=== PATIENT | female | born 1960 | race Caucasian/White ===

== ENCOUNTER 2017-02-23 14:12 | Inpatient (IN) | payer BC ==
[2017-02-23 16:39] VITALS: BMI 23.1
--- NOTE | 2017-02-23 19:33 | HP ---
CIWA Score - CIWA Score Nausea/Vomitin-No Nausea/No Vomiting Muscle Tremors: 4-Moderate,w/Arms Extend Anxiety: 4-Mod. Anxious/Guarded Agitation: 4-Moderately Restless Paroxysmal Sweats: 1-Minimal Palms Moist Orientation: 1-Uncertain about Date Tacttile Disturbances: 0-None Auditory Disturbances: 0-None Visual Disturbances: 0-None Headache: 0-None Present CIWA-Ar Total Score: 14 Admission ROS S - HPI Chief Complaint: withdrawal sx Allergies/Adverse Reactions: Allergies Allergy/AdvReac Type Severity Reaction Status Date / Time Sulfa (Sulfonamide Allergy Verified 02/23/17 19:31 Antibiotics) History of Present Illness: 56 years old female with long history of alcohol cocaine nicotine dependence has hiv seizure right leg chronic pain, and depression is admitted to detox Exam Limitations: No Limitations - Ebola screening Have you traveled outside of the country in the last 21 days: No Have you had contact with anyone from an Ebola affected area: No Have you been sick,other than usual withdrawal symptoms: No Do you have a fever: No - Review of Systems Constitutional: Loss of Appetite, Changes in sleep, Unintentional Wgt. Loss EENT: reports: Blurred Vision (eye glasses), Dental Problems (upper denture broken 10/2016) Respiratory: reports: SOB with Exertion, Productive cough (greenish) Cardiac: reports: No Symptoms Reported GI: reports: Poor Appetite, Poor Fluid Intake, Abdominal cramping : reports: No Symptoms Reported Musculoskeletal: reports: Back Pain, Muscle Pain (right leg pain) Integumentary: reports: No Symptoms Reported Neuro: reports: Seizure (xanax alcohol related seizures x 25 years last episode 2008), Tremors Endocrine: reports: No Symptoms Reported Hematology: reports: No Symptoms Reported Psychiatric: reports: Judgement Intact, Orientated x3, Anxious, Depressed Other Systems: Reviewed and Negative Patient History - Patient Medical History Hx Anemia: No Hx Asthma: No Hx Chronic Obstructive Pulmonary Disease (COPD): Yes Hx Cancer: Yes Hx Cardiac Disorders: No Hx Congestive Heart Failure: No Hx Hypertension: No Hx Hypercholesterolemia: No Hx Pacemaker: No HX Cerebrovascular Accident: No Hx Seizures: Yes Hx Dementia: No Hx Diabetes: No Hx Gastrointestinal Disorders: No Hx Liver Disease: No Hx Genitourinary Disorders: No Hx Sexually Transmitted Disorders: No Hx Renal Disease (ESRD): No Hx Thyroid Disease: No Hx Human Immunodeficiency Virus (HIV): Yes (1988) Hx Hepatitis C: No Hx Depression: Yes Hx Suicide Attempt: No Hx Bipolar Disorder: No Hx Schizophrenia: No - Patient Surgical History Past Surgical History: No - PPD History Previous Implant?: Yes Documented Results: Negative w/proof Implanted On Prior [facility] Admission?: No PPD to be Administered?: Yes - Reproductive History Patient is a Female of Child Bearing Age (11 -55 yrs old): No Last Menstrual Period: 02/23/11 Patient : No - Smoking Cessation Smoking history: Current every day smoker Have you smoked in the past 12 months: Yes Aproximately how many cigarettes per day: 20 Cigars Per Day: 0 Hx Chewing Tobacco Use: No Initiated information on smoking cessation: Yes 'Breaking Loose' booklet given: 02/23/17 - Substance & Tx. History Hx Alcohol Use: Yes Hx Substance Use: Yes Substance Use Type: Alcohol, Cocaine Hx Substance Use Treatment: Yes (05/2016 [facility]) - Substances Abused Alcohol Route: Oral Frequency: Daily Amount used: quart vodka Age of first use: 13 Date of Last Use: 02/23/17 Family Disease History - Family Disease History Family Disease History: Heart Disease: Brother (), Other: Father ( old age), Mother ( liver), Brother Admission Physical Exam S - Vital Signs Vital Signs: Vital Signs - 24 hr 02/23/17 16:36 Temperature 97 F L Pulse Rate 98 H Respiratory 20 Rate Blood Pressure 100/66 - Physical General Appearance: Yes: Appropriately Dressed, Mild Distress, Thin, Tremorous, Irritable, Sweating, Anxious HEENTM: Yes: Hearing grossly Normal, Normal ENT Inspection, Normocephalic, Normal Voice Respiratory: Yes: Chest Non-Tender, Lungs Clear, Normal Breath Sounds, No Respiratory Distress, No Accessory Muscle Use Neck: Yes: Supple, Trachea in good position Breast: Yes: Breasts Symetrical Cardiology: Yes: Regular Rhythm, S1, S2, Tachycardia Abdominal: Yes: Normal Bowel Sounds, Non Tender, Soft Genitourinary: Yes: Within Normal Limits Back: Yes: Normal Inspection Musculoskeletal: Yes: full range of Motion, Gait Steady, Muscle Pain (right leg) Extremities: Yes: Normal Inspection, Non-Tender, Tremors Neurological: Yes: Alert, Normal Response, Depressed Affect Integumentary: Yes: Warm Lymphatic: Yes: Within Normal Limits - Diagnostic (1) Alcohol dependence with uncomplicated withdrawal Current Visit: Yes Status: Acute (2) Depression Current Visit: Yes Status: Suspected Qualifiers: Depression Type: dysthymia Qualified Code(s): F34.1 - Dysthymic disorder; F34.1 - Dysthymic disorder; F34.1 - Dysthymic disorder (3) HIV (human immunodeficiency virus infection) Current Visit: Yes Status: Chronic (4) Seizure Current Visit: Yes Status: Chronic (5) Chronic leg pain Current Visit: Yes Status: Chronic Qualifiers: Laterality: right Qualified Code(s): M79.604 - Pain in right leg; M79.604 - Pain in right leg; G89.29 - Other chronic pain; G89.29 - Other chronic pain (6) Weight loss Current Visit: Yes Status: Acute (7) Asthma Current Visit: Yes Status: Chronic Qualifiers: Asthma severity: mild Asthma persistence: intermittent Asthma complication type: with status asthmaticus Qualified Code(s): J45.22 - Mild intermittent asthma with status asthmaticus; J45.22 - Mild intermittent asthma with status asthmaticus; J45.22 - Mild intermittent asthma with status asthmaticus (8) COPD (chronic obstructive pulmonary disease) Current Visit: Yes Status: Chronic Qualifiers: COPD type: chronic bronchitis (9) Neuropathy Current Visit: Yes Status: Chronic Cleared for Admission [facility] - Detox or Rehab S Level of Care: Medically Managed Detox Regimen/Protocol: Valium [facility] Breath Alcohol Content Breath Alcohol Content: 0.125 Urine Pregancy Test - Result Urine Test Results: Negative- NO Line Present Urine Drug Screen - Results Drug Screen Negative: No Urine Drug Screen Results: HANG-Cocaine, TCA-Tricyclic Antidepress
[2017-02-23] MEDS ORDERED: diphenhydrAMINE HCL 50 MG CAPSULE PO PRN (19:36)
[2017-02-23] MEDS ORDERED: IBUPROFEN 400 MG TABLET (FP) PO PRN (19:36)
[2017-02-23] MEDS ORDERED: MAG HYDROX/AL HYDROX/SIMETH 30 ML UNIT-DOSE CUP PO PRN (19:36)
[2017-02-23] MEDS ORDERED: diazePAM 5 MG TABLET PO ONE (19:36)
[2017-02-23] MEDS ORDERED: ACETAMINOPHEN 325 MG TABLET (FP) PO PRN (19:36)
[2017-02-23] MEDS ORDERED: LOPERAMIDE HCL 2 MG CAPSULE PO PRN (19:36)
[2017-02-23] MEDS ORDERED: NICOTINE POLACRILEX 4 MG GUM BC PRN (19:36)
[2017-02-23] MEDS ORDERED: MAGNESIUM CITRATE 300 ML BOTTLE PO PRN (19:36)
[2017-02-23] MEDS ORDERED: P-EPHED 60MG/TRIPROLIDI 2.5MG TABLET PO PRN (19:36)
[2017-02-23] MEDS ORDERED: MENTHOL/PHENOL 1 EACH UD MM PRN (19:36)
[2017-02-23] MEDS: GABAPENTIN 300 MG CAPSULE (FP) PO SCH (22:10)
[2017-02-23] MEDS: AMOXICILLIN 500 MG CAPSULE (FP) PO SCH (22:11)
[2017-02-23] MEDS: levETIRAcetam 500 MG TABLET (FP) PO SCH (22:11)
[2017-02-23] MEDS: THIAMINE HCL 100 MG TABLET (FP) PO SCH (22:11)
[2017-02-23] MEDS: MINERAL OIL/PETROLAT/WATER TOPICAL CREAM 113 GM JAR TP SCH (23:09)
[2017-02-23] MEDS: diazePAM 5 MG TABLET PO SCH (23:12)
[2017-02-24 01:23] LABS: URINE APPEARANCE SLCLOUDY; URINE BILIRUBIN NEGATIVE (NEGATIVE); URINE BLOOD NEGATIVE (NEGATIVE); URINE COLOR YELLOW; URINE GLUCOSE (UA) NEGATIVE (NEGATIVE); URINE KETONE NEGATIVE (NEGATIVE); URINE NITRITE POSITIVE (NEGATIVE); URINE PROTEIN NEGATIVE (NEGATIVE); URINE UROBILINOGEN NEGATIVE mg/dL (0.2-1.0)
[2017-02-24 01:54] LABS: URINE BACTERIA MANY /hpf (NONE SEEN); URINE MUCUS FEW; URINE WBC 25-30 /hpf (3-5)
[2017-02-24] MEDS: diazePAM 5 MG TABLET PO SCH ×3 (05:34→22:45)
[2017-02-24] MEDS: GABAPENTIN 300 MG CAPSULE (FP) PO SCH ×3 (05:34→22:46)
[2017-02-24] MEDS: AMOXICILLIN 500 MG CAPSULE (FP) PO SCH ×3 (05:34→22:46)
--- NOTE | 2017-02-24 08:25 | CONSULT ---
[facility] Psychiatric Consult - Data Date of interview: 02/24/17 Admission source: [facility] Identifying data: This is 56 years old female with no psychiatric hospitalization history intoxicated wioth: Alcohol, Cocaine and Nicotine Substance Abuse History: Drug Screen Negative: No. Urine Drug Screen Results: HANG-Cocaine, TCA-Tricyclic Antidepress - Smoking Cessation. Smoking history: Current every day smoker. Have you smoked in the past 12 months: Yes. Aproximately how many cigarettes per day: 20. Cigars Per Day: 0. Hx Chewing Tobacco Use: No. Initiated information on smoking cessation: Yes. 'Breaking Loose' booklet given: 02/23/17. - Substance & Tx. History. Hx Alcohol Use: Yes. Hx Substance Use: Yes. Substance Use Type: Alcohol, Cocaine. Hx Substance Use Treatment: Yes (05/2016 [facility]). - Substances Abused. Alcohol. Route: Oral. Frequency: Daily. Amount used: quart vodka. Age of first use: 13. Date of Last Use: 02/23/17 Medical History: Weight loss, Asthma, COPD, HIV+, Seizure history Psychiatric History: Patient reports history of depression, reports taking prior to admission: Seroquel 300mg po qhs. Celexa 40mg poqd. Gabapentin 600mg po tid Physical/Sexual Abuse/Trauma History: Denies Additional Comment: Drug Screen Negative: No. Urine Drug Screen Results: HANG- Cocaine, TCA-Tricyclic Antidepress Seroquel 300mg po qhs. Celexa 40mg poqd. Gabapentin 600mg po tid Mental Status Exam - Mental Status Exam Alert and Oriented to: Person Cognitive Function: Fair Patient Appearance: Well Groomed Mood: Nervous, Anxious Affect: Mood Congruent Patient Behavior: Cooperative Speech Pattern: Appropriate Voice Loudness: Normal Thought Process: Goal Oriented Thought Disorder: Being Controlled Hallucinations: Denies Suicidal Ideation: Denies Homicidal Ideation: Denies Insight/Judgement: Fair Sleep: Difficulty falling asleep Appetite: Weight loss Muscle strength/Tone: Normal Gait/Station: Normal Additional Comments: Seroquel 300mg po qhs. Celexa 40mg poqd. Gabapentin 600mg po tid Psychiatric Findings - Problem List ([place] 1, 2,3) (1) Alcohol dependence with uncomplicated withdrawal Current Visit: Yes Status: Acute (2) Cocaine abuse Current Visit: Yes Status: Acute (3) Nicotine dependence Current Visit: Yes Status: Acute (4) Drug-induced mood disorder Current Visit: Yes Status: Acute - Initial Treatment Plan Initial Treatment Plan: Drug Screen Negative: No. Urine Drug Screen Results: HANG-Cocaine, TCA-Tricyclic Antidepress
[2017-02-24 09:46] LABS: URINE LEUK ESTERASE 3+ (NEGATIVE)
[2017-02-24 10:09] LABS: MCH 34.9 pg (25.7-33.7); MCHC 33.5 g/dl (32.0-36.0); MEAN CELL VOLUME 104.2 fl (80-96); MEAN PLT VOLUME 7.2 fl (7.5-11.1); PLATELET COUNT 434 K/MM3 (134-434); RDW 13.8 % (11.6-15.6); WHITE BLOOD COUNT 9.7 K/mm3 (4.0-10.0)
[2017-02-24] MEDS: diazePAM 5 MG TABLET PO PRN ×2 (10:34→17:35)
[2017-02-24] MEDS: levETIRAcetam 500 MG TABLET (FP) PO SCH ×2 (10:34→22:46)
[2017-02-24] MEDS: CITALOPRAM HYDROBROMIDE 20 MG TABLET (FP) PO SCH (10:34)
[2017-02-24] MEDS: NICOTINE 21 MG/24 HOURS TOPICAL PATCH TD SCH (10:34)
[2017-02-24] MEDS: PRENATAL VITAMINS W/ FOLIC ACID TABLET (FP) PO SCH (10:34)
[2017-02-24] MEDS: EMTRICITAB/RILPIVIRINE/TENOFOV 1 EACH TABLET PO SCH (10:35)
--- NOTE | 2017-02-24 10:45 | EKG ---
Test Reason : Blood Pressure : / mmHG Vent. Rate : 092 BPM Atrial Rate : 092 BPM P-R Int : 148 ms QRS Dur : 074 ms QT Int : 374 ms P-R-T Axes : 044 023 036 degrees QTc Int : 462 ms NORMAL SINUS RHYTHM NORMAL ECG NO PREVIOUS ECGS AVAILABLE Confirmed by ANTHONY COYLE MD ([id number]) on 02/24/2017 10:44:48 AM Referred By: Confirmed By:ANTHONY COYLE MD
--- NOTE | 2017-02-24 11:03 | PN ---
S CIWA - CIWA Score Nausea/Vomitin-No Nausea/No Vomiting Muscle Tremors: 4-Moderate,w/Arms Extend Anxiety: 3 Agitation: 3 Paroxysmal Sweats: 3 Orientation: 0-Oriented Tacttile Disturbances: 0-None Auditory Disturbances: 0-None Visual Disturbances: 0-None Headache: 0-None Present CIWA-Ar Total Score: 13 [facility] Progress Note (SOAP) Subjective: bodyaches sweats shakes interrupted sleep Objective: 02/24/17 11:03 Vital Signs Temperature 96.5 F L 02/24/17 10:11 Pulse Rate 96 H 02/24/17 10:11 Respiratory Rate 18 02/24/17 10:11 Blood Pressure 115/76 02/24/17 10:11 O2 Sat by Pulse Oximetry (%) Laboratory Tests 02/23/17 02/24/17 02/24/17 22:44 07:00 07:00 WBC 9.7 RBC 3.73 Hgb 13.0 Hct 38.9 MCV 104.2 H MCH 34.9 H MCHC 33.5 RDW 13.8 Plt Count 434 MPV 7.2 L Sodium 141 Potassium 4.5 Chloride 107 Urine Color Yellow Urine Appearance Slcloudy Urine pH 6.0 Ur Specific [place] 1.010 Urine Protein Negative Urine Glucose (UA) Negative Urine Ketones Negative Urine Blood Negative Urine Nitrite Positive Urine Bilirubin Negative Urine Urobilinogen Negative Ur Leukocyte Esterase 3+ H Urine RBC 2-4 Urine WBC 25-30 Ur Epithelial Cells Few Urine Bacteria Many Urine Mucus Few labs pending aaox3 no acute distress ambulating repeat u/a Assessment: 02/24/17 11:04 withdrawal sx Plan: continue detox increase fluids labs pending
[2017-02-24 11:07] LABS: ALBUMIN 3.1 g/dl (3.4-5.0); ALK PHOS 78 U/L (45-117); ANION GAP 10 (8-16); BILIRUBIN,TOTAL 0.7 mg/dL (0.2-1.0); CALCIUM 8.8 mg/dL (8.5-10.1); CO2 24 mmol/L (21-32); CREATININE 0.9 mg/dL (0.55-1.02); GLUCOSE,RANDOM 122 mg/dL (74-106); SGOT/AST 24 U/L (15-37); SGPT/ALT 33 U/L (12-78); THYROID STIMULATING HORMONE 1.34 uIU/ml (0.358-3.74); TOT PROT 7.1 g/dl (6.4-8.2)
[2017-02-24] MEDS ORDERED: FLU VACCINE QUAD 60 MCG/0.5 ML (MDV 17-18) IM ONE (12:00)
[2017-02-24] MEDS: MAGNESIUM HYDROX 2400MG/30ML ORAL SUSPENSION 30 ML CUP PO PRN (12:43)
[2017-02-24] MEDS: THIAMINE HCL 100 MG TABLET (FP) PO SCH (22:45)
[2017-02-24] MEDS: QUEtiapine FUMARATE 300 MG TABLET PO SCH (22:46)
[2017-02-24] MEDS: MINERAL OIL/PETROLAT/WATER TOPICAL CREAM 113 GM JAR TP SCH (22:48)
[2017-02-24] MEDS: ALBUTEROL SO4 18 GM HFA INHALER IH PRN (22:52)
[2017-02-25] MEDS: AMOXICILLIN 500 MG CAPSULE (FP) PO SCH ×3 (05:36→22:15)
[2017-02-25] MEDS: GABAPENTIN 300 MG CAPSULE (FP) PO SCH ×3 (05:36→22:17)
[2017-02-25] MEDS: diazePAM 5 MG TABLET PO PRN ×3 (05:38→19:04)
[2017-02-25] MEDS: EMTRICITAB/RILPIVIRINE/TENOFOV 1 EACH TABLET PO SCH (07:18)
[2017-02-25] MEDS: PRENATAL VITAMINS W/ FOLIC ACID TABLET (FP) PO SCH (10:44)
[2017-02-25] MEDS: levETIRAcetam 500 MG TABLET (FP) PO SCH ×2 (10:44→22:16)
[2017-02-25] MEDS: NICOTINE 21 MG/24 HOURS TOPICAL PATCH TD SCH (10:44)
[2017-02-25] MEDS: diazePAM 5 MG TABLET PO SCH ×2 (10:44→22:17)
[2017-02-25] MEDS: CITALOPRAM HYDROBROMIDE 20 MG TABLET (FP) PO SCH (10:44)
--- NOTE | 2017-02-25 11:04 | PN ---
S CIWA - CIWA Score Nausea/Vomitin Muscle Tremors: 2 Anxiety: 2 Agitation: 2 Paroxysmal Sweats: 3 Orientation: 0-Oriented Tacttile Disturbances: 2-Mild Itch/Numbness/Burn Auditory Disturbances: 0-None Visual Disturbances: 0-None Headache: 0-None Present CIWA-Ar Total Score: 14 S Progress Note (SOAP) Subjective: sweats, shakes, nausea,cough Objective: 02/25/17 11:01 Vital Signs Temperature 97.3 F L 02/25/17 06:00 Pulse Rate 81 02/25/17 06:00 Respiratory Rate 18 02/25/17 06:00 Blood Pressure 102/72 02/25/17 06:00 O2 Sat by Pulse Oximetry (%) Laboratory Tests 02/23/17 02/24/17 02/24/17 22:44 07:00 07:00 WBC 9.7 RBC 3.73 Hgb 13.0 Hct 38.9 MCV 104.2 H MCH 34.9 H MCHC 33.5 RDW 13.8 Plt Count 434 MPV 7.2 L Sodium 141 Potassium 4.5 Chloride 107 Carbon Dioxide 24 Anion Gap 10 BUN 16 Creatinine 0.9 Creat Clearance w eGFR > 60 Random Glucose 122 H Calcium 8.8 Total Bilirubin 0.7 AST 24 ALT 33 Alkaline Phosphatase 78 Total Protein 7.1 Albumin 3.1 L TSH 1.34 Urine Color Yellow Urine Appearance Slcloudy Urine pH 6.0 Ur Specific [place] 1.010 Urine Protein Negative Urine Glucose (UA) Negative Urine Ketones Negative Urine Blood Negative Urine Nitrite Positive Urine Bilirubin Negative Urine Urobilinogen Negative Ur Leukocyte Esterase 3+ H Urine RBC 2-4 Urine WBC 25-30 Ur Epithelial Cells Few Urine Bacteria Many Urine Mucus Few RPR Titer 02/24/17 07:00 WBC RBC Hgb Hct MCV MCH MCHC RDW Plt Count MPV Sodium Potassium Chloride Carbon Dioxide Anion Gap BUN Creatinine Creat Clearance w eGFR Random Glucose Calcium Total Bilirubin AST ALT Alkaline Phosphatase Total Protein Albumin TSH Urine Color Urine Appearance Urine pH Ur Specific [place] Urine Protein Urine Glucose (UA) Urine Ketones Urine Blood Urine Nitrite Urine Bilirubin Urine Urobilinogen Ur Leukocyte Esterase Urine RBC Urine WBC Ur Epithelial Cells Urine Bacteria Urine Mucus RPR Titer Nonreactive pt aox3 in nad ambulating occas cough - tx'ed with z-case by pmd no sob lungs clear Assessment: 02/25/17 11:03 withdrawal sx's uri Plan: cont. detox increase fluids robitussin prn
[2017-02-25] MEDS: MAGNESIUM HYDROX 2400MG/30ML ORAL SUSPENSION 30 ML CUP PO PRN (19:06)
[2017-02-25] MEDS: guaiFENesin/D-METHORPHAN HB 10 ML UNIT-DOSE CUPS PO PRN (19:07)
[2017-02-25] MEDS: MINERAL OIL/PETROLAT/WATER TOPICAL CREAM 113 GM JAR TP SCH (22:16)
[2017-02-25] MEDS: THIAMINE HCL 100 MG TABLET (FP) PO SCH (22:17)
[2017-02-25] MEDS: QUEtiapine FUMARATE 300 MG TABLET PO SCH (22:17)
[2017-02-25] MEDS: ALBUTEROL SO4 18 GM HFA INHALER IH PRN (22:20)
[2017-02-26] MEDS: AMOXICILLIN 500 MG CAPSULE (FP) PO SCH ×3 (05:34→22:28)
[2017-02-26] MEDS: GABAPENTIN 300 MG CAPSULE (FP) PO SCH ×3 (05:34→22:28)
[2017-02-26] MEDS: diazePAM 5 MG TABLET PO PRN ×4 (05:35→17:41)
[2017-02-26] MEDS: EMTRICITAB/RILPIVIRINE/TENOFOV 1 EACH TABLET PO SCH (07:52)
[2017-02-26] MEDS: guaiFENesin/D-METHORPHAN HB 10 ML UNIT-DOSE CUPS PO PRN ×2 (07:53→13:37)
[2017-02-26] MEDS ORDERED: hydrOXYzine PAMOATE 25 MG CAPSULE (FP) PO PRN (09:01)
[2017-02-26] MEDS: BACLOFEN 10 MG TABLET (FP) PO PRN ×2 (10:46→22:24)
[2017-02-26] MEDS: NICOTINE 21 MG/24 HOURS TOPICAL PATCH TD SCH (10:47)
[2017-02-26] MEDS: diazePAM 5 MG TABLET PO SCH ×2 (10:47→22:24)
[2017-02-26] MEDS: CITALOPRAM HYDROBROMIDE 20 MG TABLET (FP) PO SCH (10:47)
[2017-02-26] MEDS: PRENATAL VITAMINS W/ FOLIC ACID TABLET (FP) PO SCH (10:47)
[2017-02-26] MEDS: levETIRAcetam 500 MG TABLET (FP) PO SCH ×2 (10:47→22:29)
--- NOTE | 2017-02-26 13:38 | PN ---
S Progress Note (SOAP) Subjective: ALERT,IRRITABLE,ANXIOUS,INTERRUPTED SLEEP Objective: 02/26/17 13:37 Vital Signs Temperature 96.8 F L 02/26/17 10:45 Pulse Rate 93 H 02/26/17 10:45 Respiratory Rate 18 02/26/17 10:45 Blood Pressure 102/62 02/26/17 10:45 O2 Sat by Pulse Oximetry (%) Assessment: 02/26/17 13:37 WITHDRAWAL SYMPTOM Plan: CONTINUE DETOX,DISCHARGE IN AM
[2017-02-26] MEDS: THIAMINE HCL 100 MG TABLET (FP) PO SCH (22:24)
[2017-02-26] MEDS: QUEtiapine FUMARATE 300 MG TABLET PO SCH (22:27)
[2017-02-26] MEDS: MINERAL OIL/PETROLAT/WATER TOPICAL CREAM 113 GM JAR TP SCH (22:28)
[2017-02-27] MEDS: AMOXICILLIN 500 MG CAPSULE (FP) PO SCH (05:50)
[2017-02-27] MEDS: GABAPENTIN 300 MG CAPSULE (FP) PO SCH (05:50)
[2017-02-27 06:59] VITALS: BP 97/72; PULSE 90; TEMP 96.9
[2017-02-27] MEDS: EMTRICITAB/RILPIVIRINE/TENOFOV 1 EACH TABLET PO SCH (07:59)
--- NOTE | 2017-02-27 09:14 | DS ---
[facility] Detox Discharge Summary Admission Date: 02/23/17 Discharge Date: 02/27/17 - History Pertinent Past History: HIV SEIZURE CHRONIC LEG PAIN ASTHMA WEIGHT LOSS DEPRESSION - Physical Exam Results Vital Signs: Vital Signs Temperature 96.9 F L 02/27/17 06:58 Pulse Rate 90 02/27/17 06:58 Respiratory Rate 20 02/27/17 06:58 Blood Pressure 97/72 02/27/17 06:58 O2 Sat by Pulse Oximetry (%) Pertinent Admission Physical Exam Findings: WITHDRAWAL SYMPTOM - Treatment Hospital Course: Detox Protocol Followed, Detoxed Safely, Responded well, Discharged Condition Good Patient has Accepted a Rehab Referral to: DECLINED - Medication Discharge Medications: Ambulatory Orders Citalopram Hydrobromide [Celexa -] 40 mg PO DAILY 02/23/17 Emtricitab/Rilpivirine/Tenofov [Complera Tablet -] 1 tab PO DAILY 02/23/17 Gabapentin [Neurontin -] 600 mg PO Q8H 02/23/17 Levetiracetam [Keppra -] 500 mg PO BID 02/23/17 Citalopram Hydrobromide [Celexa -] 40 mg PO DAILY #30 tablet 02/24/17 Quetiapine Fumarate [Seroquel -] 300 mg PO HS #30 tab 02/24/17 - Diagnosis (1) Weight loss Current Visit: Yes Status: Acute (2) Alcohol dependence with uncomplicated withdrawal Current Visit: Yes Status: Chronic (3) Asthma Current Visit: Yes Status: Chronic Qualifiers: Asthma severity: mild Asthma persistence: intermittent Asthma complication type: with status asthmaticus Qualified Code(s): J45.22 - Mild intermittent asthma with status asthmaticus; J45.22 - Mild intermittent asthma with status asthmaticus; J45.22 - Mild intermittent asthma with status asthmaticus (4) Chronic leg pain Current Visit: Yes Status: Chronic Qualifiers: Laterality: right Qualified Code(s): M79.604 - Pain in right leg; M79.604 - Pain in right leg; G89.29 - Other chronic pain; G89.29 - Other chronic pain (5) HIV (human immunodeficiency virus infection) Current Visit: Yes Status: Chronic (6) Neuropathy Current Visit: Yes Status: Chronic (7) Nicotine dependence Current Visit: Yes Status: Chronic Qualifiers: Nicotine product type: cigarettes Substance use status: uncomplicated Qualified Code(s): F17.210 - Nicotine dependence, cigarettes, uncomplicated; F17.210 - Nicotine dependence, cigarettes, uncomplicated (8) Seizure Current Visit: Yes Status: Chronic (9) Depression Current Visit: Yes Status: Suspected Qualifiers: Depression Type: dysthymia Qualified Code(s): F34.1 - Dysthymic disorder; F34.1 - Dysthymic disorder; F34.1 - Dysthymic disorder (10) Bronchitis Current Visit: Yes Status: Acute (11) Drug-induced mood disorder Current Visit: Yes Status: Acute
[2017-02-27] MEDS: PRENATAL VITAMINS W/ FOLIC ACID TABLET (FP) PO SCH (09:24)
[2017-02-27] MEDS: CITALOPRAM HYDROBROMIDE 20 MG TABLET (FP) PO SCH (09:24)
[2017-02-27] MEDS: NICOTINE 21 MG/24 HOURS TOPICAL PATCH TD SCH (09:24)
[2017-02-27] MEDS: levETIRAcetam 500 MG TABLET (FP) PO SCH (09:25)
[2017-02-27] MEDS ORDERED: diazePAM 5 MG TABLET PO SCH (10:00)
== END 2017-02-27 09:40 | disposition home or self-care (01) | DRG 775 ==
LOC: YASAS 14:12 → Y6N 21:38
PROVIDERS: ADMIT Internal Medicine; ATTEND Internal Medicine
PROC: HZ2ZZZZ Detoxification Services for Substance Abuse Treatment (ICD-10-PCS; principal; 2017-02-23)
DX: F10.230 Alcohol dependence with withdrawal, uncomplicated (principal); F17.210 Nicotine dependence, cigarettes, uncomplicated; F19.24 Other psychoactive substance dependence with psychoactive substance-induced mood disorder; F34.1 Dysthymic disorder; R00.0 Tachycardia, unspecified; J45.22 Mild intermittent asthma with status asthmaticus; J44.9 Chronic obstructive pulmonary disease, unspecified; Z21 Asymptomatic human immunodeficiency virus [HIV] infection status; M79.604 Pain in right leg; G89.29 Other chronic pain; G62.9 Polyneuropathy, unspecified; G40.909 Epilepsy, unspecified, not intractable, without status epilepticus; J06.9 Acute upper respiratory infection, unspecified; Z88.2 Allergy status to sulfonamides; Z87.898 Personal history of other specified conditions
CPT/HCPCS: 36415; 80053; 81003; 81015; 84443; 85027; 86593; 90688; 93005; 93010; G0008; J0475

== ENCOUNTER 2017-08-22 10:56 | Inpatient (IN) | payer BC ==
[2017-08-22 12:02] VITALS: BMI 23.0
--- NOTE | 2017-08-22 14:27 | HP ---
CIWA Score - CIWA Score Nausea/Vomitin Muscle Tremors: 3 Anxiety: 3 Agitation: 3 Paroxysmal Sweats: 2 Orientation: 0-Oriented Tacttile Disturbances: 1-Very Mild Itch/Numbness Auditory Disturbances: 1-Very Mild Visual Disturbances: 0-None Headache: 2-Mild CIWA-Ar Total Score: 18 Admission ROS S - HPI Chief Complaint: i need help to stop drinking alcohol,cocaine,also heroin abused ,seeking detox, withdrawal symptom,last detox [facility] 02/23/17 to02/27/17 seizure last 05/19 syncope alcohol related weight loss hiv since 1988 hepatitis c asthma bipolar disorder longest of sobriety 14 months, Allergies/Adverse Reactions: Allergies Allergy/AdvReac Type Severity Reaction Status Date / Time Sulfa (Sulfonamide Allergy Verified 08/22/17 14:15 Antibiotics) History of Present Illness: this 57 years old female with alcohol and cocaine dependence,seeking detox as mentioned Exam Limitations: No Limitations - Ebola screening Have you traveled outside of the country in the last 21 days: No Have you had contact with anyone from an Ebola affected area: No Have you been sick,other than usual withdrawal symptoms: No Do you have a fever: No - Review of Systems Constitutional: Chills, Loss of Appetite, Malaise, Night Sweats, Changes in sleep, Weakness, Unintentional Wgt. Loss EENT: reports: Nose Congestion Respiratory: reports: Other (asthma) Cardiac: reports: No Symptoms Reported GI: reports: Diarrhea, Nausea, Vomiting, Abdominal cramping : reports: No Symptoms Reported Musculoskeletal: reports: Back Pain, Muscle Pain Integumentary: reports: Dryness Neuro: reports: Headache, Tremors Endocrine: reports: No Symptoms Reported Hematology: reports: No Symptoms Reported Psychiatric: reports: No Sypmtoms Reported, Judgement Intact, Mood/Affect Appropiate, Orientated x3, Anxious, Depressed Patient History - Patient Medical History Hx Anemia: No Hx Asthma: No Hx Chronic Obstructive Pulmonary Disease (COPD): No Hx Cancer: Yes Hx Cardiac Disorders: No Hx Congestive Heart Failure: No Hx Hypertension: No Hx Hypercholesterolemia: No Hx Pacemaker: No HX Cerebrovascular Accident: No Hx Seizures: Yes (last 05/19) Hx Dementia: No Hx Diabetes: No Hx Gastrointestinal Disorders: No Hx Liver Disease: No Hx Genitourinary Disorders: No Hx Sexually Transmitted Disorders: Yes Hx Renal Disease (ESRD): No Hx Thyroid Disease: No Hx Human Immunodeficiency Virus (HIV): Yes (1988) Hx Hepatitis C: No Hx Depression: Yes Hx Suicide Attempt: No Hx Bipolar Disorder: No Hx Schizophrenia: No Other Medical History: bipolar disorder,no suicidal,no homicidal - Patient Surgical History Past Surgical History: No Hx Neurologic Surgery: Yes Hx Cataract Extraction: No Hx Cardiac Surgery: No Hx Lung Surgery: No Hx Breast Surgery: No Hx Breast Biopsy: No Hx Abdominal Surgery: No Hx Appendectomy: No Hx Cholecystectomy: No Hx Genitourinary Surgery: No Hx Section: No Hx Orthopedic Surgery: No - PPD History Documented Results: Negative w/proof Implanted On Prior [facility] Admission?: Yes Date: 02/25/17 Results: 0 mm PPD to be Administered?: Yes - Reproductive History Patient is a Female of Child Bearing Age (11 -55 yrs old): No Last Menstrual Period: 02/23/11 Patient : No - Smoking Cessation Smoking history: Current every day smoker Have you smoked in the past 12 months: Yes Aproximately how many cigarettes per day: 20 Cigars Per Day: 0 Hx Chewing Tobacco Use: No Initiated information on smoking cessation: Yes 'Breaking Loose' booklet given: 08/22/17 - Substance & Tx. History Hx Alcohol Use: Yes Hx Substance Use: Yes Substance Use Type: Alcohol, Cocaine Hx Substance Use Treatment: Yes ([facility] 02/23/17 to 02/27/17) - Substances Abused Alcohol Route: Oral Frequency: Daily Amount used: 3 [place]KA Age of first use: 13 Date of Last Use: 08/21/17 Cocaine Route: Smoking Frequency: Daily Amount used: $50 Age of first use: 56 Date of Last Use: 08/21/17 Heroin Route: Injection Frequency: Daily Amount used: 3 BAGS Age of first use: 20 Date of Last Use: 08/18/17 Family Disease History - Family Disease History Family Disease History: Heart Disease: Brother (), Other: Father ( old age), Mother ( liver), Brother Admission Physical Exam [facility] - Vital Signs Vital Signs: Vital Signs - 24 hr 08/22/17 12:00 Temperature 95.3 F L Pulse Rate 91 H Respiratory 18 Rate Blood Pressure 117/81 - Physical General Appearance: Yes: Moderate Distress, Tremorous, Irritable, Anxious HEENTM: Yes: Normal ENT Inspection, EMILY, Pharynx Normal Respiratory: Yes: Lungs Clear, Normal Breath Sounds, No Respiratory Distress Neck: Yes: Within Normal Limits, Supple, Trachea in good position Breast: Yes: Breast Exam Deferred Cardiology: Yes: Within Normal Limits, Regular Rhythm, Regular Rate, S1, S2 Abdominal: Yes: Within Normal Limits, Normal Bowel Sounds, Non Tender, Flat, Soft Genitourinary: Yes: Within Normal Limits Back: Yes: Muscle Spasm Extremities: Yes: Tremors Neurological: Yes: market risk manager II-XII NML intact, Fully Oriented, Alert, Motor Strength 5/5 Integumentary: Yes: Dry Lymphatic: Yes: Within Normal Limits - Diagnostic (1) Alcohol dependence with uncomplicated withdrawal Current Visit: No Status: Chronic (2) Asthma Current Visit: No Status: Chronic Qualifiers: Asthma severity: mild Asthma persistence: intermittent Asthma complication type: with status asthmaticus Qualified Code(s): J45.22 - Mild intermittent asthma with status asthmaticus (3) HIV (human immunodeficiency virus infection) Current Visit: No Status: Chronic (4) Neuropathy Current Visit: No Status: Chronic (5) Nicotine dependence Current Visit: No Status: Chronic Qualifiers: Nicotine product type: cigarettes Substance use status: uncomplicated Qualified Code(s): F17.210 - Nicotine dependence, cigarettes, uncomplicated (6) Seizure Current Visit: No Status: Chronic (7) Hepatitis C Current Visit: Yes Status: Acute (8) Fibromyalgia Current Visit: Yes Status: Acute Cleared for Admission [facility] - Detox or Rehab [facility] Level of Care: Medically Managed Detox Regimen/Protocol: Librium (urine for drug screem showed positive for cocaine,tca,negarie for opi) [facility] Breath Alcohol Content Breath Alcohol Content: 0 Urine Drug Screen - Results Drug Screen Negative: No Urine Drug Screen Results: HANG-Cocaine, TCA-Tricyclic Antidepress
[2017-08-22] MEDS ORDERED: P-EPHED 60MG/TRIPROLIDI 2.5MG TABLET PO PRN (14:52)
[2017-08-22] MEDS ORDERED: MAG HYDROX/AL HYDROX/SIMETH 30 ML UNIT-DOSE CUP PO PRN (14:52)
[2017-08-22] MEDS ORDERED: ACETAMINOPHEN 325 MG TABLET (FP) PO PRN (14:52)
[2017-08-22] MEDS ORDERED: LOPERAMIDE HCL 2 MG CAPSULE PO PRN (14:52)
[2017-08-22] MEDS ORDERED: IBUPROFEN 400 MG TABLET (FP) PO PRN (14:52)
[2017-08-22] MEDS ORDERED: MAGNESIUM HYDROX 2400MG/30ML ORAL SUSPENSION 30 ML CUP PO PRN (14:52)
[2017-08-22] MEDS ORDERED: MAGNESIUM CITRATE 300 ML BOTTLE PO PRN (14:52)
[2017-08-22] MEDS ORDERED: hydrOXYzine PAMOATE 50 MG CAPSULE (FP) PO PRN (14:52)
[2017-08-22] MEDS ORDERED: MENTHOL/PHENOL 1 EACH UD MM PRN (14:52)
[2017-08-22] MEDS ORDERED: chlordiazePOXIDE HCL 25 MG CAPSULE PO ONE (15:15)
--- NOTE | 2017-08-22 15:20 | CONSULT ---
[facility] Psychiatric Consult - Data Date of interview: 08/22/17 Admission source: [facility] Identifying data: This is 57 years old female with alcohol and cocaine dependence,seeking detox, reports withdrawal symptoms, single, mother of one, living with roommate, on PA, with psychiatric hospitalization history, Substance Abuse History: - Smoking Cessation. Smoking history: Current every day smoker. Have you smoked in the past 12 months: Yes. Aproximately how many cigarettes per day: 20. Cigars Per Day: 0. Hx Chewing Tobacco Use: No. Initiated information on smoking cessation: Yes. 'Breaking Loose' booklet given : 08/22/17. - Substance & Tx. History. Hx Alcohol Use: Yes. Hx Substance Use : Yes. Substance Use Type: Alcohol, Cocaine. Hx Substance Use Treatment: Yes ( [facility] 02/23/17 to 02/27/17) Medical History: Asthma, HTN, Seizure history, HepC+, Fibromyalgia, Psychiatric History: Paytient reports history of Bipolar disorder, reports taking prior to admission: Seroquel 600mg po qhs. Celexa 40mg poqd.Reports moast recent psychiatrric admission at [facility] for safewty. Patient reports taking Suboxone 600mg po qhs during previpus admissions and did not felt sedated, insist on 600mg po qhs Physical/Sexual Abuse/Trauma History: Demies, unclear Additional Comment: Seroquel 600mg po qhs. Celexa 40mg poqd Mental Status Exam - Mental Status Exam Alert and Oriented to: Person Cognitive Function: Fair Patient Appearance: Unkempt Mood: Anxious Affect: Labile Patient Behavior: Impulsive, Talkative Speech Pattern: Excessive Voice Loudness: Mildly Loud Thought Process: Circumstantial Thought Disorder: Being Controlled Hallucinations: Denies Suicidal Ideation: Denies Homicidal Ideation: Denies Insight/Judgement: Fair Sleep: Difficulty falling asleep Appetite: Weight loss Muscle strength/Tone: Mild Hypotonicity Gait/Station: Normal Additional Comments: Seroquel 600mg po qhs. Celexa 40mg poqd Psychiatric Findings - Problem List ([place] 1, 2,3) (1) Cocaine-induced sleep disorder, insomnia type, with onset during discontinuation/withdrawal Current Visit: Yes Status: Acute (2) Drug-induced mood disorder Current Visit: No Status: Acute (3) Alcohol dependence with uncomplicated withdrawal Current Visit: No Status: Chronic (4) COPD (chronic obstructive pulmonary disease) Current Visit: No Status: Chronic Qualifiers: COPD type: chronic bronchitis (5) Nicotine dependence Current Visit: No Status: Chronic Qualifiers: Nicotine product type: cigarettes Substance use status: uncomplicated Qualified Code(s): F17.210 - Nicotine dependence, cigarettes, uncomplicated - Initial Treatment Plan Initial Treatment Plan: Seroquel 600mg po qhs. Celexa 40mg poqd
[2017-08-22] MEDS: GABAPENTIN 300 MG CAPSULE (FP) PO SCH ×2 (15:45→22:06)
[2017-08-22] MEDS: NICOTINE 21 MG/24 HOURS TOPICAL PATCH TD SCH (15:47)
[2017-08-22] MEDS ORDERED: AZITHROMYCIN 250 MG TABLET PO ONE (16:30)
[2017-08-22] MEDS: chlordiazePOXIDE HCL 25 MG CAPSULE PO SCH ×2 (17:32→22:06)
[2017-08-22 17:56] LABS: URINE APPEARANCE CLOUDY; URINE BILIRUBIN NEGATIVE (<2.0 mg/dL); URINE BLOOD 1+ (NEGATIVE); URINE COLOR DKYELLOW; URINE GLUCOSE (UA) NEGATIVE (NEGATIVE); URINE KETONE NEGATIVE (NEGATIVE); URINE NITRITE POSITIVE (NEGATIVE); URINE UROBILINOGEN NEGATIVE mg/dL (0.2-1.0)
[2017-08-22 18:23] LABS: URINE LEUK ESTERASE 3+ (NEGATIVE); URINE PROTEIN 1+ (NEGATIVE)
[2017-08-22 21:32] LABS: EPI CELLS MODERATE /HPF (FEW); URINE BACTERIA FEW /hpf (NONE SEEN); URINE MUCUS RARE
[2017-08-22] MEDS ORDERED: MELATONIN 5 MG TABLETS PO PRN (22:00)
[2017-08-22] MEDS: levETIRAcetam 500 MG TABLET (FP) PO SCH (22:06)
[2017-08-22] MEDS: QUEtiapine FUMARATE 300 MG TABLET PO SCH (22:07)
[2017-08-22] MEDS: THIAMINE HCL 100 MG TABLET (FP) PO SCH (22:07)
[2017-08-23] MEDS: chlordiazePOXIDE HCL 25 MG CAPSULE PO PRN (00:58)
[2017-08-23] MEDS: GABAPENTIN 300 MG CAPSULE (FP) PO SCH ×3 (07:00→22:10)
[2017-08-23] MEDS: chlordiazePOXIDE HCL 25 MG CAPSULE PO SCH ×4 (07:18→22:10)
[2017-08-23] MEDS: EMTRICITAB/RILPIVIRINE/TENOFOV 1 EACH TABLET PO SCH (07:21)
[2017-08-23] MEDS: guaiFENesin/D-METHORPHAN HB 10 ML UNIT-DOSE CUPS PO PRN ×2 (07:24→22:15)
[2017-08-23] MEDS: ALBUTEROL SO4 0.083% IH SOL 2.5 MG/3 ML VIAL.NEB. NEB PRN (09:36)
[2017-08-23 10:10] LABS: HEMATOCRIT 41.4 % (32.4-45.2); HEMOGLOBIN 14.1 GM/dL (10.7-15.3); MCH 35.4 pg (25.7-33.7); PLATELET COUNT 307 K/MM3 (134-434); RBC 3.98 M/mm3 (3.60-5.2); RDW 13.1 % (11.6-15.6); WHITE BLOOD COUNT 7.8 K/mm3 (4.0-10.0)
[2017-08-23] MEDS: PRENATAL VITAMINS W/ FOLIC ACID TABLET (FP) PO SCH (10:31)
[2017-08-23] MEDS: AZITHROMYCIN 250 MG TABLET PO SCH (10:32)
[2017-08-23] MEDS: levETIRAcetam 500 MG TABLET (FP) PO SCH ×2 (10:32→22:10)
[2017-08-23] MEDS: NICOTINE 21 MG/24 HOURS TOPICAL PATCH TD SCH (10:32)
[2017-08-23] MEDS: CITALOPRAM HYDROBROMIDE 20 MG TABLET (FP) PO SCH (10:32)
[2017-08-23] MEDS: ALBUTEROL SO4 18 GM HFA INHALER IH PRN ×2 (10:39→22:15)
[2017-08-23 11:13] LABS: CHLORIDE 109 mmol/L (98-107); POTASSIUM 4.3 mmol/L (3.5-5.1); SODIUM 146 mmol/L (136-145)
[2017-08-23 11:24] LABS: ALBUMIN 3.9 g/dl (3.4-5.0); ALK PHOS 93 U/L (45-117); ANION GAP 10 (8-16); BILIRUBIN,TOTAL 0.4 mg/dL (0.2-1.0); BLOOD UREA NITROGEN 13 mg/dL (7-18); CALCIUM 9.2 mg/dL (8.5-10.1); CO2 27 mmol/L (21-32); GLUCOSE,RANDOM 71 mg/dL (74-106); SGOT/AST 31 U/L (15-37); SGPT/ALT 39 U/L (12-78); TOT PROT 7.8 g/dl (6.4-8.2)
--- NOTE | 2017-08-23 11:27 | PN ---
S CIWA - CIWA Score Nausea/Vomitin-Mild Nausea/No Vomiting Muscle Tremors: 4-Moderate,w/Arms Extend Anxiety: 3 Agitation: 4-Moderately Restless Paroxysmal Sweats: 1-Minimal Palms Moist Orientation: 0-Oriented Tacttile Disturbances: 1-Very Mild Itch/Numbness Auditory Disturbances: 0-None Visual Disturbances: 0-None Headache: 1-Very Mild CIWA-Ar Total Score: 15 BHS Progress Note (SOAP) Subjective: sweat tremor gi distress anxiety restlessness trouble sleep at night Objective: 08/23/17 11:35 Vital Signs Temperature 97.2 F L 08/23/17 10:00 Pulse Rate 105 H 08/23/17 10:00 Respiratory Rate 18 08/23/17 10:00 Blood Pressure 101/64 08/23/17 10:00 O2 Sat by Pulse Oximetry (%) Laboratory Last Values WBC 7.8 K/mm3 (4.0-10.0) 08/23/17 06:00 RBC 3.98 M/mm3 (3.60-5.2) 08/23/17 06:00 Hgb 14.1 GM/dL (10.7-15.3) 08/23/17 06:00 Hct 41.4 % (32.4-45.2) 08/23/17 06:00 MCV 104.0 fl (80-96) H 08/23/17 06:00 MCH 35.4 pg (25.7-33.7) H 08/23/17 06:00 MCHC 34.0 g/dl (32.0-36.0) 08/23/17 06:00 RDW 13.1 % (11.6-15.6) 08/23/17 06:00 Plt Count 307 K/MM3 (134-434) D 08/23/17 06:00 MPV 8.0 fl (7.5-11.1) D 08/23/17 06:00 Urine Color Dkyellow 08/22/17 17:44 Urine Appearance Cloudy 08/22/17 17:44 Urine pH 6.0 (5.0-8.0) 08/22/17 17:44 Ur Specific [place] 1.012 (1.001-1.035) 08/22/17 17:44 Urine Protein 1+ (NEGATIVE) H 08/22/17 17:44 Urine Glucose (UA) Negative (NEGATIVE) 08/22/17 17:44 Urine Ketones Negative (NEGATIVE) 08/22/17 17:44 Urine Blood 1+ (NEGATIVE) H 08/22/17 17:44 Urine Nitrite Positive (NEGATIVE) 08/22/17 17:44 Urine Bilirubin Negative (<2.0 mg/dL) 08/22/17 17:44 Urine Urobilinogen Negative mg/dL (0.2-1.0) 08/22/17 17:44 Ur Leukocyte Esterase 3+ (NEGATIVE) H 08/22/17 17:44 Urine WBC (Auto) 46 /hpf (3-5) 08/22/17 17:44 Urine RBC (Auto) 3 /hpf (0-3) 08/22/17 17:44 Ur Epithelial Cells Moderate /HPF (FEW) 08/22/17 17:44 Urine Bacteria Few /hpf (NONE SEEN) 08/22/17 17:44 Urine Mucus Rare 08/22/17 17:44 lab noted Assessment: 08/23/17 11:36 withdrawal sx Plan: continue detox
--- NOTE | 2017-08-23 13:35 | EKG ---
Test Reason : Blood Pressure : / mmHG Vent. Rate : 082 BPM Atrial Rate : 082 BPM P-R Int : 146 ms QRS Dur : 070 ms QT Int : 390 ms P-R-T Axes : 052 041 032 degrees QTc Int : 455 ms NORMAL SINUS RHYTHM NORMAL ECG WHEN COMPARED WITH ECG OF 23-FEB-2017 21:18, NONSPECIFIC T WAVE ABNORMALITY NOW EVIDENT IN LATERAL LEADS Confirmed by MD JACK, DEVANTE ([id number]) on 08/23/2017 1:35:16 PM Referred By: Confirmed By:DEVANTE SANTIAGO MD
--- NOTE | 2017-08-23 15:29 | PN ---
Psychiatric Progress Note Vital Signs: Vital Signs Period Temp Pulse Resp BP Sys/Kern Pulse Ox Last 24 Hr 97.2 F-99.5 F 84-108 17-20 92-134/62-93 Date of Session: 08/23/17 Chief Complaint:: BHS HPI: Pt. admitted to for alcohol and cocaine dependence. ROS: Cancer, seizures (recent epsiode of 05/19) and HIV Current Medications: Active Medications Generic Name Dose Route Start Last Admin Trade Name Freq PRN Reason Stop Dose Admin Acetaminophen 650 mg 08/22/17 14:52 Tylenol - PO Q4H PRN FEVER Al Hydroxide/Mg Hydroxide 30 ml 08/22/17 14:52 Mylanta Oral Suspension - PO Q6H PRN DYSPEPSIA Albuterol Sulfate 2 puff 08/23/17 08:59 08/23/17 10:39 Ventolin Hfa Inhaler - IH 2 puff Q4H PRN Administration ASTHMA Albuterol Sulfate 1 amp 08/23/17 09:01 08/23/17 09:36 Ventolin 0.083% Nebulizer Soln - NEB 1 amp Q6H PRN Administration SHORT OF BREATH/WHEEZING Azithromycin 250 mg 08/23/17 10:00 08/23/17 10:32 Zithromax - PO 08/26/17 10:01 250 mg DAILY DAVID Administration Chlordiazepoxide HCl 25 mg 08/23/17 17:00 Librium - PO 08/24/17 11:01 [id number] DAVID Chlordiazepoxide HCl 15 mg 08/24/17 17:00 Librium - PO 08/25/17 11:01 [id number] DAVID Chlordiazepoxide HCl 25 mg 08/22/17 14:52 08/23/17 00:58 Librium - PO 08/25/17 14:51 25 mg Q4H PRN Administration WITHDRAWAL(CONT SUBST) Chlordiazepoxide HCl 10 mg 08/25/17 17:00 Librium - PO 08/26/17 11:01 [id number] DAVID Citalopram Hydrobromide 40 mg 08/23/17 10:00 08/23/17 10:32 Celexa - PO 40 mg DAILY DAVID Administration Emtricitabine/Rilpivirine/Tenofovir 1 each 08/23/17 08:00 08/23/17 07:21 Complera - PO 1 each DAILY@0800 DAVID Administration Eucalyptus/Menthol/Phenol/Sorbitol 1 each 08/22/17 14:52 Cepastat Lozenge - MM Q4H PRN SORE THROAT Gabapentin 600 mg 08/22/17 15:15 08/23/17 15:08 Neurontin - PO 600 mg TID DAVID Administration Guaifenesin 10 ml 08/22/17 14:52 08/23/17 07:24 Robitussin Dm - PO 10 ml Q6H PRN Administration COUGH Ibuprofen 400 mg 08/22/17 14:52 Motrin - PO Q6H PRN PAIN LEVEL 4-6 Levetiracetam 500 mg 08/22/17 22:00 08/23/17 10:32 Keppra - PO 500 mg BID DAVID Administration Loperamide HCl 4 mg 08/22/17 14:52 Imodium - PO Q6H PRN DIARRHEA Magnesium Citrate 300 ml 08/22/17 14:52 Citroma - PO Q48H PRN CONSTIPATION Magnesium Hydroxide 30 ml 08/22/17 14:52 Milk Of Magnesia - PO DAILY PRN CONSTIPATION Melatonin 5 mg 08/22/17 22:00 Melatonin PO HS PRN INSOMNIA Nicotine 21 mg 08/22/17 15:15 08/23/17 10:32 Nicoderm Patch - TD 21 mg DAILY DAVID Administration Multivit/Folic Acid/Iron 1 tab 08/23/17 10:00 08/23/17 10:31 Vitamins (Sjr) - PO 1 tab DAILY DAVID Administration Pseudoephedrine/Triprolidine 1 combo 08/22/17 14:52 Actifed - PO TID PRN NASAL CONGESTION Quetiapine Fumarate 600 mg 08/22/17 22:00 08/22/17 22:07 Seroquel - PO 600 mg HS DAVID Administration Thiamine HCl 100 mg 08/22/17 22:00 08/22/17 22:07 Vitamin B1 - PO 100 mg HS DAVID Administration Medication(s) Change(s): Will add ambien 5mg qhs prn Current Side Effect: No Lab tests ordered: No Lab tests reviewed: Yes Provider note:: [employer] approached patient concerning psychiatric reconsultation. Dr. Gooden's note read and appreciated. Patient's current psychotrophic medications are seroquel 600mg qhs + Celexa 20mg PO daily. Pt. is currently reporting difficulty sleeping. Pharmacy claims reviewed and noted that patient has been prescribed doxepine 10mg qhs in the past. Pt. made aware but is unwilling to accept doxepine at this time. As per patient, "doxepin does not help me sleep." Pt requesting ambien. Pt. reports favorable effect from accepting ambien in the past. Ambien 5mg ordered. Benefits and side effects discussed. Sleep hygiene discussed. Pt. made aware of the risk of parasomnia. Will continue to monitor. Total face to face time:: 25 Mental Status Exam - Mental Status Exam Alert and Oriented to: Time, Place, Person Cognitive Function: Good Patient Appearance: Unkempt Mood: Euthymic Affect: Mood Congruent Patient Behavior: Appropriate Speech Pattern: Appropriate Voice Loudness: Normal Thought Process: Goal Oriented Thought Disorder: Not Present Hallucinations: Denies Suicidal Ideation: Denies Homicidal Ideation: Denies Insight/Judgement: Poor Sleep: Poorly Appetite: Fair Muscle strength/Tone: Normal Gait/Station: Normal Psychiatric Treatment Plan - Problem List (1) Insomnia Current Visit: Yes (2) Cocaine-induced sleep disorder, insomnia type, with onset during discontinuation/withdrawal Current Visit: Yes (3) Drug-induced mood disorder Current Visit: No (4) Alcohol dependence with uncomplicated withdrawal Current Visit: No (5) COPD (chronic obstructive pulmonary disease) Current Visit: No Qualifiers: COPD type: chronic bronchitis (6) Nicotine dependence Current Visit: No Qualifiers: Nicotine product type: cigarettes Substance use status: uncomplicated Qualified Code(s): F17.210 - Nicotine dependence, cigarettes, uncomplicated
[2017-08-23] MEDS ORDERED: ZOLPIDEM TARTRATE 5 MG TABLET PO PRN (22:00)
[2017-08-23] MEDS: THIAMINE HCL 100 MG TABLET (FP) PO SCH (22:10)
[2017-08-23] MEDS: QUEtiapine FUMARATE 300 MG TABLET PO SCH (22:10)
[2017-08-24] MEDS: chlordiazePOXIDE HCL 25 MG CAPSULE PO SCH ×2 (06:33→11:20)
[2017-08-24] MEDS: GABAPENTIN 300 MG CAPSULE (FP) PO SCH ×3 (06:33→22:11)
[2017-08-24] MEDS: EMTRICITAB/RILPIVIRINE/TENOFOV 1 EACH TABLET PO SCH (08:00)
[2017-08-24] MEDS ORDERED: ZOLPIDEM TARTRATE 10 MG TABLET (PARK CARE ONLY) PO PRN ×2 (10:18→22:00)
--- NOTE | 2017-08-24 10:22 | PN ---
Psychiatric Progress Note Vital Signs: Vital Signs Period Temp Pulse Resp BP Sys/Kern Pulse Ox Last 24 Hr 97.3 F-98.1 F 78-108 16-18 100-121/60-82 Date of Session: 08/24/17 Chief Complaint:: Insomnia HPI: Blayne continues to have insomnia Current Medications: Active Medications Generic Name Dose Route Start Last Admin Trade Name Freq PRN Reason Stop Dose Admin Acetaminophen 650 mg 08/22/17 14:52 Tylenol - PO Q4H PRN FEVER Al Hydroxide/Mg Hydroxide 30 ml 08/22/17 14:52 Mylanta Oral Suspension - PO Q6H PRN DYSPEPSIA Albuterol Sulfate 2 puff 08/23/17 08:59 08/23/17 22:15 Ventolin Hfa Inhaler - IH 2 puff Q4H PRN Administration ASTHMA Albuterol Sulfate 1 amp 08/23/17 09:01 08/23/17 09:36 Ventolin 0.083% Nebulizer Soln - NEB 1 amp Q6H PRN Administration SHORT OF BREATH/WHEEZING Azithromycin 250 mg 08/23/17 10:00 08/23/17 10:32 Zithromax - PO 08/26/17 10:01 250 mg DAILY DAVID Administration Chlordiazepoxide HCl 25 mg 08/23/17 17:00 08/24/17 06:33 Librium - PO 08/24/17 11:01 25 mg Q1V-HAW DAVID Administration Chlordiazepoxide HCl 15 mg 08/24/17 17:00 Librium - PO 08/25/17 11:01 [id number] DAVID Chlordiazepoxide HCl 25 mg 08/22/17 14:52 08/23/17 00:58 Librium - PO 08/25/17 14:51 25 mg Q4H PRN Administration WITHDRAWAL(CONT SUBST) Chlordiazepoxide HCl 10 mg 08/25/17 17:00 Librium - PO 08/26/17 11:01 T2M-RAP DAVID Citalopram Hydrobromide 40 mg 08/23/17 10:00 08/23/17 10:32 Celexa - PO 40 mg DAILY DAVID Administration Emtricitabine/Rilpivirine/Tenofovir 1 each 08/23/17 08:00 08/24/17 08:00 Complera - PO 1 each DAILY@0800 DAVID Administration Eucalyptus/Menthol/Phenol/Sorbitol 1 each 08/22/17 14:52 Cepastat Lozenge - MM Q4H PRN SORE THROAT Gabapentin 600 mg 08/22/17 15:15 08/24/17 06:33 Neurontin - PO 600 mg TID DAVID Administration Guaifenesin 10 ml 08/22/17 14:52 08/23/17 22:15 Robitussin Dm - PO 10 ml Q6H PRN Administration COUGH Ibuprofen 400 mg 08/22/17 14:52 Motrin - PO Q6H PRN PAIN LEVEL 4-6 Levetiracetam 500 mg 08/22/17 22:00 08/23/17 22:10 Keppra - PO 500 mg BID DAVID Administration Loperamide HCl 4 mg 08/22/17 14:52 Imodium - PO Q6H PRN DIARRHEA Magnesium Citrate 300 ml 08/22/17 14:52 Citroma - PO Q48H PRN CONSTIPATION Magnesium Hydroxide 30 ml 08/22/17 14:52 Milk Of Magnesia - PO DAILY PRN CONSTIPATION Nicotine 21 mg 08/22/17 15:15 08/23/17 10:32 Nicoderm Patch - TD 21 mg DAILY DAVID Administration Multivit/Folic Acid/Iron 1 tab 08/23/17 10:00 08/23/17 10:31 Vitamins (Sjr) - PO 1 tab DAILY DAVID Administration Pseudoephedrine/Triprolidine 1 combo 08/22/17 14:52 Actifed - PO TID PRN NASAL CONGESTION Quetiapine Fumarate 600 mg 08/22/17 22:00 08/23/17 22:10 Seroquel - PO 600 mg HS DAVID Administration Thiamine HCl 100 mg 08/22/17 22:00 08/23/17 22:10 Vitamin B1 - PO 100 mg HS DAVID Administration Zolpidem Tartrate 10 mg 08/24/17 10:18 Ambien - PO 08/26/17 21:59 HS PRN INSOMNIA Provider note:: Ambien 10 mg po qhs ordered Mental Status Exam - Mental Status Exam Alert and Oriented to: Person Cognitive Function: Fair Patient Appearance: Well Groomed Mood: Anxious Affect: Mood Congruent Patient Behavior: Cooperative Speech Pattern: Appropriate Voice Loudness: Normal Thought Process: Goal Oriented Thought Disorder: Being Controlled Hallucinations: Denies Suicidal Ideation: Denies Homicidal Ideation: Denies Insight/Judgement: Fair Sleep: Difficulty falling asleep Appetite: Weight loss Muscle strength/Tone: Normal Gait/Station: Normal Additional Comments: Observation. Detox Unit Care Protocol Psychiatric Treatment Plan - Problem List (1) Cocaine-induced sleep disorder, insomnia type, with onset during discontinuation/withdrawal Current Visit: Yes (2) Drug-induced mood disorder Current Visit: No (3) Alcohol dependence with uncomplicated withdrawal Current Visit: No (4) COPD (chronic obstructive pulmonary disease) Current Visit: No Qualifiers: COPD type: chronic bronchitis (5) Nicotine dependence Current Visit: No Qualifiers: Nicotine product type: cigarettes Substance use status: uncomplicated Qualified Code(s): F17.210 - Nicotine dependence, cigarettes, uncomplicated Initial treatment plan: Observation. Detox Unit Care Protocol. Ambien 10mg po qhs
[2017-08-24] MEDS: AZITHROMYCIN 250 MG TABLET PO SCH (10:26)
[2017-08-24] MEDS: CITALOPRAM HYDROBROMIDE 20 MG TABLET (FP) PO SCH (10:26)
[2017-08-24] MEDS: PRENATAL VITAMINS W/ FOLIC ACID TABLET (FP) PO SCH (10:26)
[2017-08-24] MEDS: levETIRAcetam 500 MG TABLET (FP) PO SCH ×2 (10:26→22:10)
[2017-08-24] MEDS: NICOTINE 21 MG/24 HOURS TOPICAL PATCH TD SCH (10:27)
--- NOTE | 2017-08-24 12:52 | PN ---
S CIWA - CIWA Score Nausea/Vomitin-Mild Nausea/No Vomiting Muscle Tremors: 4-Moderate,w/Arms Extend Anxiety: 3 Agitation: 3 Paroxysmal Sweats: 1-Minimal Palms Moist Orientation: 0-Oriented Tacttile Disturbances: 0-None Auditory Disturbances: 0-None Visual Disturbances: 0-None Headache: 0-None Present CIWA-Ar Total Score: 12 BHS Progress Note (SOAP) Subjective: sweat tremor anxiety trouble sleeping restlessness Objective: 08/24/17 12:52 Vital Signs Temperature 97.7 F 08/24/17 10:27 Pulse Rate 92 H 08/24/17 10:27 Respiratory Rate 20 08/24/17 10:27 Blood Pressure 103/68 08/24/17 10:27 O2 Sat by Pulse Oximetry (%) Laboratory Last Values WBC 7.8 K/mm3 (4.0-10.0) 08/23/17 06:00 RBC 3.98 M/mm3 (3.60-5.2) 08/23/17 06:00 Hgb 14.1 GM/dL (10.7-15.3) 08/23/17 06:00 Hct 41.4 % (32.4-45.2) 08/23/17 06:00 MCV 104.0 fl (80-96) H 08/23/17 06:00 MCH 35.4 pg (25.7-33.7) H 08/23/17 06:00 MCHC 34.0 g/dl (32.0-36.0) 08/23/17 06:00 RDW 13.1 % (11.6-15.6) 08/23/17 06:00 Plt Count 307 K/MM3 (134-434) D 08/23/17 06:00 MPV 8.0 fl (7.5-11.1) D 08/23/17 06:00 Sodium 146 mmol/L (136-145) H 08/23/17 06:00 Potassium 4.3 mmol/L (3.5-5.1) 08/23/17 06:00 Chloride 109 mmol/L (98-107) H 08/23/17 06:00 Carbon Dioxide 27 mmol/L (21-32) 08/23/17 06:00 Anion Gap 10 (8-16) 08/23/17 06:00 BUN 13 mg/dL (7-18) 08/23/17 06:00 Creatinine 1.0 mg/dL (0.55-1.02) 08/23/17 06:00 Creat Clearance w eGFR 56.95 (>60) 08/23/17 06:00 Random Glucose 71 mg/dL (74-106) L 08/23/17 06:00 Calcium 9.2 mg/dL (8.5-10.1) 08/23/17 06:00 Total Bilirubin 0.4 mg/dL (0.2-1.0) D 08/23/17 06:00 AST 31 U/L (15-37) 08/23/17 06:00 ALT 39 U/L (12-78) 08/23/17 06:00 Alkaline Phosphatase 93 U/L (45-117) 08/23/17 06:00 Total Protein 7.8 g/dl (6.4-8.2) 08/23/17 06:00 Albumin 3.9 g/dl (3.4-5.0) 08/23/17 06:00 Urine Color Dkyellow 08/22/17 17:44 Urine Appearance Cloudy 08/22/17 17:44 Urine pH 6.0 (5.0-8.0) 08/22/17 17:44 Ur Specific [place] 1.012 (1.001-1.035) 08/22/17 17:44 Urine Protein 1+ (NEGATIVE) H 08/22/17 17:44 Urine Glucose (UA) Negative (NEGATIVE) 08/22/17 17:44 Urine Ketones Negative (NEGATIVE) 08/22/17 17:44 Urine Blood 1+ (NEGATIVE) H 08/22/17 17:44 Urine Nitrite Positive (NEGATIVE) 08/22/17 17:44 Urine Bilirubin Negative (<2.0 mg/dL) 08/22/17 17:44 Urine Urobilinogen Negative mg/dL (0.2-1.0) 08/22/17 17:44 Ur Leukocyte Esterase 3+ (NEGATIVE) H 08/22/17 17:44 Urine WBC (Auto) 46 /hpf (3-5) 08/22/17 17:44 Urine RBC (Auto) 3 /hpf (0-3) 08/22/17 17:44 Ur Epithelial Cells Moderate /HPF (FEW) 08/22/17 17:44 Urine Bacteria Few /hpf (NONE SEEN) 08/22/17 17:44 Urine Mucus Rare 08/22/17 17:44 RPR Titer Nonreactive (NONREACTIVE) 08/23/17 06:00 lab noted 08/24/17 13:49 repeat ua Assessment: 08/24/17 13:49 withdrawal sx Plan: continue detox
[2017-08-24] MEDS: guaiFENesin/D-METHORPHAN HB 10 ML UNIT-DOSE CUPS PO PRN (14:56)
[2017-08-24] MEDS: chlordiazePOXIDE HCL 25 MG CAPSULE PO PRN (14:56)
[2017-08-24] MEDS: ALBUTEROL SO4 0.083% IH SOL 2.5 MG/3 ML VIAL.NEB. NEB PRN (14:58)
[2017-08-24] MEDS: chlordiazePOXIDE 5 MG CAPSULE PO SCH ×2 (17:59→22:11)
--- NOTE | 2017-08-24 17:59 | PN ---
[facility] Progress Note Note: Psychiatric nurse practitioner note: Spoke to RN Rosalinda Florez who stated patient did not receive ambien 5mg last night due to oversedation. RN reported patient was unable to keep her eyes open and was slurring her words. Dr. Gooden's note read and appreciated. Patient's ambien medication was raised to 10mg after patient complained of poor sleep. RN informed that medication will be lowered to 5mg and to hold if patient appears lethargic or sedated.
[2017-08-24] MEDS: THIAMINE HCL 100 MG TABLET (FP) PO SCH (22:10)
[2017-08-24] MEDS: ZOLPIDEM TARTRATE 5 MG TABLET PO PRN (22:10)
[2017-08-24] MEDS: QUEtiapine FUMARATE 300 MG TABLET PO SCH (22:11)
[2017-08-25] MEDS: chlordiazePOXIDE 5 MG CAPSULE PO SCH ×2 (05:58→10:30)
[2017-08-25] MEDS: GABAPENTIN 300 MG CAPSULE (FP) PO SCH ×3 (05:58→22:10)
[2017-08-25] MEDS: EMTRICITAB/RILPIVIRINE/TENOFOV 1 EACH TABLET PO SCH (08:00)
[2017-08-25] MEDS: PRENATAL VITAMINS W/ FOLIC ACID TABLET (FP) PO SCH (10:29)
[2017-08-25] MEDS: levETIRAcetam 500 MG TABLET (FP) PO SCH ×2 (10:29→22:10)
[2017-08-25] MEDS: CITALOPRAM HYDROBROMIDE 20 MG TABLET (FP) PO SCH (10:29)
[2017-08-25] MEDS: NICOTINE 21 MG/24 HOURS TOPICAL PATCH TD SCH (10:30)
--- NOTE | 2017-08-25 10:32 | PN ---
BHS Progress Note (SOAP) Subjective: feeling better no tremor less sweat sleeping at night Objective: 08/25/17 10:32 Vital Signs Temperature 97.0 F L 08/25/17 10:11 Pulse Rate 83 08/25/17 10:11 Respiratory Rate 16 08/25/17 10:11 Blood Pressure 103/74 08/25/17 10:11 O2 Sat by Pulse Oximetry (%) Laboratory Last Values WBC 7.8 K/mm3 (4.0-10.0) 08/23/17 06:00 RBC 3.98 M/mm3 (3.60-5.2) 08/23/17 06:00 Hgb 14.1 GM/dL (10.7-15.3) 08/23/17 06:00 Hct 41.4 % (32.4-45.2) 08/23/17 06:00 MCV 104.0 fl (80-96) H 08/23/17 06:00 MCH 35.4 pg (25.7-33.7) H 08/23/17 06:00 MCHC 34.0 g/dl (32.0-36.0) 08/23/17 06:00 RDW 13.1 % (11.6-15.6) 08/23/17 06:00 Plt Count 307 K/MM3 (134-434) D 08/23/17 06:00 MPV 8.0 fl (7.5-11.1) D 08/23/17 06:00 Sodium 146 mmol/L (136-145) H 08/23/17 06:00 Potassium 4.3 mmol/L (3.5-5.1) 08/23/17 06:00 Chloride 109 mmol/L (98-107) H 08/23/17 06:00 Carbon Dioxide 27 mmol/L (21-32) 08/23/17 06:00 Anion Gap 10 (8-16) 08/23/17 06:00 BUN 13 mg/dL (7-18) 08/23/17 06:00 Creatinine 1.0 mg/dL (0.55-1.02) 08/23/17 06:00 Creat Clearance w eGFR 56.95 (>60) 08/23/17 06:00 Random Glucose 71 mg/dL (74-106) L 08/23/17 06:00 Calcium 9.2 mg/dL (8.5-10.1) 08/23/17 06:00 Total Bilirubin 0.4 mg/dL (0.2-1.0) D 08/23/17 06:00 AST 31 U/L (15-37) 08/23/17 06:00 ALT 39 U/L (12-78) 08/23/17 06:00 Alkaline Phosphatase 93 U/L (45-117) 08/23/17 06:00 Total Protein 7.8 g/dl (6.4-8.2) 08/23/17 06:00 Albumin 3.9 g/dl (3.4-5.0) 08/23/17 06:00 Urine Color Dkyellow 08/22/17 17:44 Urine Appearance Cloudy 08/22/17 17:44 Urine pH 6.0 (5.0-8.0) 08/22/17 17:44 Ur Specific [place] 1.012 (1.001-1.035) 08/22/17 17:44 Urine Protein 1+ (NEGATIVE) H 08/22/17 17:44 Urine Glucose (UA) Negative (NEGATIVE) 08/22/17 17:44 Urine Ketones Negative (NEGATIVE) 08/22/17 17:44 Urine Blood 1+ (NEGATIVE) H 08/22/17 17:44 Urine Nitrite Positive (NEGATIVE) 08/22/17 17:44 Urine Bilirubin Negative (<2.0 mg/dL) 08/22/17 17:44 Urine Urobilinogen Negative mg/dL (0.2-1.0) 08/22/17 17:44 Ur Leukocyte Esterase 3+ (NEGATIVE) H 08/22/17 17:44 Urine WBC (Auto) 46 /hpf (3-5) 08/22/17 17:44 Urine RBC (Auto) 3 /hpf (0-3) 08/22/17 17:44 Ur Epithelial Cells Moderate /HPF (FEW) 08/22/17 17:44 Urine Bacteria Few /hpf (NONE SEEN) 08/22/17 17:44 Urine Mucus Rare 08/22/17 17:44 RPR Titer Nonreactive (NONREACTIVE) 08/23/17 06:00 lab noted 08/25/17 10:35 repeat ua result pending uti Assessment: 08/25/17 10:35 mild withdrawal sx uti Plan: medically supervised detox nitrofuratoin 100 mg qid x 3 days
[2017-08-25] MEDS ORDERED: NITROFURANTOIN MACROCRYSTAL 50 MG CAPSULE (FP) PO SCH (10:45)
[2017-08-25] MEDS: NITROFURANTOIN MACROCRYSTAL 50 MG CAPSULE (FP) PO SCH ×2 (12:28→17:40)
[2017-08-25] MEDS: chlordiazePOXIDE HCL 10 MG CAPSULE PO SCH ×2 (16:49→22:10)
[2017-08-25] MEDS: QUEtiapine FUMARATE 300 MG TABLET PO SCH (22:11)
[2017-08-25] MEDS: THIAMINE HCL 100 MG TABLET (FP) PO SCH (22:13)
[2017-08-25] MEDS: ZOLPIDEM TARTRATE 5 MG TABLET PO PRN (22:13)
[2017-08-25] MEDS: guaiFENesin/D-METHORPHAN HB 10 ML UNIT-DOSE CUPS PO PRN (22:13)
[2017-08-26] MEDS: NITROFURANTOIN MACROCRYSTAL 50 MG CAPSULE (FP) PO SCH (05:50)
[2017-08-26] MEDS: chlordiazePOXIDE HCL 10 MG CAPSULE PO SCH (05:50)
[2017-08-26] MEDS: GABAPENTIN 300 MG CAPSULE (FP) PO SCH (05:50)
[2017-08-26] MEDS: EMTRICITAB/RILPIVIRINE/TENOFOV 1 EACH TABLET PO SCH (07:10)
--- NOTE | 2017-08-26 08:53 | DS ---
[facility] Detox Discharge Summary Admission Date: 08/22/17 Discharge Date: 08/26/17 - History Present History: Alcohol Dependence, Cocaine Dependence Pertinent Past History: anxiety, depression and insopmnia, HIV+, fibromylagia, hpe +, nicotien depdnence , wt loss - Physical Exam Results Vital Signs: Vital Signs Temperature 96.8 F L 08/26/17 06:00 Pulse Rate 77 08/26/17 06:00 Respiratory Rate 16 08/26/17 06:00 Blood Pressure 92/58 08/26/17 06:00 O2 Sat by Pulse Oximetry (%) Laboratory Tests 08/22/17 08/23/17 08/23/17 17:44 06:00 06:00 WBC 7.8 RBC 3.98 Hgb 14.1 Hct 41.4 MCV 104.0 H MCH 35.4 H MCHC 34.0 RDW 13.1 Plt Count 307 D MPV 8.0 D Sodium 146 H Potassium 4.3 Chloride 109 H Carbon Dioxide 27 Anion Gap 10 BUN 13 Creatinine 1.0 Creat Clearance w eGFR 56.95 Random Glucose 71 L Calcium 9.2 Total Bilirubin 0.4 D AST 31 ALT 39 Alkaline Phosphatase 93 Total Protein 7.8 Albumin 3.9 Urine Color Dkyellow Urine Appearance Cloudy Urine pH 6.0 Ur Specific [place] 1.012 Urine Protein 1+ H Urine Glucose (UA) Negative Urine Ketones Negative Urine Blood 1+ H Urine Nitrite Positive Urine Bilirubin Negative Urine Urobilinogen Negative Ur Leukocyte Esterase 3+ H Urine WBC (Auto) 46 Urine RBC (Auto) 3 Ur Epithelial Cells Moderate Urine Bacteria Few Urine Mucus Rare RPR Titer 08/23/17 06:00 WBC RBC Hgb Hct MCV MCH MCHC RDW Plt Count MPV Sodium Potassium Chloride Carbon Dioxide Anion Gap BUN Creatinine Creat Clearance w eGFR Random Glucose Calcium Total Bilirubin AST ALT Alkaline Phosphatase Total Protein Albumin Urine Color Urine Appearance Urine pH Ur Specific [place] Urine Protein Urine Glucose (UA) Urine Ketones Urine Blood Urine Nitrite Urine Bilirubin Urine Urobilinogen Ur Leukocyte Esterase Urine WBC (Auto) Urine RBC (Auto) Ur Epithelial Cells Urine Bacteria Urine Mucus RPR Titer Nonreactive Pertinent Admission Physical Exam Findings: withdrawal sx, dehydration - Treatment Hospital Course: Detox Protocol Followed, Detoxed Safely, Responded well, Discharged Condition Good, Rehab Referral Accepted Patient has Accepted a Rehab Referral to: Yes - Medication Discharge Medications: Ambulatory Orders Emtricitab/Rilpivirine/Tenofov [Complera Tablet -] 1 tab PO DAILY 02/23/17 Citalopram Hydrobromide [Celexa -] 40 mg PO DAILY #20 tablet 08/22/17 Quetiapine Fumarate [Seroquel -] 600 mg PO HS #30 tablet 08/22/17 Albuterol Sulfate Inhaler - [Ventolin HFA Inhaler -] 2 inh PO Q4H #1 inhaler Gabapentin [Neurontin -] 600 mg PO Q8H #120 capsule 08/25/17 levETIRAcetam [Keppra -] 500 mg PO BID #60 tablet 08/25/17 - Diagnosis (1) Alcohol dependence with uncomplicated withdrawal Current Visit: No Status: Chronic (2) Bronchitis Current Visit: No Status: Acute (3) Cocaine abuse Current Visit: No Status: Chronic (4) Cocaine-induced sleep disorder, insomnia type, with onset during discontinuation/withdrawal Current Visit: Yes Status: Acute (5) Depression Current Visit: No Status: Suspected Qualifiers: Depression Type: dysthymia Qualified Code(s): F34.1 - Dysthymic disorder (6) Drug-induced mood disorder Current Visit: No Status: Acute (7) Fibromyalgia Current Visit: Yes Status: Acute (8) Hepatitis C Current Visit: Yes Status: Acute (9) HIV (human immunodeficiency virus infection) Current Visit: No Status: Chronic (10) Insomnia Current Visit: Yes Status: Acute (11) Neuropathy Current Visit: No Status: Chronic (12) Nicotine dependence Current Visit: No Status: Chronic Qualifiers: Nicotine product type: cigarettes Substance use status: uncomplicated Qualified Code(s): F17.210 - Nicotine dependence, cigarettes, uncomplicated (13) Seizure Current Visit: No Status: Chronic (14) Weight loss Current Visit: No Status: Acute - AMA Did Patient Leave Against Medical Advice: No
[2017-08-26] MEDS: CITALOPRAM HYDROBROMIDE 20 MG TABLET (FP) PO SCH (09:20)
[2017-08-26] MEDS: levETIRAcetam 500 MG TABLET (FP) PO SCH (09:20)
[2017-08-26] MEDS: PRENATAL VITAMINS W/ FOLIC ACID TABLET (FP) PO SCH (09:21)
[2017-08-26 10:20] LABS: URINE APPEARANCE CLOUDY; URINE BILIRUBIN NEGATIVE (<2.0 mg/dL); URINE BLOOD NEGATIVE (NEGATIVE); URINE COLOR YELLOW; URINE GLUCOSE (UA) NEGATIVE (NEGATIVE); URINE KETONE NEGATIVE (NEGATIVE); URINE NITRITE NEGATIVE (NEGATIVE); URINE PROTEIN NEGATIVE (NEGATIVE); URINE UROBILINOGEN NEGATIVE mg/dL (0.2-1.0)
[2017-08-26 10:28] LABS: URINE LEUK ESTERASE 3+ (NEGATIVE)
[2017-08-26 10:36] VITALS: BP 91/61; PULSE 92; TEMP 97.3
[2017-08-26 11:23] LABS: EPI CELLS MODERATE /HPF (FEW); URINE BACTERIA FEW /hpf (NONE SEEN)
== END 2017-08-26 10:05 | disposition home or self-care (01) | DRG 774 ==
LOC: YASAS 10:56 → Y6N 14:47
PROVIDERS: ADMIT Internal Medicine; ATTEND Internal Medicine
PROC: HZ2ZZZZ Detoxification Services for Substance Abuse Treatment (ICD-10-PCS; principal; 2017-08-22)
DX: F10.20 Alcohol dependence, uncomplicated (principal); F14.20 Cocaine dependence, uncomplicated; F17.210 Nicotine dependence, cigarettes, uncomplicated; F41.9 Anxiety disorder, unspecified; F34.1 Dysthymic disorder; G47.00 Insomnia, unspecified; F19.282 Other psychoactive substance dependence with psychoactive substance-induced sleep disorder; M79.7 Fibromyalgia; Z21 Asymptomatic human immunodeficiency virus [HIV] infection status; B18.2 Chronic viral hepatitis C; J44.9 Chronic obstructive pulmonary disease, unspecified; J40 Bronchitis, not specified as acute or chronic; R63.4 Abnormal weight loss; Z68.23 Body mass index [BMI] 23.0-23.9, adult
CPT/HCPCS: 36415; 80053; 81003; 81015; 85027; 86593; 93005; 93010; 94640

== ENCOUNTER 2017-11-01 13:29 | Inpatient (IN) | payer BC ==
[2017-11-01 14:29] VITALS: BMI 23.0
--- NOTE | 2017-11-01 18:05 | HP ---
CIWA Score - CIWA Score Nausea/Vomitin-No Nausea/No Vomiting Muscle Tremors: 2 Anxiety: 3 Agitation: 3 Paroxysmal Sweats: 3 Orientation: 0-Oriented Tacttile Disturbances: 2-Mild Itch/Numbness/Burn (weaver feet) Auditory Disturbances: 0-None Visual Disturbances: 0-None Headache: 2-Mild CIWA-Ar Total Score: 15 Admission ROS S - [facility] Chief Complaint: alcohol withdrawal symptoms Allergies/Adverse Reactions: Allergies Allergy/AdvReac Type Severity Reaction Status Date / Time Sulfa (Sulfonamide Allergy Verified 11/01/17 17:13 Antibiotics) History of Present Illness: 57 yo female with hx of heroin, alcohol, cocaine and nicotine dependence is here seeking detox. PMHX: seizures, COPD, HIV, depression, anxiety, bipolar, schizo. Denies suicidal / homicidal ideation, denies hx of suicide attempt, Longest period of time 2 years [id number]. #: [id number] Others' Prescriptions Patient Name: Flor Moreno Date: 1960 Address: [address] [place] [id number] Sex: Female Rx Written Rx Dispensed Drug Quantity Days Supply Prescriber Name 09/19/2017 09/21/2017 clonazepam 2 mg tablet 30 30 Ynes, J Luis Cao DO 09/05/2017 09/05/2017 clonazepam 2 mg tablet 30 15 Ynes, J Luis Cao DO 08/05/2017 08/07/2017 clonazepam 2 mg tablet 60 30 Ynes, J Luis Cao DO 06/27/2017 06/27/2017 clonazepam 2 mg tablet 60 30 Ynes, J Luis Cao DO 06/01/2017 06/01/2017 clonazepam 2 mg tablet 60 30 Ynes, J Luis Cao DO 03/15/2017 03/15/2017 clonazepam 2 mg tablet 20 10 Ynes, J Luis Cao DO 01/14/2017 01/16/2017 clonazepam 2 mg tablet 60 30 Ynes, J Luis Cao DO Patient Name: Flor Moreno Date: 1960 Address: [address], [place] [address] Sex: Female Rx Written Rx Dispensed Drug Quantity Days Supply Prescriber Name 05/30/2017 05/30/2017 clonazepam 0.5 mg tablet 6 2 Christina Vaz) Patient Name: Flor Moreno Date: 1960 Address: [address] [place] [address] [place] [address] Sex: Female Rx Written Rx Dispensed Drug Quantity Days Supply Prescriber Name 05/04/2017 05/04/2017 clonazepam 2 mg tablet 60 30 Ynes, J Luis J DO 03/28/2017 03/28/2017 clonazepam 2 mg tablet 60 30 Ynes, J Luis J DO 02/11/2017 02/11/2017 clonazepam 2 mg tablet 60 30 Ynes, J Luis J DO Patient Name: Flor Moreno Date: 1960 Address: [address] [place] [address] [address] [place] [address] Sex: Female Rx Written Rx Dispensed Drug Quantity Days Supply Prescriber Name 05/08/2016 01/30/2017 zolpidem tartrate 10 mg tablet 30 30 Ynes, J Luis J DO 11/12/2016 11/12/2016 clonazepam 2 mg tablet 60 30 Ynes, J Luis J DO Exam Limitations: No Limitations - Ebola screening Have you traveled outside of the country in the last 21 days: No (N) Have you had contact with anyone from an Ebola affected area: No Have you been sick,other than usual withdrawal symptoms: No Do you have a fever: No - Review of Systems Constitutional: Diaphoresis, Changes in sleep EENT: reports: Blurred Vision (needs glassses), Nose Congestion, Other (missing teeth, horseness) Respiratory: reports: Cough (x 8 days), SOB with Exertion Cardiac: reports: No Symptoms Reported GI: reports: Diarrhea, Poor Fluid Intake, Abdominal cramping : reports: No Symptoms Reported Musculoskeletal: reports: Back Pain (low back) Neuro: reports: Numbness (both feet, hx of neuropathy) Endocrine: reports: Excessive Sweating, Increased Thirst Hematology: reports: No Symptoms Reported Psychiatric: reports: Orientated x3, Anxious Other Systems: Reviewed and Negative Patient History - Patient Medical History Hx Anemia: No Hx Asthma: Yes (Pt is on MDI) Hx Chronic Obstructive Pulmonary Disease (COPD): No Hx Cancer: Yes Hx Cardiac Disorders: No Hx Congestive Heart Failure: No Hx Hypertension: No Hx Hypercholesterolemia: No Hx Pacemaker: No HX Cerebrovascular Accident: No Hx Seizures: Yes (seizure disorder last was 3 months ago.) Hx Dementia: No Hx Diabetes: No Hx Gastrointestinal Disorders: No Hx Liver Disease: No Hx Genitourinary Disorders: No Hx Sexually Transmitted Disorders: No Hx Renal Disease (ESRD): No Hx Thyroid Disease: No Hx Human Immunodeficiency Virus (HIV): Yes (1988, on complera reports meds adherence ) Hx Hepatitis C: No Hx Depression: Yes Hx Suicide Attempt: No Hx Bipolar Disorder: Yes Hx Schizophrenia: No Other Medical History: neuropathy on gabapentin - Patient Surgical History Past Surgical History: No Hx Neurologic Surgery: No Hx Cataract Extraction: No Hx Cardiac Surgery: No Hx Lung Surgery: No Hx Breast Surgery: No Hx Breast Biopsy: No Hx Abdominal Surgery: No Hx Appendectomy: No Hx Cholecystectomy: No Hx Genitourinary Surgery: No Hx Section: No Hx Orthopedic Surgery: No - PPD History Previous Implant?: Yes Documented Results: Negative w/proof Implanted On Prior [facility] Admission?: Yes Date: 02/25/17 Results: 0 mm PPD to be Administered?: No - Reproductive History Patient is a Female of Child Bearing Age (11 -55 yrs old): No Last Menstrual Period: 02/23/11 Patient : No - Smoking Cessation Smoking history: Current every day smoker Have you smoked in the past 12 months: Yes Aproximately how many cigarettes per day: 8 Cigars Per Day: 0 Hx Chewing Tobacco Use: No Initiated information on smoking cessation: Yes 'Breaking Loose' booklet given: 11/01/17 - Substance & Tx. History Hx Alcohol Use: Yes Hx Substance Use Treatment: Yes ([facility] 08/22/17 -08/26/17) - Substances Abused Alcohol Route: Oral Frequency: Daily Amount used: 2 pints vodka Age of first use: 12 Date of Last Use: 11/01/17 Cocaine Route: Smoking Frequency: Daily Amount used: $10-60 Age of first use: 12 Date of Last Use: 11/01/17 Heroin Route: Injection Frequency: 1-2 times per week Amount used: 2 bags Age of first use: 19 Date of Last Use: 10/29/17 Family Disease History - Family Disease History Family Disease History: Heart Disease: Brother (), Other: Father ( old age), Mother ( liver), Brother Admission Physical Exam BHS - Vital Signs Vital Signs: Vital Signs - 24 hr 11/01/17 14:24 Temperature 99.2 F Pulse Rate 98 H Respiratory 16 Rate Blood Pressure 111/74 - Physical General Appearance: Yes: Disheveled, Mild Distress, Thin, Sweating, Anxious HEENTM: Yes: EOMI, Hearing grossly Normal, Pharynx Normal, Scleral Ictenus R, Nasal Congestion, Pharyngeal Erythemia Respiratory: Yes: Chest Non-Tender, No Respiratory Distress, No Accessory Muscle Use, Wheezing Neck: Yes: Within Normal Limits Breast: Yes: Breast Exam Deferred Cardiology: Yes: Regular Rhythm, Regular Rate Abdominal: Yes: Normal Bowel Sounds, Non Tender, Flat, Soft Genitourinary: Yes: Within Normal Limits Back: Yes: Normal Inspection Musculoskeletal: Yes: full range of Motion, Gait Steady, Pelvis Stable, Back pain Extremities: Yes: Normal Capillary Refill, Normal Inspection, Normal Range of Motion, Non-Tender Neurological: Yes: switchboard operator assistant II-XII NML intact, Fully Oriented, Alert, Motor Strength 5/5, Depressed Affect Integumentary: Yes: Normal Color, Warm, Diaphoresis Lymphatic: Yes: Within Normal Limits - Diagnostic (1) Cocaine dependence Current Visit: Yes Status: Acute Qualifiers: Substance use status: uncomplicated Qualified Code(s): F14.20 - Cocaine dependence, uncomplicated (2) Cough Current Visit: Yes Status: Acute (3) Wheezing Current Visit: Yes Status: Acute (4) Hepatitis C Current Visit: Yes Status: Chronic Qualifiers: Viral hepatitis chronicity: chronic (5) Alcohol dependence with uncomplicated withdrawal Current Visit: Yes Status: Acute (6) COPD (chronic obstructive pulmonary disease) Current Visit: Yes Status: Chronic Qualifiers: COPD type: chronic bronchitis (7) HIV (human immunodeficiency virus infection) Current Visit: No Status: Chronic (8) Neuropathy Current Visit: Yes Status: Chronic (9) Nicotine dependence Current Visit: Yes Status: Chronic Qualifiers: Nicotine product type: cigarettes Substance use status: uncomplicated Qualified Code(s): F17.210 - Nicotine dependence, cigarettes, uncomplicated Cleared for Admission S - Detox or Rehab [facility] Level of Care: Medically Managed Detox Regimen/Protocol: Librium [facility] Breath Alcohol Content Breath Alcohol Content: 0.008 Urine Pregancy Test - Result Urine Test Results: Negative- NO Line Present Urine Drug Screen - Results Drug Screen Negative: No Urine Drug Screen Results: HANG-Cocaine, TCA-Tricyclic Antidepress
[2017-11-01] MEDS ORDERED: NICOTINE POLACRILEX 2 MG GUM BC PRN (18:08)
[2017-11-01] MEDS ORDERED: MAG HYDROX/AL HYDROX/SIMETH 30 ML UNIT-DOSE CUP PO PRN (18:08)
[2017-11-01] MEDS ORDERED: IBUPROFEN 400 MG TABLET (FP) PO PRN (18:08)
[2017-11-01] MEDS ORDERED: MAGNESIUM HYDROX 2400MG/30ML ORAL SUSPENSION 30 ML CUP PO PRN (18:08)
[2017-11-01] MEDS ORDERED: LOPERAMIDE HCL 2 MG CAPSULE PO PRN (18:08)
[2017-11-01] MEDS ORDERED: ACETAMINOPHEN 325 MG TABLET (FP) PO PRN (18:08)
[2017-11-01] MEDS ORDERED: hydrOXYzine PAMOATE 50 MG CAPSULE (FP) PO PRN (18:08)
[2017-11-01] MEDS ORDERED: P-EPHED 60MG/TRIPROLIDI 2.5MG TABLET PO PRN (18:08)
[2017-11-01] MEDS ORDERED: MAGNESIUM CITRATE 300 ML BOTTLE PO PRN (18:08)
[2017-11-01] MEDS ORDERED: ALBUTEROL SO4 2.5/IPRATROPIUM 0.5 INH SOL 3 ML VIAL.NEB. NEB PRN (18:10)
[2017-11-01] MEDS ORDERED: chlordiazePOXIDE HCL 25 MG CAPSULE PO ONE (18:45)
[2017-11-01] MEDS ORDERED: MELATONIN 5 MG TABLETS PO PRN (22:00)
[2017-11-01] MEDS: chlordiazePOXIDE HCL 25 MG CAPSULE PO SCH (22:13)
[2017-11-01] MEDS: THIAMINE HCL 100 MG TABLET (FP) PO SCH (22:13)
[2017-11-01] MEDS: GABAPENTIN 300 MG CAPSULE (FP) PO SCH (22:13)
[2017-11-01] MEDS: levETIRAcetam 500 MG TABLET (FP) PO SCH (22:13)
[2017-11-01] MEDS: ALBUTEROL SO4 8 GM HFA INHALER IH SCH ×2 (22:16)
[2017-11-02] MEDS: chlordiazePOXIDE HCL 25 MG CAPSULE PO PRN ×4 (00:41→19:21)
[2017-11-02] MEDS: ALBUTEROL SO4 8 GM HFA INHALER IH SCH ×6 (05:20→22:12)
[2017-11-02] MEDS: chlordiazePOXIDE HCL 25 MG CAPSULE PO SCH ×4 (05:20→22:10)
[2017-11-02] MEDS: GABAPENTIN 300 MG CAPSULE (FP) PO SCH ×3 (05:21→22:10)
[2017-11-02] MEDS: guaiFENesin/D-METHORPHAN HB 10 ML UNIT-DOSE CUPS PO PRN ×2 (07:08→17:33)
[2017-11-02] MEDS: EMTRICITAB/RILPIVIRINE/TENOFOV 1 EACH TABLET PO SCH (07:29)
[2017-11-02 09:30] LABS: HEMOGLOBIN 12.8 GM/dL (10.7-15.3); MCH 34.7 pg (25.7-33.7); MCHC 33.6 g/dl (32.0-36.0); MEAN CELL VOLUME 103.2 fl (80-96); PLATELET COUNT 296 K/MM3 (134-434); RBC 3.68 M/mm3 (3.60-5.2); RDW 13.5 % (11.6-15.6); WHITE BLOOD COUNT 13.7 K/mm3 (4.0-10.0)
[2017-11-02 09:52] LABS: CHLORIDE 106 mmol/L (98-107); POTASSIUM 3.5 mmol/L (3.5-5.1); SODIUM 140 mmol/L (136-145)
[2017-11-02 10:19] LABS: ALBUMIN 3.7 g/dl (3.4-5.0); ALK PHOS 91 U/L (45-117); ANION GAP 12 (8-16); BILIRUBIN,TOTAL 0.8 mg/dL (0.2-1.0); BLOOD UREA NITROGEN 20 mg/dL (7-18); CALCIUM 8.4 mg/dL (8.5-10.1); CO2 22 mmol/L (21-32); CREATININE 0.9 mg/dL (0.55-1.02); GLUCOSE,RANDOM 122 mg/dL (74-106); SGOT/AST 20 U/L (15-37); SGPT/ALT 30 U/L (12-78); TOT PROT 7.7 g/dl (6.4-8.2)
[2017-11-02] MEDS: levETIRAcetam 500 MG TABLET (FP) PO SCH ×2 (10:21→22:10)
[2017-11-02] MEDS: PRENATAL VITAMINS W/ FOLIC ACID TABLET (FP) PO SCH (10:21)
[2017-11-02] MEDS: NICOTINE 14 MG/24 HOURS TOPICAL PATCH TD SCH (10:21)
--- NOTE | 2017-11-02 10:39 | PN ---
[facility] CIWA - CIWA Score Nausea/Vomitin-Mild Nausea/No Vomiting Muscle Tremors: 4-Moderate,w/Arms Extend Anxiety: 4-Mod. Anxious/Guarded Agitation: 4-Moderately Restless Paroxysmal Sweats: 1-Minimal Palms Moist Orientation: 0-Oriented Tacttile Disturbances: 0-None Auditory Disturbances: 0-None Visual Disturbances: 0-None Headache: 0-None Present CIWA-Ar Total Score: 14 BHS Progress Note (SOAP) Subjective: sweat tremor irritable trouble sleep at night Objective: 11/02/17 10:42 Vital Signs Temperature 98.5 F 11/02/17 09:45 Pulse Rate 86 11/02/17 09:45 Respiratory Rate 18 11/02/17 09:45 Blood Pressure 110/71 11/02/17 09:45 O2 Sat by Pulse Oximetry (%) Laboratory Last Values WBC 13.7 K/mm3 (4.0-10.0) H 11/02/17 08:00 RBC 3.68 M/mm3 (3.60-5.2) 11/02/17 08:00 Hgb 12.8 GM/dL (10.7-15.3) 11/02/17 08:00 Hct 38.0 % (32.4-45.2) 11/02/17 08:00 MCV 103.2 fl (80-96) H 11/02/17 08:00 MCH 34.7 pg (25.7-33.7) H 11/02/17 08:00 MCHC 33.6 g/dl (32.0-36.0) 11/02/17 08:00 RDW 13.5 % (11.6-15.6) 11/02/17 08:00 Plt Count 296 K/MM3 (134-434) 11/02/17 08:00 MPV 8.0 fl (7.5-11.1) 11/02/17 08:00 Sodium 140 mmol/L (136-145) 11/02/17 08:00 Potassium 3.5 mmol/L (3.5-5.1) 11/02/17 08:00 Chloride 106 mmol/L (98-107) 11/02/17 08:00 Carbon Dioxide 22 mmol/L (21-32) 11/02/17 08:00 Anion Gap 12 (8-16) 11/02/17 08:00 BUN 20 mg/dL (7-18) H 11/02/17 08:00 Creatinine 0.9 mg/dL (0.55-1.02) 11/02/17 08:00 Creat Clearance w eGFR > 60 (>60) 11/02/17 08:00 Random Glucose 122 mg/dL (74-106) H 11/02/17 08:00 Calcium 8.4 mg/dL (8.5-10.1) L 11/02/17 08:00 Total Bilirubin 0.8 mg/dL (0.2-1.0) 11/02/17 08:00 AST 20 U/L (15-37) 11/02/17 08:00 ALT 30 U/L (12-78) 11/02/17 08:00 Alkaline Phosphatase 91 U/L (45-117) 11/02/17 08:00 Total Protein 7.7 g/dl (6.4-8.2) 11/02/17 08:00 Albumin 3.7 g/dl (3.4-5.0) 11/02/17 08:00 RPR Titer Nonreactive (NONREACTIVE) 11/02/17 08:00 lab noted Assessment: 11/02/17 10:43 withdrawal sx Plan: continue detox
[2017-11-02 10:59] LABS: URINE APPEARANCE CLEAR; URINE BILIRUBIN NEGATIVE (<2.0 mg/dL); URINE COLOR YELLOW; URINE GLUCOSE (UA) NEGATIVE (NEGATIVE); URINE KETONE NEGATIVE (NEGATIVE); URINE LEUK ESTERASE NEGATIVE (NEGATIVE); URINE NITRITE NEGATIVE (NEGATIVE); URINE PROTEIN NEGATIVE (NEGATIVE)
--- NOTE | 2017-11-02 15:03 | CONSULT ---
[facility] Psychiatric Consult - Data Date of interview: 11/02/17 Admission source: [facility] Identifying data: Patient is a 57 year old single female, without kids, unemployed, and supported through [employer]. This is one of multiple admissions for patient. Pt. admitted for alcohol and cocaine dependence. Substance Abuse History: Smoking Cessation. Smoking history: Current every day smoker. Have you smoked in the past 12 months: Yes. Aproximately how many cigarettes per day: 8. Cigars Per Day: 0. Hx Chewing Tobacco Use: No. Initiated information on smoking cessation: Yes. 'Breaking Loose' booklet given : 11/01/17. - Substance & Tx. History. Hx Alcohol Use: Yes. Hx Substance Use Treatment: Yes ([facility] 08/22/17 -08/26/17). - Substances Abused. Alcohol. Route: Oral. Frequency: Daily. Amount used: 2 pints vodka. Age of first use: 12. Date of Last Use: 11/01/17. Cocaine. Route: Smoking. Frequency: Daily. Amount used: $10-60. Age of first use: 12. Date of Last Use: . Heroin. Route: Injection. Frequency: 1-2 times per week. Amount used : 2 bags. Age of first use: 19. Date of Last Use: 10/29/17 Medical History: Asthma, Seizures (last seizure was three months ago), HIV Psychiatric History: Patient denies h/o psychiatric hospitalization. Patient's first psychiatric contact was approximately 20 years ago after experiencing mood disturbances and anxiety. OPD is provided by Dr. Nova in [place], [place]. Diagnosis of Bipolar disorder. Pt. reports being prescribed Seroquel 300mg BID ( although takes 600mg qhs)+ Celexa 40mg qhs + Buspar 10 TIDmg. Patient reports adherence to medications. Pt. denies h/o suicide attempt. Physical/Sexual Abuse/Trauma History: Denies. Mental Status Exam - Mental Status Exam Alert and Oriented to: Time, Place, Person Cognitive Function: Good Patient Appearance: Well Groomed Mood: Hopeful, Euthymic Affect: Mood Congruent Patient Behavior: Appropriate, Cooperative Speech Pattern: Appropriate Voice Loudness: Normal Thought Process: Intact, Goal Oriented Thought Disorder: Not Present Hallucinations: Denies Suicidal Ideation: Denies Homicidal Ideation: Denies Insight/Judgement: Poor Sleep: Poorly Appetite: Fair Muscle strength/Tone: Normal Gait/Station: Normal Psychiatric Findings - Problem List ([place] 1, 2,3) (1) Alcohol dependence with uncomplicated withdrawal Current Visit: Yes Status: Acute (2) Cocaine dependence Current Visit: Yes Status: Acute Qualifiers: Substance use status: uncomplicated Qualified Code(s): F14.20 - Cocaine dependence, uncomplicated (3) Nicotine dependence Current Visit: Yes Status: Chronic Qualifiers: Nicotine product type: cigarettes Substance use status: uncomplicated Qualified Code(s): F17.210 - Nicotine dependence, cigarettes, uncomplicated (4) Insomnia Current Visit: No Status: Acute (5) HIV (human immunodeficiency virus infection) Current Visit: Yes Status: Chronic (6) Seizure Current Visit: Yes Status: Chronic (7) Bipolar disorder Current Visit: Yes Status: Chronic (8) Drug-induced mood disorder Current Visit: Yes Status: Acute - Initial Treatment Plan Initial Treatment Plan: Psychoeducation provided. Detoxification in progress. Seroquel 300mg qhs (reduced dose due to risk of oversedation) + Celexa 40mg qhs + Buspar 10mg BID. Benefits and side effects discussed. Verbal consent given.
--- NOTE | 2017-11-02 15:46 | EKG ---
Test Reason : Blood Pressure : / mmHG Vent. Rate : 089 BPM Atrial Rate : 089 BPM P-R Int : 140 ms QRS Dur : 074 ms QT Int : 312 ms P-R-T Axes : 055 057 -04 degrees QTc Int : 379 ms POOR DATA QUALITY, INTERPRETATION MAY BE ADVERSELY AFFECTED NORMAL SINUS RHYTHM POSSIBLE LEFT ATRIAL ENLARGEMENT NONSPECIFIC T WAVE ABNORMALITY ABNORMAL ECG WHEN COMPARED WITH ECG OF 22-AUG-2017 15:52, QT HAS SHORTENED Confirmed by AKIL DICKEY, SPARKLE ([id number]) on 11/02/2017 3:46:32 PM Referred By: Confirmed By:SPARKLE BARNARD MD
[2017-11-02] MEDS: MENTHOL/PHENOL 1 EACH UD MM PRN (17:34)
--- NOTE | 2017-11-02 21:15 | PN ---
[facility] Progress Note Note: psychiatric reevaluation for medication seroquel
[2017-11-02] MEDS ORDERED: busPIRone HCL 10 MG TABLET (FP) PO SCH (22:00)
[2017-11-02] MEDS ORDERED: QUEtiapine FUMARATE 300 MG TABLET PO SCH (22:00)
[2017-11-02] MEDS: THIAMINE HCL 100 MG TABLET (FP) PO SCH (22:09)
[2017-11-02] MEDS: CITALOPRAM HYDROBROMIDE 20 MG TABLET (FP) PO SCH (22:10)
[2017-11-03] MEDS: guaiFENesin/D-METHORPHAN HB 10 ML UNIT-DOSE CUPS PO PRN ×3 (03:07→22:12)
[2017-11-03] MEDS: chlordiazePOXIDE HCL 25 MG CAPSULE PO PRN ×2 (03:07→15:05)
[2017-11-03] MEDS: MENTHOL/PHENOL 1 EACH UD MM PRN ×2 (03:09→22:14)
[2017-11-03] MEDS: ALBUTEROL SO4 8 GM HFA INHALER IH SCH ×6 (03:28→22:13)
[2017-11-03] MEDS: GABAPENTIN 300 MG CAPSULE (FP) PO SCH ×3 (05:22→22:10)
[2017-11-03] MEDS: chlordiazePOXIDE HCL 25 MG CAPSULE PO SCH ×3 (05:23→17:44)
[2017-11-03] MEDS: EMTRICITAB/RILPIVIRINE/TENOFOV 1 EACH TABLET PO SCH (07:01)
--- NOTE | 2017-11-03 09:39 | PN ---
Psychiatric Progress Note Vital Signs: Vital Signs Period Temp Pulse Resp BP Sys/Kern Pulse Ox Last 24 Hr 97.9 F-98.5 F 86-100 18-20 94-127/46-95 Date of Session: 11/03/17 Chief Complaint:: My medications HPI: Patient reports taking prior to admission: Seroquel 600mg po qhs. Celexa 40mg poqd. Buspar 15mg p[o bid Current Medications: Active Medications Generic Name Dose Route Start Last Admin Trade Name Freq PRN Reason Stop Dose Admin Acetaminophen 650 mg 11/01/17 18:08 Tylenol - PO Q4H PRN FEVER Al Hydroxide/Mg Hydroxide 30 ml 11/01/17 18:08 Mylanta Oral Suspension - PO Q6H PRN DYSPEPSIA Albuterol Sulfate 2 puff 11/01/17 18:15 11/03/17 06:07 Ventolin Hfa Inhaler - IH 2 inh Q4H DAVID Administration Albuterol/Ipratropium 1 amp 11/01/17 18:10 Duoneb - NEB Q4H PRN SHORTNESS OF BREATH Buspirone HCl 15 mg 11/03/17 10:00 Buspar - PO BID DAVID Chlordiazepoxide HCl 25 mg 11/02/17 23:00 11/03/17 05:23 Librium - PO 11/03/17 17:01 25 mg [id number] DAVID Administration Chlordiazepoxide HCl 15 mg 11/03/17 23:00 Librium - PO 11/04/17 17:01 [id number] DAVID Chlordiazepoxide HCl 25 mg 11/01/17 18:08 11/03/17 03:07 Librium - PO 11/04/17 18:07 25 mg Q4H PRN Administration WITHDRAWAL(CONT SUBST) Chlordiazepoxide HCl 10 mg 11/04/17 23:00 Librium - PO 11/05/17 17:01 [id number] DAVID Citalopram Hydrobromide 40 mg 11/02/17 22:00 11/02/17 22:10 Celexa - PO 40 mg HS DAVID Administration Emtricitabine/Rilpivirine/Tenofovir 1 each 11/02/17 08:00 11/03/17 07:01 Complera - PO 1 each DAILY@0800 DAVID Administration Eucalyptus/Menthol/Phenol/Sorbitol 1 each 11/01/17 18:08 11/03/17 03:09 Cepastat Lozenge - MM 1 each Q4H PRN Administration SORE THROAT Gabapentin 600 mg 11/01/17 22:00 11/03/17 05:22 Neurontin - PO 600 mg TID DAVID Administration Guaifenesin 10 ml 11/01/17 18:08 11/03/17 03:07 Robitussin Dm - PO 10 ml Q6H PRN Administration COUGH Hydroxyzine Pamoate 50 mg 11/01/17 18:08 11/02/17 15:35 Vistaril - PO 50 mg Q4H PRN Administration AGITATION Ibuprofen 400 mg 11/01/17 18:08 Motrin - PO Q6H PRN PAIN LEVEL 4-6 Levetiracetam 500 mg 11/01/17 22:00 11/02/17 22:10 Keppra - PO 500 mg BID DAVID Administration Loperamide HCl 4 mg 11/01/17 18:08 Imodium - PO Q6H PRN DIARRHEA Magnesium Citrate 300 ml 11/01/17 18:08 Citroma - PO Q48H PRN CONSTIPATION Magnesium Hydroxide 30 ml 11/01/17 18:08 Milk Of Magnesia - PO DAILY PRN CONSTIPATION Melatonin 5 mg 11/01/17 22:00 11/02/17 00:44 Melatonin PO 5 mg HS PRN Administration INSOMNIA Nicotine 14 mg 11/02/17 10:00 11/02/17 10:21 Nicoderm Patch - TD 14 mg DAILY DAVID Administration Nicotine Polacrilex 2 mg 11/01/17 18:08 Nicorette Gum - BC Q2H PRN NICOTINE REPLACEMENT RX Multivit/Folic Acid/Iron 1 tab 11/02/17 10:00 11/02/17 10:21 Vitamins (Sjr) - PO 1 tab DAILY DAVID Administration Pseudoephedrine/Triprolidine 1 combo 11/01/17 18:08 Actifed - PO TID PRN NASAL CONGESTION Quetiapine Fumarate 600 mg 11/03/17 22:00 Seroquel - PO HS DAVID Thiamine HCl 100 mg 11/01/17 22:00 11/02/17 22:09 Vitamin B1 - PO 100 mg HS DAVID Administration Medication(s) Change(s): Seroquel 600mg po qhs. Celexa 40mg poqd. Buspar 15mg p[o bid Provider note:: As per patioent rerquest medications adjusted to preradmission level. Mental Status Exam - Mental Status Exam Alert and Oriented to: Place, Person Cognitive Function: Fair Patient Appearance: Well Groomed Mood: Anxious Affect: Appropriate Patient Behavior: Talkative Speech Pattern: Appropriate Voice Loudness: Normal Thought Process: Goal Oriented Thought Disorder: Being Controlled Hallucinations: Denies Suicidal Ideation: Denies Homicidal Ideation: Denies Insight/Judgement: Fair Sleep: Difficulty falling asleep Appetite: Weight loss Muscle strength/Tone: Mild Hypotonicity Gait/Station: Shuffling Additional Comments: Seroquel 600mg po qhs. Celexa 40mg poqd. Buspar 15mg p[o bid Psychiatric Treatment Plan - Problem List (1) Alcohol dependence with uncomplicated withdrawal Current Visit: Yes (2) Cocaine dependence Current Visit: Yes Qualifiers: Substance use status: uncomplicated Qualified Code(s): F14.20 - Cocaine dependence, uncomplicated (3) Drug-induced mood disorder Current Visit: Yes (4) Bipolar disorder Current Visit: Yes (5) COPD (chronic obstructive pulmonary disease) Current Visit: Yes Qualifiers: COPD type: chronic bronchitis (6) HIV (human immunodeficiency virus infection) Current Visit: Yes (7) Hepatitis C Current Visit: Yes Qualifiers: Viral hepatitis chronicity: chronic (8) Nicotine dependence Current Visit: Yes Qualifiers: Nicotine product type: cigarettes Substance use status: uncomplicated Qualified Code(s): F17.210 - Nicotine dependence, cigarettes, uncomplicated (9) Cocaine-induced sleep disorder, insomnia type, with onset during discontinuation/withdrawal Current Visit: No (10) Fibromyalgia Current Visit: No (11) Weight loss Current Visit: No (12) Cocaine abuse Current Visit: No Initial treatment plan: Seroquel 600mg po qhs. Celexa 40mg poqd. Buspar 15mg p [o bid
--- NOTE | 2017-11-03 10:01 | PN ---
S CIWA - CIWA Score Nausea/Vomitin-Mild Nausea/No Vomiting Muscle Tremors: 4-Moderate,w/Arms Extend Anxiety: 4-Mod. Anxious/Guarded Agitation: 3 Paroxysmal Sweats: 1-Minimal Palms Moist Orientation: 0-Oriented Tacttile Disturbances: 0-None Auditory Disturbances: 0-None Visual Disturbances: 0-None Headache: 0-None Present CIWA-Ar Total Score: 13 [facility] Progress Note (SOAP) Subjective: tremor sweat anxiety restlessness trouble sleep at night Objective: 11/03/17 10:09 Vital Signs Temperature 97.9 F 11/03/17 09:17 Pulse Rate 94 H 11/03/17 09:17 Respiratory Rate 20 11/03/17 09:17 Blood Pressure 99/65 11/03/17 09:17 O2 Sat by Pulse Oximetry (%) Laboratory Last Values WBC 13.7 K/mm3 (4.0-10.0) H 11/02/17 08:00 RBC 3.68 M/mm3 (3.60-5.2) 11/02/17 08:00 Hgb 12.8 GM/dL (10.7-15.3) 11/02/17 08:00 Hct 38.0 % (32.4-45.2) 11/02/17 08:00 MCV 103.2 fl (80-96) H 11/02/17 08:00 MCH 34.7 pg (25.7-33.7) H 11/02/17 08:00 MCHC 33.6 g/dl (32.0-36.0) 11/02/17 08:00 RDW 13.5 % (11.6-15.6) 11/02/17 08:00 Plt Count 296 K/MM3 (134-434) 11/02/17 08:00 MPV 8.0 fl (7.5-11.1) 11/02/17 08:00 Sodium 140 mmol/L (136-145) 11/02/17 08:00 Potassium 3.5 mmol/L (3.5-5.1) 11/02/17 08:00 Chloride 106 mmol/L (98-107) 11/02/17 08:00 Carbon Dioxide 22 mmol/L (21-32) 11/02/17 08:00 Anion Gap 12 (8-16) 11/02/17 08:00 BUN 20 mg/dL (7-18) H 11/02/17 08:00 Creatinine 0.9 mg/dL (0.55-1.02) 11/02/17 08:00 Creat Clearance w eGFR > 60 (>60) 11/02/17 08:00 Random Glucose 122 mg/dL (74-106) H 11/02/17 08:00 Calcium 8.4 mg/dL (8.5-10.1) L 11/02/17 08:00 Total Bilirubin 0.8 mg/dL (0.2-1.0) 11/02/17 08:00 AST 20 U/L (15-37) 11/02/17 08:00 ALT 30 U/L (12-78) 11/02/17 08:00 Alkaline Phosphatase 91 U/L (45-117) 11/02/17 08:00 Total Protein 7.7 g/dl (6.4-8.2) 11/02/17 08:00 Albumin 3.7 g/dl (3.4-5.0) 11/02/17 08:00 Urine Color Yellow 11/02/17 09:50 Urine Appearance Clear 11/02/17 09:50 Urine pH 6.0 (5.0-8.0) 11/02/17 09:50 Ur Specific [place] 1.011 (1.001-1.035) 11/02/17 09:50 Urine Protein Negative (NEGATIVE) 11/02/17 09:50 Urine Glucose (UA) Negative (NEGATIVE) 11/02/17 09:50 Urine Ketones Negative (NEGATIVE) 11/02/17 09:50 Urine Blood Negative (NEGATIVE) 11/02/17 09:50 Urine Nitrite Negative (NEGATIVE) 11/02/17 09:50 Urine Bilirubin Negative (<2.0 mg/dL) 11/02/17 09:50 Urine Urobilinogen 2.0 mg/dL (0.2-1.0) H 11/02/17 09:50 Ur Leukocyte Esterase Negative (NEGATIVE) 11/02/17 09:50 RPR Titer Nonreactive (NONREACTIVE) 11/02/17 08:00 lab noted Assessment: 11/03/17 10:10 withdrawal sx Plan: continue detox
[2017-11-03] MEDS ORDERED: BACLOFEN 10 MG TABLET (FP) PO ONE (10:17)
[2017-11-03] MEDS: PRENATAL VITAMINS W/ FOLIC ACID TABLET (FP) PO SCH (10:45)
[2017-11-03] MEDS: levETIRAcetam 500 MG TABLET (FP) PO SCH ×2 (10:45→22:10)
[2017-11-03] MEDS: NICOTINE 14 MG/24 HOURS TOPICAL PATCH TD SCH (10:46)
[2017-11-03] MEDS ORDERED: guaiFENesin 600 MG TABLET.ER (FP) PO PRN (13:43)
[2017-11-03] MEDS ORDERED: QUEtiapine FUMARATE 300 MG TABLET PO SCH (22:00)
[2017-11-03] MEDS: CITALOPRAM HYDROBROMIDE 20 MG TABLET (FP) PO SCH (22:10)
[2017-11-03] MEDS: THIAMINE HCL 100 MG TABLET (FP) PO SCH (22:10)
[2017-11-03] MEDS: chlordiazePOXIDE 5 MG CAPSULE PO SCH (22:13)
[2017-11-04] MEDS: chlordiazePOXIDE HCL 25 MG CAPSULE PO PRN (01:30)
[2017-11-04] MEDS: ALBUTEROL SO4 8 GM HFA INHALER IH SCH ×3 (03:00→09:32)
[2017-11-04] MEDS: guaiFENesin/D-METHORPHAN HB 10 ML UNIT-DOSE CUPS PO PRN (03:59)
[2017-11-04] MEDS: MENTHOL/PHENOL 1 EACH UD MM PRN (04:03)
[2017-11-04] MEDS: chlordiazePOXIDE 5 MG CAPSULE PO SCH ×2 (04:04→11:29)
[2017-11-04] MEDS: GABAPENTIN 300 MG CAPSULE (FP) PO SCH (06:11)
[2017-11-04] MEDS: EMTRICITAB/RILPIVIRINE/TENOFOV 1 EACH TABLET PO SCH (07:30)
--- NOTE | 2017-11-04 08:34 | PN ---
S Progress Note (SOAP) Subjective: alert,coughing with yellowish mucous Objective: 11/04/17 08:34 Vital Signs Temperature 97.0 F L 11/04/17 06:08 Pulse Rate 73 11/04/17 06:08 Respiratory Rate 16 11/04/17 06:08 Blood Pressure 89/64 11/04/17 06:08 O2 Sat by Pulse Oximetry (%) Assessment: 11/04/17 08:34patient is stable for discharge 11/04/17 08:35 chest x ray note,no pneumonia Plan: discharge today,follow up with penelope
--- NOTE | 2017-11-04 08:43 | DS ---
[facility] Detox Discharge Summary Admission Date: 11/01/17 Discharge Date: 11/11/17 - History Present History: Alcohol Dependence, Cocaine Dependence Additional Comments: patient is stable to be discharge to [facility] and [facility],on amoxicillin 500 mgs po tid for 7 days Pertinent Past History: hiv hepatitis c neuropathy biploar disorder copd asthma - Physical Exam Results Vital Signs: Vital Signs Temperature 97.0 F L 11/04/17 06:08 Pulse Rate 73 11/04/17 06:08 Respiratory Rate 16 11/04/17 06:08 Blood Pressure 89/64 11/04/17 06:08 O2 Sat by Pulse Oximetry (%) Pertinent Admission Physical Exam Findings: withdrawal signs and symptom Laboratory Last Values WBC 13.7 K/mm3 (4.0-10.0) H 11/02/17 08:00 RBC 3.68 M/mm3 (3.60-5.2) 11/02/17 08:00 Hgb 12.8 GM/dL (10.7-15.3) 11/02/17 08:00 Hct 38.0 % (32.4-45.2) 11/02/17 08:00 MCV 103.2 fl (80-96) H 11/02/17 08:00 MCH 34.7 pg (25.7-33.7) H 11/02/17 08:00 MCHC 33.6 g/dl (32.0-36.0) 11/02/17 08:00 RDW 13.5 % (11.6-15.6) 11/02/17 08:00 Plt Count 296 K/MM3 (134-434) 11/02/17 08:00 MPV 8.0 fl (7.5-11.1) 11/02/17 08:00 Sodium 140 mmol/L (136-145) 11/02/17 08:00 Potassium 3.5 mmol/L (3.5-5.1) 11/02/17 08:00 Chloride 106 mmol/L (98-107) 11/02/17 08:00 Carbon Dioxide 22 mmol/L (21-32) 11/02/17 08:00 Anion Gap 12 (8-16) 11/02/17 08:00 BUN 20 mg/dL (7-18) H 11/02/17 08:00 Creatinine 0.9 mg/dL (0.55-1.02) 11/02/17 08:00 Creat Clearance w eGFR > 60 (>60) 11/02/17 08:00 Random Glucose 122 mg/dL (74-106) H 11/02/17 08:00 Calcium 8.4 mg/dL (8.5-10.1) L 11/02/17 08:00 Total Bilirubin 0.8 mg/dL (0.2-1.0) 11/02/17 08:00 AST 20 U/L (15-37) 11/02/17 08:00 ALT 30 U/L (12-78) 11/02/17 08:00 Alkaline Phosphatase 91 U/L (45-117) 11/02/17 08:00 Total Protein 7.7 g/dl (6.4-8.2) 11/02/17 08:00 Albumin 3.7 g/dl (3.4-5.0) 11/02/17 08:00 Urine Color Yellow 11/02/17 09:50 Urine Appearance Clear 11/02/17 09:50 Urine pH 6.0 (5.0-8.0) 11/02/17 09:50 Ur Specific [place] 1.011 (1.001-1.035) 11/02/17 09:50 Urine Protein Negative (NEGATIVE) 11/02/17 09:50 Urine Glucose (UA) Negative (NEGATIVE) 11/02/17 09:50 Urine Ketones Negative (NEGATIVE) 11/02/17 09:50 Urine Blood Negative (NEGATIVE) 11/02/17 09:50 Urine Nitrite Negative (NEGATIVE) 11/02/17 09:50 Urine Bilirubin Negative (<2.0 mg/dL) 11/02/17 09:50 Urine Urobilinogen 2.0 mg/dL (0.2-1.0) H 11/02/17 09:50 Ur Leukocyte Esterase Negative (NEGATIVE) 11/02/17 09:50 RPR Titer Nonreactive (NONREACTIVE) 11/02/17 08:00 Vital Signs Period Temp Pulse Resp BP Sys/Kern Pulse Ox Last 24 Hr 96.4 F-97.9 F 73-99 16-20 89-104/63-73 - Treatment Hospital Course: Detox Protocol Followed, Detoxed Safely, Responded well, Discharged Condition Good, Rehab Referral Accepted Patient has Accepted a Rehab Referral to: [facility] - Medication Discharge Medications: Ambulatory Orders Citalopram Hydrobromide [Celexa -] 40 mg PO DAILY #20 tablet 08/22/17 Doxepin HCl [Sinequan -] 25 mg PO TID 11/01/17 Quetiapine Fumarate [Seroquel -] 900 mg PO HS 11/01/17 Albuterol Sulfate Inhaler - [Ventolin HFA Inhaler -] 2 inh PO Q4H #1 inhaler 09/16 Buspirone HCl [Buspar -] 10 mg PO TID #60 tablet 11/03/17 Buspirone HCl [Buspar -] 15 mg PO BID #60 tablet 11/03/17 Citalopram Hydrobromide [Celexa -] 40 mg PO HS #30 tablet 11/03/17 Emtricitab/Rilpivirine/Tenofov [Complera Tablet -] 1 tab PO DAILY #30 tablet 09/16 Gabapentin [Neurontin -] 600 mg PO Q8H #120 capsule 11/03/17 Quetiapine Fumarate [Seroquel -] 600 mg PO HS #30 tablet 11/03/17 levETIRAcetam [Keppra -] 500 mg PO BID #60 tablet 11/03/17 - Diagnosis (1) Alcohol dependence with uncomplicated withdrawal Current Visit: Yes Status: Acute (2) Cocaine dependence Current Visit: Yes Status: Acute Qualifiers: Substance use status: uncomplicated Qualified Code(s): F14.20 - Cocaine dependence, uncomplicated (3) COPD (chronic obstructive pulmonary disease) Current Visit: Yes Status: Chronic Qualifiers: COPD type: chronic bronchitis (4) HIV (human immunodeficiency virus infection) Current Visit: Yes Status: Chronic (5) Hepatitis C Current Visit: Yes Status: Chronic Qualifiers: Viral hepatitis chronicity: chronic (6) Nicotine dependence Current Visit: Yes Status: Chronic Qualifiers: Nicotine product type: cigarettes Substance use status: uncomplicated Qualified Code(s): F17.210 - Nicotine dependence, cigarettes, uncomplicated (7) Seizure Current Visit: Yes Status: Chronic (8) Bronchitis Current Visit: No Status: Acute (9) Weight loss Current Visit: No Status: Acute (10) Asthma Current Visit: No Status: Chronic Qualifiers: Asthma severity: mild Asthma persistence: intermittent Asthma complication type: with status asthmaticus Qualified Code(s): J45.22 - Mild intermittent asthma with status asthmaticus - AMA Did Patient Leave Against Medical Advice: No
[2017-11-04] MEDS: PRENATAL VITAMINS W/ FOLIC ACID TABLET (FP) PO SCH (09:31)
[2017-11-04] MEDS: levETIRAcetam 500 MG TABLET (FP) PO SCH (09:32)
[2017-11-04] MEDS ORDERED: AMOXICILLIN 500 MG CAPSULE (FP) PO ONE (09:44)
[2017-11-04 11:14] VITALS: BP 93/61; PULSE 94; TEMP 98.6
[2017-11-04] MEDS: NICOTINE 14 MG/24 HOURS TOPICAL PATCH TD SCH (11:20)
[2017-11-04] MEDS ORDERED: AMOXICILLIN 500 MG CAPSULE (FP) PO SCH (14:00)
[2017-11-04] MEDS ORDERED: chlordiazePOXIDE HCL 10 MG CAPSULE PO SCH (23:00)
== END 2017-11-04 12:28 | disposition other institution (70) | DRG 774 ==
LOC: YASAS 13:29 → Y6N 17:43
PROVIDERS: ADMIT Surgery; ATTEND Surgery
PROC: HZ2ZZZZ Detoxification Services for Substance Abuse Treatment (ICD-10-PCS; principal; 2017-11-01)
DX: F10.230 Alcohol dependence with withdrawal, uncomplicated (principal); F14.20 Cocaine dependence, uncomplicated; F17.210 Nicotine dependence, cigarettes, uncomplicated; Z21 Asymptomatic human immunodeficiency virus [HIV] infection status; F19.24 Other psychoactive substance dependence with psychoactive substance-induced mood disorder; F19.282 Other psychoactive substance dependence with psychoactive substance-induced sleep disorder; F31.9 Bipolar disorder, unspecified; G40.909 Epilepsy, unspecified, not intractable, without status epilepticus; B18.2 Chronic viral hepatitis C; G62.9 Polyneuropathy, unspecified; J42 Unspecified chronic bronchitis; J45.22 Mild intermittent asthma with status asthmaticus
CPT/HCPCS: 36415; 71046-TC-FY; 80053; 81003; 85027; 86593; 93005; 93010; J0475

== ENCOUNTER 2018-07-27 14:11 | Inpatient (IN) | payer OTHER ==
[2018-07-27 15:59] VITALS: BMI 24.9
--- NOTE | 2018-07-27 17:46 | HP ---
CIWA Score Nausea/Vomitin-Mild Nausea/No Vomiting Muscle Tremors: 4-Moderate,w/Arms Extend Anxiety: 2 Agitation: 2 Paroxysmal Sweats: 2 Orientation: 0-Oriented Tacttile Disturbances: 0-None Auditory Disturbances: 0-None Visual Disturbances: 0-None Headache: 1-Very Mild CIWA-Ar Total Score: 12 - Admission Criteria OASAS Guidelines: Admission for Medically Managed Detox: Requires at least one of the followin. CIWA greater than 12 2. Seizures within the past 24 hours 3. Delirium tremens within the past 24 hours 4. Hallucinations within the past 24 hours 5. Acute intervention needed for co occurring medical disorder 6. Acute intervention needed for co occurring psychiatric disorder 7. Severe withdrawal that cannot be handled at a lower level of care (continued vomiting, continued diarrhea, abnormal vital signs) requiring intravenous medication and/or fluids 8. Patient presents the following: Seizures, delirium tremens or hallucinations in the past 12 hours Admission Criteria Met: Admission criteria met Admission ROS BHS - HPI Chief Complaint: here for alcohol and cocaine detox 58 yo with h/o benzo and alcohol withdrawal seizures, h/o HIV on Complera, last alcohol detox 2017 says last alcohol use 4 AM: uses 1 pint of vodka alcohol/day, no DT's heroin 3 bags , 4 X week IH cocaine- smokes about 5 bags/day PCPRenee Manley ? [facility] [place]: seroquel 300 mg BID gabapentin 800mg BID prn complera 1 tab qd citalopram 40mg oxcapbazepine 600mh DUR: klonopin 0.5 mg BID last picked up 06/29/18 Utox: harvey, opi Allergies/Adverse Reactions: Allergies Allergy/AdvReac Type Severity Reaction Status Date / Time Sulfa (Sulfonamide Allergy Verified 07/27/18 19:25 Antibiotics) Exam Limitations: No Limitations - Ebola screening Have you traveled outside of the country in the last 21 days: No Have you had contact with anyone from an Ebola affected area: No Have you been sick,other than usual withdrawal symptoms: No Do you have a fever: No Patient History - Patient Medical History Hx Anemia: No Hx Asthma: Yes (Pt is on MDI) Hx Chronic Obstructive Pulmonary Disease (COPD): No Hx Cancer: Yes Hx Cardiac Disorders: No Hx Congestive Heart Failure: No Hx Hypertension: No Hx Hypercholesterolemia: No Hx Pacemaker: No HX Cerebrovascular Accident: No Hx Seizures: Yes (seizure disorder last was 3 months ago.) Hx Dementia: No Hx Diabetes: No Hx Gastrointestinal Disorders: No Hx Liver Disease: No Hx Genitourinary Disorders: No Hx Sexually Transmitted Disorders: No Hx Renal Disease (ESRD): No Hx Thyroid Disease: No Hx Human Immunodeficiency Virus (HIV): Yes (1988, on complera reports meds adherence ) Hx Hepatitis C: No Hx Depression: Yes Hx Suicide Attempt: No Hx Bipolar Disorder: Yes Hx Schizophrenia: No - Patient Surgical History Past Surgical History: No Hx Neurologic Surgery: No Hx Cataract Extraction: No Hx Cardiac Surgery: No Hx Lung Surgery: No Hx Breast Surgery: No Hx Breast Biopsy: No Hx Abdominal Surgery: No Hx Appendectomy: No Hx Cholecystectomy: No Hx Genitourinary Surgery: No Hx Section: No Hx Orthopedic Surgery: No - PPD History Date: 02/25/17 Results: 0 mm PPD to be Administered?: Yes - Reproductive History Last Menstrual Period: 02/23/11 - Smoking Cessation Smoking history: Current every day smoker Have you smoked in the past 12 months: Yes Aproximately how many cigarettes per day: 8 Cigars Per Day: 0 Hx Chewing Tobacco Use: No Initiated information on smoking cessation: Yes 'Breaking Loose' booklet given: 07/27/18 - Substance & Tx. History Substance Use Type: Alcohol, Cocaine, Heroin - Substances Abused Alcohol Route: Oral Frequency: Daily Amount used: 1 PINT VODKA Age of first use: 54 Date of Last Use: 07/26/18 Heroin Route: SNIFF Frequency: 3-6 times per week Amount used: 3 BAGS Age of first use: 19 Date of Last Use: 07/27/18 Cocaine Route: Smoking Frequency: Daily Amount used: 2 BAGS Age of first use: 48 Date of Last Use: 07/26/18 Family Disease History - Family Disease History Family Disease History: Heart Disease: Brother (), Other: Father ( old age), Mother ( liver), Brother Admission Physical Exam S - Vital Signs Vital Signs: Vital Signs - 24 hr 07/27/18 15:56 Temperature 97.5 F L Pulse Rate 90 Respiratory 18 Rate Blood Pressure 107/76 - Physical General Appearance: Yes: Within Normal Limits HEENTM: Yes: Within Normal Limits Respiratory: Yes: Within Normal Limits, Lungs Clear Neck: Yes: Within Normal Limits Cardiology: Yes: Within Normal Limits Abdominal: Yes: Within Normal Limits Back: Yes: Within Normal Limits Musculoskeletal: Yes: Within Normal Limits, Other (pt has a wide stance when walking) Extremities: Yes: Within Normal Limits Integumentary: Yes: Within Normal Limits Lymphatic: Yes: Within Normal Limits - Diagnostic (1) Alcohol dependence with uncomplicated withdrawal Current Visit: No Status: Acute (2) Cocaine dependence Current Visit: No Status: Acute Qualifiers: Substance use status: uncomplicated Qualified Code(s): F14.20 - Cocaine dependence, uncomplicated (3) Asthma Current Visit: No Status: Chronic Qualifiers: Asthma severity: mild Asthma persistence: intermittent Asthma complication type: with status asthmaticus Qualified Code(s): J45.22 - Mild intermittent asthma with status asthmaticus (4) COPD (chronic obstructive pulmonary disease) Current Visit: No Status: Chronic Qualifiers: COPD type: chronic bronchitis (5) HIV (human immunodeficiency virus infection) Current Visit: No Status: Chronic BHS Breath Alcohol Content Breath Alcohol Content: 0 Urine Pregancy Test - Result Urine Test Results: Negative - NO line present Urine Drug Screen - Results Drug Screen Negative: No Urine Drug Screen Results: HARVEY-Cocaine, OPI-Opiates Inpatient Rehab Admission - Rehab Decision to Admit Inpatient rehab admission?: No
[2018-07-27] MEDS ORDERED: MENTHOL/PHENOL 1 EACH UD MM PRN (17:55)
[2018-07-27] MEDS ORDERED: BISMUTH SUBSALICYLATE 524 MG/30 ML UD PO PRN (17:55)
[2018-07-27] MEDS ORDERED: IBUPROFEN 400 MG TABLET (FP) PO PRN (17:55)
[2018-07-27] MEDS ORDERED: DICYCLOMINE HCL 10 MG CAPSULE PO PRN (17:55)
[2018-07-27] MEDS ORDERED: ACETAMINOPHEN 325 MG TABLET (FP) PO PRN ×2 (17:55)
[2018-07-27] MEDS ORDERED: MAGNESIUM HYDROX 2400MG/30ML ORAL SUSPENSION 30 ML CUP PO PRN (17:55)
[2018-07-27] MEDS ORDERED: MAGNESIUM CITRATE 300 ML BOTTLE PO PRN (17:55)
[2018-07-27] MEDS ORDERED: MAG HYDROX/AL HYDROX/SIMETH 30 ML UNIT-DOSE CUP PO PRN (17:55)
[2018-07-27] MEDS ORDERED: ALBUTEROL SO4 8 GM HFA INHALER IH PRN (17:57)
[2018-07-27] MEDS ORDERED: chlordiazePOXIDE HCL 10 MG CAPSULE PO PRN (17:57)
[2018-07-27] MEDS ORDERED: chlordiazePOXIDE HCL 25 MG CAPSULE PO ONE (18:15)
[2018-07-27] MEDS: CITALOPRAM HYDROBROMIDE 20 MG TABLET (FP) PO SCH (20:34)
[2018-07-27] MEDS ORDERED: QUEtiapine FUMARATE 100 MG TABLET (FP) ONE (22:01)
[2018-07-27] MEDS: QUEtiapine FUMARATE 300 MG TABLET PO SCH (22:20)
[2018-07-27] MEDS: chlordiazePOXIDE HCL 25 MG CAPSULE PO SCH (22:20)
[2018-07-27] MEDS: GABAPENTIN 400 MG CAPSULE (FP) PO SCH (22:20)
[2018-07-27] MEDS: THIAMINE HCL 100 MG TABLET (FP) PO SCH (22:20)
[2018-07-27] MEDS: MELATONIN 5 MG TABLETS PO PRN (22:24)
[2018-07-28] MEDS: hydrOXYzine PAMOATE 25 MG CAPSULE (FP) PO PRN ×2 (03:15→18:20)
[2018-07-28] MEDS: GABAPENTIN 400 MG CAPSULE (FP) PO SCH ×3 (05:43→22:24)
[2018-07-28] MEDS: chlordiazePOXIDE HCL 25 MG CAPSULE PO SCH ×2 (05:43→12:51)
[2018-07-28] MEDS ORDERED: EMTRICITAB/RILPIVIRINE/TENOFOV 1 EACH TABLET PO SCH (08:00)
[2018-07-28] MEDS ORDERED: QUEtiapine FUMARATE 100 MG TABLET (FP) ONE ×2 (09:12→21:37)
[2018-07-28] MEDS: NICOTINE 21 MG/24 HOURS TOPICAL PATCH TD SCH (09:21)
[2018-07-28] MEDS: chlordiazePOXIDE HCL 25 MG CAPSULE PO PRN ×2 (09:21→18:55)
[2018-07-28] MEDS: QUEtiapine FUMARATE 300 MG TABLET PO SCH ×2 (09:21→22:24)
[2018-07-28] MEDS: CITALOPRAM HYDROBROMIDE 20 MG TABLET (FP) PO SCH (09:21)
[2018-07-28] MEDS: PRENATAL VITAMINS W/ FOLIC ACID TABLET (FP) PO SCH (09:21)
[2018-07-28 10:28] LABS: ALBUMIN 3.1 g/dl (3.4-5.0); ALK PHOS 86 U/L (45-117); ANION GAP 6 MMOL/L (8-16); BILIRUBIN,TOTAL 0.2 mg/dL (0.2-1); BLOOD UREA NITROGEN 12 mg/dL (7-18); CALCIUM 8.6 mg/dL (8.5-10.1); CHLORIDE 105 mmol/L (98-107); CO2 26 mmol/L (21-32); CREATININE 0.6 mg/dL (0.55-1.3); GLUCOSE,RANDOM 103 mg/dL (74-106); POTASSIUM 4.2 mmol/L (3.5-5.1); SGOT/AST 18 U/L (15-37); SGPT/ALT 22 U/L (13-61); SODIUM 136 mmol/L (136-145); TOT PROT 6.8 g/dl (6.4-8.2)
[2018-07-28 10:41] LABS: HEMATOCRIT 38.2 % (32.4-45.2); HEMOGLOBIN 12.6 GM/dL (10.7-15.3); MCH 32.3 pg (25.7-33.7); MCHC 32.9 g/dl (32.0-36.0); MEAN CELL VOLUME 98.1 fl (80-96); MEAN PLT VOLUME 7.4 fl (7.5-11.1); PLATELET COUNT 273 K/MM3 (134-434); RDW 13.6 % (11.6-15.6); WHITE BLOOD COUNT 6.7 K/mm3 (4.0-10.0)
[2018-07-28] MEDS: OXcarbazepine 300 MG TABLET (UD) PO SCH (12:08)
--- NOTE | 2018-07-28 15:20 | CONSULT ---
[facility] Psychiatric Consult - Data Date of interview: 07/28/18 Admission source: [facility] Identifying data: This is one of multiple admissions to [facility] for this 58 y/ o female self-referred for detoxification (heroin, cocaine, alcohol). Examined at [address] [place] [address]. Patient is single, no children, domiciled, unemployed and supported on [employer] funds. Substance Abuse History: Confirmed by the patient in this interview. Details in current [facility] report as follows : Smoking history: Current every day smoker. Have you smoked in the past 12 months: Yes. Aproximately how many cigarettes per day: 8. Cigars Per Day: 0. Hx Chewing Tobacco Use: No. Initiated information on smoking cessation: Yes. 'Breaking Loose' booklet given: . - Substance & Tx. History. Substance Use Type: Alcohol, Cocaine, Heroin. - Substances Abused. Alcohol. Route: Oral. Frequency: Daily. Amount used : 1 PINT VODKA. Age of first use: 54. Date of Last Use: 07/26/18. Heroin. Route: SNIFF. Frequency: 3-6 times per week. Amount used: 3 BAGS. Age of first use: 19. Date of Last Use: 07/27/18. Cocaine. Route: Smoking. Frequency: Daily. Amount used: 2 BAGS. Age of first use: 48. Date of Last Use : 07/26/18 Medical History: Remarkable for HIV infection since 1988 (on antiretroviral medications), fibromyalgia, hepatitis C, hypertension and withdrawal-related seizures. Psychiatric History: Onset of psychiatric disturbances : 20 years ago. Patient denies history of psychiatric hospitalizations. She is reportedly diagnosed with Bipolar Disorder and maintained on a regimen of seroquel 300 mg/bid + citalopram 40 mg/daily. Ms Moreno is followed by a private psychiatrist, Dr Nova, in [facility]. Patient denies history of suicide attempts. Physical/Sexual Abuse/Trauma History: Not discussed. Additional Comment: Urine Drug Screen Results: HANG-Cocaine, OPI-Opiates. Noted. Mental Status Exam - Mental Status Exam Alert and Oriented to: Time, Place, Person Cognitive Function: Good Patient Appearance: Well Groomed Mood: Withdrawn, Apprehensive, Hopeful Affect: Appropriate, Normal Range Patient Behavior: Fatigued, Appropriate, Cooperative Speech Pattern: Clear, Appropriate Voice Loudness: Normal Thought Process: Goal Oriented Thought Disorder: Not Present Hallucinations: Denies Suicidal Ideation: Denies Homicidal Ideation: Denies Insight/Judgement: Poor Sleep: Well (patient attributes improved sleep architecture to seroquel taken at bedtime), Difficulty falling asleep Appetite: Good Muscle strength/Tone: Normal Gait/Station: Normal Psychiatric Findings - Problem List (Dow 1, 2,3) (1) Alcohol dependence with uncomplicated withdrawal Status: Acute (2) Opioid dependence Status: Chronic Qualifiers: Substance use status: uncomplicated Qualified Code(s): F11.20 - Opioid dependence, uncomplicated (3) Cocaine dependence Status: Chronic Qualifiers: Substance use status: uncomplicated Qualified Code(s): F14.20 - Cocaine dependence, uncomplicated (4) Nicotine dependence Status: Chronic Qualifiers: Nicotine product type: cigarettes Substance use status: uncomplicated Qualified Code(s): F17.210 - Nicotine dependence, cigarettes, uncomplicated (5) Bipolar disorder Status: Chronic Qualifiers: Active/Remission status: remission status unspecified Qualified Code(s): F31.9 - Bipolar disorder, unspecified Comment: As per history and existing records. (6) Insomnia Status: Chronic Qualifiers: Insomnia type: unspecified Qualified Code(s): G47.00 - Insomnia, unspecified - Initial Treatment Plan Initial Treatment Plan: Records, from [facility], are revisited. Psychoeducation. Sleep hygiene. Detoxification. AA/NA meetings. Support. Strategies for relapse prevention are discussed with the patient. Medications resumed : seroquel 300 mg po bid + celexa 40 mg po daily. Side effects/benefits of both drugs are discussed with the patient. Ms Moreno is agreeable with this plan of care. Consent (verbal) granted to MD. Rowan.
--- NOTE | 2018-07-28 16:26 | PN ---
S CIWA - CIWA Score Nausea/Vomitin Muscle Tremors: None Anxiety: 4-Mod. Anxious/Guarded Agitation: 2 Paroxysmal Sweats: 2 Orientation: 0-Oriented Tacttile Disturbances: 2-Mild Itch/Numbness/Burn Auditory Disturbances: 0-None Visual Disturbances: 2-Mild Sensitivity Headache: 0-None Present CIWA-Ar Total Score: 15 S Progress Note (SOAP) Subjective: Anxious, Fatigue, Nausea, Hot / Cold Sensations. Objective: PATIENT A & O X 3, OBSERVED AMBULATING ON UNIT. IN NO ACUTE DISTRESS. 07/28/18 16:23 Vital Signs Temperature 98.9 F 07/28/18 13:00 Pulse Rate 86 07/28/18 13:00 Respiratory Rate 18 07/28/18 13:00 Blood Pressure 111/74 07/28/18 13:00 O2 Sat by Pulse Oximetry (%) Laboratory Tests 07/28/18 07/28/18 07/28/18 07:00 07:00 07:00 WBC 6.7 RBC 3.90 Hgb 12.6 Hct 38.2 MCV 98.1 H MCH 32.3 MCHC 32.9 RDW 13.6 Plt Count 273 MPV 7.4 L Sodium 136 Potassium 4.2 Chloride 105 Carbon Dioxide 26 Anion Gap 6 L BUN 12 Creatinine 0.6 Creat Clearance w eGFR 102.32 Random Glucose 103 Calcium 8.6 Total Bilirubin 0.2 AST 18 ALT 22 Alkaline Phosphatase 86 Total Protein 6.8 Albumin 3.1 L RPR Titer Nonreactive LABS NOTED. Assessment: 07/28/18 16:24 WITHDRAWAL SYMPTOMS. Plan: CONTINUE DETOX. PATIENT REQUESTS LIBRIUM, 25 MG PO FOR PRN DOSE.
[2018-07-28] MEDS: METHOCARBAMOL 500 MG TABLET PO PRN (18:21)
[2018-07-28] MEDS: chlordiazePOXIDE 5 MG CAPSULE PO SCH (22:00)
[2018-07-28] MEDS: THIAMINE HCL 100 MG TABLET (FP) PO SCH (22:23)
[2018-07-28] MEDS: MELATONIN 5 MG TABLETS PO PRN (22:26)
[2018-07-29] MEDS: chlordiazePOXIDE HCL 25 MG CAPSULE PO PRN ×2 (03:04→10:10)
[2018-07-29] MEDS: GABAPENTIN 400 MG CAPSULE (FP) PO SCH ×3 (05:21→22:16)
[2018-07-29] MEDS: chlordiazePOXIDE 5 MG CAPSULE PO SCH ×2 (05:21→14:34)
[2018-07-29] MEDS ORDERED: QUEtiapine FUMARATE 100 MG TABLET (FP) ONE ×2 (09:17→21:23)
--- NOTE | 2018-07-29 09:27 | PN ---
[facility] CIWA - CIWA Score Nausea/Vomitin Muscle Tremors: 3 Anxiety: 3 Agitation: 3 Paroxysmal Sweats: 3 Orientation: 0-Oriented Tacttile Disturbances: 0-None Auditory Disturbances: 0-None Visual Disturbances: 0-None Headache: 0-None Present CIWA-Ar Total Score: 15 S Progress Note (SOAP) Subjective: Sweats NAusea Objective: 07/29/18 09:25 A & O x 3 ambulating steadily anxious, no acute distress Vital Signs Temperature 97.2 F L 07/29/18 06:02 Pulse Rate 75 07/29/18 06:02 Respiratory Rate 18 07/29/18 06:02 Blood Pressure 107/70 07/29/18 06:02 O2 Sat by Pulse Oximetry (%) Laboratory Last Values WBC 6.7 K/mm3 (4.0-10.0) 07/28/18 07:00 RBC 3.90 M/mm3 (3.60-5.2) 07/28/18 07:00 Hgb 12.6 GM/dL (10.7-15.3) 07/28/18 07:00 Hct 38.2 % (32.4-45.2) 07/28/18 07:00 MCV 98.1 fl (80-96) H 07/28/18 07:00 MCH 32.3 pg (25.7-33.7) 07/28/18 07:00 MCHC 32.9 g/dl (32.0-36.0) 07/28/18 07:00 RDW 13.6 % (11.6-15.6) 07/28/18 07:00 Plt Count 273 K/MM3 (134-434) 07/28/18 07:00 MPV 7.4 fl (7.5-11.1) L 07/28/18 07:00 Sodium 136 mmol/L (136-145) 07/28/18 07:00 Potassium 4.2 mmol/L (3.5-5.1) 07/28/18 07:00 Chloride 105 mmol/L (98-107) 07/28/18 07:00 Carbon Dioxide 26 mmol/L (21-32) 07/28/18 07:00 Anion Gap 6 MMOL/L (8-16) L 07/28/18 07:00 BUN 12 mg/dL (7-18) 07/28/18 07:00 Creatinine 0.6 mg/dL (0.55-1.3) 07/28/18 07:00 Creat Clearance w eGFR 102.32 (>60) 07/28/18 07:00 Random Glucose 103 mg/dL (74-106) 07/28/18 07:00 Calcium 8.6 mg/dL (8.5-10.1) 07/28/18 07:00 Total Bilirubin 0.2 mg/dL (0.2-1) 07/28/18 07:00 AST 18 U/L (15-37) 07/28/18 07:00 ALT 22 U/L (13-61) 07/28/18 07:00 Alkaline Phosphatase 86 U/L (45-117) 07/28/18 07:00 Total Protein 6.8 g/dl (6.4-8.2) 07/28/18 07:00 Albumin 3.1 g/dl (3.4-5.0) L 07/28/18 07:00 RPR Titer Nonreactive (NONREACTIVE) 07/28/18 07:00 07/29/18 09:32 Assessment: 07/29/18 09:27 withdrawal sx Plan: continue detox Increase water hydration Requesting to leave on tuesday.
[2018-07-29] MEDS: CITALOPRAM HYDROBROMIDE 20 MG TABLET (FP) PO SCH (10:10)
[2018-07-29] MEDS: PRENATAL VITAMINS W/ FOLIC ACID TABLET (FP) PO SCH (10:10)
[2018-07-29] MEDS: QUEtiapine FUMARATE 300 MG TABLET PO SCH ×2 (10:11→22:16)
[2018-07-29] MEDS: EMTRICITAB PO SCH (10:11)
[2018-07-29] MEDS: TENOFOV PO SCH (10:11)
[2018-07-29] MEDS: RILPIVIRINE PO SCH (10:11)
[2018-07-29] MEDS: NICOTINE 21 MG/24 HOURS TOPICAL PATCH TD SCH (10:12)
[2018-07-29] MEDS: OXcarbazepine 300 MG TABLET (UD) PO SCH (10:44)
[2018-07-29] MEDS ORDERED: chlordiazePOXIDE HCL 10 MG CAPSULE PO PRN (21:00)
[2018-07-29] MEDS: chlordiazePOXIDE HCL 10 MG CAPSULE PO SCH (22:00)
[2018-07-29] MEDS: THIAMINE HCL 100 MG TABLET (FP) PO SCH (22:16)
[2018-07-29] MEDS: MELATONIN 5 MG TABLETS PO PRN (22:18)
[2018-07-29] MEDS: hydrOXYzine PAMOATE 25 MG CAPSULE (FP) PO PRN (22:20)
[2018-07-29] MEDS: METHOCARBAMOL 500 MG TABLET PO PRN (22:20)
[2018-07-30] MEDS: GABAPENTIN 400 MG CAPSULE (FP) PO SCH ×3 (05:31→22:05)
[2018-07-30] MEDS: chlordiazePOXIDE HCL 10 MG CAPSULE PO SCH ×3 (05:31→22:00)
[2018-07-30] MEDS: RILPIVIRINE PO SCH (07:21)
[2018-07-30] MEDS: TENOFOV PO SCH (07:21)
[2018-07-30] MEDS: EMTRICITAB PO SCH (07:21)
[2018-07-30] MEDS: OXcarbazepine 300 MG TABLET (UD) PO SCH (10:17)
[2018-07-30] MEDS: PRENATAL VITAMINS W/ FOLIC ACID TABLET (FP) PO SCH (10:17)
[2018-07-30] MEDS: CITALOPRAM HYDROBROMIDE 20 MG TABLET (FP) PO SCH (10:17)
[2018-07-30] MEDS: QUEtiapine FUMARATE 300 MG TABLET PO SCH ×2 (10:18→22:05)
[2018-07-30] MEDS: METHOCARBAMOL 500 MG TABLET PO PRN ×2 (10:20→22:07)
--- NOTE | 2018-07-30 11:12 | PN ---
S CIWA - CIWA Score Nausea/Vomitin-Mild Nausea/No Vomiting Muscle Tremors: 3 Anxiety: 2 Agitation: 1-Slight > Activity Paroxysmal Sweats: No Perspiration Orientation: 0-Oriented Tacttile Disturbances: 0-None Auditory Disturbances: 0-None Visual Disturbances: 0-None Headache: 2-Mild CIWA-Ar Total Score: 9 BHS Progress Note (SOAP) Subjective: 58 years old female admitted on 07/27/18 for alcohol withdrawal stabilization report dose not feeling well refusing to go to the ER "I want to stay here" patient reporting that she call her insurance and granted 14 days in respect and sensitive to patient's need encourage the patient return to HIV provider for medical and mental issues Objective: 07/30/18 11:11 Vital Signs Temperature 97.4 F L 07/30/18 09:51 Pulse Rate 89 07/30/18 09:51 Respiratory Rate 18 07/30/18 09:51 Blood Pressure 95/89 07/30/18 09:51 O2 Sat by Pulse Oximetry (%) Laboratory Last Values WBC 6.7 K/mm3 (4.0-10.0) 07/28/18 07:00 RBC 3.90 M/mm3 (3.60-5.2) 07/28/18 07:00 Hgb 12.6 GM/dL (10.7-15.3) 07/28/18 07:00 Hct 38.2 % (32.4-45.2) 07/28/18 07:00 MCV 98.1 fl (80-96) H 07/28/18 07:00 MCH 32.3 pg (25.7-33.7) 07/28/18 07:00 MCHC 32.9 g/dl (32.0-36.0) 07/28/18 07:00 RDW 13.6 % (11.6-15.6) 07/28/18 07:00 Plt Count 273 K/MM3 (134-434) 07/28/18 07:00 MPV 7.4 fl (7.5-11.1) L 07/28/18 07:00 Sodium 136 mmol/L (136-145) 07/28/18 07:00 Potassium 4.2 mmol/L (3.5-5.1) 07/28/18 07:00 Chloride 105 mmol/L (98-107) 07/28/18 07:00 Carbon Dioxide 26 mmol/L (21-32) 07/28/18 07:00 Anion Gap 6 MMOL/L (8-16) L 07/28/18 07:00 BUN 12 mg/dL (7-18) 07/28/18 07:00 Creatinine 0.6 mg/dL (0.55-1.3) 07/28/18 07:00 Creat Clearance w eGFR 102.32 (>60) 07/28/18 07:00 Random Glucose 103 mg/dL (74-106) 07/28/18 07:00 Calcium 8.6 mg/dL (8.5-10.1) 07/28/18 07:00 Total Bilirubin 0.2 mg/dL (0.2-1) 07/28/18 07:00 AST 18 U/L (15-37) 07/28/18 07:00 ALT 22 U/L (13-61) 07/28/18 07:00 Alkaline Phosphatase 86 U/L (45-117) 07/28/18 07:00 Total Protein 6.8 g/dl (6.4-8.2) 07/28/18 07:00 Albumin 3.1 g/dl (3.4-5.0) L 07/28/18 07:00 RPR Titer Nonreactive (NONREACTIVE) 07/28/18 07:00 lab noted Assessment: 07/30/18 11:14 withdrawal sx Plan: continue detox
[2018-07-30] MEDS: NICOTINE 21 MG/24 HOURS TOPICAL PATCH TD SCH (12:14)
[2018-07-30] MEDS ORDERED: QUEtiapine FUMARATE 100 MG TABLET (FP) ONE (19:56)
[2018-07-30] MEDS: THIAMINE HCL 100 MG TABLET (FP) PO SCH (22:05)
[2018-07-30] MEDS: MELATONIN 5 MG TABLETS PO PRN (22:06)
[2018-07-30] MEDS: hydrOXYzine PAMOATE 25 MG CAPSULE (FP) PO PRN (22:07)
[2018-07-31] MEDS: GABAPENTIN 400 MG CAPSULE (FP) PO SCH (06:18)
[2018-07-31] MEDS: RILPIVIRINE PO SCH (07:49)
[2018-07-31] MEDS: TENOFOV PO SCH (07:49)
[2018-07-31] MEDS: EMTRICITAB PO SCH (07:49)
[2018-07-31] MEDS: QUEtiapine FUMARATE 300 MG TABLET PO SCH (09:03)
[2018-07-31] MEDS: OXcarbazepine 300 MG TABLET (UD) PO SCH (09:03)
[2018-07-31] MEDS: NICOTINE 21 MG/24 HOURS TOPICAL PATCH TD SCH (09:05)
[2018-07-31] MEDS: CITALOPRAM HYDROBROMIDE 20 MG TABLET (FP) PO SCH (09:05)
[2018-07-31] MEDS: PRENATAL VITAMINS W/ FOLIC ACID TABLET (FP) PO SCH (09:05)
[2018-07-31 09:14] VITALS: BP 100/67; PULSE 85; TEMP 99.3
--- NOTE | 2018-07-31 17:01 | DS ---
[facility] Detox Discharge Summary Admission Date: 07/27/18 Discharge Date: 07/31/18 - History Present History: Alcohol Dependence, Cocaine Dependence, Opioid Dependence Additional Comments: PATIENT GOING TO '[facility] ([place], [place]) FOR AFTERCARE. PER PHARMACIST ANASTASIYA AT PATIENT'S PHARMACY ([place], [place]), PATIENT HAS PRESCRIPTION FOR OXCARBEZAPINE (PATIENT REPORTS THAT SHE TAKES THIS MEDICATION FOR SEIZURE PREVENTION) WAITING TO BE PICKED UP CURRENTLY AT THAT PHARMACY. AT TIME OF DISCHARGE, PATIENT REPORTS HISTORY OF PRESCRIBED KLONOPIN PRIOR TO ADMISSION TO DETOX. (NOTE: ADMISSION UDS NEGATIVE FOR BENZODIAZEPINES). PATIENT ADVISED TO FOLLOW-UP WITH MEDICAL PROVIDER DR. CAMERON SOON POSSIBLE AFTER DISCHARGE FROM DETOX UNIT FOR FURTHER MEDICAL EVALUATION FOR HISTORY OF PRESCRIBED KLONOPIN. PATIENT ADVISED TO GO IMMEDIATELY TO NEAREST ER SHOULD ANY INTOLERABLE WITHDRAWAL / DETOX SYMPTOMS DEVELOP AT ANY TIME AFTER DISCHARGE FROM DETOX UNIT. PATIENT VERBALIZED UNDERSTANDING OF ALL INFORMATION / RECOMMENDATIONS PRESENTED TO HER. PATIENT WAS DISCHARGED FROM DETOX UNIT IN STABLE MEDICAL CONDITION. Pertinent Past History: Asthma, Ca, Seizure Disorder, H.I.V., Depression, Bipolar Disorder, C.O.P.D. ( Chronic Bronchitis), Nicotine Dependence, Insomnia. - Physical Exam Results Vital Signs: Vital Signs Temperature 99.3 F 07/31/18 09:13 Pulse Rate 85 07/31/18 09:13 Respiratory Rate 18 07/31/18 09:13 Blood Pressure 100/67 07/31/18 09:13 O2 Sat by Pulse Oximetry (%) Pertinent Admission Physical Exam Findings: WITHDRAWAL SYMPTOMS. Laboratory Tests 07/28/18 07/28/18 07/28/18 07:00 07:00 07:00 WBC 6.7 RBC 3.90 Hgb 12.6 Hct 38.2 MCV 98.1 H MCH 32.3 MCHC 32.9 RDW 13.6 Plt Count 273 MPV 7.4 L Sodium 136 Potassium 4.2 Chloride 105 Carbon Dioxide 26 Anion Gap 6 L BUN 12 Creatinine 0.6 Creat Clearance w eGFR 102.32 Random Glucose 103 Calcium 8.6 Total Bilirubin 0.2 AST 18 ALT 22 Alkaline Phosphatase 86 Total Protein 6.8 Albumin 3.1 L RPR Titer Nonreactive LABS NOTED. - Treatment Hospital Course: Detox Protocol Followed, Detoxed Safely, Responded well, Discharged Condition Good Patient has Accepted a Rehab Referral to: PT. GOING TO '[facility] ([place], [place]). - Medication Discharge Medications: Ambulatory Orders Citalopram Hydrobromide [Celexa -] 40 mg PO DAILY #20 tablet 08/22/17 Doxepin HCl [Sinequan -] 25 mg PO TID 11/01/17 Quetiapine Fumarate [Seroquel -] 900 mg PO HS 11/01/17 Albuterol Sulfate Inhaler - [Ventolin HFA Inhaler -] 2 inh PO Q4H #1 inhaler 09/16 Buspirone HCl [Buspar -] 10 mg PO TID #60 tablet 11/03/17 Buspirone HCl [Buspar -] 15 mg PO BID #60 tablet 11/03/17 Citalopram Hydrobromide [Celexa -] 40 mg PO HS #30 tablet 11/03/17 Emtricitab/Rilpivirine/Tenofov [Complera Tablet -] 1 tab PO DAILY #30 tablet 09/16 Gabapentin [Neurontin -] 600 mg PO Q8H #120 capsule 11/03/17 Quetiapine Fumarate [Seroquel -] 600 mg PO HS #30 tablet 11/03/17 levETIRAcetam [Keppra -] 500 mg PO BID #60 tablet 11/03/17 Amoxicillin - [Amoxicillin 500mg Capsule -] 500 mg PO TID #21 capsule 11/04/17 Albuterol Sulfate Inhaler - [Ventolin Hfa Inhaler -] 1 - 2 inh PO Q4H PRN #1 inhaler 07/31/18 - Diagnosis (1) Alcohol dependence with uncomplicated withdrawal Status: Acute (2) Asthma Status: Chronic Qualifiers: Asthma severity: mild Asthma persistence: intermittent Asthma complication type: with status asthmaticus Qualified Code(s): J45.22 - Mild intermittent asthma with status asthmaticus (3) COPD (chronic obstructive pulmonary disease) Status: Chronic Qualifiers: COPD type: chronic bronchitis Chronic bronchitis type: unspecified Qualified Code(s): J42 - Unspecified chronic bronchitis (4) Cocaine dependence Status: Chronic Qualifiers: Substance use status: uncomplicated Qualified Code(s): F14.20 - Cocaine dependence, uncomplicated (5) HIV (human immunodeficiency virus infection) Status: Chronic Qualifiers: HIV symptom status: unspecified Qualified Code(s): B20 - Human immunodeficiency virus [HIV] disease (6) Bipolar disorder Status: Chronic Qualifiers: Active/Remission status: remission status unspecified Qualified Code(s): F31.9 - Bipolar disorder, unspecified (7) Insomnia Status: Chronic Qualifiers: Insomnia type: unspecified Qualified Code(s): G47.00 - Insomnia, unspecified (8) Nicotine dependence Status: Chronic Qualifiers: Nicotine product type: cigarettes Substance use status: uncomplicated Qualified Code(s): F17.210 - Nicotine dependence, cigarettes, uncomplicated (9) Opioid dependence Status: Chronic Qualifiers: Substance use status: uncomplicated Qualified Code(s): F11.20 - Opioid dependence, uncomplicated - AMA Did Patient Leave Against Medical Advice: No
== END 2018-07-31 09:53 | disposition home or self-care (01) | DRG 773 ==
LOC: YASAS 14:11 → Y3E 18:06 → Y3N 19:55
PROVIDERS: ADMIT Neuromusculoskeletal Medicine & OMM; ATTEND Surgery
PROC: HZ2ZZZZ Detoxification Services for Substance Abuse Treatment (ICD-10-PCS; principal; 2018-07-27)
DX: F10.230 Alcohol dependence with withdrawal, uncomplicated (principal); F11.20 Opioid dependence, uncomplicated; F14.20 Cocaine dependence, uncomplicated; F17.210 Nicotine dependence, cigarettes, uncomplicated; F31.9 Bipolar disorder, unspecified; I10 Essential (primary) hypertension; J45.22 Mild intermittent asthma with status asthmaticus; J42 Unspecified chronic bronchitis; Z21 Asymptomatic human immunodeficiency virus [HIV] infection status; G47.00 Insomnia, unspecified; B18.2 Chronic viral hepatitis C; M79.7 Fibromyalgia; G40.909 Epilepsy, unspecified, not intractable, without status epilepticus; Z86.69 Personal history of other diseases of the nervous system and sense organs; Z88.2 Allergy status to sulfonamides
CPT/HCPCS: 36415; 80053; 85027; 86593

== ENCOUNTER 2018-09-13 14:11 | Inpatient (IN) | payer OTHER ==
[2018-09-13 20:05] VITALS: BMI 26.6
--- NOTE | 2018-09-13 20:39 | HP ---
CIWA Score Nausea/Vomitin-Mild Nausea/No Vomiting Muscle Tremors: 2 Anxiety: 2 Agitation: 2 Paroxysmal Sweats: 2 Orientation: 0-Oriented Tacttile Disturbances: 1-Very Mild Itch/Numbness Auditory Disturbances: 0-None Visual Disturbances: 0-None Headache: 3-Moderate CIWA-Ar Total Score: 13 - Admission Criteria OASAS Guidelines: Admission for Medically Managed Detox: Requires at least one of the followin. CIWA greater than 12 2. Seizures within the past 24 hours 3. Delirium tremens within the past 24 hours 4. Hallucinations within the past 24 hours 5. Acute intervention needed for co occurring medical disorder 6. Acute intervention needed for co occurring psychiatric disorder 7. Severe withdrawal that cannot be handled at a lower level of care (continued vomiting, continued diarrhea, abnormal vital signs) requiring intravenous medication and/or fluids 8. Admission ROS [facility] Chief Complaint: Alcohol withdrawal symptoms Allergies/Adverse Reactions: Allergies Allergy/AdvReac Type Severity Reaction Status Date / Time Sulfa (Sulfonamide Allergy Verified 09/13/18 19:47 Antibiotics) History of Present Illness: 58 years old female with a long history of alcohol dependence is seeking admission to detox. Patient was in detox from 07/27/2018 - 07/31/2018 at [facility] and reports 2 years of sobriety. She has medical history of HIV +, Anxiety, COPD , Hep C (treatd), depression, asthma and seizures. She denies suicidal ideation at this time.Patient is on Oxcarbazepine, an anticonvulsant but is not sure of the dosage because it is a new prescription. Nurse is to confirm dosage with the pharmacy in the morning. Attempt to contact pharmacy is unsuccessful as they have closed. Exam Limitations: No Limitations - Ebola screening Have you traveled outside of the country in the last 21 days: No Have you had contact with anyone from an Ebola affected area: No Do you have a fever: No - Review of Systems Constitutional: Chills, Malaise, Changes in sleep EENT: reports: Sinus Pressure Respiratory: reports: No Symptoms reported Cardiac: reports: No Symptoms Reported GI: reports: Diarrhea (x 3), Nausea, Poor Appetite, Poor Fluid Intake, Abdominal cramping Musculoskeletal: reports: No Symptoms Reported Integumentary: reports: Dryness, Flushing Neuro: reports: Headache, Tremors Endocrine: reports: No Symptoms Reported Hematology: reports: No Symptoms Reported Psychiatric: reports: Orientated x3, Agitated, Anxious Other Systems: Reviewed and Negative Patient History - Patient Medical History Hx Anemia: No Hx Asthma: Yes (Pt is on MDI) Hx Chronic Obstructive Pulmonary Disease (COPD): No Hx Cancer: No Hx Cardiac Disorders: No Hx Congestive Heart Failure: No Hx Hypertension: No Hx Hypercholesterolemia: No Hx Pacemaker: No HX Cerebrovascular Accident: No Hx Seizures: Yes (Oxycarbanzepine) Hx Dementia: No Hx Diabetes: No Hx Gastrointestinal Disorders: No Hx Liver Disease: No Hx Genitourinary Disorders: No Hx Sexually Transmitted Disorders: No Hx Renal Disease (ESRD): No Hx Thyroid Disease: No Hx Human Immunodeficiency Virus (HIV): Yes (1988, on complera reports meds adherence ) Hx Hepatitis C: No Hx Depression: Yes (Celexa) Hx Suicide Attempt: No Hx Bipolar Disorder: Yes (Nort on medication) Hx Schizophrenia: No Other Medical History: Anxiety - Hydrozine - Patient Surgical History Past Surgical History: No Hx Neurologic Surgery: No Hx Cataract Extraction: No Hx Cardiac Surgery: No Hx Lung Surgery: No Hx Breast Surgery: No Hx Breast Biopsy: No Hx Abdominal Surgery: No Hx Appendectomy: No Hx Cholecystectomy: No Hx Genitourinary Surgery: No Hx Section: No Hx Orthopedic Surgery: No - PPD History Previous Implant?: Yes Documented Results: Negative w/proof Implanted On Prior [facility] Admission?: Yes Date: 07/29/18 Results: 0 mm PPD to be Administered?: No - Reproductive History Patient is a Female of Child Bearing Age (11 -55 yrs old): No Last Menstrual Period: 02/23/11 LMP comment: Menopausal - Smoking Cessation Smoking history: Current every day smoker Have you smoked in the past 12 months: Yes Aproximately how many cigarettes per day: 8 Cigars Per Day: 0 Hx Chewing Tobacco Use: No Initiated information on smoking cessation: Yes 'Breaking Loose' booklet given: 09/13/18 - Substance & Tx. History Hx Alcohol Use: Yes Hx Substance Use: Yes Substance Use Type: Alcohol, Cocaine Hx Substance Use Treatment: Yes ([facility]) - Substances abused Alcohol Substance route: Oral Frequency: Daily Amount used: 1 PINT OF VODKA Age of first use: 19 Date of last use: 09/13/18 Cocaine Substance route: Inhalation Frequency: Daily Amount used: 5 DIMES Age of first use: 15 Date of last use: 09/12/18 Family Disease History - Family Disease History Family Disease History: Heart Disease: Brother (), Other: Father ( old age), Mother ( liver), Brother Admission Physical Exam S - Vital Signs Vital Signs: Vital Signs - 24 hr 09/13/18 19:44 Temperature 98.5 F Pulse Rate 91 H Respiratory 18 Rate Blood Pressure 113/78 - Physical General Appearance: Yes: Moderate Distress, Tremorous, Anxious HEENTM: Yes: Within Normal Limits, Normal ENT Inspection, Normal Voice, EMILY Respiratory: Yes: Normal Breath Sounds, No Respiratory Distress Breast: Yes: Breast Exam Deferred Cardiology: Yes: Regular Rhythm, Regular Rate Abdominal: Yes: Normal Bowel Sounds Genitourinary: Yes: Within Normal Limits Back: Yes: Normal Inspection Musculoskeletal: Yes: Within Normal Limits Extremities: Yes: Tremors Neurological: Yes: lithographic platemaker II-XII NML intact, Alert, Normal Mood/Affect Integumentary: Yes: Dry Lymphatic: Yes: Within Normal Limits - Diagnostic (1) Alcohol dependence with uncomplicated withdrawal Current Visit: Yes Status: Chronic (2) Asthma Current Visit: Yes Status: Chronic Qualifiers: Asthma severity: mild Asthma persistence: intermittent Asthma complication type: with status asthmaticus Qualified Code(s): J45.22 - Mild intermittent asthma with status asthmaticus (3) COPD (chronic obstructive pulmonary disease) Current Visit: Yes Status: Chronic Qualifiers: COPD type: chronic bronchitis Chronic bronchitis type: unspecified Qualified Code(s): J42 - Unspecified chronic bronchitis (4) Cocaine dependence Current Visit: Yes Status: Chronic Qualifiers: Substance use status: uncomplicated Qualified Code(s): F14.20 - Cocaine dependence, uncomplicated (5) HIV (human immunodeficiency virus infection) Current Visit: Yes Status: Chronic Qualifiers: HIV symptom status: unspecified Qualified Code(s): B20 - Human immunodeficiency virus [HIV] disease (6) Hepatitis C Current Visit: Yes Status: Chronic Qualifiers: Viral hepatitis chronicity: chronic (7) Nicotine dependence Current Visit: Yes Status: Chronic Qualifiers: Nicotine product type: cigarettes Substance use status: uncomplicated Qualified Code(s): F17.210 - Nicotine dependence, cigarettes, uncomplicated (8) Seizure Current Visit: No Status: Chronic (9) Depression Current Visit: Yes Status: Suspected Qualifiers: Depression Type: dysthymia Qualified Code(s): F34.1 - Dysthymic disorder Cleared for Admission [facility] - Detox or Rehab [facility] Level of Care: Medically Managed Detox Regimen/Protocol: Librium Claeared for Rehab Admission: No Breathalyzer - Breathalyzer Breathalyzer: 0 Urine Drug Screen - Test Device Lot number: [id number] Expiration date: 07/30/19 - Control Is test valid?: Yes - Results Drug screen NEGATIVE: No Urine drug screen results: [facility]-Cocaine Inpatient Rehab Admission - Rehab Decision to Admit Inpatient rehab admission?: No
[2018-09-13] MEDS ORDERED: MELATONIN 5 MG TABLETS PO PRN (21:04)
[2018-09-13] MEDS ORDERED: MAGNESIUM HYDROX 2400MG/30ML ORAL SUSPENSION 30 ML CUP PO PRN (21:04)
[2018-09-13] MEDS ORDERED: ACETAMINOPHEN 325 MG TABLET (FP) PO PRN ×2 (21:04)
[2018-09-13] MEDS ORDERED: METHOCARBAMOL 500 MG TABLET PO PRN (21:04)
[2018-09-13] MEDS ORDERED: IBUPROFEN 400 MG TABLET (FP) PO PRN (21:04)
[2018-09-13] MEDS ORDERED: NICOTINE POLACRILEX 2 MG GUM BUC PRN (21:04)
[2018-09-13] MEDS ORDERED: MAG HYDROX/AL HYDROX/SIMETH 30 ML UNIT-DOSE CUP PO PRN (21:04)
[2018-09-13] MEDS ORDERED: MENTHOL/PHENOL 1 EACH UD MM PRN (21:04)
[2018-09-13] MEDS ORDERED: BISMUTH SUBSALICYLATE 524 MG/30 ML UD PO PRN (21:04)
[2018-09-13] MEDS ORDERED: MAGNESIUM CITRATE 300 ML BOTTLE PO PRN (21:04)
[2018-09-13] MEDS ORDERED: ALBUTEROL SO4 8 GM HFA INHALER IH PRN (21:06)
[2018-09-13] MEDS: THIAMINE HCL 100 MG TABLET (FP) PO SCH (22:41)
[2018-09-13] MEDS: chlordiazePOXIDE HCL 25 MG CAPSULE PO SCH (22:42)
[2018-09-14] MEDS: chlordiazePOXIDE HCL 25 MG CAPSULE PO PRN ×2 (03:29→15:16)
[2018-09-14] MEDS: chlordiazePOXIDE HCL 25 MG CAPSULE PO SCH ×4 (05:34→21:59)
--- NOTE | 2018-09-14 09:03 | PN ---
S Progress Note Note: pt states she takes oxcarbazepine 600mg bid; [facility] spoke with [facility]ist and it was confirmed that pt is taking oxcarbazepine 600mg as prescribed by her MD to prevent seizures. order has been placed.
[2018-09-14 10:06] LABS: HEMATOCRIT 40.5 % (32.4-45.2); HEMOGLOBIN 13.6 GM/dL (10.7-15.3); MCH 33.1 pg (25.7-33.7); MCHC 33.7 g/dl (32.0-36.0); MEAN CELL VOLUME 98.4 fl (80-96); MEAN PLT VOLUME 7.2 fl (7.5-11.1); PLATELET COUNT 301 K/MM3 (134-434); RBC 4.12 M/mm3 (3.60-5.2); RDW 12.8 % (11.6-15.6); WHITE BLOOD COUNT 7.5 K/mm3 (4.0-10.0)
[2018-09-14] MEDS: PRENATAL VITAMINS W/ FOLIC ACID TABLET (FP) PO SCH (10:21)
[2018-09-14 10:23] LABS: ALBUMIN 3.6 g/dl (3.4-5.0); BILIRUBIN,TOTAL 0.4 mg/dL (0.2-1); CALCIUM 8.8 mg/dL (8.5-10.1); CREATININE 0.8 mg/dL (0.55-1.3); POTASSIUM 4.2 mmol/L (3.5-5.1); TOT PROT 7.2 g/dl (6.4-8.2)
[2018-09-14] MEDS: NICOTINE 14 MG/24 HOURS TOPICAL PATCH TD SCH (10:24)
--- NOTE | 2018-09-14 10:31 | CONSULT ---
[facility] Psychiatric Consult - Data Date of interview: 09/14/18 Admission source: Self-refered Identifying data: Ms Moreno is a 58 years old single female, unemployed receving HASA, domiciled living a one bedroom apt in [place] [facility] seeking detox treatment for alcohol and cocaine Substance Abuse History: Reports history of alcohol and cocaine use. Refer to addiction counselor's summary for further information Medical History: Significant for HIV infection since 1988 (on antiretroviral medications), neuropathy, hypertension, history alcohol withdrawal-related seizures and treatment for hepatitis C. Smokes 8 cigarettes daily Psychiatric History: Reports that her first psychiatric contact in [address] Fuentes, a private psychiatrist in [facility]. She reports that she was diagnosed with Bipolar Disorder and prescribed Xanax, Ambien and Gabapentin. Reports that she continued to see Dr Fuentes till 3 months ago because the doctor is retiring his practice. For the past 3 months, she has been seeing Dr Nova, another psychiatrist in private practice in [place], [place]. She is currently prescribed Klonopin 0.5 mg po QID, Seroquel 400 mg po HS, Buspar 15 mg po BID prn, Vistaril 25 mg HS and Remeron 45 mg po HS. Her most recent visit with Dr Simons was a week ago. Denies previous psychiatric hospitalization or suicidal attempt. At present, denies experiencing psychotic, manic or depressive symptoms, S/H ideations. However, reports feeling anxious and sleeping poorly. Physical/Sexual Abuse/Trauma History: Denies history of emotional, physical or sexual abuse as well as DV relationship. No service Additional Comment: Reports history of 2 previous misdemeanor arrests on charges of shoplifting and drinking in public. No current probation or open case Mental Status Exam - Mental Status Exam Alert and Oriented to: Time, Place, Person Cognitive Function: Fair Patient Appearance: Well Groomed Mood: Anxious Affect: Appropriate Patient Behavior: Cooperative Speech Pattern: Clear Voice Loudness: Normal, Limited Variation Thought Process: Goal Oriented Thought Disorder: Not Present Hallucinations: Denies Suicidal Ideation: Denies Homicidal Ideation: Denies Insight/Judgement: Poor Sleep: Poorly Appetite: Good Muscle strength/Tone: Normal Gait/Station: Normal Psychiatric Findings - Problem List ([place] 1, 2,3) (1) Bipolar disorder Current Visit: Yes Status: Chronic (2) Substance-induced anxiety disorder Current Visit: Yes Status: Acute (3) Substance-induced sleep disorder Current Visit: Yes Status: Acute (4) Alcohol dependence with uncomplicated withdrawal Current Visit: Yes Status: Acute (5) Cocaine dependence Current Visit: Yes Status: Acute Qualifiers: Substance use status: uncomplicated Qualified Code(s): F14.20 - Cocaine dependence, uncomplicated (6) Nicotine dependence Current Visit: Yes Status: Chronic Qualifiers: Nicotine product type: cigarettes Substance use status: uncomplicated Qualified Code(s): F17.210 - Nicotine dependence, cigarettes, uncomplicated (7) Asthma Current Visit: Yes Status: Chronic Qualifiers: Asthma severity: mild Asthma persistence: intermittent Asthma complication type: with status asthmaticus Qualified Code(s): J45.22 - Mild intermittent asthma with status asthmaticus (8) COPD (chronic obstructive pulmonary disease) Current Visit: Yes Status: Chronic Qualifiers: COPD type: chronic bronchitis Chronic bronchitis type: unspecified Qualified Code(s): J42 - Unspecified chronic bronchitis (9) HIV (human immunodeficiency virus infection) Current Visit: Yes Status: Chronic Qualifiers: HIV symptom status: unspecified Qualified Code(s): B20 - Human immunodeficiency virus [HIV] disease (10) Hepatitis C Current Visit: Yes Status: Resolved Qualifiers: Viral hepatitis chronicity: chronic (11) Seizure disorder Current Visit: Yes Status: Chronic - Initial Treatment Plan Initial Treatment Plan: 1) Continue Seroquel 400 mg po HS, Buspar 15 mg po BID. 2) Start Vistaril 25 mg Q 6hrs prn for anxiety. 3) Continue inpatient detoxification
[2018-09-14] MEDS: OXcarbazepine 300 MG TABLET (UD) PO SCH ×2 (10:59→22:00)
[2018-09-14] MEDS: hydrOXYzine PAMOATE 25 MG CAPSULE (FP) PO PRN ×2 (11:18→18:02)
--- NOTE | 2018-09-14 12:43 | PN ---
S CIWA - CIWA Score Nausea/Vomitin-No Nausea/No Vomiting Muscle Tremors: 3 Anxiety: 3 Agitation: 3 Paroxysmal Sweats: 3 Orientation: 0-Oriented Tacttile Disturbances: 0-None Auditory Disturbances: 0-None Visual Disturbances: 0-None Headache: 0-None Present CIWA-Ar Total Score: 12 [facility] Progress Note (SOAP) Subjective: sweats shakes interrupted sleep body aches i need my psych medication Objective: 09/14/18 12:42 Vital Signs Temperature 98.6 F 09/14/18 10:44 Pulse Rate 83 09/14/18 10:44 Respiratory Rate 09/14/18 10:44 Blood Pressure 109/76 09/14/18 10:44 O2 Sat by Pulse Oximetry (%) Laboratory Tests 09/13/18 09/14/18 09/14/18 20:11 07:00 07:00 WBC 7.5 RBC 4.12 Hgb 13.6 Hct 40.5 MCV 98.4 H MCH 33.1 MCHC 33.7 RDW 12.8 Plt Count 301 MPV 7.2 L Sodium 133 L Potassium 4.2 Chloride 99 Carbon Dioxide 27 Anion Gap 7 L BUN 14 Creatinine 0.8 Est GFR (CKD-EPI)AfAm 93.53 Est GFR (CKD-EPI)NonAf 80.70 Random Glucose 100 Calcium 8.8 Total Bilirubin 0.4 AST 24 ALT 27 Alkaline Phosphatase 107 Total Protein 7.2 Albumin 3.6 POC Urine HCG, Qual Negative RPR Titer 09/14/18 07:00 WBC RBC Hgb Hct MCV MCH MCHC RDW Plt Count MPV Sodium Potassium Chloride Carbon Dioxide Anion Gap BUN Creatinine Est GFR (CKD-EPI)AfAm Est GFR (CKD-EPI)NonAf Random Glucose Calcium Total Bilirubin AST ALT Alkaline Phosphatase Total Protein Albumin POC Urine HCG, Qual RPR Titer Nonreactive aaox3 ambulating no acute distress Assessment: 09/14/18 12:42 withdrawal sx Plan: continue detox increase fluids psych ordered
[2018-09-14] MEDS: GABAPENTIN 400 MG CAPSULE (FP) PO SCH ×2 (13:07→22:00)
[2018-09-14] MEDS: CITALOPRAM HYDROBROMIDE 20 MG TABLET (FP) PO SCH (13:08)
[2018-09-14] MEDS: EMTRICITAB/RILPIVIRINE/TENOFOV 1 EACH TABLET PO SCH (15:44)
[2018-09-14] MEDS: THIAMINE HCL 100 MG TABLET (FP) PO SCH (21:59)
[2018-09-14] MEDS: QUEtiapine FUMARATE 400 MG TABLET PO SCH (22:00)
[2018-09-15] MEDS: chlordiazePOXIDE HCL 25 MG CAPSULE PO PRN (01:20)
[2018-09-15] MEDS: hydrOXYzine PAMOATE 25 MG CAPSULE (FP) PO PRN ×2 (01:20→19:48)
[2018-09-15] MEDS: GABAPENTIN 400 MG CAPSULE (FP) PO SCH ×3 (06:10→21:50)
[2018-09-15] MEDS: chlordiazePOXIDE HCL 25 MG CAPSULE PO SCH ×3 (06:10→16:53)
[2018-09-15] MEDS: EMTRICITAB/RILPIVIRINE/TENOFOV 1 EACH TABLET PO SCH (07:08)
[2018-09-15] MEDS: CITALOPRAM HYDROBROMIDE 20 MG TABLET (FP) PO SCH (10:08)
[2018-09-15] MEDS: OXcarbazepine 300 MG TABLET (UD) PO SCH ×2 (10:08→21:50)
[2018-09-15] MEDS: PRENATAL VITAMINS W/ FOLIC ACID TABLET (FP) PO SCH (10:09)
[2018-09-15] MEDS: NICOTINE 14 MG/24 HOURS TOPICAL PATCH TD SCH (10:09)
--- NOTE | 2018-09-15 10:49 | PN ---
S Progress Note Note: Patient complains of sleeping poorly last night despite takinng Seroquel 400 mg/ hs. Requests to resume Remeron 45 mg/hs that she was taking prior to current admission and to which she responded well
--- NOTE | 2018-09-15 12:48 | PN ---
S CIWA - CIWA Score Nausea/Vomitin-No Nausea/No Vomiting Muscle Tremors: 2 Anxiety: 3 Agitation: 3 Paroxysmal Sweats: 2 Orientation: 0-Oriented Tacttile Disturbances: 0-None Auditory Disturbances: 0-None Visual Disturbances: 0-None Headache: 0-None Present CIWA-Ar Total Score: 10 [facility] Progress Note (SOAP) Subjective: sweats shakes anxiety restless Objective: 09/15/18 12:43 Vital Signs Temperature 97.2 F L 09/15/18 09:22 Pulse Rate 77 09/15/18 09:22 Respiratory Rate 18 09/15/18 09:22 Blood Pressure 122/80 09/15/18 09:22 O2 Sat by Pulse Oximetry (%) Laboratory Tests 09/13/18 09/14/18 09/14/18 20:11 07:00 07:00 WBC 7.5 RBC 4.12 Hgb 13.6 Hct 40.5 MCV 98.4 H MCH 33.1 MCHC 33.7 RDW 12.8 Plt Count 301 MPV 7.2 L Sodium 133 L Potassium 4.2 Chloride 99 Carbon Dioxide 27 Anion Gap 7 L BUN 14 Creatinine 0.8 Est GFR (CKD-EPI)AfAm 93.53 Est GFR (CKD-EPI)NonAf 80.70 Random Glucose 100 Calcium 8.8 Total Bilirubin 0.4 AST 24 ALT 27 Alkaline Phosphatase 107 Total Protein 7.2 Albumin 3.6 POC Urine HCG, Qual Negative RPR Titer 09/14/18 07:00 WBC RBC Hgb Hct MCV MCH MCHC RDW Plt Count MPV Sodium Potassium Chloride Carbon Dioxide Anion Gap BUN Creatinine Est GFR (CKD-EPI)AfAm Est GFR (CKD-EPI)NonAf Random Glucose Calcium Total Bilirubin AST ALT Alkaline Phosphatase Total Protein Albumin POC Urine HCG, Qual RPR Titer Nonreactive aaox3 ambulating no acute distress Assessment: 09/15/18 12:44 withdrawal sx Plan: continue detox increase fluids
[2018-09-15] MEDS: QUEtiapine FUMARATE 400 MG TABLET PO SCH (21:50)
[2018-09-15] MEDS: THIAMINE HCL 100 MG TABLET (FP) PO SCH (21:50)
[2018-09-15] MEDS: MIRTAZAPINE 15 MG TABLET (FP) PO SCH (21:52)
[2018-09-15] MEDS: chlordiazePOXIDE HCL 10 MG CAPSULE PO SCH (22:06)
[2018-09-15] MEDS ORDERED: chlordiazePOXIDE HCL 10 MG CAPSULE PO PRN (23:00)
[2018-09-16] MEDS: GABAPENTIN 400 MG CAPSULE (FP) PO SCH ×3 (05:43→22:06)
[2018-09-16] MEDS: chlordiazePOXIDE HCL 10 MG CAPSULE PO SCH ×4 (05:43→22:07)
[2018-09-16] MEDS: EMTRICITAB/RILPIVIRINE/TENOFOV 1 EACH TABLET PO SCH (07:00)
[2018-09-16] MEDS: OXcarbazepine 300 MG TABLET (UD) PO SCH ×2 (10:16→22:07)
[2018-09-16] MEDS: PRENATAL VITAMINS W/ FOLIC ACID TABLET (FP) PO SCH (10:16)
[2018-09-16] MEDS: NICOTINE 14 MG/24 HOURS TOPICAL PATCH TD SCH (10:16)
[2018-09-16] MEDS: CITALOPRAM HYDROBROMIDE 20 MG TABLET (FP) PO SCH (10:16)
[2018-09-16] MEDS: hydrOXYzine PAMOATE 25 MG CAPSULE (FP) PO PRN ×2 (10:17→17:38)
--- NOTE | 2018-09-16 11:51 | PN ---
[facility] CIWA - CIWA Score Nausea/Vomitin-No Nausea/No Vomiting Muscle Tremors: 2 Anxiety: 1-Mildly Anxious Agitation: 2 Paroxysmal Sweats: 2 Orientation: 0-Oriented Tacttile Disturbances: 0-None Auditory Disturbances: 0-None Visual Disturbances: 0-None Headache: 0-None Present CIWA-Ar Total Score: 7 S Progress Note (SOAP) Subjective: c/o sweats, interrupted sleep, mild shakes, and anxiety Objective: 09/16/18 11:49 Vital Signs 09/16/18 09/16/18 06:00 09:41 Temperature 97.7 F 97.3 F L Pulse Rate 72 79 Respiratory 16 18 Rate Blood Pressure 95/65 116/81 Lab Results WBC 7.5 K/mm3 (4.0-10.0) 09/14/18 07:00 RBC 4.12 M/mm3 (3.60-5.2) 09/14/18 07:00 Hgb 13.6 GM/dL (10.7-15.3) 09/14/18 07:00 Hct 40.5 % (32.4-45.2) 09/14/18 07:00 MCV 98.4 fl (80-96) H 09/14/18 07:00 MCHC 33.7 g/dl (32.0-36.0) 09/14/18 07:00 RDW 12.8 % (11.6-15.6) 09/14/18 07:00 Plt Count 301 K/MM3 (134-434) 09/14/18 07:00 Sodium 133 mmol/L (136-145) L 09/14/18 07:00 Potassium 4.2 mmol/L (3.5-5.1) 09/14/18 07:00 Chloride 99 mmol/L (98-107) 09/14/18 07:00 Carbon Dioxide 27 mmol/L (21-32) 09/14/18 07:00 Anion Gap 7 MMOL/L (8-16) L 09/14/18 07:00 BUN 14 mg/dL (7-18) 09/14/18 07:00 Creatinine 0.8 mg/dL (0.55-1.3) 09/14/18 07:00 Random Glucose 100 mg/dL (74-106) 09/14/18 07:00 Calcium 8.8 mg/dL (8.5-10.1) 09/14/18 07:00 Labs noted. Assessment: 09/16/18 11:49 AOX3, in no acute distress full rom, ambulating in the unit. withdrawal symptoms Plan: continue detox.
[2018-09-16] MEDS: MIRTAZAPINE 15 MG TABLET (FP) PO SCH (22:06)
[2018-09-16] MEDS: QUEtiapine FUMARATE 400 MG TABLET PO SCH (22:07)
[2018-09-16] MEDS: THIAMINE HCL 100 MG TABLET (FP) PO SCH (22:07)
[2018-09-17] MEDS: GABAPENTIN 400 MG CAPSULE (FP) PO SCH ×3 (05:39→22:10)
[2018-09-17] MEDS: hydrOXYzine PAMOATE 25 MG CAPSULE (FP) PO PRN ×2 (05:40→22:10)
[2018-09-17] MEDS: EMTRICITAB/RILPIVIRINE/TENOFOV 1 EACH TABLET PO SCH (07:48)
[2018-09-17] MEDS: PRENATAL VITAMINS W/ FOLIC ACID TABLET (FP) PO SCH (10:10)
[2018-09-17] MEDS: CITALOPRAM HYDROBROMIDE 20 MG TABLET (FP) PO SCH (10:10)
[2018-09-17] MEDS: chlordiazePOXIDE HCL 10 MG CAPSULE PO SCH ×2 (10:10→22:07)
[2018-09-17] MEDS: NICOTINE 14 MG/24 HOURS TOPICAL PATCH TD SCH (10:10)
[2018-09-17] MEDS: OXcarbazepine 300 MG TABLET (UD) PO SCH ×2 (10:10→22:07)
--- NOTE | 2018-09-17 11:52 | PN ---
S Progress Note Note: Patient requested that her Mirtazapine be scheduled as follows: 15 mg po q am and 30 mg po q hs Discontnue Remeron 45 mg po q hs
--- NOTE | 2018-09-17 18:11 | PN ---
S CIWA - CIWA Score Nausea/Vomitin-No Nausea/No Vomiting Muscle Tremors: None Anxiety: 3 Agitation: 1-Slight > Activity Paroxysmal Sweats: No Perspiration Orientation: 0-Oriented Tacttile Disturbances: 0-None Auditory Disturbances: 0-None Visual Disturbances: 0-None Headache: 0-None Present CIWA-Ar Total Score: 4 [facility] Progress Note (SOAP) Subjective: Anxious Objective: 09/17/18 18:09 Last Vital Signs Temp Pulse Resp BP Pulse Ox 98.0 F 81 18 117/79 09/17/18 14:29 09/17/18 14:29 09/17/18 14:29 09/17/18 14:29 Laboratory Tests 09/13/18 09/14/18 09/14/18 20:11 07:00 07:00 WBC 7.5 RBC 4.12 Hgb 13.6 Hct 40.5 MCV 98.4 H MCH 33.1 MCHC 33.7 RDW 12.8 Plt Count 301 MPV 7.2 L Sodium 133 L Potassium 4.2 Chloride 99 Carbon Dioxide 27 Anion Gap 7 L BUN 14 Creatinine 0.8 Est GFR (CKD-EPI)AfAm 93.53 Est GFR (CKD-EPI)NonAf 80.70 Random Glucose 100 Calcium 8.8 Total Bilirubin 0.4 AST 24 ALT 27 Alkaline Phosphatase 107 Total Protein 7.2 Albumin 3.6 POC Urine HCG, Qual Negative RPR Titer 09/14/18 07:00 WBC RBC Hgb Hct MCV MCH MCHC RDW Plt Count MPV Sodium Potassium Chloride Carbon Dioxide Anion Gap BUN Creatinine Est GFR (CKD-EPI)AfAm Est GFR (CKD-EPI)NonAf Random Glucose Calcium Total Bilirubin AST ALT Alkaline Phosphatase Total Protein Albumin POC Urine HCG, Qual RPR Titer Nonreactive Labs reviewed: Na 133 Assessment: 09/17/18 18:10 Withdrawal symptoms Mild hyponatremia noted Plan: Continue detox Encouraged PO water hydration Mild hyponatremia: avoid over hydration, follow up with PCP for monitoring
[2018-09-17] MEDS ORDERED: MIRTAZAPINE 15 MG TABLET (FP) PO SCH (22:00)
[2018-09-17] MEDS ORDERED: MIRTAZAPINE 30 MG TABLET (FP) PO SCH (22:00)
[2018-09-17] MEDS: THIAMINE HCL 100 MG TABLET (FP) PO SCH (22:07)
[2018-09-17] MEDS: QUEtiapine FUMARATE 400 MG TABLET PO SCH (22:07)
[2018-09-18] MEDS: GABAPENTIN 400 MG CAPSULE (FP) PO SCH (06:22)
--- NOTE | 2018-09-18 09:31 | DS ---
[facility] Detox Discharge Summary Admission Date: 09/13/18 Discharge Date: 09/18/18 - History Present History: Alcohol Dependence, Cocaine Dependence - Physical Exam Results Vital Signs: Vital Signs Temperature 96.8 F L 09/18/18 07:59 Pulse Rate 72 09/18/18 07:59 Respiratory Rate 18 09/18/18 07:59 Blood Pressure 118/79 09/18/18 07:59 O2 Sat by Pulse Oximetry (%) - Treatment Hospital Course: Detox Protocol Followed, Detoxed Safely, Responded well, Discharged Condition Good, Rehab Referral Accepted - Medication Discharge Medications: Ambulatory Orders Doxepin HCl [Sinequan -] 25 mg PO TID 11/01/17 Emtricitab/Rilpivirine/Tenofov [Complera Tablet -] 1 tab PO DAILY #30 tablet 09/16 Albuterol Sulfate Inhaler - [Ventolin Hfa Inhaler -] 1 - 2 inh PO Q4H PRN #1 inhaler 07/31/18 Buspirone HCl [Buspar -] 15 mg PO TID 09/13/18 Citalopram Hydrobromide [Celexa -] 80 mg PO HS 09/13/18 Gabapentin [Neurontin -] 800 mg PO QID 09/13/18 Hydroxyzine HCl 15 mg PO HS 09/13/18 Mirtazapine [Remeron -] 45 mg PO DAILY 09/13/18 Quetiapine Fumarate [Seroquel -] 400 mg PO HS 09/13/18 - Diagnosis (1) Alcohol dependence with uncomplicated withdrawal Current Visit: Yes Status: Chronic (2) Cocaine dependence Current Visit: Yes Status: Chronic Qualifiers: Substance use status: uncomplicated Qualified Code(s): F14.20 - Cocaine dependence, uncomplicated (3) Substance-induced anxiety disorder Current Visit: Yes Status: Acute (4) Substance-induced sleep disorder Current Visit: Yes Status: Acute (5) Asthma Current Visit: Yes Status: Chronic Qualifiers: Asthma severity: mild Asthma persistence: intermittent Asthma complication type: with status asthmaticus Qualified Code(s): J45.22 - Mild intermittent asthma with status asthmaticus (6) Bipolar disorder Current Visit: Yes Status: Chronic (7) COPD (chronic obstructive pulmonary disease) Current Visit: Yes Status: Chronic Qualifiers: COPD type: chronic bronchitis Chronic bronchitis type: unspecified Qualified Code(s): J42 - Unspecified chronic bronchitis (8) HIV (human immunodeficiency virus infection) Current Visit: Yes Status: Chronic Qualifiers: HIV symptom status: unspecified Qualified Code(s): B20 - Human immunodeficiency virus [HIV] disease (9) Nicotine dependence Current Visit: Yes Status: Chronic Qualifiers: Nicotine product type: cigarettes Substance use status: uncomplicated Qualified Code(s): F17.210 - Nicotine dependence, cigarettes, uncomplicated (10) Seizure disorder Current Visit: Yes Status: Chronic (11) Depression Current Visit: Yes Status: Suspected Qualifiers: Depression Type: dysthymia Qualified Code(s): F34.1 - Dysthymic disorder (12) Hepatitis C Current Visit: Yes Status: Resolved Qualifiers: Viral hepatitis chronicity: chronic (13) Cocaine-induced sleep disorder, insomnia type, with onset during discontinuation/withdrawal Current Visit: No Status: Acute (14) Drug-induced mood disorder Current Visit: No Status: Acute (15) Fibromyalgia Current Visit: No Status: Acute (16) Bipolar disorder Current Visit: No Status: Chronic Qualifiers: Active/Remission status: remission status unspecified Qualified Code(s): F31.9 - Bipolar disorder, unspecified (17) Insomnia Current Visit: No Status: Chronic Qualifiers: Insomnia type: unspecified Qualified Code(s): G47.00 - Insomnia, unspecified (18) Neuropathy Current Visit: No Status: Chronic (19) Opioid dependence Current Visit: No Status: Chronic Qualifiers: Substance use status: uncomplicated Qualified Code(s): F11.20 - Opioid dependence, uncomplicated (20) Seizure Current Visit: No Status: Chronic - AMA Did Patient Leave Against Medical Advice: No (pt declined [facility]; other rehab pending)
[2018-09-18 09:41] VITALS: BP 114/79; PULSE 77; TEMP 98.2
[2018-09-18] MEDS: NICOTINE 14 MG/24 HOURS TOPICAL PATCH TD SCH (10:30)
[2018-09-18] MEDS: CITALOPRAM HYDROBROMIDE 20 MG TABLET (FP) PO SCH (10:30)
[2018-09-18] MEDS: PRENATAL VITAMINS W/ FOLIC ACID TABLET (FP) PO SCH (10:30)
[2018-09-18] MEDS: OXcarbazepine 300 MG TABLET (UD) PO SCH (10:31)
== END 2018-09-18 12:20 | disposition home or self-care (01) | DRG 773 ==
LOC: YASAS 14:11 → Y6N 20:44
PROVIDERS: ADMIT Surgery; ATTEND Surgery
PROC: HZ2ZZZZ Detoxification Services for Substance Abuse Treatment (ICD-10-PCS; principal; 2018-09-13)
DX: F10.230 Alcohol dependence with withdrawal, uncomplicated (principal); F11.23 Opioid dependence with withdrawal; F14.20 Cocaine dependence, uncomplicated; F17.213 Nicotine dependence, cigarettes, with withdrawal; F19.280 Other psychoactive substance dependence with psychoactive substance-induced anxiety disorder; F19.24 Other psychoactive substance dependence with psychoactive substance-induced mood disorder; F19.282 Other psychoactive substance dependence with psychoactive substance-induced sleep disorder; F34.1 Dysthymic disorder; F31.9 Bipolar disorder, unspecified; Z21 Asymptomatic human immunodeficiency virus [HIV] infection status; G62.9 Polyneuropathy, unspecified; J42 Unspecified chronic bronchitis; J45.22 Mild intermittent asthma with status asthmaticus; G40.909 Epilepsy, unspecified, not intractable, without status epilepticus; M79.7 Fibromyalgia; E87.1 Hypo-osmolality and hyponatremia
CPT/HCPCS: 36415; 80053; 81025; 85027; 86593

== ENCOUNTER 2019-01-04 13:10 | Inpatient (IN) | payer OTHER ==
[2019-01-04 17:28] VITALS: BMI 26.4
--- NOTE | 2019-01-04 18:16 | HP ---
CIWA Score Nausea/Vomitin-No Nausea/No Vomiting Muscle Tremors: 2 Anxiety: 3 Agitation: 2 Paroxysmal Sweats: No Perspiration Orientation: 0-Oriented Tacttile Disturbances: 0-None Auditory Disturbances: 0-None Visual Disturbances: 0-None Headache: 0-None Present CIWA-Ar Total Score: 7 - Admission Criteria OASAS Guidelines: Admission for Medically Managed Detox: Requires at least one of the followin. CIWA greater than 12 2. Seizures within the past 24 hours 3. Delirium tremens within the past 24 hours 4. Hallucinations within the past 24 hours 5. Acute intervention needed for co occurring medical disorder 6. Acute intervention needed for co occurring psychiatric disorder 7. Severe withdrawal that cannot be handled at a lower level of care (continued vomiting, continued diarrhea, abnormal vital signs) requiring intravenous medication and/or fluids 8. Admission ROS [facility] Chief Complaint: alcohol/cocaine detox Allergies/Adverse Reactions: Allergies Allergy/AdvReac Type Severity Reaction Status Date / Time Sulfa (Sulfonamide Allergy Verified 01/04/19 17:17 Antibiotics) History of Present Illness: Patient is a 58 yo F with a PMHx of HIV (undetectable viral load in Sep per Pt, on Complera), Hep C (currently being treated for it on Mavyret), depression, anxiety, presenting here alcohol/cocaine detox. She drinks a pint of vodka every 3 days. But says she drinks beer every day. Has been drinking heavy for the past 2.5 years. Last drink was yesterday morning , 1 pint. Last detox in August. Hx of seizures, last seizure 3 months ago. Multiple blackouts, doesn't remember the last one. Also smokes cocaine every day. 30-50 dollars a day. Started smoking cocaine 3 years ago. Last cocaine use was yesterday and says she was doing it all day. Unemployed. 10 cigs a day. Lives alone in an apartment. Because of cormorbidities and hx of seizures, will admit for detox. - Ebola screening Have you traveled outside of the country in the last 21 days: No (N) Have you had contact with anyone from an Ebola affected area: No Do you have a fever: No - Review of Systems Constitutional: No Symptoms Reported Respiratory: reports: Cough. denies: Shortness of Breath Cardiac: denies: Chest Pain, Edema GI: reports: Diarrhea Neuro: denies: Headache Patient History - Patient Medical History Hx Anemia: No Hx Asthma: Yes (Pt is on MDI) Hx Chronic Obstructive Pulmonary Disease (COPD): No Hx Cancer: No Hx Cardiac Disorders: No Hx Congestive Heart Failure: No Hx Hypertension: No Hx Hypercholesterolemia: No Hx Pacemaker: No HX Cerebrovascular Accident: No Hx Seizures: Yes (Oxycarbanzepine) Hx Dementia: No Hx Diabetes: No Hx Gastrointestinal Disorders: No Hx Liver Disease: No Hx Genitourinary Disorders: No Hx Sexually Transmitted Disorders: No Hx Renal Disease (ESRD): No Hx Thyroid Disease: No Hx Human Immunodeficiency Virus (HIV): Yes (1988, on complera reports meds adherence ) Hx Hepatitis C: No Hx Depression: Yes (Celexa) Hx Suicide Attempt: No Hx Bipolar Disorder: Yes (Nort on medication) Hx Schizophrenia: No - Patient Surgical History Past Surgical History: No Hx Neurologic Surgery: No Hx Cataract Extraction: No Hx Cardiac Surgery: No Hx Lung Surgery: No Hx Breast Surgery: No Hx Breast Biopsy: No Hx Abdominal Surgery: No Hx Appendectomy: No Hx Cholecystectomy: No Hx Genitourinary Surgery: No Hx Section: No Hx Orthopedic Surgery: No - PPD History Date: 07/29/18 Results: 0 mm - Reproductive History Last Menstrual Period: 02/23/11 - Smoking Cessation Smoking history: Current every day smoker Have you smoked in the past 12 months: Yes Aproximately how many cigarettes per day: 8 Cigars Per Day: 0 Hx Chewing Tobacco Use: No Initiated information on smoking cessation: Yes 'Breaking Loose' booklet given: 01/04/19 - Substances abused Alcohol Substance route: Oral Frequency: Daily Amount used: 1 PINT OF VODKA Age of first use: 19 Date of last use: 01/03/19 Cocaine Substance route: Smoking Frequency: Daily Amount used: 30 dollars Age of first use: 15 Date of last use: 01/03/19 Family Disease History - Family Disease History Family Disease History: Heart Disease: Brother (), Other: Father ( old age), Mother ( liver), Brother Admission Physical Exam BHS - Vital Signs Vital Signs: Vital Signs - 24 hr 01/04/19 17:15 Temperature 97.1 F L Pulse Rate 76 Respiratory 16 Rate Blood Pressure 126/88 - Physical General Appearance: Yes: Anxious Respiratory: Yes: No Respiratory Distress, No Accessory Muscle Use Cardiology: Yes: Regular Rhythm, Regular Rate Abdominal: Yes: Non Tender, Soft Extremities: Yes: Tremors - Diagnostic (1) Alcohol dependence with uncomplicated withdrawal Current Visit: No Status: Chronic (2) Asthma Current Visit: No Status: Chronic Qualifiers: Asthma severity: mild Asthma persistence: intermittent Asthma complication type: with status asthmaticus Qualified Code(s): J45.22 - Mild intermittent asthma with status asthmaticus (3) Bipolar disorder Current Visit: No Status: Chronic Qualifiers: Active/Remission status: remission status unspecified Qualified Code(s): F31.9 - Bipolar disorder, unspecified Comment: As per history and existing records. (4) COPD (chronic obstructive pulmonary disease) Current Visit: No Status: Chronic Qualifiers: COPD type: chronic bronchitis Chronic bronchitis type: unspecified Qualified Code(s): J42 - Unspecified chronic bronchitis (5) Cocaine dependence Current Visit: No Status: Chronic Qualifiers: Substance use status: uncomplicated Qualified Code(s): F14.20 - Cocaine dependence, uncomplicated (6) HIV (human immunodeficiency virus infection) Current Visit: No Status: Chronic Qualifiers: HIV symptom status: unspecified Qualified Code(s): B20 - Human immunodeficiency virus [HIV] disease (7) Nicotine dependence Current Visit: No Status: Chronic Qualifiers: Nicotine product type: cigarettes Substance use status: uncomplicated Qualified Code(s): F17.210 - Nicotine dependence, cigarettes, uncomplicated (8) Seizure Current Visit: No Status: Chronic (9) Depression Current Visit: No Status: Suspected Qualifiers: Depression Type: dysthymia Qualified Code(s): F34.1 - Dysthymic disorder (10) Hepatitis C Current Visit: No Status: Resolved Qualifiers: Viral hepatitis chronicity: chronic Breathalyzer - Breathalyzer Breathalyzer: 0 Urine Drug Screen - Test Device Lot number: [id number] Expiration date: 09/29/20 - Control Is test valid?: Yes - Results Drug screen NEGATIVE: No Urine drug screen results: HANG-Cocaine, BUP-Suboxone Inpatient Rehab Admission - Rehab Decision to Admit Inpatient rehab admission?: No
--- NOTE | 2019-01-04 18:38 | PN ---
"Teaching Attending Note Name of Resident: Laina Hopkins ATTENDING PHYSICIAN STATEMENT I saw and evaluated the patient. I reviewed the resident's note and discussed the case with the resident. I agree with the resident's findings and plan as documented. SUBJECTIVE: 58 y.o. w/ etoh use , reports drinking beer daily and liquor every 3 days , reports w/d seizure in the past. cocaine : daily via inhalation , 30-50 $ bup- denies tobacco : 1 ppd PMHX HIV (undetectable viral load in Sep per pt , on Complera latest taken today ID clinic [facility] [phone] ), Hep C on Mavyret ( dx 1989 RF= IVDU ) , depression, anxiety, OBJECTIVE: This report was requested by: Ivana Ramos | Reference #: [id number] Others' Prescriptions Patient Name: Flor Moreno Date: 1960 Address: [address] [place] [address] Sex: Female Rx Written Rx Dispensed Drug Quantity Days Supply Prescriber Name 10/08/2018 10/09/2018 clonazepam 0.5 mg tablet 60 30 Kamila Nova MD 09/05/2018 09/05/2018 clonazepam 0.5 mg tablet 90 30 Kamila Nova MD 06/28/2018 06/29/2018 clonazepam 0.5 mg tablet 60 30 Kamila Nova MD 05/24/2018 05/24/2018 clonazepam 0.5 mg tablet 90 30 Kamila Nova MD Patient Name: Flor Moreno Date: 1960 Address: [address] [place] [address] Sex: Female Rx Written Rx Dispensed Drug Quantity Days Supply Prescriber Name 08/05/2018 08/05/2018 clonazepam 0.5 mg tablet 90 30 Kamila Nova MD ASSESSMENT AND PLAN: ETOH dependence - detox protocol. Problem List - Problems (1) Alcohol dependence with uncomplicated withdrawal Code(s): F10.230 - ALCOHOL DEPENDENCE WITH WITHDRAWAL, UNCOMPLICATED (2) Cocaine dependence Code(s): F14.20 - COCAINE DEPENDENCE, UNCOMPLICATED Qualifiers: Substance use status: uncomplicated Qualified Code(s): F14.20 - Cocaine dependence, uncomplicated (3) Nicotine dependence Code(s): F17.200 - NICOTINE DEPENDENCE, UNSPECIFIED, UNCOMPLICATED Qualifiers: Nicotine product type: cigarettes Substance use status: uncomplicated Qualified Code(s): F17.210 - Nicotine dependence, cigarettes, uncomplicated"
[2019-01-04] MEDS ORDERED: chlordiazePOXIDE HCL 25 MG CAPSULE PO PRN (19:15)
[2019-01-04] MEDS ORDERED: IBUPROFEN 400 MG TABLET (FP) PO PRN (19:15)
[2019-01-04] MEDS ORDERED: BISMUTH SUBSALICYLATE 524 MG/30 ML UD PO PRN (19:15)
[2019-01-04] MEDS ORDERED: MAGNESIUM CITRATE 300 ML BOTTLE PO PRN (19:15)
[2019-01-04] MEDS ORDERED: MENTHOL/PHENOL 1 EACH UD MM PRN (19:15)
[2019-01-04] MEDS ORDERED: ACETAMINOPHEN 325 MG TABLET (FP) PO PRN ×2 (19:15)
[2019-01-04] MEDS ORDERED: MAGNESIUM HYDROX 2400MG/30ML ORAL SUSPENSION 30 ML CUP PO PRN (19:15)
[2019-01-04] MEDS ORDERED: MAG HYDROX/AL HYDROX/SIMETH 30 ML UNIT-DOSE CUP PO PRN (19:15)
[2019-01-04] MEDS: levETIRAcetam 500 MG TABLET (FP) PO SCH (21:43)
[2019-01-04] MEDS: MELATONIN 5 MG TABLETS PO PRN (21:44)
[2019-01-04] MEDS: THIAMINE HCL 100 MG TABLET (FP) PO SCH (21:44)
[2019-01-04] MEDS: NICOTINE 14 MG/24 HOURS TOPICAL PATCH TD SCH (21:47)
[2019-01-04] MEDS: METHOCARBAMOL 500 MG TABLET PO PRN (21:52)
[2019-01-04] MEDS: chlordiazePOXIDE HCL 25 MG CAPSULE PO SCH (22:00)
[2019-01-04] MEDS: hydrOXYzine PAMOATE 25 MG CAPSULE (FP) PO PRN (23:05)
[2019-01-05] MEDS: chlordiazePOXIDE HCL 25 MG CAPSULE PO SCH ×4 (05:46→22:26)
[2019-01-05] MEDS: METHOCARBAMOL 500 MG TABLET PO PRN ×3 (05:50→19:33)
--- NOTE | 2019-01-05 09:24 | CONSULT ---
[facility] Psychiatric Consult - Data Date of interview: 01/05/19 Admission source: Self-referred Identifying data: Ms Moreno is a 58 years old single female, unemployed receving HASA, domiciled living a one bedroom apt in [facility] seeking detox treatment for alcohol and cocaine Substance Abuse History: Reports history of alcohol and cocaine use. Refer to addiction counselor's summary for further information Medical History: Significant for HIV infection since 1988 (on antiretroviral medications), neuropathy, fibromyalgia, history alcohol withdrawal-related seizures and treatment for hepatitis C. Smokes 8-10 cigarettes daily Psychiatric History: Reports that her first psychiatric contact in [address] Fuentes, a private psychiatrist in [facility]. She reports that she was diagnosed with Bipolar Disorder and prescribed Xanax, Ambien and Gabapentin. Reports that after the detention off Dr Fuentesin June 2018, she has been seeing Kamila Nova MD, another psychiatrist in private practice in [place], [place]. She is currently prescribed Seroquel 200 mg/hs, Gabapentin 800 mg/ qid Remeron 15 mg/hs. Her most recent visit with Dr Nova was on 12/19/18. This is confirmed by external medication history from [facility] at [address] [place] [address] where 30 days suply of these medications were filled on . Denies previous psychiatric hospitalization or suicidal attempt. At present, denies experiencing psychotic, manic or depressive symptoms, S/H ideations. However, reports feeling anxious and sleeping poorly. Physical/Sexual Abuse/Trauma History: Denies history of emotional, physical or sexual abuse as well as DV relationship. No service Additional Comment: Reports history of 2 previous misdemeanor arrests on charges of shoplifting and drinking in public. No current probation or open case Mental Status Exam - Mental Status Exam Alert and Oriented to: Time, Place, Person Cognitive Function: Fair Patient Appearance: Well Groomed Mood: Anxious Affect: Appropriate Patient Behavior: Cooperative Speech Pattern: Clear Voice Loudness: Normal Thought Process: Intact, Goal Oriented Thought Disorder: Not Present Hallucinations: Denies Suicidal Ideation: Denies Homicidal Ideation: Denies Insight/Judgement: Poor Sleep: Poorly Appetite: Good Muscle strength/Tone: Normal Gait/Station: Normal Psychiatric Findings - Problem List (Valentine 1, 2,3) (1) Bipolar disorder Current Visit: No Status: Chronic Qualifiers: Active/Remission status: remission status unspecified Qualified Code(s): F31.9 - Bipolar disorder, unspecified Comment: As per history and existing records. (2) Substance-induced anxiety disorder Current Visit: No Status: Acute (3) Substance-induced sleep disorder Current Visit: No Status: Acute (4) Alcohol dependence with uncomplicated withdrawal Current Visit: No Status: Chronic (5) Cocaine dependence Current Visit: No Status: Chronic Qualifiers: Substance use status: uncomplicated Qualified Code(s): F14.20 - Cocaine dependence, uncomplicated (6) Nicotine dependence Current Visit: No Status: Chronic Qualifiers: Nicotine product type: cigarettes Substance use status: uncomplicated Qualified Code(s): F17.210 - Nicotine dependence, cigarettes, uncomplicated (7) Fibromyalgia Current Visit: No Status: Acute (8) Asthma Current Visit: No Status: Chronic Qualifiers: Asthma severity: mild Asthma persistence: intermittent Asthma complication type: with status asthmaticus Qualified Code(s): J45.22 - Mild intermittent asthma with status asthmaticus (9) COPD (chronic obstructive pulmonary disease) Current Visit: No Status: Chronic Qualifiers: COPD type: chronic bronchitis Chronic bronchitis type: unspecified Qualified Code(s): J42 - Unspecified chronic bronchitis (10) HIV (human immunodeficiency virus infection) Current Visit: No Status: Chronic Qualifiers: HIV symptom status: unspecified Qualified Code(s): B20 - Human immunodeficiency virus [HIV] disease (11) Neuropathy Current Visit: No Status: Chronic (12) Seizure disorder Current Visit: No Status: Chronic - Initial Treatment Plan Initial Treatment Plan: 1) Continue Gabapentin 800 mg po QID, Remeron 15 mg po HS. 2) Start Celexa 40 mg po daily. 3) Continue inpatient detoxifiction
[2019-01-05] MEDS: levETIRAcetam 500 MG TABLET (FP) PO SCH ×2 (10:36→22:25)
[2019-01-05] MEDS: NICOTINE 14 MG/24 HOURS TOPICAL PATCH TD SCH (10:36)
[2019-01-05] MEDS: GABAPENTIN 400 MG CAPSULE (FP) PO SCH ×4 (10:37→22:26)
[2019-01-05] MEDS: CITALOPRAM HYDROBROMIDE 20 MG TABLET (FP) PO SCH (10:39)
[2019-01-05] MEDS: PRENATAL VITAMINS W/ FOLIC ACID TABLET (FP) PO SCH (10:39)
[2019-01-05] MEDS: MAVYRET PO SCH (10:58)
[2019-01-05 12:07] LABS: ALBUMIN 3.6 g/dl (3.4-5.0); BILIRUBIN,TOTAL 0.3 mg/dL (0.2-1); BLOOD UREA NITROGEN 16.9 mg/dL (7-18); CALCIUM 8.9 mg/dL (8.5-10.1); CREATININE 0.8 mg/dL (0.55-1.3); HEMATOCRIT 36.4 % (32.4-45.2); HEMOGLOBIN 12.6 GM/dL (10.7-15.3); MCH 34.3 pg (25.7-33.7); MCHC 34.5 g/dl (32.0-36.0); MEAN CELL VOLUME 99.4 fl (80-96); MEAN PLT VOLUME 7.2 fl (7.5-11.1); PLATELET COUNT 298 K/MM3 (134-434); POTASSIUM 4.4 mmol/L (3.5-5.1); RBC 3.66 M/mm3 (3.60-5.2); RDW 13.9 % (11.6-15.6); WHITE BLOOD COUNT 7.1 K/mm3 (4.0-10.0)
[2019-01-05] MEDS: hydrOXYzine PAMOATE 25 MG CAPSULE (FP) PO PRN ×2 (13:23→19:33)
[2019-01-05] MEDS ORDERED: AMMONIUM LACTATE 12% LOTION 225 GM BOTTLE TP PRN (13:59)
--- NOTE | 2019-01-05 14:11 | PN ---
S CIWA - CIWA Score Nausea/Vomitin-No Nausea/No Vomiting Muscle Tremors: 3 Anxiety: 2 Agitation: 2 Paroxysmal Sweats: 2 Orientation: 0-Oriented Tacttile Disturbances: 0-None Auditory Disturbances: 0-None Visual Disturbances: 0-None Headache: 0-None Present CIWA-Ar Total Score: 9 BHS Progress Note (SOAP) Subjective: sweats mild shakes interrupted sleep body aches dry skin i want a 21mcq not 14mcq nicotine patch Objective: 01/05/19 14:10 Vital Signs Temperature 97.5 F L 01/05/19 09:40 Pulse Rate 64 01/05/19 09:40 Respiratory Rate 18 01/05/19 09:40 Blood Pressure 96/67 01/05/19 09:40 O2 Sat by Pulse Oximetry (%) Laboratory Tests 01/05/19 01/05/19 01/05/19 08:30 08:30 08:30 WBC 7.1 RBC 3.66 Hgb 12.6 Hct 36.4 MCV 99.4 H MCH 34.3 H MCHC 34.5 RDW 13.9 Plt Count 298 MPV 7.2 L Sodium 133 L Potassium 4.4 Chloride 99 Carbon Dioxide 29 Anion Gap 5 L BUN 16.9 Creatinine 0.8 Est GFR (CKD-EPI)AfAm 93.53 Est GFR (CKD-EPI)NonAf 80.70 Random Glucose 88 Calcium 8.9 Total Bilirubin 0.3 AST 16 ALT 19 Alkaline Phosphatase 120 H Total Protein 7.0 Albumin 3.6 RPR Titer Nonreactive labs noted aaox3 ambulating no acute distress Assessment: 01/05/19 14:10 withdrawal sx Plan: continue detox increase fluids lac-hydrin lotion prn nicotine 21mcq as per pt request
[2019-01-05] MEDS: THIAMINE HCL 100 MG TABLET (FP) PO SCH (22:25)
[2019-01-05] MEDS: MIRTAZAPINE 15 MG TABLET (FP) PO SCH (22:25)
[2019-01-05] MEDS: QUEtiapine FUMARATE 200 MG TABLET PO SCH (22:26)
[2019-01-06] MEDS: chlordiazePOXIDE HCL 25 MG CAPSULE PO SCH ×4 (05:54→22:28)
[2019-01-06] MEDS: levETIRAcetam 500 MG TABLET (FP) PO SCH ×2 (10:20→22:28)
[2019-01-06] MEDS: GABAPENTIN 400 MG CAPSULE (FP) PO SCH ×4 (10:20→22:29)
[2019-01-06] MEDS: PRENATAL VITAMINS W/ FOLIC ACID TABLET (FP) PO SCH (10:20)
[2019-01-06] MEDS: CITALOPRAM HYDROBROMIDE 20 MG TABLET (FP) PO SCH (10:20)
[2019-01-06] MEDS: MAVYRET PO SCH (10:21)
[2019-01-06] MEDS: NICOTINE 21 MG/24 HOURS TOPICAL PATCH TD SCH (10:21)
--- NOTE | 2019-01-06 12:40 | PN ---
S CIWA - CIWA Score Nausea/Vomitin-No Nausea/No Vomiting Muscle Tremors: 2 Anxiety: 2 Agitation: 0-Normal Activity Paroxysmal Sweats: 3 Orientation: 0-Oriented Tacttile Disturbances: 0-None Auditory Disturbances: 0-None Visual Disturbances: 0-None Headache: 2-Mild CIWA-Ar Total Score: 9 S Progress Note (SOAP) Subjective: c/o mild shakes, anxiety, sweats, and headache. Objective: 01/06/19 12:39 Vital Signs 01/06/19 01/06/19 06:00 09:20 Temperature 97.7 F 97.2 F L Pulse Rate 80 70 Respiratory 18 18 Rate Blood Pressure 90/65 101/67 Lab Results WBC 7.1 K/mm3 (4.0-10.0) 01/05/19 08:30 RBC 3.66 M/mm3 (3.60-5.2) 01/05/19 08:30 Hgb 12.6 GM/dL (10.7-15.3) 01/05/19 08:30 Hct 36.4 % (32.4-45.2) 01/05/19 08:30 MCV 99.4 fl (80-96) H 01/05/19 08:30 MCHC 34.5 g/dl (32.0-36.0) 01/05/19 08:30 RDW 13.9 % (11.6-15.6) 01/05/19 08:30 Plt Count 298 K/MM3 (134-434) 01/05/19 08:30 Sodium 133 mmol/L (136-145) L 01/05/19 08:30 Potassium 4.4 mmol/L (3.5-5.1) 01/05/19 08:30 Chloride 99 mmol/L (98-107) 01/05/19 08:30 Carbon Dioxide 29 mmol/L (21-32) 01/05/19 08:30 Anion Gap 5 MMOL/L (8-16) L 01/05/19 08:30 BUN 16.9 mg/dL (7-18) 01/05/19 08:30 Creatinine 0.8 mg/dL (0.55-1.3) 01/05/19 08:30 Random Glucose 88 mg/dL (74-106) 01/05/19 08:30 Calcium 8.9 mg/dL (8.5-10.1) 01/05/19 08:30 Labs noted. Assessment: 01/06/19 12:39 AOX3, in no acute respiratory distress. Full ROM, ambulating in the unit. Withdrawal symptoms. Plan: continue detox.
[2019-01-06] MEDS: MIRTAZAPINE 15 MG TABLET (FP) PO SCH (22:28)
[2019-01-06] MEDS: QUEtiapine FUMARATE 200 MG TABLET PO SCH (22:29)
[2019-01-06] MEDS: THIAMINE HCL 100 MG TABLET (FP) PO SCH (22:29)
[2019-01-06] MEDS: hydrOXYzine PAMOATE 25 MG CAPSULE (FP) PO PRN (23:44)
[2019-01-06] MEDS: MELATONIN 5 MG TABLETS PO PRN (23:44)
[2019-01-07] MEDS ORDERED: chlordiazePOXIDE HCL 10 MG CAPSULE PO PRN
[2019-01-07] MEDS: chlordiazePOXIDE HCL 10 MG CAPSULE PO SCH ×4 (05:39→22:42)
[2019-01-07] MEDS: levETIRAcetam 500 MG TABLET (FP) PO SCH ×2 (10:17→22:42)
[2019-01-07] MEDS: NICOTINE 21 MG/24 HOURS TOPICAL PATCH TD SCH (10:18)
[2019-01-07] MEDS: PRENATAL VITAMINS W/ FOLIC ACID TABLET (FP) PO SCH (10:18)
[2019-01-07] MEDS: MAVYRET PO SCH (10:19)
[2019-01-07] MEDS: CITALOPRAM HYDROBROMIDE 20 MG TABLET (FP) PO SCH (10:19)
[2019-01-07] MEDS: GABAPENTIN 400 MG CAPSULE (FP) PO SCH ×4 (10:19→22:42)
--- NOTE | 2019-01-07 13:38 | PN ---
S Progress Note Note: Patient reports sleeping poorly despite taking Seroquel 200 mg/hs and Melatonin. Hypnotic properties of Belsomra discussed with patient and she agreed to try it
--- NOTE | 2019-01-07 17:37 | PN ---
S CIWA - CIWA Score Nausea/Vomitin-No Nausea/No Vomiting Muscle Tremors: None Anxiety: 3 Agitation: 3 Paroxysmal Sweats: 2 Orientation: 0-Oriented Tacttile Disturbances: 0-None Auditory Disturbances: 0-None Visual Disturbances: 0-None Headache: 0-None Present CIWA-Ar Total Score: 8 BHS Progress Note (SOAP) Subjective: Interrupted sleep Objective: 01/07/19 17:34 Last Vital Signs Temp Pulse Resp BP Pulse Ox 97.7 F 92 H 18 115/51 L 01/07/19 17:02 01/07/19 17:02 01/07/19 17:02 01/07/19 17:02 Laboratory Tests 01/05/19 01/05/19 01/05/19 08:30 08:30 08:30 WBC 7.1 RBC 3.66 Hgb 12.6 Hct 36.4 MCV 99.4 H MCH 34.3 H MCHC 34.5 RDW 13.9 Plt Count 298 MPV 7.2 L Sodium 133 L Potassium 4.4 Chloride 99 Carbon Dioxide 29 Anion Gap 5 L BUN 16.9 Creatinine 0.8 Est GFR (CKD-EPI)AfAm 93.53 Est GFR (CKD-EPI)NonAf 80.70 Random Glucose 88 Calcium 8.9 Total Bilirubin 0.3 AST 16 ALT 19 Alkaline Phosphatase 120 H Total Protein 7.0 Albumin 3.6 RPR Titer Nonreactive Labs reviewed: Na 133, alk phos 120 (mildly elevated) Assessment: 01/07/19 17:35 Withdrawal sxs Noted with hyponatremia Plan: Continue detox Hyponatremia: asymptomatic, avoid excess water intake, repeat serum sodium
[2019-01-07] MEDS: METHOCARBAMOL 500 MG TABLET PO PRN (18:10)
[2019-01-07] MEDS: QUEtiapine FUMARATE 200 MG TABLET PO SCH (22:42)
[2019-01-07] MEDS: MIRTAZAPINE 15 MG TABLET (FP) PO SCH (22:42)
[2019-01-07] MEDS: THIAMINE HCL 100 MG TABLET (FP) PO SCH (22:42)
[2019-01-07] MEDS: SUVOREXANT 10 MG TABLET PO PRN (22:46)
[2019-01-08] MEDS: chlordiazePOXIDE HCL 10 MG CAPSULE PO SCH ×2 (06:27→17:13)
[2019-01-08] MEDS: levETIRAcetam 500 MG TABLET (FP) PO SCH ×2 (10:20→22:23)
[2019-01-08] MEDS: GABAPENTIN 400 MG CAPSULE (FP) PO SCH ×4 (10:20→22:23)
[2019-01-08] MEDS: CITALOPRAM HYDROBROMIDE 20 MG TABLET (FP) PO SCH (10:20)
[2019-01-08] MEDS: PRENATAL VITAMINS W/ FOLIC ACID TABLET (FP) PO SCH (10:20)
[2019-01-08] MEDS: MAVYRET PO SCH (10:21)
[2019-01-08] MEDS: NICOTINE 21 MG/24 HOURS TOPICAL PATCH TD SCH (10:22)
[2019-01-08] MEDS: METHOCARBAMOL 500 MG TABLET PO PRN ×3 (10:25→23:23)
[2019-01-08] MEDS: hydrOXYzine PAMOATE 25 MG CAPSULE (FP) PO PRN ×2 (10:26→23:22)
--- NOTE | 2019-01-08 13:00 | PN ---
S CIWA - CIWA Score Nausea/Vomitin-No Nausea/No Vomiting Muscle Tremors: 2 Anxiety: 1-Mildly Anxious Agitation: 1-Slight > Activity Paroxysmal Sweats: 1-Minimal Palms Moist Orientation: 0-Oriented Tacttile Disturbances: 0-None Auditory Disturbances: 0-None Visual Disturbances: 0-None Headache: 0-None Present CIWA-Ar Total Score: 5 BHS Progress Note (SOAP) Subjective: anxiety sweats Objective: 01/08/19 12:59 Vital Signs Temperature 97.5 F L 01/08/19 09:47 Pulse Rate 93 H 01/08/19 09:47 Respiratory Rate 18 01/08/19 09:47 Blood Pressure 100/63 01/08/19 09:47 O2 Sat by Pulse Oximetry (%) aaox3 ambulating no acute distress Assessment: 01/08/19 12:59 mild withdrawals Plan: continue detox d/c in am
--- NOTE | 2019-01-08 14:09 | PN ---
S Progress Note Note: pt requesting for her complera medication; however pt is on celexa and there is a drug interaction indicating prolong QT wave. pt made aware and she can resume all her after detox is complete.
[2019-01-08] MEDS: SUVOREXANT 10 MG TABLET PO PRN (22:23)
[2019-01-08] MEDS: QUEtiapine FUMARATE 200 MG TABLET PO SCH (22:23)
[2019-01-08] MEDS: THIAMINE HCL 100 MG TABLET (FP) PO SCH (22:23)
[2019-01-08] MEDS: MIRTAZAPINE 15 MG TABLET (FP) PO SCH (22:23)
[2019-01-09] MEDS ORDERED: chlordiazePOXIDE HCL 10 MG CAPSULE PO ONE (05:00)
[2019-01-09 07:07] VITALS: TEMP 98.2
[2019-01-09] MEDS ORDERED: EMTRICITAB/RILPIVIRINE/TENOFOV 1 EACH TABLET PO ONE (08:45)
--- NOTE | 2019-01-09 09:36 | DS ---
[facility] Detox Discharge Summary Admission Date: 01/04/19 Discharge Date: 01/09/19 - History Present History: Alcohol Dependence, Cannabis Dependence, Opioid Dependence - Physical Exam Results Vital Signs: Vital Signs Temperature 98.2 F 01/09/19 07:07 Pulse Rate 82 01/09/19 07:07 Respiratory Rate 18 01/09/19 07:07 Blood Pressure 98/63 01/09/19 07:07 O2 Sat by Pulse Oximetry (%) Pertinent Admission Physical Exam Findings: pt arrived in withdrawals Laboratory Tests 01/05/19 01/05/19 01/05/19 08:30 08:30 08:30 WBC 7.1 RBC 3.66 Hgb 12.6 Hct 36.4 MCV 99.4 H MCH 34.3 H MCHC 34.5 RDW 13.9 Plt Count 298 MPV 7.2 L Sodium 133 L Potassium 4.4 Chloride 99 Carbon Dioxide 29 Anion Gap 5 L BUN 16.9 Creatinine 0.8 Est GFR (CKD-EPI)AfAm 93.53 Est GFR (CKD-EPI)NonAf 80.70 Random Glucose 88 Calcium 8.9 Total Bilirubin 0.3 AST 16 ALT 19 Alkaline Phosphatase 120 H Total Protein 7.0 Albumin 3.6 RPR Titer Nonreactive 01/08/19 08:15 WBC RBC Hgb Hct MCV MCH MCHC RDW Plt Count MPV Sodium 140 Potassium Chloride Carbon Dioxide Anion Gap BUN Creatinine Est GFR (CKD-EPI)AfAm Est GFR (CKD-EPI)NonAf Random Glucose Calcium Total Bilirubin AST ALT Alkaline Phosphatase Total Protein Albumin RPR Titer today pt is aaox3 ambulating no acute distress no s/s of withdrawals - Treatment Hospital Course: Detox Protocol Followed, Detoxed Safely, Responded well, Discharged Condition Good, Rehab Referral Accepted Patient has Accepted a Rehab Referral to: pt referred to [facility] inpatient rehab - Medication Discharge Medications: Ambulatory Orders Emtricitab/Rilpivirine/Tenofov [Complera Tablet -] 1 tab PO DAILY #30 tablet 09/16 Albuterol Sulfate Inhaler - [Ventolin Hfa Inhaler -] 1 - 2 inh PO Q4H PRN #1 inhaler 07/31/18 Buspirone HCl [Buspar -] 15 mg PO TID 09/13/18 Citalopram Hydrobromide [Celexa -] 80 mg PO DAILY 09/13/18 Gabapentin [Neurontin -] 800 mg PO QID 09/13/18 Mirtazapine [Remeron -] 15 mg PO DAILY 09/13/18 Quetiapine Fumarate [Seroquel -] 400 mg PO HS 09/13/18 Mavyret 100-40 mg Tablet 3 tablet PO DAILY 01/04/19 levETIRAcetam [Keppra -] 500 mg PO BID 01/04/19 - Diagnosis (1) Cocaine-induced sleep disorder, insomnia type, with onset during discontinuation/withdrawal Current Visit: Yes Status: Acute (2) Drug-induced mood disorder Current Visit: No Status: Acute (3) Fibromyalgia Current Visit: Yes Status: Chronic (4) Substance-induced anxiety disorder Current Visit: No Status: Acute (5) Substance-induced sleep disorder Current Visit: No Status: Acute (6) Alcohol dependence with uncomplicated withdrawal Current Visit: Yes Status: Chronic (7) Asthma Current Visit: Yes Status: Chronic Qualifiers: Asthma severity: mild Asthma persistence: intermittent Asthma complication type: with status asthmaticus Qualified Code(s): J45.22 - Mild intermittent asthma with status asthmaticus (8) Bipolar disorder Current Visit: No Status: Chronic Qualifiers: Active/Remission status: remission status unspecified Qualified Code(s): F31.9 - Bipolar disorder, unspecified (9) COPD (chronic obstructive pulmonary disease) Current Visit: Yes Status: Chronic Qualifiers: COPD type: chronic bronchitis Chronic bronchitis type: unspecified Qualified Code(s): J42 - Unspecified chronic bronchitis (10) HIV (human immunodeficiency virus infection) Current Visit: Yes Status: Chronic Qualifiers: HIV symptom status: unspecified Qualified Code(s): B20 - Human immunodeficiency virus [HIV] disease (11) Insomnia Current Visit: Yes Status: Chronic Qualifiers: Insomnia type: unspecified Qualified Code(s): G47.00 - Insomnia, unspecified (12) Neuropathy Current Visit: No Status: Chronic (13) Nicotine dependence Current Visit: Yes Status: Chronic Qualifiers: Nicotine product type: cigarettes Substance use status: uncomplicated Qualified Code(s): F17.210 - Nicotine dependence, cigarettes, uncomplicated (14) Depression Current Visit: No Status: Suspected Qualifiers: Depression Type: dysthymia Qualified Code(s): F34.1 - Dysthymic disorder (15) Hepatitis C Current Visit: Yes Status: Chronic Qualifiers: Viral hepatitis chronicity: chronic Hepatic coma status: without hepatic coma Qualified Code(s): B18.2 - Chronic viral hepatitis C - AMA Did Patient Leave Against Medical Advice: No
[2019-01-09 09:55] VITALS: BP 100/72; PULSE 113
[2019-01-09] MEDS: GABAPENTIN 400 MG CAPSULE (FP) PO SCH (10:03)
[2019-01-09] MEDS: levETIRAcetam 500 MG TABLET (FP) PO SCH (10:03)
[2019-01-09] MEDS: CITALOPRAM HYDROBROMIDE 20 MG TABLET (FP) PO SCH (10:03)
[2019-01-09] MEDS: NICOTINE 21 MG/24 HOURS TOPICAL PATCH TD SCH (10:03)
[2019-01-09] MEDS: MAVYRET PO SCH (10:03)
[2019-01-09] MEDS: PRENATAL VITAMINS W/ FOLIC ACID TABLET (FP) PO SCH (10:04)
[2019-01-09] MEDS: hydrOXYzine PAMOATE 25 MG CAPSULE (FP) PO PRN (10:04)
[2019-01-09] MEDS: METHOCARBAMOL 500 MG TABLET PO PRN (10:04)
== END 2019-01-09 11:40 | disposition home or self-care (01) | DRG 773 ==
LOC: YASAS 13:10 → Y6N 20:11
PROVIDERS: ADMIT Surgery; ATTEND Surgery
PROC: HZ2ZZZZ Detoxification Services for Substance Abuse Treatment (ICD-10-PCS; principal; 2019-01-04)
DX: F10.230 Alcohol dependence with withdrawal, uncomplicated (principal); F11.23 Opioid dependence with withdrawal; F14.282 Cocaine dependence with cocaine-induced sleep disorder; F12.20 Cannabis dependence, uncomplicated; F17.210 Nicotine dependence, cigarettes, uncomplicated; F19.280 Other psychoactive substance dependence with psychoactive substance-induced anxiety disorder; F19.24 Other psychoactive substance dependence with psychoactive substance-induced mood disorder; F19.282 Other psychoactive substance dependence with psychoactive substance-induced sleep disorder; F34.1 Dysthymic disorder; F31.9 Bipolar disorder, unspecified; Z21 Asymptomatic human immunodeficiency virus [HIV] infection status; J45.22 Mild intermittent asthma with status asthmaticus; J44.9 Chronic obstructive pulmonary disease, unspecified; G40.909 Epilepsy, unspecified, not intractable, without status epilepticus; G47.00 Insomnia, unspecified; E87.1 Hypo-osmolality and hyponatremia; M79.7 Fibromyalgia
CPT/HCPCS: 36415; 80053; 84295; 85027; 86593

== ENCOUNTER 2019-07-04 15:48 | Inpatient (IN) | payer OTHER ==
--- NOTE | 2019-07-04 19:57 | BHS.RME ---
Substance Use & Tx History - Last Treatment Date of last treatment: 12/2018 Treatment type: Substance Use Disorder (SAI) Where was last treatment: Detox Physical/Psych/Mental Status - Behavior Eye Contact: Normal - Cooperativeness Cooperativeness: Cooperative - Thinking Thought Processes: Logical - Physical Health Problems Is patient presently having any pain?: No Does patient presently have any injuries (include location): No Does patient currently have a fever: No CIWA Nausea/Vomitin-No Nausea/No Vomiting Muscle Tremors: None Anxiety: 2 Agitation: 2 Paroxysmal Sweats: 3 Orientation: 2-Disoriented Date<2 days Tacttile Disturbances: 1-Very Mild Itch/Numbness Auditory Disturbances: 0-None Visual Disturbances: 0-None Headache: 0-None Present CIWA-Ar Total Score: 10
--- NOTE | 2019-07-04 20:03 | HP ---
CIWA Score Nausea/Vomitin-No Nausea/No Vomiting Muscle Tremors: None Anxiety: 2 Agitation: 2 Paroxysmal Sweats: 3 Orientation: 2-Disoriented Date<2 days Tacttile Disturbances: 1-Very Mild Itch/Numbness Auditory Disturbances: 0-None Visual Disturbances: 0-None Headache: 0-None Present CIWA-Ar Total Score: 10 - Admission Criteria OASAS Guidelines: Admission for Medically Managed Detox: Requires at least one of the followin. CIWA greater than 12 2. Seizures within the past 24 hours 3. Delirium tremens within the past 24 hours 4. Hallucinations within the past 24 hours 5. Acute intervention needed for co occurring medical disorder 6. Acute intervention needed for co occurring psychiatric disorder 7. Severe withdrawal that cannot be handled at a lower level of care (continued vomiting, continued diarrhea, abnormal vital signs) requiring intravenous medication and/or fluids 8. Admitting History and Physical - Past Medical History ...LMP: 02/23/11 - Smoking History Smoking history: Current every day smoker Have you smoked in the past 12 months: Yes Aproximately how many cigarettes per day: 8 - Alcohol/Substance Use Hx Alcohol Use: Yes Admission [facility] Allergies/Adverse Reactions: Allergies Allergy/AdvReac Type Severity Reaction Status Date / Time Sulfa (Sulfonamide Allergy Verified 01/04/19 17:17 Antibiotics) History of Present Illness: 59 y.o. female pt pt here reports relapse since April 2019 , current daily use 1 pint/day , latest use this morning , current symptoms as above , reports blackouts when drinking alcohol cocaine : daily via inhalation , 40 $ tobacco : 1 ppd PMHX HIV (undetectable viral load in Sep per pt , on Complera latest taken yesterday ID clinic [facility] [phone] ), Hep C completed Mavyret ( dx 1988 RF= IVDU ) , depression, anxiety, Exam Limitations: Clinical Condition - Review of Systems Constitutional: Loss of Appetite EENT: reports: Other (decreased vision , upper and lower dentures) Respiratory: reports: No Symptoms reported Cardiac: reports: No Symptoms Reported GI: reports: Diarrhea, Poor Appetite : reports: No Symptoms Reported Musculoskeletal: reports: No Symptoms Reported Integumentary: reports: No Symptoms Reported Neuro: reports: No Symptoms reported Endocrine: reports: No Symptoms Reported Hematology: reports: No Symptoms Reported Psychiatric: reports: Anxious, Disorientated Patient History - Patient Medical History Hx Anemia: No Hx Asthma: Yes (Pt is on MDI) Hx Chronic Obstructive Pulmonary Disease (COPD): No Hx Cancer: No Hx Cardiac Disorders: No Hx Congestive Heart Failure: No Hx Hypertension: No Hx Hypercholesterolemia: No Hx Pacemaker: No HX Cerebrovascular Accident: No Hx Seizures: Yes (Oxycarbanzepine) Hx Dementia: No Hx Diabetes: No Hx Gastrointestinal Disorders: No Hx Liver Disease: No Hx Genitourinary Disorders: No Hx Sexually Transmitted Disorders: No Hx Renal Disease (ESRD): No Hx Thyroid Disease: No Hx Human Immunodeficiency Virus (HIV): Yes (1988, on complera reports meds adherence ) Hx Hepatitis C: No Hx Depression: Yes (Celexa) Hx Suicide Attempt: No Hx Bipolar Disorder: Yes (Nort on medication) Hx Schizophrenia: No - Patient Surgical History Past Surgical History: No Hx Neurologic Surgery: No Hx Cataract Extraction: No Hx Cardiac Surgery: No Hx Lung Surgery: No Hx Breast Surgery: No Hx Breast Biopsy: No Hx Abdominal Surgery: No Hx Appendectomy: No Hx Cholecystectomy: No Hx Genitourinary Surgery: No Hx Section: No Hx Orthopedic Surgery: No - PPD History Date: 07/29/18 Results: 0 mm - Reproductive History Last Menstrual Period: 02/23/11 - Smoking Cessation Smoking history: Current every day smoker Have you smoked in the past 12 months: Yes Aproximately how many cigarettes per day: 8 Cigars Per Day: 0 Hx Chewing Tobacco Use: No Initiated information on smoking cessation: Yes 'Breaking Loose' booklet given: 07/04/19 Admission Physical Exam [facility] - Physical General Appearance: Yes: Mild Distress, Anxious HEENTM: Yes: EOMI, Hearing grossly Normal, Normocephalic, Normal Voice, Other ( dentures upper and lower) Respiratory: Yes: Chest Non-Tender, Lungs Clear, Normal Breath Sounds, No Respiratory Distress, No Accessory Muscle Use Neck: Yes: No masses,lesions,Nodules, Trachea in good position Cardiology: Yes: Regular Rhythm, Regular Rate, S1, S2, Tachycardia Abdominal: Yes: Normal Bowel Sounds, Non Tender, Soft Musculoskeletal: Yes: Gait Steady Extremities: Yes: Normal Range of Motion, Non-Tender Neurological: Yes: Alert, Motor Strength 5/5, Disoriented, Depressed Affect, Other (limp right LE states has had same symptoms x 3 years , was seen @ [facility] , told no CVA , agreeable to f/up w/ neurology after d/c from this facility . NO falls / gait issues . Strength 5/5 , no foot drop .) Integumentary: Yes: Warm - Diagnostic (1) Cocaine dependence Current Visit: Yes Status: Chronic Qualifiers: Substance use status: uncomplicated Qualified Code(s): F14.20 - Cocaine dependence, uncomplicated (2) Alcohol dependence with uncomplicated withdrawal Current Visit: Yes Status: Chronic (3) Nicotine dependence Current Visit: Yes Status: Chronic Qualifiers: Nicotine product type: cigarettes Substance use status: uncomplicated Qualified Code(s): F17.210 - Nicotine dependence, cigarettes, uncomplicated Breathalyzer - Breathalyzer Breathalyzer: 0 Urine Drug Screen - Test Device Lot number: [id number] Expiration date: 09/29/20 - Control Is test valid?: Yes - Results Drug screen NEGATIVE: No Urine drug screen results: HANG-Cocaine, BUP-Suboxone Inpatient Rehab Admission - Rehab Decision to Admit Inpatient rehab admission?: No
[2019-07-04] MEDS ORDERED: ALBUTEROL SO4 0.083% IH SOL 2.5 MG/3 ML VIAL.NEB. NEB PRN (20:41)
[2019-07-04] MEDS ORDERED: MAG HYDROX/AL HYDROX/SIMETH 30 ML UNIT-DOSE CUP PO PRN (20:42)
[2019-07-04] MEDS ORDERED: MAGNESIUM HYDROX 2400MG/30ML ORAL SUSPENSION 30 ML CUP PO PRN (20:42)
[2019-07-04] MEDS ORDERED: ONDANSETRON *ODT* 4 MG TABLET SL ONE (20:42)
[2019-07-04] MEDS ORDERED: MENTHOL/PHENOL 1 EACH UD MM PRN (20:42)
[2019-07-04] MEDS ORDERED: BISMUTH SUBSALICYLATE 524 MG/30 ML UD PO PRN (20:42)
[2019-07-04] MEDS ORDERED: IBUPROFEN 400 MG TABLET (FP) PO PRN (20:42)
[2019-07-04] MEDS ORDERED: MAGNESIUM CITRATE 300 ML BOTTLE PO PRN (20:42)
[2019-07-04] MEDS ORDERED: ACETAMINOPHEN 325 MG TABLET (FP) PO PRN ×2 (20:42)
[2019-07-04] MEDS ORDERED: chlordiazePOXIDE HCL 10 MG CAPSULE PO PRN (20:47)
[2019-07-04 21:18] VITALS: BMI 27.4
[2019-07-04] MEDS: chlordiazePOXIDE HCL 25 MG CAPSULE PO SCH (22:31)
[2019-07-04] MEDS: THIAMINE HCL 100 MG TABLET (FP) PO SCH (22:31)
[2019-07-04] MEDS: MELATONIN 5 MG TABLETS PO SCH (22:31)
[2019-07-04] MEDS: hydrOXYzine PAMOATE 25 MG CAPSULE (FP) PO SCH (22:33)
[2019-07-05] MEDS: chlordiazePOXIDE HCL 25 MG CAPSULE PO SCH ×3 (07:52→21:05)
[2019-07-05] MEDS: hydrOXYzine PAMOATE 25 MG CAPSULE (FP) PO SCH ×2 (07:52→11:56)
[2019-07-05] MEDS ORDERED: EMTRICITAB/RILPIVIRINE/TENOFOV 1 EACH TABLET PO SCH (10:00)
--- NOTE | 2019-07-05 10:21 | PN ---
S CIWA - CIWA Score Nausea/Vomitin-No Nausea/No Vomiting Muscle Tremors: 2 Anxiety: 2 Agitation: 2 Paroxysmal Sweats: 2 Orientation: 0-Oriented Tacttile Disturbances: 0-None Auditory Disturbances: 0-None Visual Disturbances: 0-None Headache: 0-None Present CIWA-Ar Total Score: 8 BHS Progress Note (SOAP) Subjective: sweats anxiety interrupted sleep Objective: 07/05/19 10:24 Vital Signs Temperature 98.2 F 07/05/19 05:10 Pulse Rate 85 07/05/19 05:10 Respiratory Rate 18 07/05/19 05:10 Blood Pressure 126/88 07/05/19 05:10 O2 Sat by Pulse Oximetry (%) labs pending aaox3 ambulating no acute distress Assessment: 07/05/19 10:24 withdrawals Plan: continue detox pending labs
[2019-07-05] MEDS: NICOTINE 7 MG/24 HOURS TOPICAL PATCH TD SCH (10:30)
[2019-07-05] MEDS: PRENATAL VITAMINS W/ FOLIC ACID TABLET (FP) PO SCH (10:30)
[2019-07-05] MEDS: hydrOXYzine PAMOATE 25 MG CAPSULE (FP) PO PRN ×2 (10:30→22:17)
[2019-07-05 13:08] LABS: HEMATOCRIT 38.9 % (32.4-45.2); HEMOGLOBIN 13.3 GM/dL (10.7-15.3); MCHC 34.2 g/dl (32.0-36.0); MEAN CELL VOLUME 96.5 fl (80-96); MEAN PLT VOLUME 8.5 fl (7.5-11.1); PLATELET COUNT 271 K/MM3 (134-434); RBC 4.03 M/mm3 (3.60-5.2); RDW 12.8 % (11.6-15.6); WHITE BLOOD COUNT 7.4 K/mm3 (4.0-10.0)
[2019-07-05 13:22] LABS: CREATININE 0.8 mg/dL (0.55-1.3)
[2019-07-05 13:23] LABS: ALBUMIN 3.4 g/dl (3.4-5.0); BILIRUBIN,TOTAL 0.4 mg/dL (0.2-1); CALCIUM 8.7 mg/dL (8.5-10.1); TOT PROT 7.3 g/dl (6.4-8.2)
--- NOTE | 2019-07-05 14:36 | CONSULT ---
[facility] Psychiatric Consult - Data Date of interview: 07/05/19 Admission source: [facility] Identifying data: Patient is a 59 year old single female, without children, unemployed, domiciled, and is supported by [employer]. This is one of multiple admissions for patient. Patient admitted to for alcohol and cocaine dependence. Substance Abuse History: History of alcohol and cocaine use disorder Medical History: Significant for HIV infection since 1988 (on antiretroviral medications), neuropathy, fibromyalgia, history alcohol withdrawal-related seizures and treatment for hepatitis C. Psychiatric History: Ms. Moreno denies history of psychiatric hospitalization. States that she first saw a psychatrist approximately 20 years ago due to her mood instability and was diagnosed with Bipolar disorder. After three years she discontinued treatment and did not see a psychiatrist again until five years ago when she begun to see Dr. Nova (private psychiatrist) in [place], [place]. Ms. Moreno claims to be prescribed Celexa 80mg daily + Seroquel 400mg HS + Remeron 15mg HS. Patient reports medication compliance. No history of reported suicide attempt. At present patient reports difficulty sleeping. Physical/Sexual Abuse/Trauma History: denies. Mental Status Exam - Mental Status Exam Alert and Oriented to: Time, Place, Person Cognitive Function: Good Patient Appearance: Well Groomed Mood: Euthymic Affect: Appropriate Patient Behavior: Appropriate, Cooperative Speech Pattern: Appropriate Voice Loudness: Normal Thought Process: Intact, Goal Oriented Thought Disorder: Not Present Hallucinations: Denies Suicidal Ideation: Denies Homicidal Ideation: Denies Insight/Judgement: Poor Sleep: Poorly Appetite: Fair Muscle strength/Tone: Normal Gait/Station: Normal Psychiatric Findings - Problem List ([place] 1, 2,3) (1) Alcohol dependence with uncomplicated withdrawal Current Visit: Yes Status: Acute (2) Cocaine dependence Current Visit: Yes Status: Chronic Qualifiers: Substance use status: uncomplicated Qualified Code(s): F14.20 - Cocaine dependence, uncomplicated (3) Nicotine dependence Current Visit: Yes Status: Chronic Qualifiers: Nicotine product type: cigarettes Substance use status: uncomplicated Qualified Code(s): F17.210 - Nicotine dependence, cigarettes, uncomplicated (4) Substance-induced sleep disorder Current Visit: Yes Status: Acute - Initial Treatment Plan Initial Treatment Plan: Psychoeducation provided. Detoxification in progress. [facility] pharmacy contacted at [phone] and able to speak to pharmacy staff. As per pharmacy staff patient picked up the following prescriptions on 07/01/19: Celexa 80mg daily + Mirtazapine 15mg HS + Seroquel 400mg HS. Will order Celexa 20mg ( As per the medication package after speaking to Jud the pharmacist at [facility], patient age 60 or greater should not be prescribed greater then 20mg of celexa)), Seroquel 300mg (reduced dose due to risk of oversedation) + Mirtazapine 15mg HS. Benefits and side effects discusssed. Verbal consent given.
[2019-07-05] MEDS ORDERED: EMTRICITAB/RILPIVIRINE/TENOFOV 1 EACH TABLET PO ONE (18:00)
[2019-07-05] MEDS: THIAMINE HCL 100 MG TABLET (FP) PO SCH (22:14)
[2019-07-05] MEDS: MIRTAZAPINE 15 MG TABLET (FP) PO SCH (22:15)
[2019-07-05] MEDS: QUEtiapine FUMARATE 300 MG TABLET PO SCH (22:15)
[2019-07-05] MEDS: MELATONIN 5 MG TABLETS PO SCH (22:17)
[2019-07-06] MEDS: chlordiazePOXIDE 5 MG CAPSULE PO SCH ×3 (05:46→21:33)
--- NOTE | 2019-07-06 09:10 | PN ---
S Progress Note Note: [facility] pharmacy phoned at 9am; conversation with pharmacist held and she indicated that pt is not current with complera and has not had any active nor updated/recent prescription. Pt does have active/current/recent Rx with oxcarbazeipine 600mg BID, gabapentin 800mg (one tab in am and 1-2 tab at night). pt was made aware to recent Rx and medication discontinued while under our care. Pt in agreement.
[2019-07-06] MEDS ORDERED: carBAMazepine 200 MG TABLET PO SCH (10:00)
[2019-07-06] MEDS ORDERED: CITALOPRAM HYDROBROMIDE 20 MG TABLET PO SCH (10:00)
[2019-07-06] MEDS: CITALOPRAM HYDROBROMIDE 20 MG TABLET PO SCH (10:41)
[2019-07-06] MEDS: PRENATAL VITAMINS W/ FOLIC ACID TABLET (FP) PO SCH (10:42)
[2019-07-06] MEDS: GABAPENTIN 400 MG CAPSULE PO SCH ×2 (10:42→21:35)
[2019-07-06] MEDS: NICOTINE 7 MG/24 HOURS TOPICAL PATCH TD SCH (10:42)
[2019-07-06] MEDS: OXcarbazepine 300 MG TABLET (UD) PO SCH ×2 (10:43→21:34)
--- NOTE | 2019-07-06 12:16 | PN ---
S CIWA - CIWA Score Nausea/Vomitin-No Nausea/No Vomiting Muscle Tremors: 2 Anxiety: 1-Mildly Anxious Agitation: 2 Paroxysmal Sweats: 2 Orientation: 0-Oriented Tacttile Disturbances: 0-None Auditory Disturbances: 0-None Visual Disturbances: 0-None Headache: 0-None Present CIWA-Ar Total Score: 7 S Progress Note (SOAP) Subjective: hot/cold sweats chills interrupted sleep shakes Objective: 07/06/19 12:15 Vital Signs Temperature 98.2 F 07/06/19 09:55 Pulse Rate 100 H 07/06/19 09:55 Respiratory Rate 16 07/06/19 09:55 Blood Pressure 112/78 07/06/19 09:55 O2 Sat by Pulse Oximetry (%) Laboratory Tests 07/05/19 07/05/19 07/05/19 09:00 09:00 09:00 WBC 7.4 RBC 4.03 Hgb 13.3 Hct 38.9 MCV 96.5 H MCH 33.0 MCHC 34.2 RDW 12.8 Plt Count 271 MPV 8.5 D Sodium 136 Potassium 4.0 Chloride 105 Carbon Dioxide 23 Anion Gap 8 BUN 12.0 Creatinine 0.8 Est GFR (CKD-EPI)AfAm 92.87 Est GFR (CKD-EPI)NonAf 80.13 Random Glucose 160 H Calcium 8.7 Total Bilirubin 0.4 AST 11 L ALT 13 Alkaline Phosphatase 94 Total Protein 7.3 Albumin 3.4 RPR Titer Nonreactive aaox3 ambulating no acute distress Assessment: 07/06/19 12:16 withdrawals Plan: continue detox increase fluids
[2019-07-06] MEDS: hydrOXYzine PAMOATE 25 MG CAPSULE (FP) PO PRN ×2 (14:13→17:51)
[2019-07-06] MEDS ORDERED: ALBUTEROL SO4 HFA INHALER IH PRN (18:58)
[2019-07-06] MEDS: THIAMINE HCL 100 MG TABLET (FP) PO SCH (21:34)
[2019-07-06] MEDS: MIRTAZAPINE 15 MG TABLET (FP) PO SCH (21:34)
[2019-07-06] MEDS: QUEtiapine FUMARATE 300 MG TABLET PO SCH (21:35)
[2019-07-06] MEDS: MELATONIN 5 MG TABLETS PO SCH (22:37)
[2019-07-07] MEDS ORDERED: chlordiazePOXIDE HCL 10 MG CAPSULE PO PRN
[2019-07-07] MEDS: chlordiazePOXIDE HCL 10 MG CAPSULE PO SCH ×3 (05:26→22:12)
[2019-07-07] MEDS: PRENATAL VITAMINS W/ FOLIC ACID TABLET (FP) PO SCH (10:11)
[2019-07-07] MEDS: OXcarbazepine 300 MG TABLET (UD) PO SCH ×2 (10:11→22:11)
[2019-07-07] MEDS: CITALOPRAM HYDROBROMIDE 20 MG TABLET PO SCH (10:11)
[2019-07-07] MEDS: GABAPENTIN 400 MG CAPSULE PO SCH ×2 (10:11→22:13)
[2019-07-07] MEDS: NICOTINE 7 MG/24 HOURS TOPICAL PATCH TD SCH (10:11)
--- NOTE | 2019-07-07 13:29 | PN ---
[facility] CIWA - CIWA Score Nausea/Vomitin-Mild Nausea/No Vomiting Muscle Tremors: 1-None Visible, but [place] Anxiety: 2 Agitation: 2 Paroxysmal Sweats: No Perspiration Orientation: 0-Oriented Tacttile Disturbances: 0-None Auditory Disturbances: 0-None Visual Disturbances: 0-None Headache: 1-Very Mild CIWA-Ar Total Score: 7 S Progress Note (SOAP) Subjective: alert,irritable,anxious,interrupted sleep,pain in the body Objective: 07/07/19 13:29 Vital Signs Temperature 97.4 F L 07/07/19 08:50 Pulse Rate 85 07/07/19 08:50 Respiratory Rate 19 07/07/19 08:50 Blood Pressure 102/74 07/07/19 08:50 O2 Sat by Pulse Oximetry (%) Assessment: 07/07/19 13:35 withdrawal symptom Plan: continue detox librium regimen,fasting glucose in am initial glucose is 160,discharge in am
[2019-07-07] MEDS: hydrOXYzine PAMOATE 25 MG CAPSULE (FP) PO PRN (19:08)
[2019-07-07] MEDS: QUEtiapine FUMARATE 300 MG TABLET PO SCH (22:12)
[2019-07-07] MEDS: MIRTAZAPINE 15 MG TABLET (FP) PO SCH (22:12)
[2019-07-07] MEDS: THIAMINE HCL 100 MG TABLET (FP) PO SCH (22:13)
[2019-07-07] MEDS: MELATONIN 5 MG TABLETS PO SCH (22:16)
[2019-07-08] MEDS ORDERED: chlordiazePOXIDE HCL 10 MG CAPSULE PO ONE (05:00)
--- NOTE | 2019-07-08 09:15 | DS ---
[facility] Detox Discharge Summary Admission Date: 07/04/19 Discharge Date: 07/08/19 - History Present History: Alcohol Dependence, Cocaine Dependence - Physical Exam Results Vital Signs: Vital Signs Temperature 97.6 F 07/08/19 05:26 Pulse Rate 83 07/08/19 05:26 Respiratory Rate 20 07/08/19 05:26 Blood Pressure 97/64 07/08/19 05:26 O2 Sat by Pulse Oximetry (%) - Treatment Hospital Course: Detox Protocol Followed, Detoxed Safely, Responded well, Discharged Condition Good, Rehab Referral Accepted - Medication Discharge Medications: Ambulatory Orders Emtricitab/Rilpivirine/Tenofov [Complera Tablet -] 1 tab PO DAILY #30 tablet 11/03/17 Albuterol Sulfate Inhaler - [Ventolin Hfa Inhaler -] 1 - 2 inh PO Q4H PRN #1 inhaler 07/31/18 Buspirone HCl [Buspar -] 15 mg PO TID 09/13/18 Citalopram Hydrobromide [Celexa -] 80 mg PO DAILY 09/13/18 Gabapentin [Neurontin -] 800 mg PO QID 09/13/18 Mirtazapine [Remeron -] 15 mg PO HS 09/13/18 Quetiapine Fumarate [Seroquel -] 400 mg PO HS 09/13/18 Carbamazepine [Tegretol -] 200 mg PO BID 07/04/19 - Diagnosis (1) Alcohol dependence with uncomplicated withdrawal Current Visit: Yes Status: Chronic (2) Substance-induced sleep disorder Current Visit: Yes Status: Acute (3) Cocaine dependence Current Visit: Yes Status: Chronic Qualifiers: Substance use status: uncomplicated Qualified Code(s): F14.20 - Cocaine dependence, uncomplicated (4) Nicotine dependence Current Visit: Yes Status: Chronic Qualifiers: Nicotine product type: cigarettes Substance use status: uncomplicated Qualified Code(s): F17.210 - Nicotine dependence, cigarettes, uncomplicated (5) Cocaine-induced sleep disorder, insomnia type, with onset during discontinuation/withdrawal Current Visit: No Status: Acute (6) Drug-induced mood disorder Current Visit: No Status: Acute (7) Substance-induced anxiety disorder Current Visit: No Status: Acute (8) Asthma Current Visit: No Status: Chronic Qualifiers: Asthma severity: mild Asthma persistence: intermittent Asthma complication type: with status asthmaticus Qualified Code(s): J45.22 - Mild intermittent asthma with status asthmaticus (9) Bipolar disorder Current Visit: No Status: Chronic Qualifiers: Active/Remission status: remission status unspecified Qualified Code(s): F31.9 - Bipolar disorder, unspecified (10) COPD (chronic obstructive pulmonary disease) Current Visit: No Status: Chronic Qualifiers: COPD type: chronic bronchitis Chronic bronchitis type: unspecified Qualified Code(s): J42 - Unspecified chronic bronchitis (11) Fibromyalgia Current Visit: No Status: Chronic (12) HIV (human immunodeficiency virus infection) Current Visit: No Status: Chronic Qualifiers: HIV symptom status: unspecified Qualified Code(s): B20 - Human immunodeficiency virus [HIV] disease (13) Hepatitis C Current Visit: No Status: Chronic Qualifiers: Viral hepatitis chronicity: chronic Hepatic coma status: without hepatic coma Qualified Code(s): B18.2 - Chronic viral hepatitis C (14) Insomnia Current Visit: No Status: Chronic Qualifiers: Insomnia type: unspecified Qualified Code(s): G47.00 - Insomnia, unspecified (15) Neuropathy Current Visit: No Status: Chronic (16) Depression Current Visit: No Status: Suspected Qualifiers: Depression Type: dysthymia Qualified Code(s): F34.1 - Dysthymic disorder - AMA Did Patient Leave Against Medical Advice: No
[2019-07-08] MEDS: OXcarbazepine 300 MG TABLET (UD) PO SCH (10:29)
[2019-07-08] MEDS: NICOTINE 7 MG/24 HOURS TOPICAL PATCH TD SCH (10:29)
[2019-07-08] MEDS: CITALOPRAM HYDROBROMIDE 20 MG TABLET PO SCH (10:29)
[2019-07-08] MEDS: PRENATAL VITAMINS W/ FOLIC ACID TABLET (FP) PO SCH (10:29)
[2019-07-08] MEDS: GABAPENTIN 400 MG CAPSULE PO SCH (10:29)
[2019-07-08 11:38] VITALS: BP 136/90; PULSE 89; TEMP 97.4
== END 2019-07-08 11:58 | disposition other institution (70) | DRG 774 ==
LOC: YASAS 15:48 → Y6N 20:42
PROVIDERS: ADMIT Allergy & Immunology; ATTEND Allergy & Immunology
PROC: HZ2ZZZZ Detoxification Services for Substance Abuse Treatment (ICD-10-PCS; principal; 2019-07-04)
DX: F10.230 Alcohol dependence with withdrawal, uncomplicated (principal); F14.20 Cocaine dependence, uncomplicated; F17.210 Nicotine dependence, cigarettes, uncomplicated; F19.282 Other psychoactive substance dependence with psychoactive substance-induced sleep disorder; F19.280 Other psychoactive substance dependence with psychoactive substance-induced anxiety disorder; F19.24 Other psychoactive substance dependence with psychoactive substance-induced mood disorder; F34.1 Dysthymic disorder; F31.9 Bipolar disorder, unspecified; Z21 Asymptomatic human immunodeficiency virus [HIV] infection status; J42 Unspecified chronic bronchitis; J45.22 Mild intermittent asthma with status asthmaticus; G62.9 Polyneuropathy, unspecified; M79.7 Fibromyalgia; G40.909 Epilepsy, unspecified, not intractable, without status epilepticus; G47.00 Insomnia, unspecified; B18.2 Chronic viral hepatitis C; Z88.2 Allergy status to sulfonamides
CPT/HCPCS: 36415; 80053; 82947; 85027; 86593

== ENCOUNTER 2019-07-08 11:53 | Inpatient (IN) | payer OTHER ==
[2019-07-08] MEDS ORDERED: ACETAMINOPHEN 325 MG TABLET (FP) PO PRN (12:00)
[2019-07-08] MEDS ORDERED: MAG HYDROX/AL HYDROX/SIMETH 30 ML UNIT-DOSE CUP PO PRN (12:00)
[2019-07-08] MEDS ORDERED: NICOTINE POLACRILEX 2 MG GUM BUC PRN (12:00)
[2019-07-08] MEDS ORDERED: hydrOXYzine PAMOATE 25 MG CAPSULE (FP) PO PRN (12:00)
[2019-07-08] MEDS ORDERED: P-EPHED 60MG/TRIPROLIDI 2.5MG TABLET PO PRN (12:00)
[2019-07-08] MEDS ORDERED: MAGNESIUM HYDROX 2400MG/30ML ORAL SUSPENSION 30 ML CUP PO PRN (12:00)
[2019-07-08] MEDS ORDERED: LOPERAMIDE HCL 2 MG CAPSULE PO PRN (12:00)
[2019-07-08] MEDS ORDERED: guaiFENesin 200 MG/10 ML 10 ML UNIT-DOSE CUPS PO PRN (12:00)
[2019-07-08] MEDS ORDERED: IBUPROFEN 400 MG TABLET (FP) PO PRN (12:00)
[2019-07-08] MEDS ORDERED: MAGNESIUM CITRATE 300 ML BOTTLE PO PRN (12:00)
[2019-07-08] MEDS ORDERED: MENTHOL/PHENOL 1 EACH UD MM PRN (12:00)
--- NOTE | 2019-07-08 12:00 | HP ---
[facility] Rehab Assess/Revision - Admission History Ad[facility] - Findings Detox History & Physical reviewed: Yes Concur with findings: Yes Inpatient Rehab Admission - Rehab Decision to Admit Inpatient rehab admission?: Yes - Initial Determination Are CD services needed?: Yes Free of communicable disease: Yes Not in need of hospitalization: Yes - Rehab Admission Criteria Previous failed treatment: Yes Poor recovery environment: Yes Comorbidities: Yes Lacks judgement: Yes Patient is meeting Inpatient Rehab admission criteria:: Yes
[2019-07-08] MEDS ORDERED: ALBUTEROL SO4 8 GM HFA INHALER IH PRN (12:02)
[2019-07-08] MEDS ORDERED: GABAPENTIN 300 MG CAPSULE PO SCH (14:00)
[2019-07-08] MEDS ORDERED: PT OWN MED DRAWER 7, Y5N ONE (21:19)
[2019-07-08] MEDS: GABAPENTIN 400 MG CAPSULE PO SCH (21:20)
[2019-07-08] MEDS: THIAMINE HCL 100 MG TABLET (FP) PO SCH (21:20)
[2019-07-08] MEDS: MELATONIN 5 MG TABLETS PO SCH (21:21)
[2019-07-08] MEDS: MIRTAZAPINE 30 MG TABLET (FP) PO SCH (21:21)
[2019-07-08] MEDS ORDERED: QUEtiapine FUMARATE 300 MG TABLET PO SCH (22:00)
[2019-07-08] MEDS ORDERED: OXcarbazepine 300 MG/5 ML UNIT DOSE CUPS PO SCH (22:00)
[2019-07-08] MEDS: OXcarbazepine 300 MG TABLET (UD) PO SCH (23:19)
[2019-07-09] MEDS ORDERED: PT OWN MED DRAWER 7, Y5N ONE ×2 (09:31→16:19)
[2019-07-09] MEDS ORDERED: GABAPENTIN 300 MG CAPSULE PO SCH (10:00)
[2019-07-09] MEDS: NICOTINE 7 MG/24 HOURS TOPICAL PATCH TD SCH (10:42)
[2019-07-09] MEDS: PRENATAL VITAMINS W/ FOLIC ACID TABLET (FP) PO SCH (10:42)
[2019-07-09] MEDS: OXcarbazepine 300 MG TABLET (UD) PO SCH (10:42)
[2019-07-09] MEDS: GABAPENTIN 400 MG CAPSULE PO SCH ×2 (11:00→21:24)
--- NOTE | 2019-07-09 11:57 | PN ---
[facility] Progress Note Note: Pt is a 59 y/o female with a hx of KERRY admitted to rehab from [address] [place] [address] on 07/08/19. Pt c/o burning regurgitating sensation and requests medication for relief. PMHx:Asthma,Seizure disorder(on oxycarbanzepine),HIV+(Complera),Hep C(Treated with Mavyret), Chronic Right Hip Pain(on Neurontin). Psych Hx: Depression/Anxiety. Pt reports she has primary care/I.D clinic with Dr. Silverio at [facility]. Vital Signs - 24 hr 07/09/19 07/09/19 07/09/19 00:31 03:19 06:10 Temperature 97.4 F L Pulse Rate 75 Respiratory 18 18 16 Rate Blood Pressure 104/72 alert o x 3 nad oob ambulating with steady gait with slight limp. extremities/skin:no edema;skin intact. A/P [facility]hab pt Maintain safety seizure precautions Pepcid 20 mg po BID as directed. follow up with psych consult today.
--- NOTE | 2019-07-09 12:32 | CONSULT ---
[facility] Psychiatric Consult - Data Date of interview: 07/09/19 Admission source: Transfer from [address] [place] [address]. Identifying data: Admission to [address] for this 59 y/o female after completion of detoxification treatment at [address] [place] [address]. Rehabilitation treatment is initiated. Addressing SAI issues (cocaine, alcohol, nicotine) co- morbid with bipolar disorder + chronic insomnia. Patient is single, no children, domiciled, unemployed and supported on [employer] funds. Substance Abuse History: Discussed with the patient. SAI profile as follows : patient started suing alcohol at age 54 (consumes one pint of vodka daily) + onset of cocaine use via inhalation (spends 40-50 dollars/day) since age 48. Smokes a pack of cigarettes daily. Medical History: Medical profile is remarkable for HIV infection since 1988 (on antiretroviral medications), fibromyalgia, hepatitis C, hypertension and withdrawal-related seizures. Psychiatric History: Long-standing history of psychiatric illness. Onset of emotional disturbances : around age 39. Patient denies history of psychiatric hospitalizations. She is reportedly diagnosed with Bipolar Disorder and maintained on a regimen of seroquel 400 mg/hs + citalopram 80 mg/daily + remeron 15 mg/hs. Ms Moreno is followed by a private psychiatrist, Dr Nova, in [facility]. Patient denies history of suicide attempts. Physical/Sexual Abuse/Trauma History: Patient denies history of abuse. Additional Comment: Urine drug screen results: HANG-Cocaine, BUP-Suboxone. Noted. Mental Status Exam - Mental Status Exam Alert and Oriented to: Time, Place, Person Cognitive Function: Good Patient Appearance: Well Groomed Mood: Hopeful, Euthymic Affect: Appropriate, Normal Range Patient Behavior: Appropriate, Cooperative Speech Pattern: Clear, Appropriate Voice Loudness: Normal Thought Process: Intact, Goal Oriented Thought Disorder: Not Present Hallucinations: Denies Suicidal Ideation: Denies Homicidal Ideation: Denies Insight/Judgement: Fair Sleep: Poorly, Difficulty falling asleep Appetite: Good Gait/Station: Normal Psychiatric Findings - Problem List ([place] 1, 2,3) (1) Alcohol use disorder Current Visit: Yes Status: Chronic (2) Cocaine dependence Current Visit: Yes Status: Chronic Qualifiers: Substance use status: uncomplicated Qualified Code(s): F14.20 - Cocaine dependence, uncomplicated (3) Nicotine dependence Current Visit: Yes Status: Chronic (4) Bipolar disorder Current Visit: Yes Status: Chronic Qualifiers: Active/Remission status: remission status unspecified Qualified Code(s): F31.9 - Bipolar disorder, unspecified Comment: As per history and existing records. (5) Insomnia Current Visit: Yes Status: Chronic Qualifiers: Insomnia type: unspecified Qualified Code(s): G47.00 - Insomnia, unspecified - Initial Treatment Plan Initial Treatment Plan: Patient is interviewed with a environmental scientist, female nursing home administrator Ms Herring, in attendance (with patient's verbal permission). Psychoeducation. Motivational counseling. Sleep hygiene. Psychotherapy : group, supportive, recreational and cognitive. AA meetings. MAT services explained to patient. Seroquel is raised to 400 mg po hs (patient's specific request). Side effects/benefits discussed in this session. Ms Moreno gave informed consent (verbal) to MD. Rowan.
[2019-07-09] MEDS: FAMOTIDINE 20 MG TABLET PO SCH ×2 (12:49→21:26)
[2019-07-09] MEDS: METHOCARBAMOL 500 MG TABLET PO PRN ×2 (12:51→21:27)
[2019-07-09] MEDS: MELATONIN 5 MG TABLETS PO SCH (21:24)
[2019-07-09] MEDS: MIRTAZAPINE 30 MG TABLET (FP) PO SCH (21:25)
[2019-07-09] MEDS: THIAMINE HCL 100 MG TABLET (FP) PO SCH (21:25)
[2019-07-09] MEDS ORDERED: QUEtiapine FUMARATE 400 MG TABLET PO SCH (22:00)
[2019-07-10] MEDS ORDERED: PT OWN MED DRAWER 7, Y5N ONE (00:32)
[2019-07-10] MEDS: OXcarbazepine 300 MG TABLET (UD) PO SCH ×2 (00:36→09:04)
[2019-07-10 07:29] VITALS: BP 119/80; PULSE 76; TEMP 97.1
--- NOTE | 2019-07-10 08:46 | DS ---
[facility] Rehab Discharge Summary - [facility] Rehab Discharge Summary Admission Date: 07/08/19 Discharge Date: 07/10/19 - History Present History: Alcohol dependence, Cocaine dependence Additional Comments: Pt is a 59 y/o female admitted to rehab after detox treatment and requesting early discharge to leave today to follow up with her MRI appointment on 07/11/19. Pt reports she has primary care with Dr. Silverio at [place], [place]. Pt met with counselor to arrange for aftercare referral. Pertinent Past History: Asthma COPD HIV+ Neuropathy Fibromyalgia Hep C Bipolar Disorder - Discharge Physical Exam Vital Signs: Vital Signs Temperature 97.1 F L 07/10/19 06:40 Pulse Rate 76 07/10/19 06:40 Respiratory Rate 18 07/10/19 06:40 Blood Pressure 119/80 07/10/19 06:40 O2 Sat by Pulse Oximetry (%) Alert o x 3,denies s/h/i nad oob ambulating with steady gait cardiac:s1 s2,rrr lungs:cta,darryl. abdomen:+bs,soft,nt,nd extremities/skin:no edema;skin intact. Pertinent Admission Physical Exam Findings: Laboratory Tests 07/10/19 06:46 POC Glucometer 90 - Treatment Discharge Condition: Discharge condition good Hospital Course: Safety maintained while in rehab - Medication Discharge Medications: Ambulatory Orders Emtricitab/Rilpivirine/Tenofov [Complera Tablet -] 1 tab PO DAILY #30 tablet 11/03/17 Albuterol Sulfate Inhaler - [Ventolin Hfa Inhaler -] 1 - 2 inh PO Q4H PRN #1 inhaler 07/31/18 Citalopram Hydrobromide [Celexa -] 20 mg PO DAILY 09/13/18 Gabapentin [Neurontin -] 800 mg PO BID 09/13/18 Mirtazapine [Remeron -] 15 mg PO HS 09/13/18 Quetiapine Fumarate [Seroquel -] 300 mg PO HS 09/13/18 Oxcarbazepine [Trileptal] 600 mg PO BID 07/08/19 - Medication-Assisted Treatment (MAT) Medication-Assisted Treatment (MAT): No - Discharge Instructions Diet, activity, other medical instructions: Diet:Regular Activity: oob ad casa Other medical instructions:follow up with [facility] aftercare as recommended follow up with your PCP within 1 week after discharge. - Diagnosis (1) Alcohol use disorder Status: Chronic (2) Asthma Status: Chronic Qualifiers: Asthma severity: mild Asthma persistence: intermittent Asthma complication type: with status asthmaticus Qualified Code(s): J45.22 - Mild intermittent asthma with status asthmaticus (3) COPD (chronic obstructive pulmonary disease) Status: Chronic Qualifiers: COPD type: chronic bronchitis Chronic bronchitis type: unspecified Qualified Code(s): J42 - Unspecified chronic bronchitis (4) Cocaine dependence Status: Chronic Qualifiers: Substance use status: uncomplicated Qualified Code(s): F14.20 - Cocaine dependence, uncomplicated (5) Fibromyalgia Status: Chronic (6) HIV (human immunodeficiency virus infection) Status: Chronic Qualifiers: HIV symptom status: unspecified Qualified Code(s): B20 - Human immunodeficiency virus [HIV] disease (7) Hepatitis C Status: Chronic Qualifiers: Viral hepatitis chronicity: chronic Hepatic coma status: without hepatic coma Qualified Code(s): B18.2 - Chronic viral hepatitis C (8) Neuropathy Status: Chronic (9) Nicotine dependence Status: Chronic Qualifiers: Nicotine product type: cigarettes Substance use status: uncomplicated Qualified Code(s): F17.210 - Nicotine dependence, cigarettes, uncomplicated - Follow-up Referral Minutes to complete discharge: 20 - AMA Did Patient Leave Against Medical Advice: No Additional Comments: Pt states she has her meds at home.
[2019-07-10] MEDS: GABAPENTIN 400 MG CAPSULE PO SCH (09:03)
[2019-07-10] MEDS: NICOTINE 7 MG/24 HOURS TOPICAL PATCH TD SCH (09:03)
[2019-07-10] MEDS: FAMOTIDINE 20 MG TABLET PO SCH (09:04)
[2019-07-10] MEDS: PRENATAL VITAMINS W/ FOLIC ACID TABLET (FP) PO SCH (09:04)
[2019-07-10] MEDS: METHOCARBAMOL 500 MG TABLET PO PRN (09:06)
[2019-07-10] MEDS ORDERED: GABAPENTIN 400 MG CAPSULE PO SCH (10:00)
== END 2019-07-10 09:30 | disposition home or self-care (01) | DRG 772 ==
LOC: YASAS 11:53 → Y3E 11:54
PROVIDERS: ADMIT Allergy & Immunology; ATTEND Allergy & Immunology
PROC: HZ42ZZZ Group Counseling for Substance Abuse Treatment, Cognitive-Behavioral (ICD-10-PCS; principal; 2019-07-08)
DX: F10.20 Alcohol dependence, uncomplicated (principal); F14.20 Cocaine dependence, uncomplicated; F17.210 Nicotine dependence, cigarettes, uncomplicated; F32.9 Major depressive disorder, single episode, unspecified; Z21 Asymptomatic human immunodeficiency virus [HIV] infection status; I10 Essential (primary) hypertension; J44.9 Chronic obstructive pulmonary disease, unspecified; G47.00 Insomnia, unspecified; M79.7 Fibromyalgia; R73.9 Hyperglycemia, unspecified; Z86.69 Personal history of other diseases of the nervous system and sense organs
CPT/HCPCS: 82962

== ENCOUNTER 2020-09-04 11:10 | Inpatient (IN) | payer OTHER ==
[2020-09-04 13:54] VITALS: BMI 27.1
[2020-09-04] MEDS ORDERED: MAGNESIUM CITRATE 300 ML BOTTLE PO PRN (16:21)
[2020-09-04] MEDS ORDERED: METHOCARBAMOL 500 MG TABLET PO PRN (16:21)
[2020-09-04] MEDS ORDERED: BISMUTH SUBSALICYLATE 524 MG/30 ML UD PO PRN (16:21)
[2020-09-04] MEDS ORDERED: cloNIDine HCL 0.1 MG TABLET PO PRN (16:21)
[2020-09-04] MEDS ORDERED: MENTHOL/PHENOL 1 EACH UD MM PRN (16:21)
[2020-09-04] MEDS ORDERED: METHADONE HCL 10 MG TABLET (FOR DETOX USE ONLY) PO ONE (16:21)
[2020-09-04] MEDS ORDERED: IBUPROFEN 400 MG TABLET (FP) PO PRN (16:21)
[2020-09-04] MEDS ORDERED: MAGNESIUM HYDROX 2400MG/30ML ORAL SUSPENSION 30 ML CUP PO PRN (16:21)
[2020-09-04] MEDS ORDERED: ONDANSETRON *ODT* 4 MG TABLET SL PRN (16:21)
[2020-09-04] MEDS ORDERED: ACETAMINOPHEN 325 MG TABLET (FP) PO PRN ×2 (16:21)
[2020-09-04] MEDS ORDERED: MAG HYDROX/AL HYDROX/SIMETH 30 ML UNIT-DOSE CUP PO PRN (16:21)
[2020-09-04] MEDS ORDERED: NICOTINE POLACRILEX 2 MG GUM BUC PRN (16:21)
[2020-09-04] MEDS: hydrOXYzine PAMOATE 25 MG CAPSULE (FP) PO SCH ×2 (18:05→22:33)
[2020-09-04] MEDS: PRENATAL VITAMINS W/ FOLIC ACID TABLET (FP) PO SCH (18:41)
[2020-09-04] MEDS: MELATONIN 5 MG TABLETS PO SCH (22:33)
[2020-09-04] MEDS: THIAMINE HCL 100 MG TABLET (FP) PO SCH (22:33)
[2020-09-05] MEDS: hydrOXYzine PAMOATE 25 MG CAPSULE (FP) PO SCH ×5 (05:58→22:29)
[2020-09-05] MEDS ORDERED: METHADONE (DETOX) 20 MG, METHADONE (DETOX) 5 MG PO ONE (10:00)
[2020-09-05] MEDS ORDERED: METHADONE HCL 5 MG TABLET (FOR DETOX USE ONLY) ONE (10:12)
[2020-09-05] MEDS ORDERED: METHADONE HCL 10 MG TABLET (FOR DETOX USE ONLY) ONE (10:12)
[2020-09-05 10:25] LABS: HEMATOCRIT 38.2 % (32.4-45.2); HEMOGLOBIN 13.5 GM/dL (10.7-15.3); MCH 34.3 pg (25.7-33.7); MCHC 35.4 g/dl (32.0-36.0); MEAN CELL VOLUME 96.9 fl (80-96); MEAN PLT VOLUME 8.1 fl (7.5-11.1); PLATELET COUNT 309 K/MM3 (134-434); RBC 3.94 M/mm3 (3.60-5.2); RDW 13.1 % (11.6-15.6); WHITE BLOOD COUNT 6.6 K/mm3 (4.0-10.0)
[2020-09-05 10:34] LABS: ALBUMIN 3.6 g/dl (3.4-5.0); BILIRUBIN,TOTAL 0.3 mg/dL (0.2-1); BLOOD UREA NITROGEN 12.2 mg/dL (7-18)
[2020-09-05 10:35] LABS: TOT PROT 8.1 g/dl (6.4-8.2)
[2020-09-05 10:36] LABS: CALCIUM 8.7 mg/dL (8.5-10.1); CREATININE 0.8 mg/dL (0.55-1.3)
[2020-09-05] MEDS: PRENATAL VITAMINS W/ FOLIC ACID TABLET (FP) PO SCH (10:49)
[2020-09-05] MEDS ORDERED: AMMONIUM LACTATE 12% LOTION 225 GM BOTTLE TP PRN (11:46)
[2020-09-05] MEDS: LIDOCAINE 5% TOPICAL PATCH TP SCH (15:50)
[2020-09-05] MEDS ORDERED: GABAPENTIN 400 MG CAPSULE PO SCH (22:00)
[2020-09-05] MEDS: THIAMINE HCL 100 MG TABLET (FP) PO SCH (22:28)
[2020-09-05] MEDS: MIRTAZAPINE 15 MG TABLET (FP) PO SCH (22:28)
[2020-09-05] MEDS: QUEtiapine FUMARATE 200 MG TABLET PO SCH (22:28)
[2020-09-05] MEDS: MELATONIN 5 MG TABLETS PO SCH (22:28)
[2020-09-05] MEDS: LIDOCAINE PATCH REMOVAL MC SCH (22:30)
[2020-09-06] MEDS: hydrOXYzine PAMOATE 25 MG CAPSULE (FP) PO SCH ×5 (06:02→22:03)
[2020-09-06] MEDS ORDERED: METHADONE HCL 10 MG TABLET (FOR DETOX USE ONLY) PO ONE (10:00)
[2020-09-06] MEDS: LIDOCAINE 5% TOPICAL PATCH TP SCH (10:30)
[2020-09-06] MEDS: PRENATAL VITAMINS W/ FOLIC ACID TABLET (FP) PO SCH (10:31)
[2020-09-06] MEDS: MELATONIN 5 MG TABLETS PO SCH (22:03)
[2020-09-06] MEDS: QUEtiapine FUMARATE 200 MG TABLET PO SCH (22:03)
[2020-09-06] MEDS: MIRTAZAPINE 15 MG TABLET (FP) PO SCH (22:03)
[2020-09-06] MEDS: THIAMINE HCL 100 MG TABLET (FP) PO SCH (22:03)
[2020-09-06] MEDS: LIDOCAINE PATCH REMOVAL MC SCH (22:05)
[2020-09-07] MEDS: hydrOXYzine PAMOATE 25 MG CAPSULE (FP) PO SCH ×5 (06:04→22:01)
[2020-09-07] MEDS ORDERED: METHADONE HCL 10 MG TABLET (FOR DETOX USE ONLY) ONE (09:24)
[2020-09-07] MEDS ORDERED: METHADONE HCL 5 MG TABLET (FOR DETOX USE ONLY) ONE (09:24)
[2020-09-07] MEDS ORDERED: METHADONE (DETOX) 10 MG, METHADONE (DETOX) 5 MG PO ONE (10:00)
[2020-09-07] MEDS: LIDOCAINE 5% TOPICAL PATCH TP SCH (10:19)
[2020-09-07] MEDS: PRENATAL VITAMINS W/ FOLIC ACID TABLET (FP) PO SCH (10:19)
[2020-09-07] MEDS: THIAMINE HCL 100 MG TABLET (FP) PO SCH (22:02)
[2020-09-07] MEDS: MELATONIN 5 MG TABLETS PO SCH (22:02)
[2020-09-07] MEDS: QUEtiapine FUMARATE 100 MG TABLET (FP) PO SCH (22:02)
[2020-09-07] MEDS: MIRTAZAPINE 15 MG TABLET (FP) PO SCH (22:02)
[2020-09-07] MEDS: LIDOCAINE PATCH REMOVAL MC SCH (22:03)
[2020-09-08] MEDS: hydrOXYzine PAMOATE 25 MG CAPSULE (FP) PO SCH ×5 (06:05→21:58)
[2020-09-08] MEDS ORDERED: METHADONE HCL 10 MG TABLET (FOR DETOX USE ONLY) PO ONE (10:00)
[2020-09-08] MEDS: OXcarbazepine 300 MG TABLET (UD) PO SCH ×2 (10:28→21:56)
[2020-09-08] MEDS: LIDOCAINE 5% TOPICAL PATCH TP SCH (10:29)
[2020-09-08] MEDS: PRENATAL VITAMINS W/ FOLIC ACID TABLET (FP) PO SCH (10:29)
[2020-09-08] MEDS: GABAPENTIN 400 MG CAPSULE PO SCH ×2 (11:50→21:55)
[2020-09-08] MEDS: FAMOTIDINE 20 MG TABLET PO SCH ×2 (15:36→21:56)
[2020-09-08] MEDS: THIAMINE HCL 100 MG TABLET (FP) PO SCH (21:55)
[2020-09-08] MEDS: QUEtiapine FUMARATE 100 MG TABLET (FP) PO SCH (21:55)
[2020-09-08] MEDS: MIRTAZAPINE 15 MG TABLET (FP) PO SCH (21:56)
[2020-09-08] MEDS: MELATONIN 5 MG TABLETS PO SCH (22:49)
[2020-09-08] MEDS: LIDOCAINE PATCH REMOVAL MC SCH (22:49)
[2020-09-09] MEDS: hydrOXYzine PAMOATE 25 MG CAPSULE (FP) PO SCH ×2 (05:55→09:22)
[2020-09-09] MEDS ORDERED: METHADONE HCL 5 MG TABLET (FOR DETOX USE ONLY) PO ONE (06:00)
[2020-09-09 09:17] VITALS: BP 109/77; PULSE 87; TEMP 97.7
[2020-09-09] MEDS: GABAPENTIN 400 MG CAPSULE PO SCH (09:22)
[2020-09-09] MEDS: FAMOTIDINE 20 MG TABLET PO SCH (09:23)
[2020-09-09] MEDS: OXcarbazepine 300 MG TABLET (UD) PO SCH (09:23)
[2020-09-09] MEDS: PRENATAL VITAMINS W/ FOLIC ACID TABLET (FP) PO SCH (09:23)
[2020-09-09] MEDS: LIDOCAINE 5% TOPICAL PATCH TP SCH (09:23)
== END 2020-09-09 12:44 | disposition home or self-care (01) | DRG 773 ==
LOC: YASAS 11:10 → Y3N 17:05 → Y6N 17:29
PROVIDERS: ADMIT Allergy & Immunology; ATTEND Allergy & Immunology
PROC: HZ2ZZZZ Detoxification Services for Substance Abuse Treatment (ICD-10-PCS; principal; 2020-09-04)
DX: F11.23 Opioid dependence with withdrawal (principal); F10.230 Alcohol dependence with withdrawal, uncomplicated; F14.20 Cocaine dependence, uncomplicated; F19.282 Other psychoactive substance dependence with psychoactive substance-induced sleep disorder; F19.280 Other psychoactive substance dependence with psychoactive substance-induced anxiety disorder; F17.210 Nicotine dependence, cigarettes, uncomplicated; F34.1 Dysthymic disorder; F31.9 Bipolar disorder, unspecified; Z21 Asymptomatic human immunodeficiency virus [HIV] infection status; G40.909 Epilepsy, unspecified, not intractable, without status epilepticus; G62.9 Polyneuropathy, unspecified; J42 Unspecified chronic bronchitis; J45.20 Mild intermittent asthma, uncomplicated; M79.7 Fibromyalgia; L85.3 Xerosis cutis; Z88.2 Allergy status to sulfonamides
CPT/HCPCS: 36415; 80053; 85027; 86780; C9803; J0735; U0003; U0005

== ENCOUNTER 2020-10-25 10:27 | Inpatient (IN) | payer OTHER ==
[2020-10-25 10:56] VITALS: BMI 25.7
[2020-10-25] MEDS ORDERED: MAGNESIUM CITRATE 300 ML BOTTLE PO PRN (11:30)
[2020-10-25] MEDS ORDERED: MAG HYDROX/AL HYDROX/SIMETH 30 ML UNIT-DOSE CUP PO PRN (11:30)
[2020-10-25] MEDS ORDERED: ONDANSETRON *ODT* 4 MG TABLET SL PRN (11:30)
[2020-10-25] MEDS ORDERED: MENTHOL/PHENOL 1 EACH UD MM PRN (11:30)
[2020-10-25] MEDS ORDERED: ACETAMINOPHEN 325 MG TABLET (FP) PO PRN ×2 (11:30)
[2020-10-25] MEDS ORDERED: IBUPROFEN 400 MG TABLET (FP) PO PRN (11:30)
[2020-10-25] MEDS ORDERED: MAGNESIUM HYDROX 2400MG/30ML ORAL SUSPENSION 30 ML CUP PO PRN (11:30)
[2020-10-25] MEDS ORDERED: NICOTINE POLACRILEX 2 MG GUM BUC PRN (11:30)
[2020-10-25] MEDS ORDERED: BISMUTH SUBSALICYLATE 524 MG/30 ML PO PRN (11:30)
[2020-10-25] MEDS ORDERED: ALBUTEROL SO4 HFA INHALER IH PRN (11:34)
[2020-10-25] MEDS: diazePAM 5 MG TABLET PO PRN ×3 (13:54→23:53)
[2020-10-25] MEDS: hydrOXYzine PAMOATE 25 MG CAPSULE (FP) PO SCH ×3 (13:58→22:08)
[2020-10-25] MEDS: diazePAM 5 MG TABLET PO SCH ×2 (16:43→22:09)
[2020-10-25] MEDS ORDERED: MIRTAZAPINE 15 MG TABLET (FP) ONE (21:05)
[2020-10-25] MEDS ORDERED: MIRTAZAPINE 30 MG TABLET PO SCH (22:00)
[2020-10-25] MEDS: MELATONIN 5 MG TABLETS PO SCH (22:07)
[2020-10-25] MEDS: THIAMINE HCL 100 MG TABLET (FP) PO SCH (22:07)
[2020-10-25] MEDS: OXcarbazepine 300 MG TABLET (UD) PO SCH ×2 (22:30→23:34)
[2020-10-26] MEDS: hydrOXYzine PAMOATE 25 MG CAPSULE (FP) PO SCH ×5 (05:45→22:15)
[2020-10-26] MEDS: diazePAM 5 MG TABLET PO SCH ×4 (05:45→22:17)
[2020-10-26 09:31] LABS: HEMATOCRIT 37.4 % (32.4-45.2); HEMOGLOBIN 12.8 GM/dL (10.7-15.3); MCH 32.5 pg (25.7-33.7); MCHC 34.2 g/dl (32.0-36.0); MEAN CELL VOLUME 95.1 fl (80-96); MEAN PLT VOLUME 6.7 fl (7.5-11.1); PLATELET COUNT 354 10^3/uL (134-434); RBC 3.94 M/mm3 (3.60-5.2); WHITE BLOOD COUNT 6.6 K/mm3 (4.0-10.0)
[2020-10-26] MEDS ORDERED: GABAPENTIN 300 MG CAPSULE PO SCH (10:00)
[2020-10-26 10:08] LABS: CALCIUM 8.4 mg/dL (8.5-10.1)
[2020-10-26 10:09] LABS: ALBUMIN 3.4 g/dl (3.4-5.0); BLOOD UREA NITROGEN 16.6 mg/dL (7-18)
[2020-10-26 10:12] LABS: CREATININE 0.7 mg/dL (0.55-1.3)
[2020-10-26 10:13] LABS: BILIRUBIN,TOTAL 0.3 mg/dL (0.2-1)
[2020-10-26 10:14] LABS: TOT PROT 7.2 g/dl (6.4-8.2)
[2020-10-26] MEDS: PRENATAL VITAMINS W/ FOLIC ACID TABLET (FP) PO SCH (10:14)
[2020-10-26] MEDS: NICOTINE 14 MG/24 HOURS TOPICAL PATCH TD SCH (10:15)
[2020-10-26] MEDS: OXcarbazepine 300 MG TABLET (UD) PO SCH ×2 (10:15→22:16)
[2020-10-26] MEDS: GABAPENTIN 400 MG CAPSULE PO SCH ×2 (13:43→22:16)
[2020-10-26] MEDS: diazePAM 5 MG TABLET PO PRN ×2 (13:43→19:53)
[2020-10-26] MEDS: MELATONIN 5 MG TABLETS PO SCH (22:15)
[2020-10-26] MEDS: QUEtiapine FUMARATE 200 MG TABLET PO SCH (22:15)
[2020-10-26] MEDS: MIRTAZAPINE 15 MG TABLET (FP) PO SCH (22:15)
[2020-10-26] MEDS: THIAMINE HCL 100 MG TABLET (FP) PO SCH (22:18)
[2020-10-27] MEDS: diazePAM 5 MG TABLET PO SCH ×3 (05:42→22:15)
[2020-10-27] MEDS: hydrOXYzine PAMOATE 25 MG CAPSULE (FP) PO SCH ×5 (05:42→22:14)
[2020-10-27] MEDS: GABAPENTIN 400 MG CAPSULE PO SCH ×3 (05:42→22:15)
[2020-10-27] MEDS: PRENATAL VITAMINS W/ FOLIC ACID TABLET (FP) PO SCH (10:23)
[2020-10-27] MEDS: OXcarbazepine 300 MG TABLET (UD) PO SCH ×2 (10:24→22:14)
[2020-10-27] MEDS: NICOTINE 14 MG/24 HOURS TOPICAL PATCH TD SCH (10:24)
[2020-10-27] MEDS: diazePAM 5 MG TABLET PO PRN ×2 (10:26→17:20)
[2020-10-27] MEDS: METHOCARBAMOL 500 MG TABLET PO PRN (14:20)
[2020-10-27 21:06] LABS: EPI CELLS >36 /uL (0-25.1); HYALINE CASTS 1 /uL (0-3.1); PH,URINE 8.5 (5.0-8.0); URINE APPEARANCE CLEAR; URINE BACTERIA 1536 /uL (0-1359); URINE BILIRUBIN NEGATIVE (NEGATIVE); URINE COLOR YELLOW; URINE GLUCOSE (UA) NEGATIVE (NEGATIVE); URINE KETONE NEGATIVE (NEGATIVE); URINE LEUK ESTERASE 2+ (NEGATIVE); URINE NITRITE NEGATIVE (NEGATIVE); URINE PROTEIN NEGATIVE (NEGATIVE); URINE RBC 17 /uL (0-23.9); URINE UROBILINOGEN 0.2 mg/dL (0.2-1.0); URINE WBC 43 /uL (0-25.8)
[2020-10-27] MEDS: MIRTAZAPINE 15 MG TABLET (FP) PO SCH (22:14)
[2020-10-27] MEDS: THIAMINE HCL 100 MG TABLET (FP) PO SCH (22:14)
[2020-10-27] MEDS: QUEtiapine FUMARATE 200 MG TABLET PO SCH (22:15)
[2020-10-27] MEDS: MELATONIN 5 MG TABLETS PO SCH (22:16)
[2020-10-28] MEDS: hydrOXYzine PAMOATE 25 MG CAPSULE (FP) PO SCH ×5 (05:59→22:03)
[2020-10-28] MEDS: diazePAM 5 MG TABLET PO SCH ×2 (05:59→17:47)
[2020-10-28] MEDS: GABAPENTIN 400 MG CAPSULE PO SCH ×3 (05:59→22:02)
[2020-10-28] MEDS: OXcarbazepine 300 MG TABLET (UD) PO SCH ×2 (09:23→22:03)
[2020-10-28] MEDS: diazePAM 5 MG TABLET PO PRN (09:24)
[2020-10-28] MEDS: PRENATAL VITAMINS W/ FOLIC ACID TABLET (FP) PO SCH (09:24)
[2020-10-28] MEDS: NICOTINE 14 MG/24 HOURS TOPICAL PATCH TD SCH (09:26)
[2020-10-28] MEDS: METHOCARBAMOL 500 MG TABLET PO PRN (13:51)
[2020-10-28] MEDS: MIRTAZAPINE 15 MG TABLET (FP) PO SCH (22:03)
[2020-10-28] MEDS: MELATONIN 5 MG TABLETS PO SCH (22:03)
[2020-10-28] MEDS: THIAMINE HCL 100 MG TABLET (FP) PO SCH (22:03)
[2020-10-28] MEDS: QUEtiapine FUMARATE 200 MG TABLET PO SCH (22:03)
[2020-10-28 23:08] LABS: EPI CELLS 28 /uL (0-25.1); HYALINE CASTS 0 /uL (0-3.1); URINE APPEARANCE CLEAR; URINE BACTERIA 867 /uL (0-1359); URINE BILIRUBIN NEGATIVE (NEGATIVE); URINE COLOR YELLOW; URINE GLUCOSE (UA) NEGATIVE (NEGATIVE); URINE KETONE NEGATIVE (NEGATIVE); URINE LEUK ESTERASE 2+ (NEGATIVE); URINE NITRITE NEGATIVE (NEGATIVE); URINE PROTEIN NEGATIVE (NEGATIVE); URINE RBC 10 /uL (0-23.9); URINE UROBILINOGEN 0.2 mg/dL (0.2-1.0); URINE WBC 15 /uL (0-25.8)
[2020-10-29 01:42] VITALS: BP 83/60; PULSE 112
[2020-10-29 01:55] VITALS: TEMP 97.3
[2020-10-29] MEDS ORDERED: diazePAM 5 MG TABLET PO ONE (06:00)
[2020-10-29] MEDS: GABAPENTIN 400 MG CAPSULE PO SCH ×2 (07:20→13:00)
[2020-10-29] MEDS: hydrOXYzine PAMOATE 25 MG CAPSULE (FP) PO SCH ×3 (07:20→13:00)
[2020-10-29 08:10] LABS: SARS-CoV-2 NAA Not Detected (Not Detected)
[2020-10-29] MEDS: OXcarbazepine 300 MG TABLET (UD) PO SCH (09:31)
[2020-10-29] MEDS: NICOTINE 14 MG/24 HOURS TOPICAL PATCH TD SCH (09:31)
[2020-10-29] MEDS: PRENATAL VITAMINS W/ FOLIC ACID TABLET (FP) PO SCH (09:31)
== END 2020-10-29 15:45 | disposition short-term general hospital (02) | DRG 774 ==
LOC: YASAS 10:27 → Y3N 12:50
PROVIDERS: ADMIT Allergy & Immunology; ATTEND Allergy & Immunology
PROC: HZ2ZZZZ Detoxification Services for Substance Abuse Treatment (ICD-10-PCS; principal; 2020-10-25)
DX: F10.230 Alcohol dependence with withdrawal, uncomplicated (principal); F14.20 Cocaine dependence, uncomplicated; F17.213 Nicotine dependence, cigarettes, with withdrawal; F31.9 Bipolar disorder, unspecified; F19.282 Other psychoactive substance dependence with psychoactive substance-induced sleep disorder; B18.2 Chronic viral hepatitis C; Z21 Asymptomatic human immunodeficiency virus [HIV] infection status; S09.90XA Unspecified injury of head, initial encounter; E87.1 Hypo-osmolality and hyponatremia; D72.829 Elevated white blood cell count, unspecified; J45.20 Mild intermittent asthma, uncomplicated; J42 Unspecified chronic bronchitis; G62.9 Polyneuropathy, unspecified; C40 Malignant neoplasm of bone and articular cartilage of limbs; Z88.2 Allergy status to sulfonamides; W18.30XA Fall on same level, unspecified, initial encounter; Y93.89 Activity, other specified; Y92.231 Patient bathroom in hospital as the place of occurrence of the external cause
CPT/HCPCS: 36415; 80053; 81003; 85027; 86780; C9803; U0003; U0005

== ENCOUNTER 2020-10-29 03:30 | Observation (INO) | payer OTHER ==
[2020-10-29 03:51] VITALS: BMI 25.7
[2020-10-29 04:57] LABS: BASO % 0.2 % (0-2.0); EOS % 0.1 % (0-4.5); HEMATOCRIT 39.1 % (32.4-45.2); HEMOGLOBIN 13.6 GM/dL (10.7-15.3); LYMPH % 10.8 % (8-40); MCH 32.2 pg (25.7-33.7); MCHC 34.8 g/dl (32.0-36.0); MEAN CELL VOLUME 92.6 fl (80-96); MEAN PLT VOLUME 6.4 fl (7.5-11.1); MONO % 3.9 % (3.8-10.2); PLATELET COUNT 334 10^3/uL (134-434); RBC 4.22 M/mm3 (3.60-5.2); WHITE BLOOD COUNT 19.5 K/mm3 (4.0-10.0)
[2020-10-29 05:19] LABS: CHLORIDE 88 mmol/L (98-107); SODIUM 121 mmol/L (136-145)
[2020-10-29 05:21] LABS: CALCIUM 8.7 mg/dL (8.5-10.1)
[2020-10-29 05:22] LABS: ALBUMIN 3.9 g/dl (3.4-5.0); ANION GAP 11 MMOL/L (8-16); CO2 22 mmol/L (21-32); GLUCOSE,RANDOM 103 mg/dL (74-106)
[2020-10-29 05:24] LABS: SGOT/AST 17 U/L (15-37); SGPT/ALT 20 U/L (13-61)
[2020-10-29 05:25] LABS: CREATININE 0.7 mg/dL (0.55-1.3)
[2020-10-29 05:26] LABS: BILIRUBIN,TOTAL 0.4 mg/dL (0.2-1); TOT PROT 8.2 g/dl (6.4-8.2)
[2020-10-29 05:27] LABS: ALK PHOS 90 U/L (45-117)
[2020-10-29] MEDS ORDERED: SODIUM CHLORIDE 1,000 ML IV SCH (06:00)
[2020-10-29 07:04] LABS: ANISOCYTOSIS 1+; MACROCYTOSIS 0; OVALOCYTE 1+; PLATELET ESTIMATE NORMAL; TEAR DROP CELLS 0
[2020-10-29 10:41] LABS: EPI CELLS 31 /uL (0-25.1); HYALINE CASTS 1 /uL (0-3.1); URINE APPEARANCE CLEAR; URINE BACTERIA 640 /uL (0-1359); URINE BILIRUBIN NEGATIVE (NEGATIVE); URINE COLOR YELLOW; URINE GLUCOSE (UA) NEGATIVE (NEGATIVE); URINE KETONE NEGATIVE (NEGATIVE); URINE LEUK ESTERASE 2+ (NEGATIVE); URINE NITRITE NEGATIVE (NEGATIVE); URINE PROTEIN NEGATIVE (NEGATIVE); URINE RBC 45 /uL (0-23.9); URINE UROBILINOGEN 0.2 mg/dL (0.2-1.0); URINE WBC 20 /uL (0-25.8)
[2020-10-29] MEDS ORDERED: diazePAM 5 MG TABLET PO ONE (11:00)
[2020-10-29] MEDS ORDERED: ENOXAPARIN NA (PORCINE) 40 MG/0.4 ML DISP.SYRIN SQ ONE (11:34)
[2020-10-29] MEDS ORDERED: diazePAM 5 MG TABLET ONE (11:34)
[2020-10-29 11:38] LABS: CHOLESTEROL 207 mg/dL (50-200)
[2020-10-29 11:39] LABS: TRIGLYCERIDES 126 mg/dL (0-150)
[2020-10-29 11:40] LABS: LDL CHOLESTEROL (ONLY SJRH) 118 mg/dL (5-100)
[2020-10-29] MEDS: levETIRAcetam 500 MG TABLET (FP) PO SCH ×2 (11:40→23:40)
[2020-10-29 11:41] LABS: HDL CHOLESTEROL 64 mg/dL (40-60)
[2020-10-29 11:59] LABS: OSMOLALITY,SERUM 255 mosm/kg (278-305)
[2020-10-29 13:31] LABS: ANION GAP 13 MMOL/L (8-16); BLOOD UREA NITROGEN 11.5 mg/dL (7-18); CHLORIDE 88 mmol/L (98-107); CO2 18 mmol/L (21-32); CREATININE 0.8 mg/dL (0.55-1.3); GLUCOSE,RANDOM 102 mg/dL (74-106); SODIUM 120 mmol/L (136-145)
[2020-10-29] MEDS ORDERED: THIAMINE HCL 100 MG TABLET (FP) ONE (13:48)
[2020-10-29] MEDS ORDERED: MULTIVITAMINS (DAILY MVI) TABLET (FP) ONE (13:48)
[2020-10-29] MEDS ORDERED: LORazepam 2 MG/ML SDV VIAL ONE ×2 (13:49→18:41)
[2020-10-29] MEDS ORDERED: FOLIC ACID 1 MG TABLET (FP) ONE (13:49)
[2020-10-29] MEDS ORDERED: CEFTRIAXONE 1 GM/50 ML BAG ONE (13:49)
[2020-10-29] MEDS: LORazepam 2 MG/ML SDV VIAL IVPUSH PRN ×2 (14:00→23:09)
[2020-10-29] MEDS: THIAMINE HCL 100 MG TABLET (FP) PO SCH (14:05)
[2020-10-29] MEDS: CEFTRIAXONE 1 GM in DEXTROSE 5%-WATER - 50 ML IVPB SCH (14:05)
[2020-10-29] MEDS: MULTIVITAMINS (DAILY MVI) TABLET (FP) PO SCH (14:05)
[2020-10-29] MEDS: FOLIC ACID 1 MG TABLET (FP) PO SCH (14:05)
[2020-10-29] MEDS ORDERED: SODIUM ZIRCONIUM CYCLOSILICATE (LOKELMA) 5 GM PACKET PO ONE (14:52)
[2020-10-29] MEDS ORDERED: SODIUM ZIRCONIUM CYCLOSILICATE (LOKELMA) 5 GM PACKET ONE (15:07)
[2020-10-29] MEDS ORDERED: PT OWN MED DRAWER 7, Y5N ONE (15:07)
[2020-10-29] MEDS: NICOTINE 14 MG/24 HOURS TOPICAL PATCH TD SCH (15:14)
[2020-10-29] MEDS: EMTRICITAB/RILPIVIRINE/TENOFOV 1 EACH TABLET PO SCH (16:30)
[2020-10-29] MEDS: SODIUM CHLORIDE 1,000 ML IV SCH (16:45)
[2020-10-29] MEDS ORDERED: ZOLPIDEM TARTRATE 5 MG TABLET ONE ×2 (19:52→19:53)
[2020-10-29] MEDS ORDERED: ZOLPIDEM TARTRATE 5 MG TABLET PO ONE ×2 (20:00→23:56)
[2020-10-29] MEDS ORDERED: MELATONIN 5 MG TABLETS PO SCH (22:00)
[2020-10-29] MEDS ORDERED: ATORVASTATIN CA 40 MG TABLET (FP) PO SCH (22:00)
[2020-10-29] MEDS ORDERED: QUEtiapine FUMARATE 100 MG TABLET (FP) PO ONE (23:21)
[2020-10-29] MEDS: GABAPENTIN 400 MG CAPSULE PO SCH (23:40)
[2020-10-30 07:02] LABS: BASO % 0.4 % (0-2.0); EOS % 0.3 % (0-4.5); HEMATOCRIT 36.8 % (32.4-45.2); HEMOGLOBIN 12.5 GM/dL (10.7-15.3); LYMPH % 28.7 % (8-40); MCH 32.4 pg (25.7-33.7); MCHC 34.1 g/dl (32.0-36.0); MEAN CELL VOLUME 95.1 fl (80-96); MEAN PLT VOLUME 6.9 fl (7.5-11.1); MONO % 6.7 % (3.8-10.2); NEUT % 63.9 % (42.8-82.8); PLATELET COUNT 310 10^3/uL (134-434); RBC 3.87 M/mm3 (3.60-5.2); WHITE BLOOD COUNT 9.9 K/mm3 (4.0-10.0)
[2020-10-30 07:19] LABS: ALBUMIN 3.2 g/dl (3.4-5.0); BLOOD UREA NITROGEN 14.3 mg/dL (7-18); CALCIUM 8.1 mg/dL (8.5-10.1); MAGNESIUM 2.3 mg/dL (1.8-2.4)
[2020-10-30 07:22] LABS: CREATININE 0.6 mg/dL (0.55-1.3); PHOSPHOROUS 3.7 mg/dL (2.5-4.9)
[2020-10-30 07:24] LABS: BILIRUBIN,TOTAL 0.7 mg/dL (0.2-1); TOT PROT 7.1 g/dl (6.4-8.2)
[2020-10-30] MEDS ORDERED: PT OWN MED DRAWER 7, Y5N ONE (07:54)
[2020-10-30] MEDS: SODIUM CHLORIDE 1,000 ML IV SCH (07:58)
[2020-10-30] MEDS: LORazepam 2 MG/ML SDV VIAL IVPUSH PRN ×2 (08:02→18:25)
[2020-10-30] MEDS ORDERED: DEXTROSE 5%-WATER - 1,000 ML IV SCH ×2 (08:45→14:36)
[2020-10-30] MEDS ORDERED: cefTRIAXone SODIUM 1 GM VIAL ONE (09:13)
[2020-10-30] MEDS ORDERED: DEXTROSE 5%-WATER - 50 ML IVPB ONE (09:13)
[2020-10-30] MEDS: EMTRICITAB/RILPIVIRINE/TENOFOV 1 EACH TABLET PO SCH (09:19)
[2020-10-30] MEDS: levETIRAcetam 500 MG TABLET (FP) PO SCH ×2 (09:20→21:11)
[2020-10-30] MEDS: MULTIVITAMINS (DAILY MVI) TABLET (FP) PO SCH (09:21)
[2020-10-30] MEDS: FOLIC ACID 1 MG TABLET (FP) PO SCH (09:21)
[2020-10-30] MEDS: NICOTINE 14 MG/24 HOURS TOPICAL PATCH TD SCH (09:21)
[2020-10-30] MEDS: GABAPENTIN 400 MG CAPSULE PO SCH (09:21)
[2020-10-30] MEDS: THIAMINE HCL 100 MG TABLET (FP) PO SCH (09:21)
[2020-10-30] MEDS: CEFTRIAXONE 1 GM in DEXTROSE 5%-WATER - 50 ML IVPB SCH (09:23)
[2020-10-30] MEDS ORDERED: ENOXAPARIN NA (PORCINE) 40 MG/0.4 ML DISP.SYRIN SQ SCH (10:00)
[2020-10-30] MEDS ORDERED: ASPIRIN COATED 81 MG TABLET.EC PO SCH (10:00)
[2020-10-30 17:03] LABS: BLOOD UREA NITROGEN 13.6 mg/dL (7-18); CALCIUM 8.5 mg/dL (8.5-10.1); CREATININE 0.7 mg/dL (0.55-1.3)
[2020-10-30] MEDS ORDERED: MELATONIN 5 MG TABLETS PO SCH (22:00)
[2020-10-30] MEDS ORDERED: QUEtiapine FUMARATE 200 MG TABLET PO ONE (22:00)
[2020-10-30] MEDS ORDERED: MIRTAZAPINE 15 MG TABLET (FP) PO ONE (22:00)
[2020-10-30] MEDS ORDERED: PROMETHAZINE HCL 25 MG TABLET PO ONE (22:00)
[2020-10-30] MEDS ORDERED: OXcarbazepine 300 MG TABLET (UD) PO ONE (22:00)
[2020-10-30] MEDS ORDERED: GABAPENTIN 400 MG CAPSULE PO SCH (22:00)
[2020-10-30] MEDS ORDERED: ATORVASTATIN CA 40 MG TABLET (FP) PO SCH (22:00)
[2020-10-31] MEDS: LORazepam 2 MG/ML SDV VIAL IVPUSH PRN (04:47)
[2020-10-31 07:13] LABS: BASO % 1.1 % (0-2.0); EOS % 1.3 % (0-4.5); HEMATOCRIT 38.2 % (32.4-45.2); HEMOGLOBIN 13.5 GM/dL (10.7-15.3); LYMPH % 40.8 % (8-40); MCH 33.2 pg (25.7-33.7); MCHC 35.4 g/dl (32.0-36.0); MONO % 8.5 % (3.8-10.2); NEUT % 48.3 % (42.8-82.8); PLATELET COUNT 342 10^3/uL (134-434); RBC 4.07 M/mm3 (3.60-5.2); WHITE BLOOD COUNT 6.8 K/mm3 (4.0-10.0)
[2020-10-31 07:30] LABS: CALCIUM 8.7 mg/dL (8.5-10.1)
[2020-10-31 07:31] LABS: ALBUMIN 3.6 g/dl (3.4-5.0); BLOOD UREA NITROGEN 13.9 mg/dL (7-18); MAGNESIUM 2.3 mg/dL (1.8-2.4)
[2020-10-31 07:34] LABS: CREATININE 0.6 mg/dL (0.55-1.3); PHOSPHOROUS 4.2 mg/dL (2.5-4.9)
[2020-10-31 07:35] LABS: BILIRUBIN,TOTAL 0.5 mg/dL (0.2-1)
[2020-10-31 07:36] LABS: TOT PROT 7.8 g/dl (6.4-8.2)
[2020-10-31] MEDS ORDERED: EMTRICITAB/RILPIVIRINE/TENOFOV 1 EACH TABLET PO SCH (08:00)
[2020-10-31] MEDS ORDERED: PT OWN MED DRAWER 7, Y5N ONE (08:54)
[2020-10-31] MEDS: levETIRAcetam 500 MG TABLET (FP) PO SCH (09:59)
[2020-10-31] MEDS ORDERED: MULTIVITAMINS (DAILY MVI) TABLET (FP) PO SCH (10:00)
[2020-10-31] MEDS ORDERED: ENOXAPARIN NA (PORCINE) 40 MG/0.4 ML DISP.SYRIN SQ SCH (10:00)
[2020-10-31] MEDS ORDERED: NICOTINE 14 MG/24 HOURS TOPICAL PATCH TD SCH (10:00)
[2020-10-31] MEDS ORDERED: THIAMINE HCL 100 MG TABLET (FP) PO SCH (10:00)
[2020-10-31] MEDS ORDERED: FOLIC ACID 1 MG TABLET (FP) PO SCH (10:00)
[2020-10-31] MEDS ORDERED: ASPIRIN COATED 81 MG TABLET.EC PO SCH (10:00)
[2020-10-31] MEDS ORDERED: CELECOXIB 200 MG CAPSULE PO ONE (10:41)
[2020-10-31 12:18] VITALS: BP 121/65; PULSE 90; TEMP 97.9
== END 2020-10-31 13:27 | disposition home or self-care (01) ==
LOC: JER 03:30 → UNDOADMOB 06:02 → JERBED 06:02 → INTOOBSV 06:02 → J4S 21:51 → JERBED 21:51 → J4S 10-30 13:55 → J7W 10-30 13:55 → JERBED 10-30 14:27 → J7W 10-30 14:27 → J4S 10-30 14:27
PROVIDERS: ATTEND Internal Medicine
PROC: 3E03329 Introduction of Other Anti-infective into Peripheral Vein, Percutaneous Approach (ICD-10-PCS; principal; 2020-10-30)
PROC: 3E033GC Introduction of Other Therapeutic Substance into Peripheral Vein, Percutaneous Approach (ICD-10-PCS; 2020-10-30)
PROC: 3E033NZ Introduction of Analgesics, Hypnotics, Sedatives into Peripheral Vein, Percutaneous Approach (ICD-10-PCS; 2020-10-30)
PROC: 3E0337Z Introduction of Electrolytic and Water Balance Substance into Peripheral Vein, Percutaneous Approach (ICD-10-PCS; 2020-10-30)
DX: F19.10 Other psychoactive substance abuse, uncomplicated (principal); W18.39XA Other fall on same level, initial encounter; Y93.89 Activity, other specified; Y92.231 Patient bathroom in hospital as the place of occurrence of the external cause; E87.1 Hypo-osmolality and hyponatremia; E87.5 Hyperkalemia; E78.5 Hyperlipidemia, unspecified; B20 Human immunodeficiency virus [HIV] disease; G40.909 Epilepsy, unspecified, not intractable, without status epilepticus; N39.0 Urinary tract infection, site not specified; F39 Unspecified mood [affective] disorder; Z86.73 Personal history of transient ischemic attack (TIA), and cerebral infarction without residual deficits; F10.10 Alcohol abuse, uncomplicated; D72.829 Elevated white blood cell count, unspecified; Z29.9 Encounter for prophylactic measures, unspecified; Z88.2 Allergy status to sulfonamides
CPT/HCPCS: 36415; 70450-TC; 71045-TC-FY; 72125-TC; 72192-TC; 73502-TC-RT-FY; 80048; 80053; 80061; 80307; 81003; 82533; 82550; 82570; 83036; 83721; 83735; 83930; 83935; 84100; 84146; 84300; 84443; 84484; 84540; 85025; 86359; 86360; 87040; 87086; 87536; 87899; 93005; 93010; 93306-TC; 93880-TC; 96365; 96375; 97116-GP; 97161-GP; 99284-25; G0378

== ENCOUNTER 2021-01-19 10:44 | Inpatient (IN) | payer OTHER ==
[2021-01-19 11:57] VITALS: BMI 25.7
[2021-01-19] MEDS ORDERED: ACETAMINOPHEN 325 MG TABLET (FP) PO PRN ×2 (12:42)
[2021-01-19] MEDS ORDERED: MAGNESIUM CITRATE 300 ML BOTTLE PO PRN (12:42)
[2021-01-19] MEDS ORDERED: NICOTINE 10 MG CARTRIDGE (INHALER) IH PRN (12:42)
[2021-01-19] MEDS ORDERED: BISMUTH SUBSALICYLATE 262 MG/15 ML BTL PO PRN (12:42)
[2021-01-19] MEDS ORDERED: ONDANSETRON *ODT* 4 MG TABLET SL PRN (12:42)
[2021-01-19] MEDS ORDERED: MAG HYDROX/AL HYDROX/SIMETH 30 ML UNIT-DOSE CUP PO PRN (12:42)
[2021-01-19] MEDS ORDERED: MAGNESIUM HYDROX 2400MG/30ML ORAL SUSPENSION 30 ML CUP PO PRN (12:42)
[2021-01-19] MEDS ORDERED: IBUPROFEN 400 MG TABLET (FP) PO PRN (12:42)
[2021-01-19] MEDS ORDERED: MENTHOL/PHENOL 1 EACH UD MM PRN (12:42)
[2021-01-19] MEDS ORDERED: ALBUTEROL SO4 HFA INHALER IH PRN (12:45)
[2021-01-19] MEDS: PRENATAL VITAMINS W/ FOLIC ACID TABLET (FP) PO SCH (14:16)
[2021-01-19] MEDS: hydrOXYzine PAMOATE 25 MG CAPSULE (FP) PO SCH ×3 (14:16→22:41)
[2021-01-19] MEDS: diazePAM 5 MG TABLET PO PRN ×3 (14:17→22:42)
[2021-01-19] MEDS: METHOCARBAMOL 500 MG TABLET PO PRN ×2 (14:18→22:42)
[2021-01-19] MEDS: diazePAM 5 MG TABLET PO SCH ×3 (14:19→22:59)
[2021-01-19] MEDS: GABAPENTIN 400 MG CAPSULE PO SCH ×2 (14:47→22:41)
[2021-01-19 17:11] LABS: HEMATOCRIT 41.4 % (32.4-45.2); HEMOGLOBIN 14.2 GM/dL (10.7-15.3); MCH 33.4 pg (25.7-33.7); MCHC 34.3 g/dl (32.0-36.0); MEAN CELL VOLUME 97.3 fl (80-96); MEAN PLT VOLUME 7.6 fl (7.5-11.1); PLATELET COUNT 333 10^3/uL (134-434); RBC 4.25 M/mm3 (3.60-5.2); RDW 13.5 % (11.6-15.6); WHITE BLOOD COUNT 6.2 K/mm3 (4.0-10.0)
[2021-01-19 17:18] LABS: BLOOD UREA NITROGEN 14.6 mg/dL (7-18)
[2021-01-19 17:20] LABS: ALBUMIN 3.9 g/dl (3.4-5.0)
[2021-01-19 17:22] LABS: CALCIUM 9.3 mg/dL (8.5-10.1)
[2021-01-19 17:23] LABS: CREATININE 0.9 mg/dL (0.55-1.3)
[2021-01-19 17:25] LABS: BILIRUBIN,TOTAL 0.2 mg/dL (0.2-1)
[2021-01-19 17:29] LABS: TOT PROT 8.2 g/dl (6.4-8.2)
[2021-01-19] MEDS ORDERED: cloNIDine HCL 0.1 MG TABLET PO ONE (18:35)
[2021-01-19] MEDS ORDERED: MELATONIN 5 MG TABLETS PO SCH (22:00)
[2021-01-19] MEDS: THIAMINE HCL 100 MG TABLET (FP) PO SCH (22:41)
[2021-01-19] MEDS: ATORVASTATIN CA 40 MG TABLET (FP) PO SCH (22:41)
[2021-01-19] MEDS: levETIRAcetam 500 MG TABLET (FP) PO SCH (22:42)
[2021-01-20] MEDS: diazePAM 5 MG TABLET PO SCH ×4 (06:05→22:43)
[2021-01-20] MEDS: GABAPENTIN 400 MG CAPSULE PO SCH ×3 (06:06→22:09)
[2021-01-20] MEDS: hydrOXYzine PAMOATE 25 MG CAPSULE (FP) PO SCH ×2 (06:06→10:40)
[2021-01-20] MEDS: METHOCARBAMOL 500 MG TABLET PO PRN ×2 (06:18→17:17)
[2021-01-20] MEDS: diazePAM 5 MG TABLET PO PRN ×3 (08:30→19:13)
[2021-01-20] MEDS: ASPIRIN COATED 81 MG TABLET.EC PO SCH (10:40)
[2021-01-20] MEDS: levETIRAcetam 500 MG TABLET (FP) PO SCH ×2 (10:40→22:09)
[2021-01-20] MEDS: FAMOTIDINE 20 MG TABLET PO SCH (10:41)
[2021-01-20] MEDS: EMTRICITAB/RILPIVIRINE/TENOFOV 1 EACH TABLET PO SCH (10:41)
[2021-01-20] MEDS: PRENATAL VITAMINS W/ FOLIC ACID TABLET (FP) PO SCH (10:41)
[2021-01-20] MEDS ORDERED: hydrOXYzine PAMOATE 50 MG CAPSULE (FP) PO PRN (10:51)
[2021-01-20] MEDS: MIRTAZAPINE 15 MG TABLET (FP) PO SCH (22:09)
[2021-01-20] MEDS: QUEtiapine FUMARATE 300 MG TABLET PO SCH (22:09)
[2021-01-20] MEDS: THIAMINE HCL 100 MG TABLET (FP) PO SCH (22:09)
[2021-01-20] MEDS: ATORVASTATIN CA 40 MG TABLET (FP) PO SCH (22:09)
[2021-01-21] MEDS: GABAPENTIN 400 MG CAPSULE PO SCH ×3 (06:10→22:05)
[2021-01-21] MEDS: diazePAM 5 MG TABLET PO SCH ×3 (06:10→22:06)
[2021-01-21] MEDS: levETIRAcetam 500 MG TABLET (FP) PO SCH ×2 (10:18→22:06)
[2021-01-21] MEDS: ASPIRIN COATED 81 MG TABLET.EC PO SCH (10:18)
[2021-01-21] MEDS: EMTRICITAB/RILPIVIRINE/TENOFOV 1 EACH TABLET PO SCH (10:18)
[2021-01-21] MEDS: PRENATAL VITAMINS W/ FOLIC ACID TABLET (FP) PO SCH (10:18)
[2021-01-21] MEDS: FAMOTIDINE 20 MG TABLET PO SCH (10:18)
[2021-01-21] MEDS: diazePAM 5 MG TABLET PO PRN (15:48)
[2021-01-21] MEDS: QUEtiapine FUMARATE 300 MG TABLET PO SCH (22:05)
[2021-01-21] MEDS: ATORVASTATIN CA 40 MG TABLET (FP) PO SCH (22:06)
[2021-01-21] MEDS: MIRTAZAPINE 15 MG TABLET (FP) PO SCH (22:06)
[2021-01-21] MEDS: THIAMINE HCL 100 MG TABLET (FP) PO SCH (22:32)
[2021-01-22] MEDS: GABAPENTIN 400 MG CAPSULE PO SCH ×3 (05:56→22:16)
[2021-01-22] MEDS: diazePAM 5 MG TABLET PO SCH ×2 (05:56→18:45)
[2021-01-22] MEDS: diazePAM 5 MG TABLET PO PRN (08:57)
[2021-01-22] MEDS: FAMOTIDINE 20 MG TABLET PO SCH (10:13)
[2021-01-22] MEDS: PRENATAL VITAMINS W/ FOLIC ACID TABLET (FP) PO SCH (10:13)
[2021-01-22] MEDS: levETIRAcetam 500 MG TABLET (FP) PO SCH ×2 (10:13→22:15)
[2021-01-22] MEDS: EMTRICITAB/RILPIVIRINE/TENOFOV 1 EACH TABLET PO SCH (10:13)
[2021-01-22] MEDS: ASPIRIN COATED 81 MG TABLET.EC PO SCH (10:13)
[2021-01-22] MEDS ORDERED: diazePAM 5 MG TABLET PO PRN (13:28)
[2021-01-22] MEDS: guaiFENesin 600 MG TABLET.ER (FP) PO SCH (13:32)
[2021-01-22] MEDS: MIRTAZAPINE 15 MG TABLET (FP) PO SCH (22:15)
[2021-01-22] MEDS: QUEtiapine FUMARATE 300 MG TABLET PO SCH (22:15)
[2021-01-22] MEDS: ATORVASTATIN CA 40 MG TABLET (FP) PO SCH (22:15)
[2021-01-22] MEDS: THIAMINE HCL 100 MG TABLET (FP) PO SCH (22:16)
[2021-01-23] MEDS: GABAPENTIN 400 MG CAPSULE PO SCH ×2 (05:56→14:54)
[2021-01-23] MEDS ORDERED: diazePAM 5 MG TABLET PO ONE (06:00)
[2021-01-23] MEDS: guaiFENesin 600 MG TABLET.ER (FP) PO SCH (09:42)
[2021-01-23] MEDS: FAMOTIDINE 20 MG TABLET PO SCH (09:43)
[2021-01-23] MEDS: levETIRAcetam 500 MG TABLET (FP) PO SCH (09:43)
[2021-01-23] MEDS: METHOCARBAMOL 500 MG TABLET PO PRN (09:43)
[2021-01-23] MEDS: ASPIRIN COATED 81 MG TABLET.EC PO SCH (09:43)
[2021-01-23] MEDS: EMTRICITAB/RILPIVIRINE/TENOFOV 1 EACH TABLET PO SCH (09:43)
[2021-01-23] MEDS: PRENATAL VITAMINS W/ FOLIC ACID TABLET (FP) PO SCH (09:44)
[2021-01-23 12:54] VITALS: BP 122/81; PULSE 84; TEMP 98.3
== END 2021-01-23 17:20 | disposition other institution (70) | DRG 774 ==
LOC: YASAS 10:44 → Y6N 12:47
PROVIDERS: ADMIT Allergy & Immunology; ATTEND Allergy & Immunology
PROC: HZ2ZZZZ Detoxification Services for Substance Abuse Treatment (ICD-10-PCS; principal; 2021-01-19)
DX: F10.230 Alcohol dependence with withdrawal, uncomplicated (principal); F14.20 Cocaine dependence, uncomplicated; F17.210 Nicotine dependence, cigarettes, uncomplicated; F31.9 Bipolar disorder, unspecified; F19.280 Other psychoactive substance dependence with psychoactive substance-induced anxiety disorder; F19.282 Other psychoactive substance dependence with psychoactive substance-induced sleep disorder; Z21 Asymptomatic human immunodeficiency virus [HIV] infection status; G40.909 Epilepsy, unspecified, not intractable, without status epilepticus; G62.9 Polyneuropathy, unspecified; J42 Unspecified chronic bronchitis; J45.20 Mild intermittent asthma, uncomplicated; E78.5 Hyperlipidemia, unspecified; K21.9 Gastro-esophageal reflux disease without esophagitis; B18.2 Chronic viral hepatitis C; M16.0 Bilateral primary osteoarthritis of hip; Z99.89 Dependence on other enabling machines and devices; Z88.2 Allergy status to sulfonamides
CPT/HCPCS: 36415; 73502-TC-RT-FY; 80053; 85027; 86780; C9803; J0735; U0003; U0005

== ENCOUNTER 2021-01-23 17:44 | Inpatient (IN) | payer OTHER ==
[2021-01-23] MEDS ORDERED: MAG HYDROX/AL HYDROX/SIMETH 30 ML UNIT-DOSE CUP PO PRN (19:49)
[2021-01-23] MEDS ORDERED: ALBUTEROL SO4 HFA INHALER IH PRN (19:49)
[2021-01-23] MEDS ORDERED: ACETAMINOPHEN 325 MG TABLET (FP) PO PRN (19:49)
[2021-01-23] MEDS ORDERED: guaiFENesin 200 MG/10 ML 10 ML UNIT-DOSE CUPS PO PRN (19:49)
[2021-01-23] MEDS ORDERED: LOPERAMIDE HCL 2 MG CAPSULE PO PRN (19:49)
[2021-01-23] MEDS ORDERED: P-EPHED 60MG/TRIPROLIDI 2.5MG TABLET PO PRN (19:49)
[2021-01-23] MEDS ORDERED: MENTHOL/PHENOL 1 EACH UD MM PRN (19:49)
[2021-01-23] MEDS ORDERED: GABAPENTIN 400 MG CAPSULE PO SCH (21:30)
[2021-01-23] MEDS ORDERED: MIRTAZAPINE 15 MG TABLET (FP) PO SCH (21:30)
[2021-01-23] MEDS ORDERED: QUEtiapine FUMARATE 300 MG TABLET PO SCH (21:30)
[2021-01-23] MEDS: hydrOXYzine PAMOATE 25 MG CAPSULE (FP) PO PRN (21:53)
[2021-01-23] MEDS: THIAMINE HCL 100 MG TABLET (FP) PO SCH (21:54)
[2021-01-23] MEDS: ATORVASTATIN CA 40 MG TABLET (FP) PO SCH (21:54)
[2021-01-23] MEDS: levETIRAcetam 500 MG TABLET (FP) PO SCH (21:54)
[2021-01-23] MEDS: MELATONIN 5 MG TABLETS PO SCH (21:56)
[2021-01-24] MEDS: ASPIRIN COATED 81 MG TABLET.EC PO SCH (10:56)
[2021-01-24] MEDS: levETIRAcetam 500 MG TABLET (FP) PO SCH ×2 (10:56→22:03)
[2021-01-24] MEDS: FAMOTIDINE 20 MG TABLET PO SCH (10:56)
[2021-01-24] MEDS: PRENATAL VITAMINS W/ FOLIC ACID TABLET (FP) PO SCH (10:56)
[2021-01-24] MEDS: GABAPENTIN 400 MG CAPSULE PO SCH ×2 (14:54→22:03)
[2021-01-24] MEDS: EMTRICITAB/RILPIVIRINE/TENOFOV 1 EACH TABLET PO SCH (14:55)
[2021-01-24] MEDS: hydrOXYzine PAMOATE 25 MG CAPSULE (FP) PO PRN (19:16)
[2021-01-24] MEDS: THIAMINE HCL 100 MG TABLET (FP) PO SCH (22:03)
[2021-01-24] MEDS: MELATONIN 5 MG TABLETS PO SCH (22:03)
[2021-01-24] MEDS: ATORVASTATIN CA 40 MG TABLET (FP) PO SCH (22:04)
[2021-01-24] MEDS: QUEtiapine FUMARATE 300 MG TABLET PO SCH (22:05)
[2021-01-24] MEDS: MIRTAZAPINE 15 MG TABLET (FP) PO SCH (22:06)
[2021-01-25] MEDS: GABAPENTIN 400 MG CAPSULE PO SCH ×3 (06:37→21:54)
[2021-01-25] MEDS: EMTRICITAB/RILPIVIRINE/TENOFOV 1 EACH TABLET PO SCH (07:16)
[2021-01-25] MEDS: PRENATAL VITAMINS W/ FOLIC ACID TABLET (FP) PO SCH (10:57)
[2021-01-25] MEDS: FAMOTIDINE 20 MG TABLET PO SCH (10:58)
[2021-01-25] MEDS: levETIRAcetam 500 MG TABLET (FP) PO SCH ×2 (10:58→21:54)
[2021-01-25] MEDS: ASPIRIN COATED 81 MG TABLET.EC PO SCH (10:59)
[2021-01-25] MEDS: MIRTAZAPINE 15 MG TABLET (FP) PO SCH (21:54)
[2021-01-25] MEDS: ATORVASTATIN CA 40 MG TABLET (FP) PO SCH (21:54)
[2021-01-25] MEDS: THIAMINE HCL 100 MG TABLET (FP) PO SCH (21:54)
[2021-01-25] MEDS: MELATONIN 5 MG TABLETS PO SCH (21:54)
[2021-01-25] MEDS: QUEtiapine FUMARATE 300 MG TABLET PO SCH (21:54)
[2021-01-26] MEDS ORDERED: PT OWN MED DRAWER 7, Y5N ONE (03:20)
[2021-01-26] MEDS: GABAPENTIN 400 MG CAPSULE PO SCH ×3 (07:03→21:11)
[2021-01-26] MEDS: MAGNESIUM HYDROX 2400MG/30ML ORAL SUSPENSION 30 ML CUP PO PRN ×2 (07:09→17:53)
[2021-01-26] MEDS: PRENATAL VITAMINS W/ FOLIC ACID TABLET (FP) PO SCH (11:04)
[2021-01-26] MEDS: levETIRAcetam 500 MG TABLET (FP) PO SCH ×2 (11:05→21:12)
[2021-01-26] MEDS: FAMOTIDINE 20 MG TABLET PO SCH (11:05)
[2021-01-26] MEDS: ASPIRIN COATED 81 MG TABLET.EC PO SCH (11:05)
[2021-01-26] MEDS: EMTRICITAB/RILPIVIRINE/TENOFOV 1 EACH TABLET PO SCH (11:06)
[2021-01-26] MEDS: IBUPROFEN 400 MG TABLET (FP) PO PRN ×2 (11:09→21:16)
[2021-01-26] MEDS: METHOCARBAMOL 500 MG TABLET PO PRN (13:15)
[2021-01-26] MEDS: LIDOCAINE 5% TOPICAL PATCH TP SCH (15:04)
[2021-01-26] MEDS: AMMONIUM LACTATE 12% LOTION 225 GM BOTTLE TP SCH (16:08)
[2021-01-26] MEDS: MIRTAZAPINE 15 MG TABLET (FP) PO SCH (21:11)
[2021-01-26] MEDS: QUEtiapine FUMARATE 300 MG TABLET PO SCH (21:12)
[2021-01-26] MEDS: THIAMINE HCL 100 MG TABLET (FP) PO SCH (21:12)
[2021-01-26] MEDS: ATORVASTATIN CA 40 MG TABLET (FP) PO SCH (21:12)
[2021-01-26] MEDS: DOCUSATE SODIUM 100 MG CAPSULE (FP) PO SCH (21:13)
[2021-01-26] MEDS: MELATONIN 5 MG TABLETS PO SCH (22:43)
[2021-01-26] MEDS: LIDOCAINE PATCH REMOVAL MC SCH (22:44)
[2021-01-27] MEDS: GABAPENTIN 400 MG CAPSULE PO SCH ×3 (06:48→21:50)
[2021-01-27] MEDS: DOCUSATE SODIUM 100 MG CAPSULE (FP) PO SCH ×3 (06:48→21:50)
[2021-01-27] MEDS ORDERED: PT OWN MED DRAWER 7, Y5N ONE (06:50)
[2021-01-27] MEDS ORDERED: ALBUTEROL SO4 2.5/IPRATROPIUM 0.5 INH SOL 3 ML VIAL.NEB. NEB PRN (09:39)
[2021-01-27] MEDS ORDERED: AMOXICILLIN 500 MG CAPSULE (FP) PO ONE (10:00)
[2021-01-27] MEDS: PRENATAL VITAMINS W/ FOLIC ACID TABLET (FP) PO SCH (10:44)
[2021-01-27] MEDS: ASPIRIN COATED 81 MG TABLET.EC PO SCH (10:45)
[2021-01-27] MEDS: FAMOTIDINE 20 MG TABLET PO SCH (10:45)
[2021-01-27] MEDS: levETIRAcetam 500 MG TABLET (FP) PO SCH ×2 (10:45→21:50)
[2021-01-27] MEDS: AMMONIUM LACTATE 12% LOTION 225 GM BOTTLE TP SCH (10:45)
[2021-01-27] MEDS: EMTRICITAB/RILPIVIRINE/TENOFOV 1 EACH TABLET PO SCH (10:45)
[2021-01-27] MEDS: guaiFENesin 600 MG TABLET.ER (FP) PO SCH ×2 (10:46→21:52)
[2021-01-27] MEDS: LIDOCAINE 5% TOPICAL PATCH TP SCH (10:46)
[2021-01-27] MEDS: MAGNESIUM CITRATE 300 ML BOTTLE PO PRN (10:59)
[2021-01-27] MEDS: AMOXICILLIN 500 MG CAPSULE (FP) PO SCH ×2 (15:39→21:51)
[2021-01-27] MEDS: METHOCARBAMOL 500 MG TABLET PO PRN (17:56)
[2021-01-27] MEDS: ATORVASTATIN CA 40 MG TABLET (FP) PO SCH (21:50)
[2021-01-27] MEDS: QUEtiapine FUMARATE 300 MG TABLET PO SCH (21:50)
[2021-01-27] MEDS: MIRTAZAPINE 15 MG TABLET (FP) PO SCH (21:50)
[2021-01-27] MEDS: THIAMINE HCL 100 MG TABLET (FP) PO SCH (21:50)
[2021-01-27] MEDS: LIDOCAINE PATCH REMOVAL MC SCH (21:51)
[2021-01-27] MEDS: MELATONIN 5 MG TABLETS PO SCH (21:51)
[2021-01-28] MEDS ORDERED: PT OWN MED DRAWER 7, Y5N ONE ×2 (03:12→10:50)
[2021-01-28] MEDS: GABAPENTIN 400 MG CAPSULE PO SCH ×3 (06:58→22:07)
[2021-01-28] MEDS: DOCUSATE SODIUM 100 MG CAPSULE (FP) PO SCH ×3 (06:58→22:08)
[2021-01-28] MEDS: AMOXICILLIN 500 MG CAPSULE (FP) PO SCH ×3 (06:58→22:07)
[2021-01-28] MEDS: PRENATAL VITAMINS W/ FOLIC ACID TABLET (FP) PO SCH (10:41)
[2021-01-28] MEDS: EMTRICITAB/RILPIVIRINE/TENOFOV 1 EACH TABLET PO SCH (10:42)
[2021-01-28] MEDS: NICOTINE 10 MG CARTRIDGE (INHALER) IH SCH (10:43)
[2021-01-28] MEDS: guaiFENesin 600 MG TABLET.ER (FP) PO SCH ×2 (10:43→22:10)
[2021-01-28] MEDS: FAMOTIDINE 20 MG TABLET PO SCH (10:43)
[2021-01-28] MEDS: LIDOCAINE 5% TOPICAL PATCH TP SCH (10:43)
[2021-01-28] MEDS: ASPIRIN COATED 81 MG TABLET.EC PO SCH (10:43)
[2021-01-28] MEDS: levETIRAcetam 500 MG TABLET (FP) PO SCH ×2 (10:43→22:07)
[2021-01-28] MEDS: AMMONIUM LACTATE 12% LOTION 225 GM BOTTLE TP SCH (10:44)
[2021-01-28] MEDS: METHOCARBAMOL 500 MG TABLET PO PRN ×2 (13:19→22:13)
[2021-01-28 16:19] LABS: EPI CELLS >36 /uL (0-25.1); HYALINE CASTS 1 /uL (0-3.1); PH,URINE 7.5 (5.0-8.0); URINE APPEARANCE TURBID; URINE BACTERIA 224 /uL (0-1359); URINE BILIRUBIN NEGATIVE (NEGATIVE); URINE COLOR YELLOW; URINE GLUCOSE (UA) NEGATIVE (NEGATIVE); URINE KETONE NEGATIVE (NEGATIVE); URINE LEUK ESTERASE 1+ (NEGATIVE); URINE NITRITE NEGATIVE (NEGATIVE); URINE PROTEIN NEGATIVE (NEGATIVE); URINE UROBILINOGEN 0.2 mg/dL (0.2-1.0); URINE WBC 29 /uL (0-25.8)
[2021-01-28 17:23] LABS: URINE RBC 56 /uL (0-23.9)
[2021-01-28] MEDS: MIRTAZAPINE 15 MG TABLET (FP) PO SCH (22:07)
[2021-01-28] MEDS: QUEtiapine FUMARATE 300 MG TABLET PO SCH (22:07)
[2021-01-28] MEDS: ATORVASTATIN CA 40 MG TABLET (FP) PO SCH (22:08)
[2021-01-28] MEDS: MELATONIN 5 MG TABLETS PO SCH (22:08)
[2021-01-28] MEDS: LIDOCAINE PATCH REMOVAL MC SCH (22:10)
[2021-01-28] MEDS: THIAMINE HCL 100 MG TABLET (FP) PO SCH (22:11)
[2021-01-29] MEDS ORDERED: PT OWN MED DRAWER 7, Y5N ONE (03:16)
[2021-01-29] MEDS: DOCUSATE SODIUM 100 MG CAPSULE (FP) PO SCH ×3 (06:30→21:55)
[2021-01-29] MEDS: GABAPENTIN 400 MG CAPSULE PO SCH ×3 (06:30→21:56)
[2021-01-29] MEDS: AMOXICILLIN 500 MG CAPSULE (FP) PO SCH ×3 (06:30→21:55)
[2021-01-29] MEDS: EMTRICITAB/RILPIVIRINE/TENOFOV 1 EACH TABLET PO SCH (07:09)
[2021-01-29] MEDS: PRENATAL VITAMINS W/ FOLIC ACID TABLET (FP) PO SCH (10:41)
[2021-01-29] MEDS: levETIRAcetam 500 MG TABLET (FP) PO SCH ×2 (10:42→21:55)
[2021-01-29] MEDS: FAMOTIDINE 20 MG TABLET PO SCH (10:42)
[2021-01-29] MEDS: ASPIRIN COATED 81 MG TABLET.EC PO SCH (10:42)
[2021-01-29] MEDS: guaiFENesin 600 MG TABLET.ER (FP) PO SCH ×2 (10:43→21:56)
[2021-01-29] MEDS: LIDOCAINE 5% TOPICAL PATCH TP SCH (10:43)
[2021-01-29] MEDS: AMMONIUM LACTATE 12% LOTION 225 GM BOTTLE TP SCH (10:43)
[2021-01-29] MEDS: NICOTINE 10 MG CARTRIDGE (INHALER) IH SCH (10:44)
[2021-01-29] MEDS: METHOCARBAMOL 500 MG TABLET PO PRN ×2 (10:45→21:55)
[2021-01-29] MEDS: THIAMINE HCL 100 MG TABLET (FP) PO SCH (21:55)
[2021-01-29] MEDS: ATORVASTATIN CA 40 MG TABLET (FP) PO SCH (21:55)
[2021-01-29] MEDS: MELATONIN 5 MG TABLETS PO SCH (21:56)
[2021-01-29] MEDS: QUEtiapine FUMARATE 300 MG TABLET PO SCH (21:56)
[2021-01-29] MEDS: LIDOCAINE PATCH REMOVAL MC SCH (21:56)
[2021-01-29] MEDS: MIRTAZAPINE 15 MG TABLET (FP) PO SCH (21:58)
[2021-01-30] MEDS: AMOXICILLIN 500 MG CAPSULE (FP) PO SCH ×3 (06:47→21:08)
[2021-01-30] MEDS: DOCUSATE SODIUM 100 MG CAPSULE (FP) PO SCH ×3 (06:47→21:08)
[2021-01-30] MEDS: GABAPENTIN 400 MG CAPSULE PO SCH ×3 (06:47→21:08)
[2021-01-30] MEDS: EMTRICITAB/RILPIVIRINE/TENOFOV 1 EACH TABLET PO SCH (07:21)
[2021-01-30] MEDS: FAMOTIDINE 20 MG TABLET PO SCH (10:22)
[2021-01-30] MEDS: levETIRAcetam 500 MG TABLET (FP) PO SCH ×2 (10:22→21:09)
[2021-01-30] MEDS: ASPIRIN COATED 81 MG TABLET.EC PO SCH (10:22)
[2021-01-30] MEDS: PRENATAL VITAMINS W/ FOLIC ACID TABLET (FP) PO SCH (10:22)
[2021-01-30] MEDS: NICOTINE 10 MG CARTRIDGE (INHALER) IH SCH (10:23)
[2021-01-30] MEDS: guaiFENesin 600 MG TABLET.ER (FP) PO SCH ×2 (10:23→21:50)
[2021-01-30] MEDS: AMMONIUM LACTATE 12% LOTION 225 GM BOTTLE TP SCH (10:23)
[2021-01-30] MEDS: LIDOCAINE 5% TOPICAL PATCH TP SCH (10:24)
[2021-01-30] MEDS: QUEtiapine FUMARATE 300 MG TABLET PO SCH (21:08)
[2021-01-30] MEDS: MIRTAZAPINE 15 MG TABLET (FP) PO SCH (21:08)
[2021-01-30] MEDS: ATORVASTATIN CA 40 MG TABLET (FP) PO SCH (21:08)
[2021-01-30] MEDS: THIAMINE HCL 100 MG TABLET (FP) PO SCH (21:09)
[2021-01-30] MEDS: LIDOCAINE PATCH REMOVAL MC SCH (21:10)
[2021-01-30] MEDS: METHOCARBAMOL 500 MG TABLET PO PRN (21:12)
[2021-01-30] MEDS: MELATONIN 5 MG TABLETS PO SCH (21:14)
[2021-01-31] MEDS ORDERED: PT OWN MED DRAWER 7, Y5N ONE (03:34)
[2021-01-31] MEDS: DOCUSATE SODIUM 100 MG CAPSULE (FP) PO SCH ×3 (06:12→22:00)
[2021-01-31] MEDS: AMOXICILLIN 500 MG CAPSULE (FP) PO SCH ×3 (06:12→22:00)
[2021-01-31] MEDS: GABAPENTIN 400 MG CAPSULE PO SCH ×3 (06:12→21:59)
[2021-01-31] MEDS: EMTRICITAB/RILPIVIRINE/TENOFOV 1 EACH TABLET PO SCH (07:39)
[2021-01-31] MEDS: levETIRAcetam 500 MG TABLET (FP) PO SCH ×2 (10:44→22:00)
[2021-01-31] MEDS: LIDOCAINE 5% TOPICAL PATCH TP SCH (10:45)
[2021-01-31] MEDS: METHOCARBAMOL 500 MG TABLET PO PRN ×2 (10:45→22:00)
[2021-01-31] MEDS: FAMOTIDINE 20 MG TABLET PO SCH (10:45)
[2021-01-31] MEDS: AMMONIUM LACTATE 12% LOTION 225 GM BOTTLE TP SCH (10:45)
[2021-01-31] MEDS: guaiFENesin 600 MG TABLET.ER (FP) PO SCH ×2 (10:45→22:00)
[2021-01-31] MEDS: ASPIRIN COATED 81 MG TABLET.EC PO SCH (10:45)
[2021-01-31] MEDS: NICOTINE 10 MG CARTRIDGE (INHALER) IH SCH (10:46)
[2021-01-31] MEDS: PRENATAL VITAMINS W/ FOLIC ACID TABLET (FP) PO SCH (10:46)
[2021-01-31] MEDS: MAGNESIUM HYDROX 2400MG/30ML ORAL SUSPENSION 30 ML CUP PO PRN (13:50)
[2021-01-31] MEDS: QUEtiapine FUMARATE 300 MG TABLET PO SCH (22:00)
[2021-01-31] MEDS: ATORVASTATIN CA 40 MG TABLET (FP) PO SCH (22:00)
[2021-01-31] MEDS: LIDOCAINE PATCH REMOVAL MC SCH (22:00)
[2021-01-31] MEDS: THIAMINE HCL 100 MG TABLET (FP) PO SCH (22:00)
[2021-01-31] MEDS: MIRTAZAPINE 15 MG TABLET (FP) PO SCH (22:00)
[2021-01-31] MEDS: hydrOXYzine PAMOATE 25 MG CAPSULE (FP) PO PRN (22:00)
[2021-01-31] MEDS: MELATONIN 5 MG TABLETS PO SCH (22:00)
[2021-02-01] MEDS: GABAPENTIN 400 MG CAPSULE PO SCH ×3 (06:32→21:55)
[2021-02-01] MEDS: AMOXICILLIN 500 MG CAPSULE (FP) PO SCH ×3 (06:32→21:56)
[2021-02-01] MEDS: DOCUSATE SODIUM 100 MG CAPSULE (FP) PO SCH ×3 (06:32→21:56)
[2021-02-01] MEDS: EMTRICITAB/RILPIVIRINE/TENOFOV 1 EACH TABLET PO SCH (07:00)
[2021-02-01] MEDS: MAGNESIUM CITRATE 300 ML BOTTLE PO PRN (07:37)
[2021-02-01] MEDS: PRENATAL VITAMINS W/ FOLIC ACID TABLET (FP) PO SCH (10:34)
[2021-02-01] MEDS: FAMOTIDINE 20 MG TABLET PO SCH (10:34)
[2021-02-01] MEDS: levETIRAcetam 500 MG TABLET (FP) PO SCH ×2 (10:34→21:56)
[2021-02-01] MEDS: ASPIRIN COATED 81 MG TABLET.EC PO SCH (10:34)
[2021-02-01] MEDS: AMMONIUM LACTATE 12% LOTION 225 GM BOTTLE TP SCH (10:35)
[2021-02-01] MEDS: LIDOCAINE 5% TOPICAL PATCH TP SCH (10:35)
[2021-02-01] MEDS: NICOTINE 10 MG CARTRIDGE (INHALER) IH SCH (10:35)
[2021-02-01] MEDS: guaiFENesin 600 MG TABLET.ER (FP) PO SCH ×2 (10:54→21:55)
[2021-02-01] MEDS: METHOCARBAMOL 500 MG TABLET PO PRN (14:50)
[2021-02-01] MEDS: QUEtiapine FUMARATE 300 MG TABLET PO SCH (21:55)
[2021-02-01] MEDS: hydrOXYzine PAMOATE 25 MG CAPSULE (FP) PO PRN (21:55)
[2021-02-01] MEDS: LIDOCAINE PATCH REMOVAL MC SCH (21:55)
[2021-02-01] MEDS: THIAMINE HCL 100 MG TABLET (FP) PO SCH (21:55)
[2021-02-01] MEDS: MELATONIN 5 MG TABLETS PO SCH (21:55)
[2021-02-01] MEDS: ATORVASTATIN CA 40 MG TABLET (FP) PO SCH (21:56)
[2021-02-01] MEDS: MIRTAZAPINE 15 MG TABLET (FP) PO SCH (21:56)
[2021-02-02] MEDS: AMOXICILLIN 500 MG CAPSULE (FP) PO SCH ×3 (06:20→21:10)
[2021-02-02] MEDS: GABAPENTIN 400 MG CAPSULE PO SCH ×3 (06:21→21:11)
[2021-02-02] MEDS ORDERED: PT OWN MED DRAWER 7, Y5N ONE (06:21)
[2021-02-02] MEDS: DOCUSATE SODIUM 100 MG CAPSULE (FP) PO SCH ×3 (06:21→21:10)
[2021-02-02] MEDS: EMTRICITAB/RILPIVIRINE/TENOFOV 1 EACH TABLET PO SCH (07:03)
[2021-02-02] MEDS: levETIRAcetam 500 MG TABLET (FP) PO SCH ×2 (10:32→21:10)
[2021-02-02] MEDS: PRENATAL VITAMINS W/ FOLIC ACID TABLET (FP) PO SCH (10:32)
[2021-02-02] MEDS: LIDOCAINE 5% TOPICAL PATCH TP SCH (10:33)
[2021-02-02] MEDS: guaiFENesin 600 MG TABLET.ER (FP) PO SCH ×2 (10:33→21:12)
[2021-02-02] MEDS: ASPIRIN COATED 81 MG TABLET.EC PO SCH (10:33)
[2021-02-02] MEDS: AMMONIUM LACTATE 12% LOTION 225 GM BOTTLE TP SCH (10:33)
[2021-02-02] MEDS: NICOTINE 10 MG CARTRIDGE (INHALER) IH SCH (10:35)
[2021-02-02] MEDS: FAMOTIDINE 20 MG TABLET PO SCH (10:35)
[2021-02-02] MEDS: hydrOXYzine PAMOATE 25 MG CAPSULE (FP) PO PRN (17:50)
[2021-02-02] MEDS: METHOCARBAMOL 500 MG TABLET PO PRN (17:50)
[2021-02-02] MEDS: MIRTAZAPINE 15 MG TABLET (FP) PO SCH (21:10)
[2021-02-02] MEDS: QUEtiapine FUMARATE 300 MG TABLET PO SCH (21:11)
[2021-02-02] MEDS: MELATONIN 5 MG TABLETS PO SCH (21:11)
[2021-02-02] MEDS: THIAMINE HCL 100 MG TABLET (FP) PO SCH (21:11)
[2021-02-02] MEDS: ATORVASTATIN CA 40 MG TABLET (FP) PO SCH (21:11)
[2021-02-02] MEDS: LIDOCAINE PATCH REMOVAL MC SCH (21:14)
[2021-02-03] MEDS: GABAPENTIN 400 MG CAPSULE PO SCH (06:53)
[2021-02-03] MEDS: DOCUSATE SODIUM 100 MG CAPSULE (FP) PO SCH (06:53)
[2021-02-03] MEDS: AMOXICILLIN 500 MG CAPSULE (FP) PO SCH (06:53)
[2021-02-03 07:28] VITALS: BP 113/81; PULSE 102; TEMP 96
[2021-02-03] MEDS: PRENATAL VITAMINS W/ FOLIC ACID TABLET (FP) PO SCH (09:04)
[2021-02-03] MEDS: FAMOTIDINE 20 MG TABLET PO SCH (09:07)
[2021-02-03] MEDS: ASPIRIN COATED 81 MG TABLET.EC PO SCH (09:07)
[2021-02-03] MEDS: guaiFENesin 600 MG TABLET.ER (FP) PO SCH (09:07)
[2021-02-03] MEDS: levETIRAcetam 500 MG TABLET (FP) PO SCH (09:07)
[2021-02-03] MEDS: LIDOCAINE 5% TOPICAL PATCH TP SCH (09:07)
[2021-02-03] MEDS: AMMONIUM LACTATE 12% LOTION 225 GM BOTTLE TP SCH (09:08)
[2021-02-03] MEDS: NICOTINE 10 MG CARTRIDGE (INHALER) IH SCH (09:08)
[2021-02-03] MEDS: EMTRICITAB/RILPIVIRINE/TENOFOV 1 EACH TABLET PO SCH (09:40)
== END 2021-02-03 10:04 | disposition home or self-care (01) | DRG 772 ==
LOC: YASAS 17:44 → Y5N 17:45
PROVIDERS: ADMIT Allergy & Immunology; ATTEND Allergy & Immunology
PROC: HZ42ZZZ Group Counseling for Substance Abuse Treatment, Cognitive-Behavioral (ICD-10-PCS; principal; 2021-01-23)
DX: F10.20 Alcohol dependence, uncomplicated (principal); F14.20 Cocaine dependence, uncomplicated; F17.210 Nicotine dependence, cigarettes, uncomplicated; F31.9 Bipolar disorder, unspecified; F19.282 Other psychoactive substance dependence with psychoactive substance-induced sleep disorder; F19.280 Other psychoactive substance dependence with psychoactive substance-induced anxiety disorder; Z21 Asymptomatic human immunodeficiency virus [HIV] infection status; G62.9 Polyneuropathy, unspecified; G40.909 Epilepsy, unspecified, not intractable, without status epilepticus; J20.9 Acute bronchitis, unspecified; J45.909 Unspecified asthma, uncomplicated; K21.9 Gastro-esophageal reflux disease without esophagitis; E78.5 Hyperlipidemia, unspecified; M16.9 Osteoarthritis of hip, unspecified; Z86.19 Personal history of other infectious and parasitic diseases; Z99.89 Dependence on other enabling machines and devices; Z88.2 Allergy status to sulfonamides
CPT/HCPCS: 81003

== ENCOUNTER 2021-06-23 10:31 | Inpatient (IN) | payer OTHER ==
[2021-06-23] MEDS ORDERED: IBUPROFEN 400 MG TABLET (FP) PO PRN (10:47)
[2021-06-23] MEDS ORDERED: MAGNESIUM HYDROX 2400MG/30ML ORAL SUSPENSION 30 ML CUP PO PRN (10:47)
[2021-06-23] MEDS ORDERED: MAGNESIUM CITRATE 300 ML BOTTLE PO PRN (10:47)
[2021-06-23] MEDS ORDERED: ONDANSETRON *ODT* 4 MG TABLET SL PRN (10:47)
[2021-06-23] MEDS ORDERED: MENTHOL/PHENOL 1 EACH UD MM PRN (10:47)
[2021-06-23] MEDS ORDERED: LOPERAMIDE HCL 2 MG CAPSULE PO PRN (10:47)
[2021-06-23] MEDS ORDERED: BISMUTH SUBSALICYLATE 262 MG/15 ML BTL PO PRN (10:47)
[2021-06-23] MEDS ORDERED: NICOTINE 10 MG CARTRIDGE (INHALER) IH PRN (10:47)
[2021-06-23] MEDS ORDERED: ACETAMINOPHEN 325 MG TABLET (FP) PO PRN ×2 (10:47)
[2021-06-23] MEDS ORDERED: MAG HYDROX/AL HYDROX/SIMETH 30 ML UNIT-DOSE CUP PO PRN (10:47)
[2021-06-23] MEDS ORDERED: ALBUTEROL SO4 HFA INHALER IH PRN (10:51)
[2021-06-23 11:23] VITALS: BMI 25.7
[2021-06-23] MEDS: chlordiazePOXIDE HCL 25 MG CAPSULE PO SCH ×3 (13:01→22:56)
[2021-06-23] MEDS: GABAPENTIN 400 MG CAPSULE PO SCH ×2 (13:01→22:57)
[2021-06-23] MEDS: PRENATAL VITAMINS W/ FOLIC ACID TABLET (FP) PO SCH (13:02)
[2021-06-23] MEDS: NICOTINE 7 MG/24 HOURS TOPICAL PATCH TD SCH (13:02)
[2021-06-23] MEDS: hydrOXYzine PAMOATE 25 MG CAPSULE (FP) PO SCH ×3 (13:02→22:59)
[2021-06-23 16:56] LABS: ALBUMIN 3.7 g/dl (3.4-5.0); BLOOD UREA NITROGEN 21.3 mg/dL (7-18); CALCIUM 8.9 mg/dL (8.5-10.1)
[2021-06-23 16:57] LABS: HEMATOCRIT 36.1 % (32.4-45.2); HEMOGLOBIN 12.3 GM/dL (10.7-15.3); MCH 33.7 pg (25.7-33.7); MCHC 34.2 g/dl (32.0-36.0); MEAN CELL VOLUME 98.4 fl (80-96); MEAN PLT VOLUME 6.7 fl (7.5-11.1); PLATELET COUNT 325 10^3/uL (134-434); RBC 3.66 M/mm3 (3.60-5.2); RDW 13.8 % (11.6-15.6); WHITE BLOOD COUNT 6.1 K/mm3 (4.0-10.0)
[2021-06-23 17:00] LABS: CREATININE 0.9 mg/dL (0.55-1.3)
[2021-06-23 17:01] LABS: BILIRUBIN,TOTAL 0.3 mg/dL (0.2-1)
[2021-06-23] MEDS: chlordiazePOXIDE HCL 25 MG CAPSULE PO PRN (21:07)
[2021-06-23] MEDS ORDERED: QUEtiapine FUMARATE 300 MG TABLET PO SCH (22:00)
[2021-06-23] MEDS ORDERED: MELATONIN 5 MG TABLETS PO SCH (22:00)
[2021-06-23] MEDS: ATORVASTATIN CA 40 MG TABLET (FP) PO SCH (22:57)
[2021-06-23] MEDS: MIRTAZAPINE 15 MG TABLET (FP) PO SCH (22:57)
[2021-06-23] MEDS: levETIRAcetam 500 MG TABLET (FP) PO SCH (22:57)
[2021-06-23] MEDS: THIAMINE HCL 100 MG TABLET (FP) PO SCH (22:58)
[2021-06-24] MEDS: hydrOXYzine PAMOATE 25 MG CAPSULE (FP) PO SCH ×5 (05:41→22:24)
[2021-06-24] MEDS: GABAPENTIN 400 MG CAPSULE PO SCH ×3 (05:41→22:24)
[2021-06-24] MEDS: chlordiazePOXIDE HCL 25 MG CAPSULE PO SCH ×2 (05:43→10:20)
[2021-06-24] MEDS: EMTRICITAB/RILPIVIRINE/TENOFOV 1 EACH TABLET PO SCH (07:50)
[2021-06-24] MEDS ORDERED: FAMOTIDINE 20 MG TABLET PO SCH (10:00)
[2021-06-24] MEDS: levETIRAcetam 500 MG TABLET (FP) PO SCH ×2 (10:20→22:24)
[2021-06-24] MEDS: ASPIRIN COATED 81 MG TABLET.EC PO SCH (10:20)
[2021-06-24] MEDS: PRENATAL VITAMINS W/ FOLIC ACID TABLET (FP) PO SCH (10:21)
[2021-06-24] MEDS: NICOTINE 7 MG/24 HOURS TOPICAL PATCH TD SCH (10:21)
[2021-06-24] MEDS: FAMOTIDINE 20 MG TABLET PO SCH (13:21)
[2021-06-24] MEDS: chlordiazePOXIDE HCL 25 MG CAPSULE PO PRN (15:09)
[2021-06-24] MEDS: diazePAM 5 MG TABLET PO SCH ×2 (18:18→22:24)
[2021-06-24] MEDS: MIRTAZAPINE 15 MG TABLET (FP) PO SCH (22:24)
[2021-06-24] MEDS: QUEtiapine FUMARATE 200 MG TABLET PO SCH (22:24)
[2021-06-24] MEDS: THIAMINE HCL 100 MG TABLET (FP) PO SCH (22:24)
[2021-06-24] MEDS: ATORVASTATIN CA 40 MG TABLET (FP) PO SCH (22:24)
[2021-06-25] MEDS: diazePAM 5 MG TABLET PO PRN (04:39)
[2021-06-25] MEDS ORDERED: chlordiazePOXIDE HCL 25 MG CAPSULE PO SCH (05:00)
[2021-06-25] MEDS: hydrOXYzine PAMOATE 25 MG CAPSULE (FP) PO SCH ×3 (06:25→15:07)
[2021-06-25] MEDS: GABAPENTIN 400 MG CAPSULE PO SCH ×3 (06:25→22:35)
[2021-06-25] MEDS: EMTRICITAB/RILPIVIRINE/TENOFOV 1 EACH TABLET PO SCH (08:17)
[2021-06-25 10:07] LABS: SARS-CoV-2 NAA Not Detected (Not Detected)
[2021-06-25] MEDS: ASPIRIN COATED 81 MG TABLET.EC PO SCH (10:45)
[2021-06-25] MEDS: PRENATAL VITAMINS W/ FOLIC ACID TABLET (FP) PO SCH (10:45)
[2021-06-25] MEDS: levETIRAcetam 500 MG TABLET (FP) PO SCH ×2 (10:45→22:35)
[2021-06-25] MEDS: diazePAM 5 MG TABLET PO SCH ×4 (10:46→22:35)
[2021-06-25] MEDS: NICOTINE 7 MG/24 HOURS TOPICAL PATCH TD SCH (12:34)
[2021-06-25] MEDS: FAMOTIDINE 20 MG TABLET PO SCH (12:47)
[2021-06-25 14:47] LABS: EPI CELLS >36 /uL (0-25.1); HYALINE CASTS 0 /uL (0-3.1); URINE APPEARANCE CLEAR; URINE BACTERIA >9,000 /uL (0-1359); URINE BILIRUBIN NEGATIVE (NEGATIVE); URINE COLOR YELLOW; URINE GLUCOSE (UA) NEGATIVE (NEGATIVE); URINE KETONE NEGATIVE (NEGATIVE); URINE LEUK ESTERASE 1+ (NEGATIVE); URINE NITRITE NEGATIVE (NEGATIVE); URINE PROTEIN NEGATIVE (NEGATIVE); URINE RBC 1 /uL (0-23.9); URINE UROBILINOGEN 0.2 mg/dL (0.2-1.0); URINE WBC 79 /uL (0-25.8)
[2021-06-25] MEDS: METHOCARBAMOL 500 MG TABLET PO PRN (17:48)
[2021-06-25] MEDS: CIPROFLOXACIN 250 MG TABLET (RESTRICTED TO ID) PO SCH (22:34)
[2021-06-25] MEDS: MIRTAZAPINE 15 MG TABLET (FP) PO SCH (22:35)
[2021-06-25] MEDS: THIAMINE HCL 100 MG TABLET (FP) PO SCH (22:35)
[2021-06-25] MEDS: ATORVASTATIN CA 40 MG TABLET (FP) PO SCH (22:35)
[2021-06-25] MEDS: QUEtiapine FUMARATE 200 MG TABLET PO SCH (22:35)
[2021-06-26] MEDS ORDERED: chlordiazePOXIDE HCL 10 MG CAPSULE PO PRN
[2021-06-26] MEDS ORDERED: chlordiazePOXIDE HCL 10 MG CAPSULE PO SCH (05:00)
[2021-06-26] MEDS: diazePAM 5 MG TABLET PO PRN ×3 (06:19→22:57)
[2021-06-26] MEDS: GABAPENTIN 400 MG CAPSULE PO SCH ×3 (06:20→22:03)
[2021-06-26] MEDS: EMTRICITAB/RILPIVIRINE/TENOFOV 1 EACH TABLET PO SCH (07:47)
[2021-06-26] MEDS ORDERED: TRIMETHOBENZAMIDE HCL 200MG/2ML INJ IM PRN (10:04)
[2021-06-26] MEDS: ASPIRIN COATED 81 MG TABLET.EC PO SCH (11:03)
[2021-06-26] MEDS: levETIRAcetam 500 MG TABLET (FP) PO SCH ×2 (11:03→22:03)
[2021-06-26] MEDS: PRENATAL VITAMINS W/ FOLIC ACID TABLET (FP) PO SCH (11:03)
[2021-06-26] MEDS: CIPROFLOXACIN 250 MG TABLET (RESTRICTED TO ID) PO SCH ×2 (11:04→22:02)
[2021-06-26] MEDS: NICOTINE 7 MG/24 HOURS TOPICAL PATCH TD SCH (12:02)
[2021-06-26] MEDS: FAMOTIDINE 20 MG TABLET PO SCH (14:37)
[2021-06-26] MEDS: METHOCARBAMOL 500 MG TABLET PO PRN (18:28)
[2021-06-26] MEDS: THIAMINE HCL 100 MG TABLET (FP) PO SCH (22:03)
[2021-06-26] MEDS: MIRTAZAPINE 15 MG TABLET (FP) PO SCH (22:03)
[2021-06-26] MEDS: QUEtiapine FUMARATE 200 MG TABLET PO SCH (22:03)
[2021-06-26] MEDS: ATORVASTATIN CA 40 MG TABLET (FP) PO SCH (22:03)
[2021-06-27] MEDS ORDERED: chlordiazePOXIDE HCL 10 MG CAPSULE PO SCH (05:00)
[2021-06-27] MEDS ORDERED: diazePAM 5 MG TABLET PO SCH ×2 (06:00→10:00)
[2021-06-27] MEDS: GABAPENTIN 400 MG CAPSULE PO SCH (06:20)
[2021-06-27] MEDS: EMTRICITAB/RILPIVIRINE/TENOFOV 1 EACH TABLET PO SCH (07:25)
[2021-06-27] MEDS: PRENATAL VITAMINS W/ FOLIC ACID TABLET (FP) PO SCH (09:21)
[2021-06-27] MEDS: ASPIRIN COATED 81 MG TABLET.EC PO SCH (09:21)
[2021-06-27] MEDS: NICOTINE 7 MG/24 HOURS TOPICAL PATCH TD SCH (09:21)
[2021-06-27] MEDS: CIPROFLOXACIN 250 MG TABLET (RESTRICTED TO ID) PO SCH (09:21)
[2021-06-27] MEDS: levETIRAcetam 500 MG TABLET (FP) PO SCH (09:21)
[2021-06-27 09:38] VITALS: BP 105/75; PULSE 96; TEMP 96.8
[2021-06-28] MEDS ORDERED: chlordiazePOXIDE HCL 10 MG CAPSULE PO ONE (05:00)
[2021-06-28] MEDS ORDERED: diazePAM 5 MG TABLET PO SCH (10:00)
== END 2021-06-27 09:39 | disposition home or self-care (01) | DRG 774 ==
LOC: YASAS 10:31 → Y3N 11:26
PROVIDERS: ADMIT Allergy & Immunology; ATTEND Allergy & Immunology
PROC: HZ2ZZZZ Detoxification Services for Substance Abuse Treatment (ICD-10-PCS; principal; 2021-06-23)
DX: F10.230 Alcohol dependence with withdrawal, uncomplicated (principal); F14.20 Cocaine dependence, uncomplicated; F17.210 Nicotine dependence, cigarettes, uncomplicated; F31.9 Bipolar disorder, unspecified; Z21 Asymptomatic human immunodeficiency virus [HIV] infection status; G40.909 Epilepsy, unspecified, not intractable, without status epilepticus; G47.00 Insomnia, unspecified; E78.5 Hyperlipidemia, unspecified; I10 Essential (primary) hypertension; J42 Unspecified chronic bronchitis; K21.9 Gastro-esophageal reflux disease without esophagitis; Z88.2 Allergy status to sulfonamides
CPT/HCPCS: 36415; 80053; 81003; 85027; 86780; C9803; U0003; U0005

== ENCOUNTER 2021-10-05 10:19 | Inpatient (IN) | payer OTHER ==
[2021-10-05 11:09] VITALS: BMI 25.0
[2021-10-05] MEDS ORDERED: BISMUTH SUBSALICYLATE 262 MG/15 ML BTL PO PRN (12:22)
[2021-10-05] MEDS ORDERED: LOPERAMIDE HCL 2 MG CAPSULE PO PRN (12:22)
[2021-10-05] MEDS ORDERED: diazePAM 5 MG TABLET PO PRN (12:22)
[2021-10-05] MEDS ORDERED: BENZOCAINE/MENTHOL (CHLORASEPTIC ) LOZENGE MM PRN (12:22)
[2021-10-05] MEDS ORDERED: DICYCLOMINE HCL 10 MG CAPSULE PO PRN (12:22)
[2021-10-05] MEDS ORDERED: IBUPROFEN 600 MG TABLET (FP) PO PRN (12:22)
[2021-10-05] MEDS ORDERED: ACETAMINOPHEN 325 MG TABLET (FP) PO PRN ×2 (12:22)
[2021-10-05] MEDS ORDERED: MAGNESIUM CITRATE 300 ML BOTTLE PO PRN (12:22)
[2021-10-05] MEDS ORDERED: NICOTINE 10 MG CARTRIDGE (INHALER) IH PRN (12:22)
[2021-10-05] MEDS ORDERED: MAG HYDROX/AL HYDROX/SIMETH 30 ML UNIT-DOSE CUP PO PRN (12:22)
[2021-10-05] MEDS ORDERED: IBUPROFEN 400 MG TABLET (FP) PO PRN (12:22)
[2021-10-05] MEDS ORDERED: MAGNESIUM HYDROX 2400MG/30ML ORAL SUSPENSION 30 ML CUP PO PRN (12:22)
[2021-10-05] MEDS ORDERED: ONDANSETRON *ODT* 4 MG TABLET SL PRN (12:22)
[2021-10-05] MEDS ORDERED: ALBUTEROL SO4 HFA INHALER IH PRN (12:26)
[2021-10-05] MEDS ORDERED: FAMOTIDINE 20 MG TABLET PO SCH (12:30)
[2021-10-05] MEDS: hydrOXYzine PAMOATE 25 MG CAPSULE (FP) PO SCH ×3 (14:30→22:17)
[2021-10-05] MEDS: NICOTINE 7 MG/24 HOURS TOPICAL PATCH TD SCH (14:30)
[2021-10-05] MEDS: levETIRAcetam 500 MG TABLET (FP) PO SCH ×2 (14:30→22:16)
[2021-10-05] MEDS ORDERED: guaiFENesin 200 MG/10 ML 10 ML UNIT-DOSE CUPS PO ONE (15:00)
[2021-10-05] MEDS: EMTRICITAB/RILPIVIRINE/TENOFOV 1 EACH TABLET PO SCH (15:44)
[2021-10-05] MEDS: diazePAM 5 MG TABLET PO SCH ×2 (17:41→22:17)
[2021-10-05] MEDS ORDERED: PATIENT'S OWN MEDICATION (NON-FORMULARY) (Mirtazapine [Mirtazapine] 7.5 MG Tablet) PO SCH (22:00)
[2021-10-05] MEDS: MELATONIN 5 MG TABLETS PO SCH (22:16)
[2021-10-05] MEDS: QUEtiapine FUMARATE 300 MG TABLET PO SCH (22:16)
[2021-10-05] MEDS: THIAMINE HCL 100 MG TABLET (FP) PO SCH (22:16)
[2021-10-05] MEDS: ATORVASTATIN CA 40 MG TABLET (FP) PO SCH (22:16)
[2021-10-05] MEDS: MIRTAZAPINE 15 MG TABLET (FP) PO SCH (22:16)
[2021-10-06] MEDS: hydrOXYzine PAMOATE 25 MG CAPSULE (FP) PO SCH ×5 (06:01→22:12)
[2021-10-06] MEDS: diazePAM 5 MG TABLET PO SCH ×4 (06:02→22:12)
[2021-10-06] MEDS: EMTRICITAB/RILPIVIRINE/TENOFOV 1 EACH TABLET PO SCH (09:15)
[2021-10-06] MEDS: NICOTINE 7 MG/24 HOURS TOPICAL PATCH TD SCH (10:05)
[2021-10-06] MEDS: PRENATAL VITAMINS W/ FOLIC ACID TABLET (FP) PO SCH (10:05)
[2021-10-06] MEDS: levETIRAcetam 500 MG TABLET (FP) PO SCH ×2 (10:05→22:11)
[2021-10-06 10:54] LABS: HEMATOCRIT 38.9 % (32.4-45.2); HEMOGLOBIN 13.1 GM/dL (10.7-15.3); MCH 32.5 pg (25.7-33.7); MCHC 33.6 g/dl (32.0-36.0); MEAN CELL VOLUME 96.9 fl (80-96); MEAN PLT VOLUME 7.8 fl (7.5-11.1); PLATELET COUNT 307 10^3/uL (134-434); RBC 4.02 M/mm3 (3.60-5.2); RDW 13.6 % (11.6-15.6); WHITE BLOOD COUNT 5.9 K/mm3 (4.0-10.0)
[2021-10-06 11:08] LABS: ALBUMIN 3.8 g/dl (3.4-5.0)
[2021-10-06 11:09] LABS: BLOOD UREA NITROGEN 18.5 mg/dL (7-18)
[2021-10-06 11:11] LABS: CREATININE 0.8 mg/dL (0.55-1.3)
[2021-10-06 11:13] LABS: BILIRUBIN,TOTAL 0.2 mg/dL (0.2-1); TOT PROT 7.8 g/dl (6.4-8.2)
[2021-10-06] MEDS: FAMOTIDINE 20 MG TABLET PO SCH (12:27)
[2021-10-06] MEDS ORDERED: GABAPENTIN 300 MG CAPSULE PO SCH (22:00)
[2021-10-06] MEDS: MIRTAZAPINE 15 MG TABLET (FP) PO SCH (22:11)
[2021-10-06] MEDS: THIAMINE HCL 100 MG TABLET (FP) PO SCH (22:11)
[2021-10-06] MEDS: QUEtiapine FUMARATE 300 MG TABLET PO SCH (22:11)
[2021-10-06] MEDS: MELATONIN 5 MG TABLETS PO SCH (22:11)
[2021-10-06] MEDS: ATORVASTATIN CA 40 MG TABLET (FP) PO SCH (22:12)
[2021-10-07] MEDS: hydrOXYzine PAMOATE 25 MG CAPSULE (FP) PO SCH ×5 (07:16→22:18)
[2021-10-07] MEDS: diazePAM 5 MG TABLET PO SCH ×3 (07:16→22:18)
[2021-10-07] MEDS: EMTRICITAB/RILPIVIRINE/TENOFOV 1 EACH TABLET PO SCH (07:19)
[2021-10-07] MEDS: PRENATAL VITAMINS W/ FOLIC ACID TABLET (FP) PO SCH (10:22)
[2021-10-07] MEDS: levETIRAcetam 500 MG TABLET (FP) PO SCH ×2 (10:22→22:18)
[2021-10-07] MEDS: NICOTINE 7 MG/24 HOURS TOPICAL PATCH TD SCH (10:23)
[2021-10-07] MEDS: FAMOTIDINE 20 MG TABLET PO SCH (13:24)
[2021-10-07] MEDS: MIRTAZAPINE 15 MG TABLET (FP) PO SCH (22:18)
[2021-10-07] MEDS: ATORVASTATIN CA 40 MG TABLET (FP) PO SCH (22:18)
[2021-10-07] MEDS: QUEtiapine FUMARATE 300 MG TABLET PO SCH (22:18)
[2021-10-07] MEDS: THIAMINE HCL 100 MG TABLET (FP) PO SCH (22:18)
[2021-10-07] MEDS: MELATONIN 5 MG TABLETS PO SCH (22:18)
[2021-10-08] MEDS: diazePAM 5 MG TABLET PO SCH ×2 (06:46→17:32)
[2021-10-08] MEDS: hydrOXYzine PAMOATE 25 MG CAPSULE (FP) PO SCH ×5 (06:48→22:05)
[2021-10-08] MEDS: EMTRICITAB/RILPIVIRINE/TENOFOV 1 EACH TABLET PO SCH (07:40)
[2021-10-08] MEDS: levETIRAcetam 500 MG TABLET (FP) PO SCH ×2 (10:13→22:05)
[2021-10-08] MEDS: PRENATAL VITAMINS W/ FOLIC ACID TABLET (FP) PO SCH (10:13)
[2021-10-08] MEDS: NICOTINE 7 MG/24 HOURS TOPICAL PATCH TD SCH (10:13)
[2021-10-08] MEDS: FAMOTIDINE 20 MG TABLET PO SCH (12:42)
[2021-10-08] MEDS: GABAPENTIN 300 MG CAPSULE PO SCH ×2 (13:45→22:05)
[2021-10-08] MEDS: METHOCARBAMOL 500 MG TABLET PO PRN (17:34)
[2021-10-08] MEDS: THIAMINE HCL 100 MG TABLET (FP) PO SCH (22:05)
[2021-10-08] MEDS: MIRTAZAPINE 15 MG TABLET (FP) PO SCH (22:05)
[2021-10-08] MEDS: QUEtiapine FUMARATE 300 MG TABLET PO SCH (22:05)
[2021-10-08] MEDS: ATORVASTATIN CA 40 MG TABLET (FP) PO SCH (22:05)
[2021-10-09] MEDS ORDERED: diazePAM 5 MG TABLET PO ONE (06:00)
[2021-10-09] MEDS: GABAPENTIN 300 MG CAPSULE PO SCH ×2 (06:19→13:10)
[2021-10-09] MEDS: hydrOXYzine PAMOATE 25 MG CAPSULE (FP) PO SCH ×3 (06:19→13:10)
[2021-10-09] MEDS: EMTRICITAB/RILPIVIRINE/TENOFOV 1 EACH TABLET PO SCH (07:05)
[2021-10-09] MEDS: METHOCARBAMOL 500 MG TABLET PO PRN (10:14)
[2021-10-09] MEDS: PRENATAL VITAMINS W/ FOLIC ACID TABLET (FP) PO SCH (10:14)
[2021-10-09] MEDS: levETIRAcetam 500 MG TABLET (FP) PO SCH (10:14)
[2021-10-09] MEDS: NICOTINE 7 MG/24 HOURS TOPICAL PATCH TD SCH (10:15)
[2021-10-09] MEDS: FAMOTIDINE 20 MG TABLET PO SCH (11:03)
[2021-10-09 13:15] VITALS: BP 125/70; PULSE 99; TEMP 97.6
[2021-10-09] MEDS ORDERED: QUEtiapine FUMARATE 300 MG TABLET PO SCH (22:00)
[2021-10-09] MEDS ORDERED: GABAPENTIN 300 MG CAPSULE PO SCH (22:00)
[2021-10-09] MEDS ORDERED: MIRTAZAPINE 15 MG TABLET (FP) PO SCH (22:00)
== END 2021-10-09 14:11 | disposition other institution (70) | DRG 773 ==
LOC: YASAS 10:19 → Y3N 13:30
PROVIDERS: ADMIT Allergy & Immunology; ATTEND Family Medicine Addiction Medicine
PROC: HZ2ZZZZ Detoxification Services for Substance Abuse Treatment (ICD-10-PCS; principal; 2021-10-05)
DX: F10.230 Alcohol dependence with withdrawal, uncomplicated (principal); F11.20 Opioid dependence, uncomplicated; F14.10 Cocaine abuse, uncomplicated; F16.20 Hallucinogen dependence, uncomplicated; F17.210 Nicotine dependence, cigarettes, uncomplicated; F31.9 Bipolar disorder, unspecified; F19.282 Other psychoactive substance dependence with psychoactive substance-induced sleep disorder; F19.280 Other psychoactive substance dependence with psychoactive substance-induced anxiety disorder; F19.24 Other psychoactive substance dependence with psychoactive substance-induced mood disorder; Z21 Asymptomatic human immunodeficiency virus [HIV] infection status; G40.909 Epilepsy, unspecified, not intractable, without status epilepticus; I10 Essential (primary) hypertension; J44.9 Chronic obstructive pulmonary disease, unspecified; K21.9 Gastro-esophageal reflux disease without esophagitis; Z99.89 Dependence on other enabling machines and devices; Z88.2 Allergy status to sulfonamides; Z59.01 Sheltered homelessness
CPT/HCPCS: 36415; 80053; 85027; 86780; C9803-CS; U0003; U0005

== ENCOUNTER 2022-04-06 13:16 | Inpatient (IN) | payer OTHER ==
[2022-04-06 14:41] VITALS: BMI 25.7
[2022-04-06] MEDS ORDERED: MAGNESIUM HYDROX 2400MG/30ML ORAL SUSPENSION 30 ML CUP PO PRN (15:01)
[2022-04-06] MEDS ORDERED: POLYETHYLENE GLYCOL (HEALTHYLAX) 3350 17 GM PACKET PO PRN (15:01)
[2022-04-06] MEDS ORDERED: IBUPROFEN 600 MG TABLET (FP) PO PRN (15:01)
[2022-04-06] MEDS ORDERED: LOPERAMIDE HCL 2 MG CAPSULE PO PRN (15:01)
[2022-04-06] MEDS ORDERED: BENZOCAINE/MENTHOL (CHLORASEPTIC ) LOZENGE MM PRN (15:01)
[2022-04-06] MEDS ORDERED: BISMUTH SUBSALICYLATE 524 MG/30 ML PO PRN (15:01)
[2022-04-06] MEDS ORDERED: ACETAMINOPHEN 325 MG TABLET (FP) PO PRN ×2 (15:01)
[2022-04-06] MEDS ORDERED: DICYCLOMINE HCL 10 MG CAPSULE PO PRN (15:01)
[2022-04-06] MEDS ORDERED: ONDANSETRON *ODT* 4 MG TABLET SL PRN (15:01)
[2022-04-06] MEDS ORDERED: NALOXONE HCL (KLOXXADO) 8 MG SPRAY NS PRN (15:01)
[2022-04-06] MEDS ORDERED: IBUPROFEN 400 MG TABLET (FP) PO PRN (15:01)
[2022-04-06] MEDS ORDERED: NICOTINE 10 MG CARTRIDGE (INHALER) IH PRN (15:01)
[2022-04-06] MEDS: PRENATAL VITAMINS W/ FOLIC ACID TABLET (FP) PO SCH (17:04)
[2022-04-06] MEDS: NICOTINE 7 MG/24 HOURS TOPICAL PATCH TD SCH (17:05)
[2022-04-06] MEDS: diazePAM 5 MG TABLET PO SCH ×2 (17:05→22:14)
[2022-04-06] MEDS: METHOCARBAMOL 500 MG TABLET PO PRN (17:11)
[2022-04-06] MEDS: hydrOXYzine PAMOATE 25 MG CAPSULE (FP) PO PRN (17:11)
[2022-04-06] MEDS ORDERED: MELATONIN 5 MG TABLETS PO SCH (22:00)
[2022-04-06] MEDS ORDERED: QUEtiapine FUMARATE 300 MG TABLET PO ONE (22:00)
[2022-04-06] MEDS ORDERED: MIRTAZAPINE 15 MG TABLET (FP) PO ONE (22:00)
[2022-04-06] MEDS: ATORVASTATIN CA 40 MG TABLET (FP) PO SCH (22:16)
[2022-04-06] MEDS: THIAMINE HCL 100 MG TABLET (FP) PO SCH (22:29)
[2022-04-06] MEDS: OXcarbazepine 300 MG TABLET (UD) PO SCH (22:44)
[2022-04-07] MEDS: diazePAM 5 MG TABLET PO SCH ×4 (05:32→22:40)
[2022-04-07] MEDS: levETIRAcetam 500 MG TABLET (FP) PO SCH (10:08)
[2022-04-07] MEDS: OXcarbazepine 300 MG TABLET (UD) PO SCH ×2 (10:08→22:40)
[2022-04-07] MEDS: ASPIRIN COATED 81 MG TABLET.EC PO SCH (10:08)
[2022-04-07] MEDS: BICTEGRAV/EMTRICIT/TENOFOV (BIKTARVY) 50-200-25 MG TABLET PO SCH (10:08)
[2022-04-07] MEDS: PRENATAL VITAMINS W/ FOLIC ACID TABLET (FP) PO SCH (10:10)
[2022-04-07] MEDS: NICOTINE 7 MG/24 HOURS TOPICAL PATCH TD SCH (10:10)
[2022-04-07] MEDS ORDERED: ALBUTEROL SO4 HFA INHALER IH PRN (11:43)
[2022-04-07 15:08] LABS: HEMATOCRIT 37.7 % (32.4-45.2); HEMOGLOBIN 12.4 GM/dL (10.7-15.3); MCH 31.7 pg (25.7-33.7); MCHC 32.9 g/dl (32.0-36.0); MEAN CELL VOLUME 96.3 fl (80-96); MEAN PLT VOLUME 7.4 fl (7.5-11.1); PLATELET COUNT 296 10^3/uL (134-434); RBC 3.91 M/mm3 (3.60-5.2); RDW 14.2 % (11.6-15.6); WHITE BLOOD COUNT 5.7 K/mm3 (4.0-10.0)
[2022-04-07 15:11] LABS: ALBUMIN 3.1 g/dl (3.4-5.0); BLOOD UREA NITROGEN 15.5 mg/dL (7-18)
[2022-04-07 15:14] LABS: CREATININE 0.8 mg/dL (0.55-1.3)
[2022-04-07 15:16] LABS: BILIRUBIN,TOTAL 0.5 mg/dL (0.2-1); TOT PROT 6.5 g/dl (6.4-8.2)
[2022-04-07] MEDS: METHOCARBAMOL 500 MG TABLET PO PRN (17:37)
[2022-04-07] MEDS: ATORVASTATIN CA 40 MG TABLET (FP) PO SCH (22:42)
[2022-04-07] MEDS: MIRTAZAPINE 15 MG TABLET (FP) PO SCH (22:42)
[2022-04-07] MEDS: QUEtiapine FUMARATE 300 MG TABLET PO SCH (22:44)
[2022-04-07] MEDS: THIAMINE HCL 100 MG TABLET (FP) PO SCH (22:50)
[2022-04-08] MEDS: diazePAM 5 MG TABLET PO SCH ×3 (08:26→22:31)
[2022-04-08] MEDS: ASPIRIN COATED 81 MG TABLET.EC PO SCH (10:52)
[2022-04-08] MEDS: OXcarbazepine 300 MG TABLET (UD) PO SCH ×2 (10:52→22:27)
[2022-04-08] MEDS: NICOTINE 7 MG/24 HOURS TOPICAL PATCH TD SCH (10:52)
[2022-04-08] MEDS: PRENATAL VITAMINS W/ FOLIC ACID TABLET (FP) PO SCH (10:52)
[2022-04-08] MEDS: levETIRAcetam 500 MG TABLET (FP) PO SCH (10:53)
[2022-04-08] MEDS: BICTEGRAV/EMTRICIT/TENOFOV (BIKTARVY) 50-200-25 MG TABLET PO SCH (10:53)
[2022-04-08] MEDS: diazePAM 5 MG TABLET PO PRN (18:06)
[2022-04-08] MEDS: THIAMINE HCL 100 MG TABLET (FP) PO SCH (22:25)
[2022-04-08] MEDS: MIRTAZAPINE 15 MG TABLET (FP) PO SCH (22:26)
[2022-04-08] MEDS: QUEtiapine FUMARATE 300 MG TABLET PO SCH (22:26)
[2022-04-08] MEDS: ATORVASTATIN CA 40 MG TABLET (FP) PO SCH (22:26)
[2022-04-09] MEDS: diazePAM 5 MG TABLET PO PRN ×2 (01:37→10:50)
[2022-04-09] MEDS: MAG HYDROX/AL HYDROX/SIMETH 30 ML UNIT-DOSE CUP PO PRN (01:39)
[2022-04-09] MEDS: diazePAM 5 MG TABLET PO SCH ×2 (06:48→18:06)
[2022-04-09] MEDS: levETIRAcetam 500 MG TABLET (FP) PO SCH (10:47)
[2022-04-09] MEDS: BICTEGRAV/EMTRICIT/TENOFOV (BIKTARVY) 50-200-25 MG TABLET PO SCH (10:47)
[2022-04-09] MEDS: ASPIRIN COATED 81 MG TABLET.EC PO SCH (10:47)
[2022-04-09] MEDS: OXcarbazepine 300 MG TABLET (UD) PO SCH ×2 (10:48→22:01)
[2022-04-09] MEDS: PRENATAL VITAMINS W/ FOLIC ACID TABLET (FP) PO SCH (10:48)
[2022-04-09] MEDS: NICOTINE 7 MG/24 HOURS TOPICAL PATCH TD SCH (11:04)
[2022-04-09] MEDS ORDERED: diazePAM 5 MG TABLET PO SCH (18:15)
[2022-04-09] MEDS: MIRTAZAPINE 15 MG TABLET (FP) PO SCH (22:01)
[2022-04-09] MEDS: ATORVASTATIN CA 40 MG TABLET (FP) PO SCH (22:01)
[2022-04-09] MEDS: QUEtiapine FUMARATE 300 MG TABLET PO SCH (22:02)
[2022-04-09] MEDS: THIAMINE HCL 100 MG TABLET (FP) PO SCH (22:03)
[2022-04-10] MEDS: MAG HYDROX/AL HYDROX/SIMETH 30 ML UNIT-DOSE CUP PO PRN (02:10)
[2022-04-10] MEDS ORDERED: diazePAM 5 MG TABLET PO ONE (06:00)
[2022-04-10 06:11] VITALS: RESP 18
[2022-04-10] MEDS: OXcarbazepine 300 MG TABLET (UD) PO SCH (11:02)
[2022-04-10] MEDS: PRENATAL VITAMINS W/ FOLIC ACID TABLET (FP) PO SCH (11:02)
[2022-04-10] MEDS: NICOTINE 7 MG/24 HOURS TOPICAL PATCH TD SCH (11:03)
[2022-04-10] MEDS: ASPIRIN COATED 81 MG TABLET.EC PO SCH (11:03)
[2022-04-10] MEDS: BICTEGRAV/EMTRICIT/TENOFOV (BIKTARVY) 50-200-25 MG TABLET PO SCH (11:03)
[2022-04-10] MEDS: levETIRAcetam 500 MG TABLET (FP) PO SCH (11:03)
[2022-04-10] MEDS: hydrOXYzine PAMOATE 25 MG CAPSULE (FP) PO PRN (11:06)
[2022-04-10 11:50] VITALS: BP 109/71; PULSE 91; TEMP 97.3
== END 2022-04-10 13:08 | disposition other institution (70) | DRG 774 ==
LOC: YASAS 13:16 → Y3N 15:45
PROVIDERS: ADMIT Allergy & Immunology; ATTEND Surgery
PROC: HZ2ZZZZ Detoxification Services for Substance Abuse Treatment (ICD-10-PCS; principal; 2022-04-06)
DX: F10.230 Alcohol dependence with withdrawal, uncomplicated (principal); F14.20 Cocaine dependence, uncomplicated; F17.210 Nicotine dependence, cigarettes, uncomplicated; F19.282 Other psychoactive substance dependence with psychoactive substance-induced sleep disorder; F31.9 Bipolar disorder, unspecified; Z21 Asymptomatic human immunodeficiency virus [HIV] infection status; E78.5 Hyperlipidemia, unspecified; J44.9 Chronic obstructive pulmonary disease, unspecified; K21.9 Gastro-esophageal reflux disease without esophagitis; Z86.69 Personal history of other diseases of the nervous system and sense organs; Z88.2 Allergy status to sulfonamides
CPT/HCPCS: 36415; 80053; 85027; 86780; 87811; C9803-CS; U0003; U0005

== ENCOUNTER 2022-04-10 13:12 | Inpatient (IN) | payer OTHER ==
[2022-04-10] MEDS ORDERED: LOPERAMIDE HCL 2 MG CAPSULE PO PRN (13:47)
[2022-04-10] MEDS ORDERED: NICOTINE 7 MG/24 HOURS TOPICAL PATCH TD PRN (13:47)
[2022-04-10] MEDS ORDERED: POLYETHYLENE GLYCOL (HEALTHYLAX) 3350 17 GM PACKET PO PRN (13:47)
[2022-04-10] MEDS ORDERED: P-EPHED 60MG/TRIPROLIDI 2.5MG TABLET PO PRN (13:47)
[2022-04-10] MEDS ORDERED: guaiFENesin 200 MG/10 ML 10 ML UNIT-DOSE CUPS PO PRN (13:47)
[2022-04-10] MEDS ORDERED: NICOTINE POLACRILEX 4 MG GUM BUC PRN (13:47)
[2022-04-10] MEDS ORDERED: BENZOCAINE/MENTHOL (CHLORASEPTIC ) LOZENGE MM PRN (13:47)
[2022-04-10] MEDS ORDERED: NICOTINE 10 MG CARTRIDGE (INHALER) IH PRN (13:47)
[2022-04-10] MEDS ORDERED: ACETAMINOPHEN 325 MG TABLET (FP) PO PRN (13:47)
[2022-04-10] MEDS ORDERED: ALBUTEROL SO4 HFA INHALER IH PRN (13:51)
[2022-04-10] MEDS: MAG HYDROX/AL HYDROX/SIMETH 30 ML UNIT-DOSE CUP PO PRN ×2 (17:00→22:02)
[2022-04-10] MEDS: MELATONIN 5 MG TABLETS PO SCH (21:55)
[2022-04-10] MEDS: THIAMINE HCL 100 MG TABLET (FP) PO SCH (21:55)
[2022-04-10] MEDS: hydrOXYzine PAMOATE 25 MG CAPSULE (FP) PO PRN (21:56)
[2022-04-10] MEDS: ATORVASTATIN CA 40 MG TABLET (FP) PO SCH (21:56)
[2022-04-10] MEDS: IBUPROFEN 400 MG TABLET (FP) PO PRN (22:00)
[2022-04-11] MEDS: PRENATAL VITAMINS W/ FOLIC ACID TABLET (FP) PO SCH (10:25)
[2022-04-11] MEDS: BICTEGRAV/EMTRICIT/TENOFOV (BIKTARVY) 50-200-25 MG TABLET PO SCH (10:25)
[2022-04-11] MEDS: levETIRAcetam 500 MG TABLET (FP) PO SCH (10:25)
[2022-04-11] MEDS: ASPIRIN COATED 81 MG TABLET.EC PO SCH (10:25)
[2022-04-11] MEDS: hydrOXYzine PAMOATE 25 MG CAPSULE (FP) PO PRN (10:27)
[2022-04-11] MEDS: OXcarbazepine 300 MG TABLET (UD) PO SCH ×2 (13:10→22:29)
[2022-04-11] MEDS: MAG HYDROX/AL HYDROX/SIMETH 30 ML UNIT-DOSE CUP PO PRN (17:28)
[2022-04-11] MEDS ORDERED: ATORVASTATIN CA 20 MG TABLET (FP) ONE (19:31)
[2022-04-11] MEDS: QUEtiapine FUMARATE 300 MG TABLET PO SCH (22:28)
[2022-04-11] MEDS: MELATONIN 5 MG TABLETS PO SCH (22:28)
[2022-04-11] MEDS: THIAMINE HCL 100 MG TABLET (FP) PO SCH (22:28)
[2022-04-11] MEDS: MIRTAZAPINE 15 MG TABLET (FP) PO SCH (22:29)
[2022-04-11] MEDS: ATORVASTATIN CA 40 MG TABLET (FP) PO SCH (22:29)
[2022-04-12] MEDS: PRENATAL VITAMINS W/ FOLIC ACID TABLET (FP) PO SCH (10:47)
[2022-04-12] MEDS: hydrOXYzine PAMOATE 50 MG CAPSULE (FP) PO PRN ×2 (10:48→21:30)
[2022-04-12] MEDS: ASPIRIN COATED 81 MG TABLET.EC PO SCH (10:48)
[2022-04-12] MEDS: BICTEGRAV/EMTRICIT/TENOFOV (BIKTARVY) 50-200-25 MG TABLET PO SCH (10:48)
[2022-04-12] MEDS: OXcarbazepine 300 MG TABLET (UD) PO SCH ×2 (10:48→21:29)
[2022-04-12] MEDS: levETIRAcetam 500 MG TABLET (FP) PO SCH (10:48)
[2022-04-12] MEDS: MIRTAZAPINE 15 MG TABLET (FP) PO SCH (21:28)
[2022-04-12] MEDS: ATORVASTATIN CA 40 MG TABLET (FP) PO SCH (21:28)
[2022-04-12] MEDS: QUEtiapine FUMARATE 300 MG TABLET PO SCH (21:28)
[2022-04-12] MEDS: MELATONIN 5 MG TABLETS PO SCH (21:28)
[2022-04-12] MEDS: THIAMINE HCL 100 MG TABLET (FP) PO SCH (21:29)
[2022-04-13] MEDS: levETIRAcetam 500 MG TABLET (FP) PO SCH (10:47)
[2022-04-13] MEDS: ASPIRIN COATED 81 MG TABLET.EC PO SCH (10:47)
[2022-04-13] MEDS: BICTEGRAV/EMTRICIT/TENOFOV (BIKTARVY) 50-200-25 MG TABLET PO SCH (10:47)
[2022-04-13] MEDS: PRENATAL VITAMINS W/ FOLIC ACID TABLET (FP) PO SCH (10:47)
[2022-04-13] MEDS: OXcarbazepine 300 MG TABLET (UD) PO SCH ×2 (10:48→21:21)
[2022-04-13] MEDS: QUEtiapine FUMARATE 300 MG TABLET PO SCH (21:20)
[2022-04-13] MEDS: THIAMINE HCL 100 MG TABLET (FP) PO SCH (21:21)
[2022-04-13] MEDS: ATORVASTATIN CA 40 MG TABLET (FP) PO SCH (21:21)
[2022-04-13] MEDS: MELATONIN 5 MG TABLETS PO SCH (21:21)
[2022-04-13] MEDS: MIRTAZAPINE 15 MG TABLET (FP) PO SCH (21:21)
[2022-04-14] MEDS: PRENATAL VITAMINS W/ FOLIC ACID TABLET (FP) PO SCH (10:26)
[2022-04-14] MEDS: BICTEGRAV/EMTRICIT/TENOFOV (BIKTARVY) 50-200-25 MG TABLET PO SCH (10:27)
[2022-04-14] MEDS: levETIRAcetam 500 MG TABLET (FP) PO SCH (10:27)
[2022-04-14] MEDS: hydrOXYzine PAMOATE 50 MG CAPSULE (FP) PO PRN ×3 (10:27→21:29)
[2022-04-14] MEDS: ASPIRIN COATED 81 MG TABLET.EC PO SCH (10:27)
[2022-04-14] MEDS: OXcarbazepine 300 MG TABLET (UD) PO SCH ×2 (10:29→21:24)
[2022-04-14] MEDS: MAG HYDROX/AL HYDROX/SIMETH 30 ML UNIT-DOSE CUP PO PRN (14:10)
[2022-04-14] MEDS: MIRTAZAPINE 15 MG TABLET (FP) PO SCH (21:24)
[2022-04-14] MEDS: ATORVASTATIN CA 40 MG TABLET (FP) PO SCH (21:24)
[2022-04-14] MEDS: THIAMINE HCL 100 MG TABLET (FP) PO SCH (21:25)
[2022-04-14] MEDS: QUEtiapine FUMARATE 300 MG TABLET PO SCH (21:25)
[2022-04-14] MEDS: MELATONIN 5 MG TABLETS PO SCH (21:25)
[2022-04-15] MEDS: OXcarbazepine 300 MG TABLET (UD) PO SCH ×2 (10:35→21:40)
[2022-04-15] MEDS: BICTEGRAV/EMTRICIT/TENOFOV (BIKTARVY) 50-200-25 MG TABLET PO SCH (10:35)
[2022-04-15] MEDS: hydrOXYzine PAMOATE 50 MG CAPSULE (FP) PO PRN (10:35)
[2022-04-15] MEDS: ASPIRIN COATED 81 MG TABLET.EC PO SCH (10:35)
[2022-04-15] MEDS: PRENATAL VITAMINS W/ FOLIC ACID TABLET (FP) PO SCH (10:35)
[2022-04-15] MEDS: levETIRAcetam 500 MG TABLET (FP) PO SCH (10:35)
[2022-04-15] MEDS: GABAPENTIN 100 MG CAPSULE PO SCH ×2 (15:33→21:38)
[2022-04-15] MEDS: THIAMINE HCL 100 MG TABLET (FP) PO SCH (21:38)
[2022-04-15] MEDS: ATORVASTATIN CA 40 MG TABLET (FP) PO SCH (21:38)
[2022-04-15] MEDS: QUEtiapine FUMARATE 300 MG TABLET PO SCH (21:39)
[2022-04-15] MEDS: MIRTAZAPINE 15 MG TABLET (FP) PO SCH (21:40)
[2022-04-15] MEDS: MELATONIN 5 MG TABLETS PO SCH (21:40)
[2022-04-16] MEDS: GABAPENTIN 100 MG CAPSULE PO SCH ×3 (06:37→21:37)
[2022-04-16] MEDS: levETIRAcetam 500 MG TABLET (FP) PO SCH (10:23)
[2022-04-16] MEDS: hydrOXYzine PAMOATE 50 MG CAPSULE (FP) PO PRN ×2 (10:23→21:39)
[2022-04-16] MEDS: ASPIRIN COATED 81 MG TABLET.EC PO SCH (10:23)
[2022-04-16] MEDS: OXcarbazepine 300 MG TABLET (UD) PO SCH ×2 (10:23→21:36)
[2022-04-16] MEDS: BICTEGRAV/EMTRICIT/TENOFOV (BIKTARVY) 50-200-25 MG TABLET PO SCH (10:23)
[2022-04-16] MEDS: PRENATAL VITAMINS W/ FOLIC ACID TABLET (FP) PO SCH (10:23)
[2022-04-16] MEDS: MELATONIN 5 MG TABLETS PO SCH (21:36)
[2022-04-16] MEDS: ATORVASTATIN CA 40 MG TABLET (FP) PO SCH (21:37)
[2022-04-16] MEDS: THIAMINE HCL 100 MG TABLET (FP) PO SCH (21:37)
[2022-04-16] MEDS: MIRTAZAPINE 15 MG TABLET (FP) PO SCH (21:37)
[2022-04-16] MEDS: QUEtiapine FUMARATE 300 MG TABLET PO SCH (21:37)
[2022-04-17] MEDS: GABAPENTIN 100 MG CAPSULE PO SCH ×3 (07:01→22:22)
[2022-04-17] MEDS: PRENATAL VITAMINS W/ FOLIC ACID TABLET (FP) PO SCH (10:24)
[2022-04-17] MEDS: levETIRAcetam 500 MG TABLET (FP) PO SCH (10:25)
[2022-04-17] MEDS: ASPIRIN COATED 81 MG TABLET.EC PO SCH (10:25)
[2022-04-17] MEDS: BICTEGRAV/EMTRICIT/TENOFOV (BIKTARVY) 50-200-25 MG TABLET PO SCH (10:25)
[2022-04-17] MEDS: OXcarbazepine 300 MG TABLET (UD) PO SCH ×2 (10:27→22:27)
[2022-04-17] MEDS: hydrOXYzine PAMOATE 50 MG CAPSULE (FP) PO PRN ×3 (10:28→22:23)
[2022-04-17 10:34] VITALS: RESP 18
[2022-04-17] MEDS: ATORVASTATIN CA 40 MG TABLET (FP) PO SCH (22:22)
[2022-04-17] MEDS: MELATONIN 5 MG TABLETS PO SCH (22:22)
[2022-04-17] MEDS: MIRTAZAPINE 15 MG TABLET (FP) PO SCH (22:23)
[2022-04-17] MEDS: THIAMINE HCL 100 MG TABLET (FP) PO SCH (22:23)
[2022-04-17] MEDS: QUEtiapine FUMARATE 300 MG TABLET PO SCH (22:23)
[2022-04-18] MEDS: GABAPENTIN 100 MG CAPSULE PO SCH ×3 (06:45→21:28)
[2022-04-18] MEDS: MAGNESIUM HYDROX 2400MG/30ML ORAL SUSPENSION 30 ML CUP PO PRN (06:47)
[2022-04-18] MEDS: BICTEGRAV/EMTRICIT/TENOFOV (BIKTARVY) 50-200-25 MG TABLET PO SCH (10:54)
[2022-04-18] MEDS: PRENATAL VITAMINS W/ FOLIC ACID TABLET (FP) PO SCH (10:54)
[2022-04-18] MEDS: levETIRAcetam 500 MG TABLET (FP) PO SCH (10:54)
[2022-04-18] MEDS: ASPIRIN COATED 81 MG TABLET.EC PO SCH (10:54)
[2022-04-18] MEDS: OXcarbazepine 300 MG TABLET (UD) PO SCH ×2 (10:56→21:28)
[2022-04-18] MEDS: hydrOXYzine PAMOATE 50 MG CAPSULE (FP) PO PRN ×2 (18:15→21:29)
[2022-04-18] MEDS: IBUPROFEN 400 MG TABLET (FP) PO PRN (18:15)
[2022-04-18] MEDS ORDERED: QUEtiapine FUMARATE 100 MG TABLET (FP) ONE (19:57)
[2022-04-18] MEDS: QUEtiapine FUMARATE 300 MG TABLET PO SCH (21:28)
[2022-04-18] MEDS: MIRTAZAPINE 15 MG TABLET (FP) PO SCH (21:28)
[2022-04-18] MEDS: ATORVASTATIN CA 40 MG TABLET (FP) PO SCH (21:28)
[2022-04-18] MEDS: THIAMINE HCL 100 MG TABLET (FP) PO SCH (21:28)
[2022-04-18] MEDS: MELATONIN 5 MG TABLETS PO SCH (21:29)
[2022-04-19] MEDS: GABAPENTIN 100 MG CAPSULE PO SCH ×3 (06:36→21:35)
[2022-04-19] MEDS: BICTEGRAV/EMTRICIT/TENOFOV (BIKTARVY) 50-200-25 MG TABLET PO SCH (10:06)
[2022-04-19] MEDS: PRENATAL VITAMINS W/ FOLIC ACID TABLET (FP) PO SCH (10:06)
[2022-04-19] MEDS: OXcarbazepine 300 MG TABLET (UD) PO SCH ×2 (10:06→21:35)
[2022-04-19] MEDS: hydrOXYzine PAMOATE 50 MG CAPSULE (FP) PO PRN ×3 (10:07→21:41)
[2022-04-19] MEDS: ASPIRIN COATED 81 MG TABLET.EC PO SCH (10:07)
[2022-04-19] MEDS: levETIRAcetam 500 MG TABLET (FP) PO SCH (10:07)
[2022-04-19] MEDS: AMMONIUM LACTATE 12% LOTION 225 GM BOTTLE TP SCH (11:04)
[2022-04-19] MEDS ORDERED: SODIUM CHLORIDE NASAL SPRAY 44 ML BOTTLE NS PRN (11:56)
[2022-04-19] MEDS: SODIUM CHLORIDE NASAL SPRAY 44 ML BOTTLE NS SCH ×2 (14:58→21:36)
[2022-04-19] MEDS: ARTIFICIAL TEARS (POLYVINYL ALCOHOL) OPTH DROPS OU SCH ×2 (14:59→21:36)
[2022-04-19] MEDS: ATORVASTATIN CA 40 MG TABLET (FP) PO SCH (21:35)
[2022-04-19] MEDS: QUEtiapine FUMARATE 300 MG TABLET PO SCH (21:35)
[2022-04-19] MEDS: THIAMINE HCL 100 MG TABLET (FP) PO SCH (21:36)
[2022-04-19] MEDS: MIRTAZAPINE 15 MG TABLET (FP) PO SCH (21:36)
[2022-04-19] MEDS: MELATONIN 5 MG TABLETS PO SCH (21:36)
[2022-04-20] MEDS: GABAPENTIN 100 MG CAPSULE PO SCH ×3 (06:25→21:47)
[2022-04-20] MEDS: SODIUM CHLORIDE NASAL SPRAY 44 ML BOTTLE NS SCH ×3 (06:25→21:48)
[2022-04-20] MEDS: ARTIFICIAL TEARS (POLYVINYL ALCOHOL) OPTH DROPS OU SCH ×3 (06:26→21:46)
[2022-04-20] MEDS: MAGNESIUM HYDROX 2400MG/30ML ORAL SUSPENSION 30 ML CUP PO PRN (08:01)
[2022-04-20] MEDS: ASPIRIN COATED 81 MG TABLET.EC PO SCH (10:33)
[2022-04-20] MEDS: BICTEGRAV/EMTRICIT/TENOFOV (BIKTARVY) 50-200-25 MG TABLET PO SCH (10:33)
[2022-04-20] MEDS: levETIRAcetam 500 MG TABLET (FP) PO SCH (10:33)
[2022-04-20] MEDS: AMMONIUM LACTATE 12% LOTION 225 GM BOTTLE TP SCH (10:34)
[2022-04-20] MEDS: OXcarbazepine 300 MG TABLET (UD) PO SCH ×2 (10:35→21:48)
[2022-04-20] MEDS: PRENATAL VITAMINS W/ FOLIC ACID TABLET (FP) PO SCH (10:35)
[2022-04-20] MEDS: guaiFENesin 600 MG TABLET.ER (FP) PO SCH ×2 (12:27→21:48)
[2022-04-20] MEDS: MELATONIN 5 MG TABLETS PO SCH (21:45)
[2022-04-20] MEDS: MIRTAZAPINE 15 MG TABLET (FP) PO SCH (21:47)
[2022-04-20] MEDS: ATORVASTATIN CA 40 MG TABLET (FP) PO SCH (21:47)
[2022-04-20] MEDS: QUEtiapine FUMARATE 300 MG TABLET PO SCH (21:47)
[2022-04-20] MEDS: THIAMINE HCL 100 MG TABLET (FP) PO SCH (21:48)
[2022-04-21] MEDS: SODIUM CHLORIDE NASAL SPRAY 44 ML BOTTLE NS SCH ×3 (06:38→21:34)
[2022-04-21] MEDS: ARTIFICIAL TEARS (POLYVINYL ALCOHOL) OPTH DROPS OU SCH ×3 (06:38→21:32)
[2022-04-21] MEDS: GABAPENTIN 100 MG CAPSULE PO SCH ×3 (06:38→21:33)
[2022-04-21] MEDS: PRENATAL VITAMINS W/ FOLIC ACID TABLET (FP) PO SCH (10:57)
[2022-04-21] MEDS: OXcarbazepine 300 MG TABLET (UD) PO SCH ×2 (10:57→21:33)
[2022-04-21] MEDS: levETIRAcetam 500 MG TABLET (FP) PO SCH (10:57)
[2022-04-21] MEDS: ASPIRIN COATED 81 MG TABLET.EC PO SCH (10:58)
[2022-04-21] MEDS: guaiFENesin 600 MG TABLET.ER (FP) PO SCH ×2 (10:58→21:34)
[2022-04-21] MEDS: BICTEGRAV/EMTRICIT/TENOFOV (BIKTARVY) 50-200-25 MG TABLET PO SCH (10:58)
[2022-04-21] MEDS: AMMONIUM LACTATE 12% LOTION 225 GM BOTTLE TP SCH (10:59)
[2022-04-21] MEDS: THIAMINE HCL 100 MG TABLET (FP) PO SCH (21:33)
[2022-04-21] MEDS: QUEtiapine FUMARATE 300 MG TABLET PO SCH (21:33)
[2022-04-21] MEDS: MIRTAZAPINE 15 MG TABLET (FP) PO SCH (21:34)
[2022-04-21] MEDS: ATORVASTATIN CA 40 MG TABLET (FP) PO SCH (21:34)
[2022-04-21] MEDS: MELATONIN 5 MG TABLETS PO SCH (21:34)
[2022-04-22] MEDS: GABAPENTIN 100 MG CAPSULE PO SCH ×3 (06:43→21:21)
[2022-04-22] MEDS: SODIUM CHLORIDE NASAL SPRAY 44 ML BOTTLE NS SCH ×3 (06:44→21:29)
[2022-04-22] MEDS: ARTIFICIAL TEARS (POLYVINYL ALCOHOL) OPTH DROPS OU SCH ×3 (06:44→21:22)
[2022-04-22] MEDS: PRENATAL VITAMINS W/ FOLIC ACID TABLET (FP) PO SCH (10:32)
[2022-04-22] MEDS: BICTEGRAV/EMTRICIT/TENOFOV (BIKTARVY) 50-200-25 MG TABLET PO SCH (10:33)
[2022-04-22] MEDS: levETIRAcetam 500 MG TABLET (FP) PO SCH ×2 (10:33→21:28)
[2022-04-22] MEDS: hydrOXYzine PAMOATE 50 MG CAPSULE (FP) PO PRN (10:33)
[2022-04-22] MEDS: ASPIRIN COATED 81 MG TABLET.EC PO SCH (10:33)
[2022-04-22] MEDS: OXcarbazepine 300 MG TABLET (UD) PO SCH ×2 (10:33→21:21)
[2022-04-22] MEDS: AMMONIUM LACTATE 12% LOTION 225 GM BOTTLE TP SCH (10:35)
[2022-04-22] MEDS: MAGNESIUM HYDROX 2400MG/30ML ORAL SUSPENSION 30 ML CUP PO PRN (10:37)
[2022-04-22] MEDS: guaiFENesin 600 MG TABLET.ER (FP) PO SCH ×2 (11:30→21:21)
[2022-04-22] MEDS: ATORVASTATIN CA 40 MG TABLET (FP) PO SCH (21:21)
[2022-04-22] MEDS: MIRTAZAPINE 15 MG TABLET (FP) PO SCH (21:21)
[2022-04-22] MEDS: QUEtiapine FUMARATE 300 MG TABLET PO SCH (21:21)
[2022-04-22] MEDS: THIAMINE HCL 100 MG TABLET (FP) PO SCH (21:23)
[2022-04-22] MEDS: MELATONIN 5 MG TABLETS PO SCH (21:29)
[2022-04-23] MEDS: ARTIFICIAL TEARS (POLYVINYL ALCOHOL) OPTH DROPS OU SCH (06:32)
[2022-04-23] MEDS: SODIUM CHLORIDE NASAL SPRAY 44 ML BOTTLE NS SCH (06:32)
[2022-04-23] MEDS: GABAPENTIN 100 MG CAPSULE PO SCH (06:32)
[2022-04-23 08:03] VITALS: BP 102/66; PULSE 95; TEMP 96.9
[2022-04-23] MEDS: PRENATAL VITAMINS W/ FOLIC ACID TABLET (FP) PO SCH (09:06)
[2022-04-23] MEDS: ASPIRIN COATED 81 MG TABLET.EC PO SCH (09:09)
[2022-04-23] MEDS: BICTEGRAV/EMTRICIT/TENOFOV (BIKTARVY) 50-200-25 MG TABLET PO SCH (09:09)
[2022-04-23] MEDS: levETIRAcetam 500 MG TABLET (FP) PO SCH (09:09)
[2022-04-23] MEDS: OXcarbazepine 300 MG TABLET (UD) PO SCH (09:10)
[2022-04-23] MEDS: guaiFENesin 600 MG TABLET.ER (FP) PO SCH (09:10)
[2022-04-23] MEDS: AMMONIUM LACTATE 12% LOTION 225 GM BOTTLE TP SCH (09:12)
== END 2022-04-23 10:00 | disposition home or self-care (01) | DRG 772 ==
LOC: YASAS 13:12 → Y5N 13:13
PROVIDERS: ADMIT Allergy & Immunology; ATTEND Psychiatry & Neurology Pain Medicine
PROC: HZ42ZZZ Group Counseling for Substance Abuse Treatment, Cognitive-Behavioral (ICD-10-PCS; principal; 2022-04-10)
DX: F10.20 Alcohol dependence, uncomplicated (principal); F14.20 Cocaine dependence, uncomplicated; F17.210 Nicotine dependence, cigarettes, uncomplicated; F19.280 Other psychoactive substance dependence with psychoactive substance-induced anxiety disorder; F19.282 Other psychoactive substance dependence with psychoactive substance-induced sleep disorder; F31.9 Bipolar disorder, unspecified; Z21 Asymptomatic human immunodeficiency virus [HIV] infection status; G62.9 Polyneuropathy, unspecified; G47.00 Insomnia, unspecified; E78.5 Hyperlipidemia, unspecified; K21.9 Gastro-esophageal reflux disease without esophagitis; J44.9 Chronic obstructive pulmonary disease, unspecified; G40.909 Epilepsy, unspecified, not intractable, without status epilepticus; J06.9 Acute upper respiratory infection, unspecified; Z99.89 Dependence on other enabling machines and devices; Z88.2 Allergy status to sulfonamides

== ENCOUNTER 2022-07-19 12:12 | Inpatient (IN) | payer OTHER ==
[2022-07-19 12:34] VITALS: BMI 24.0
[2022-07-19] MEDS ORDERED: BISMUTH SUBSALICYLATE 524 MG/30 ML PO PRN (12:47)
[2022-07-19] MEDS ORDERED: LOPERAMIDE HCL 2 MG CAPSULE PO PRN (12:47)
[2022-07-19] MEDS ORDERED: NICOTINE POLACRILEX 2 MG GUM BUC PRN (12:47)
[2022-07-19] MEDS ORDERED: DICYCLOMINE HCL 10 MG CAPSULE PO PRN (12:47)
[2022-07-19] MEDS ORDERED: guaiFENesin 600 MG TABLET.ER (FP) PO PRN (12:47)
[2022-07-19] MEDS ORDERED: BENZOCAINE/MENTHOL (CHLORASEPTIC ) LOZENGE MM PRN (12:47)
[2022-07-19] MEDS ORDERED: NICOTINE 7 MG/24 HOURS TOPICAL PATCH TD PRN (12:47)
[2022-07-19] MEDS ORDERED: IBUPROFEN 400 MG TABLET (FP) PO PRN (12:47)
[2022-07-19] MEDS ORDERED: IBUPROFEN 600 MG TABLET (FP) PO PRN (12:47)
[2022-07-19] MEDS ORDERED: ONDANSETRON *ODT* 4 MG TABLET SL PRN (12:47)
[2022-07-19] MEDS ORDERED: MAGNESIUM HYDROX 2400MG/30ML ORAL SUSPENSION 30 ML CUP PO PRN (12:47)
[2022-07-19] MEDS ORDERED: ACETAMINOPHEN 325 MG TABLET (FP) PO PRN (12:47)
[2022-07-19] MEDS ORDERED: NICOTINE 10 MG CARTRIDGE (INHALER) IH PRN (12:47)
[2022-07-19] MEDS ORDERED: BENZONATATE 200 MG CAPSULE PO PRN (12:47)
[2022-07-19] MEDS ORDERED: POLYETHYLENE GLYCOL (HEALTHYLAX) 3350 17 GM PACKET PO PRN (12:47)
[2022-07-19] MEDS ORDERED: MAG HYDROX/AL HYDROX/SIMETH 30 ML UNIT-DOSE CUP PO PRN (12:47)
[2022-07-19] MEDS ORDERED: ALBUTEROL SO4 HFA INHALER IH PRN (12:52)
[2022-07-19] MEDS ORDERED: OXcarbazepine 300 MG TABLET (UD) PO ONE ×2 (14:00→17:00)
[2022-07-19] MEDS ORDERED: levETIRAcetam 500 MG TABLET (FP) PO ONE ×2 (14:00→17:00)
[2022-07-19] MEDS: diazePAM 5 MG TABLET PO PRN (15:03)
[2022-07-19] MEDS: diazePAM 5 MG TABLET PO SCH ×2 (17:50→22:10)
[2022-07-19 18:34] LABS: HEMATOCRIT 40.6 % (32.4-45.2); HEMOGLOBIN 14.1 GM/dL (10.7-15.3); MCH 32.5 pg (25.7-33.7); MCHC 34.8 g/dl (32.0-36.0); MEAN CELL VOLUME 93.6 fl (80-96); MEAN PLT VOLUME 7.5 fl (7.5-11.1); PLATELET COUNT 296 10^3/uL (134-434); RBC 4.33 M/mm3 (3.60-5.2); RDW 13.7 % (11.6-15.6); WHITE BLOOD COUNT 6.4 K/mm3 (4.0-10.0)
[2022-07-19 18:42] LABS: ALBUMIN 3.6 g/dl (3.4-5.0); BLOOD UREA NITROGEN 15.7 mg/dL (7-18); CALCIUM 9.2 mg/dL (8.5-10.1)
[2022-07-19 18:44] LABS: CREATININE 0.7 mg/dL (0.55-1.3)
[2022-07-19 18:46] LABS: BILIRUBIN,TOTAL 0.2 mg/dL (0.2-1); TOT PROT 7.6 g/dl (6.4-8.2)
[2022-07-19] MEDS: THIAMINE HCL 100 MG TABLET (FP) PO SCH (22:08)
[2022-07-19] MEDS: MELATONIN 5 MG TABLETS PO SCH (22:08)
[2022-07-19] MEDS: levETIRAcetam 500 MG TABLET (FP) PO SCH (22:08)
[2022-07-19] MEDS: OXcarbazepine 300 MG TABLET (UD) PO SCH (22:08)
[2022-07-19] MEDS: METHOCARBAMOL 500 MG TABLET PO PRN (22:09)
[2022-07-20] MEDS: diazePAM 5 MG TABLET PO SCH ×4 (05:26→22:24)
[2022-07-20] MEDS: PRENATAL VITAMINS W/ FOLIC ACID TABLET (FP) PO SCH (10:25)
[2022-07-20] MEDS: OXcarbazepine 300 MG TABLET (UD) PO SCH ×2 (10:26→22:23)
[2022-07-20] MEDS: levETIRAcetam 500 MG TABLET (FP) PO SCH ×2 (10:26→22:24)
[2022-07-20] MEDS ORDERED: NAPHAZOLINE/PHENIRAMINE OPHTHALMIC 15 ML BOTTLE OU PRN (11:00)
[2022-07-20] MEDS: BICTEGRAV/EMTRICIT/TENOFOV (BIKTARVY) 50-200-25 MG TABLET PO SCH (11:08)
[2022-07-20] MEDS: AMMONIUM LACTATE 12% LOTION 225 GM BOTTLE TP SCH ×2 (11:22→22:26)
[2022-07-20] MEDS: diazePAM 5 MG TABLET PO PRN (19:09)
[2022-07-20] MEDS ORDERED: GABAPENTIN 400 MG CAPSULE PO SCH (22:00)
[2022-07-20] MEDS: MELATONIN 5 MG TABLETS PO SCH (22:23)
[2022-07-20] MEDS: THIAMINE HCL 100 MG TABLET (FP) PO SCH (22:23)
[2022-07-20] MEDS: MIRTAZAPINE 15 MG TABLET (FP) PO SCH (22:23)
[2022-07-20] MEDS: QUEtiapine FUMARATE 200 MG TABLET PO SCH (22:24)
[2022-07-20] MEDS: ATORVASTATIN CA 40 MG TABLET (FP) PO SCH (22:24)
[2022-07-21] MEDS: diazePAM 5 MG TABLET PO SCH ×3 (05:25→22:17)
[2022-07-21] MEDS: BICTEGRAV/EMTRICIT/TENOFOV (BIKTARVY) 50-200-25 MG TABLET PO SCH (07:24)
[2022-07-21] MEDS: AMMONIUM LACTATE 12% LOTION 225 GM BOTTLE TP SCH ×2 (10:31→22:29)
[2022-07-21] MEDS: PRENATAL VITAMINS W/ FOLIC ACID TABLET (FP) PO SCH (10:31)
[2022-07-21] MEDS: levETIRAcetam 500 MG TABLET (FP) PO SCH ×2 (10:32→22:17)
[2022-07-21] MEDS: OXcarbazepine 300 MG TABLET (UD) PO SCH ×2 (10:33→22:17)
[2022-07-21] MEDS: diazePAM 5 MG TABLET PO PRN (10:34)
[2022-07-21] MEDS: METHOCARBAMOL 500 MG TABLET PO PRN ×2 (13:33→22:19)
[2022-07-21] MEDS: ASPIRIN COATED 81 MG TABLET.EC PO SCH (13:33)
[2022-07-21] MEDS: QUEtiapine FUMARATE 200 MG TABLET PO SCH (22:16)
[2022-07-21] MEDS: MIRTAZAPINE 15 MG TABLET (FP) PO SCH (22:16)
[2022-07-21] MEDS: ATORVASTATIN CA 40 MG TABLET (FP) PO SCH (22:16)
[2022-07-21] MEDS: MELATONIN 5 MG TABLETS PO SCH (22:17)
[2022-07-21] MEDS: THIAMINE HCL 100 MG TABLET (FP) PO SCH (22:17)
[2022-07-22] MEDS: hydrOXYzine PAMOATE 25 MG CAPSULE (FP) PO PRN ×2 (01:04→10:28)
[2022-07-22] MEDS: diazePAM 5 MG TABLET PO SCH ×2 (05:57→17:55)
[2022-07-22] MEDS: METHOCARBAMOL 500 MG TABLET PO PRN ×2 (06:11→22:20)
[2022-07-22] MEDS: BICTEGRAV/EMTRICIT/TENOFOV (BIKTARVY) 50-200-25 MG TABLET PO SCH (07:14)
[2022-07-22] MEDS: ASPIRIN COATED 81 MG TABLET.EC PO SCH (10:27)
[2022-07-22] MEDS: PRENATAL VITAMINS W/ FOLIC ACID TABLET (FP) PO SCH (10:27)
[2022-07-22] MEDS: levETIRAcetam 500 MG TABLET (FP) PO SCH ×2 (10:28→22:20)
[2022-07-22] MEDS: OXcarbazepine 300 MG TABLET (UD) PO SCH ×2 (10:28→22:20)
[2022-07-22] MEDS: AMMONIUM LACTATE 12% LOTION 225 GM BOTTLE TP SCH ×2 (10:29→22:21)
[2022-07-22] MEDS ORDERED: QUEtiapine FUMARATE 400 MG TABLET PO SCH (22:00)
[2022-07-22] MEDS: THIAMINE HCL 100 MG TABLET (FP) PO SCH (22:20)
[2022-07-22] MEDS: MELATONIN 5 MG TABLETS PO SCH (22:20)
[2022-07-22] MEDS: ATORVASTATIN CA 40 MG TABLET (FP) PO SCH (22:20)
[2022-07-22] MEDS: MIRTAZAPINE 15 MG TABLET (FP) PO SCH (22:20)
[2022-07-23] MEDS ORDERED: diazePAM 5 MG TABLET PO ONE (06:00)
[2022-07-23] MEDS: BICTEGRAV/EMTRICIT/TENOFOV (BIKTARVY) 50-200-25 MG TABLET PO SCH (07:30)
[2022-07-23 09:46] VITALS: RESP 18
[2022-07-23] MEDS: ASPIRIN COATED 81 MG TABLET.EC PO SCH (10:37)
[2022-07-23] MEDS: levETIRAcetam 500 MG TABLET (FP) PO SCH (10:37)
[2022-07-23] MEDS: PRENATAL VITAMINS W/ FOLIC ACID TABLET (FP) PO SCH (10:37)
[2022-07-23] MEDS: OXcarbazepine 300 MG TABLET (UD) PO SCH (10:37)
[2022-07-23] MEDS: AMMONIUM LACTATE 12% LOTION 225 GM BOTTLE TP SCH (10:38)
[2022-07-23] MEDS: METHOCARBAMOL 500 MG TABLET PO PRN (10:40)
[2022-07-23] MEDS: hydrOXYzine PAMOATE 25 MG CAPSULE (FP) PO PRN (10:40)
[2022-07-23 13:40] VITALS: BP 110/74; PULSE 76; TEMP 97.7
== END 2022-07-23 13:43 | disposition other institution (70) | DRG 774 ==
LOC: YASAS 12:12 → Y3N 14:10
PROVIDERS: ADMIT Allergy & Immunology; ATTEND Surgery
PROC: HZ2ZZZZ Detoxification Services for Substance Abuse Treatment (ICD-10-PCS; principal; 2022-07-19)
DX: F10.230 Alcohol dependence with withdrawal, uncomplicated (principal); F14.20 Cocaine dependence, uncomplicated; F17.210 Nicotine dependence, cigarettes, uncomplicated; F25.1 Schizoaffective disorder, depressive type; Z21 Asymptomatic human immunodeficiency virus [HIV] infection status; G40.909 Epilepsy, unspecified, not intractable, without status epilepticus; G62.9 Polyneuropathy, unspecified; E78.00 Pure hypercholesterolemia, unspecified; I10 Essential (primary) hypertension; J43.9 Emphysema, unspecified; J45.20 Mild intermittent asthma, uncomplicated; K21.9 Gastro-esophageal reflux disease without esophagitis; Z88.2 Allergy status to sulfonamides
CPT/HCPCS: 36415; 80053; 85027; 86780; 87811; C9803-CS; U0003; U0005

== ENCOUNTER 2022-07-23 13:52 | Inpatient (IN) | payer OTHER ==
[2022-07-23] MEDS ORDERED: MAG HYDROX/AL HYDROX/SIMETH 30 ML UNIT-DOSE CUP PO PRN (16:17)
[2022-07-23] MEDS ORDERED: BENZOCAINE/MENTHOL (CHLORASEPTIC ) LOZENGE MM PRN (16:17)
[2022-07-23] MEDS ORDERED: IBUPROFEN 600 MG TABLET (FP) PO PRN (16:17)
[2022-07-23] MEDS ORDERED: guaiFENesin 600 MG TABLET.ER (FP) PO PRN (16:17)
[2022-07-23] MEDS ORDERED: LOPERAMIDE HCL 2 MG CAPSULE PO PRN (16:17)
[2022-07-23] MEDS ORDERED: MAGNESIUM HYDROX 2400MG/30ML ORAL SUSPENSION 30 ML CUP PO PRN (16:17)
[2022-07-23] MEDS ORDERED: NALOXONE HCL 0.4 MG/ML VIAL IVPUSH PRN (16:17)
[2022-07-23] MEDS ORDERED: NICOTINE 10 MG CARTRIDGE (INHALER) IH PRN (16:17)
[2022-07-23] MEDS ORDERED: ACETAMINOPHEN 325 MG TABLET (FP) PO PRN (16:17)
[2022-07-23] MEDS ORDERED: POLYETHYLENE GLYCOL (HEALTHYLAX) 3350 17 GM PACKET PO PRN (16:17)
[2022-07-23] MEDS ORDERED: NALOXONE HCL (KLOXXADO) 8 MG SPRAY NS PRN (16:17)
[2022-07-23] MEDS ORDERED: BENZONATATE 200 MG CAPSULE PO PRN (16:17)
[2022-07-23] MEDS ORDERED: IBUPROFEN 400 MG TABLET (FP) PO PRN (16:17)
[2022-07-23] MEDS ORDERED: ALBUTEROL SO4 HFA INHALER IH PRN (16:19)
[2022-07-23] MEDS: THIAMINE HCL 100 MG TABLET (FP) PO SCH (21:25)
[2022-07-23] MEDS: QUEtiapine FUMARATE 300 MG TABLET PO SCH (21:25)
[2022-07-23] MEDS: MIRTAZAPINE 15 MG TABLET (FP) PO SCH (21:25)
[2022-07-23] MEDS: levETIRAcetam 500 MG TABLET (FP) PO SCH (21:26)
[2022-07-23] MEDS: ATORVASTATIN CA 40 MG TABLET (FP) PO SCH (21:26)
[2022-07-23] MEDS: METHOCARBAMOL 500 MG TABLET PO PRN (21:30)
[2022-07-23] MEDS ORDERED: MELATONIN 5 MG TABLETS PO SCH (22:00)
[2022-07-23] MEDS: OXcarbazepine 300 MG TABLET (UD) PO SCH (22:22)
[2022-07-24] MEDS: levETIRAcetam 500 MG TABLET (FP) PO SCH ×2 (10:48→21:48)
[2022-07-24] MEDS: ASPIRIN COATED 81 MG TABLET.EC PO SCH (10:48)
[2022-07-24] MEDS: PRENATAL VITAMINS W/ FOLIC ACID TABLET (FP) PO SCH (10:48)
[2022-07-24] MEDS: BICTEGRAV/EMTRICIT/TENOFOV (BIKTARVY) 50-200-25 MG TABLET PO SCH (10:48)
[2022-07-24] MEDS: OXcarbazepine 300 MG TABLET (UD) PO SCH ×2 (10:49→21:48)
[2022-07-24] MEDS: THIAMINE HCL 100 MG TABLET (FP) PO SCH (21:49)
[2022-07-24] MEDS: MIRTAZAPINE 15 MG TABLET (FP) PO SCH (21:49)
[2022-07-24] MEDS: ATORVASTATIN CA 40 MG TABLET (FP) PO SCH (21:49)
[2022-07-24] MEDS: QUEtiapine FUMARATE 300 MG TABLET PO SCH (21:49)
[2022-07-25] MEDS: PRENATAL VITAMINS W/ FOLIC ACID TABLET (FP) PO SCH (09:55)
[2022-07-25] MEDS: levETIRAcetam 500 MG TABLET (FP) PO SCH ×2 (09:55→21:17)
[2022-07-25] MEDS: ASPIRIN COATED 81 MG TABLET.EC PO SCH (09:56)
[2022-07-25] MEDS: OXcarbazepine 300 MG TABLET (UD) PO SCH ×2 (09:56→21:16)
[2022-07-25] MEDS: BICTEGRAV/EMTRICIT/TENOFOV (BIKTARVY) 50-200-25 MG TABLET PO SCH (09:56)
[2022-07-25] MEDS: QUEtiapine FUMARATE 300 MG TABLET PO SCH (21:17)
[2022-07-25] MEDS: METHOCARBAMOL 500 MG TABLET PO PRN (21:17)
[2022-07-25] MEDS: ATORVASTATIN CA 40 MG TABLET (FP) PO SCH (21:17)
[2022-07-25] MEDS: THIAMINE HCL 100 MG TABLET (FP) PO SCH (21:17)
[2022-07-25] MEDS: MIRTAZAPINE 15 MG TABLET (FP) PO SCH (21:17)
[2022-07-26] MEDS: PRENATAL VITAMINS W/ FOLIC ACID TABLET (FP) PO SCH (10:14)
[2022-07-26] MEDS: BICTEGRAV/EMTRICIT/TENOFOV (BIKTARVY) 50-200-25 MG TABLET PO SCH (10:14)
[2022-07-26] MEDS: levETIRAcetam 500 MG TABLET (FP) PO SCH ×2 (10:14→21:33)
[2022-07-26] MEDS: ASPIRIN COATED 81 MG TABLET.EC PO SCH (10:14)
[2022-07-26] MEDS: OXcarbazepine 300 MG TABLET (UD) PO SCH ×2 (10:14→21:33)
[2022-07-26] MEDS: METHOCARBAMOL 500 MG TABLET PO PRN (21:32)
[2022-07-26] MEDS: MIRTAZAPINE 15 MG TABLET (FP) PO SCH (21:33)
[2022-07-26] MEDS: ATORVASTATIN CA 40 MG TABLET (FP) PO SCH (21:33)
[2022-07-26] MEDS: QUEtiapine FUMARATE 300 MG TABLET PO SCH (21:33)
[2022-07-26] MEDS: THIAMINE HCL 100 MG TABLET (FP) PO SCH (21:33)
[2022-07-26] MEDS: hydrOXYzine PAMOATE 25 MG CAPSULE (FP) PO PRN (21:34)
[2022-07-27] MEDS: levETIRAcetam 500 MG TABLET (FP) PO SCH ×2 (10:22→21:18)
[2022-07-27] MEDS: ASPIRIN COATED 81 MG TABLET.EC PO SCH (10:22)
[2022-07-27] MEDS: BICTEGRAV/EMTRICIT/TENOFOV (BIKTARVY) 50-200-25 MG TABLET PO SCH (10:22)
[2022-07-27] MEDS: PRENATAL VITAMINS W/ FOLIC ACID TABLET (FP) PO SCH (10:22)
[2022-07-27] MEDS: OXcarbazepine 300 MG TABLET (UD) PO SCH ×2 (10:23→21:19)
[2022-07-27] MEDS ORDERED: AMMONIUM LACTATE 12% LOTION 225 GM BOTTLE TP PRN (12:14)
[2022-07-27] MEDS: HYDROCORTISONE 1% TOPICAL CREAM 30 GM TUBE TP PRN (14:19)
[2022-07-27] MEDS: ARTIFICIAL TEARS (POLYVINYL ALCOHOL) OPTH DROPS OU SCH ×2 (15:28→21:22)
[2022-07-27] MEDS: METHOCARBAMOL 500 MG TABLET PO PRN (16:41)
[2022-07-27] MEDS: QUEtiapine FUMARATE 300 MG TABLET PO SCH (21:18)
[2022-07-27] MEDS: hydrOXYzine PAMOATE 25 MG CAPSULE (FP) PO PRN (21:18)
[2022-07-27] MEDS: ATORVASTATIN CA 40 MG TABLET (FP) PO SCH (21:18)
[2022-07-27] MEDS: MIRTAZAPINE 15 MG TABLET (FP) PO SCH (21:18)
[2022-07-27] MEDS: THIAMINE HCL 100 MG TABLET (FP) PO SCH (21:19)
[2022-07-28] MEDS: ARTIFICIAL TEARS (POLYVINYL ALCOHOL) OPTH DROPS OU SCH ×3 (06:35→21:44)
[2022-07-28] MEDS: PRENATAL VITAMINS W/ FOLIC ACID TABLET (FP) PO SCH (10:07)
[2022-07-28] MEDS: OXcarbazepine 300 MG TABLET (UD) PO SCH ×2 (10:07→21:43)
[2022-07-28] MEDS: levETIRAcetam 500 MG TABLET (FP) PO SCH ×2 (10:07→21:42)
[2022-07-28] MEDS: ASPIRIN COATED 81 MG TABLET.EC PO SCH (10:07)
[2022-07-28] MEDS: BICTEGRAV/EMTRICIT/TENOFOV (BIKTARVY) 50-200-25 MG TABLET PO SCH (10:07)
[2022-07-28] MEDS: hydrOXYzine PAMOATE 25 MG CAPSULE (FP) PO PRN (21:42)
[2022-07-28] MEDS: QUEtiapine FUMARATE 300 MG TABLET PO SCH (21:42)
[2022-07-28] MEDS: MIRTAZAPINE 15 MG TABLET (FP) PO SCH (21:42)
[2022-07-28] MEDS: METHOCARBAMOL 500 MG TABLET PO PRN (21:42)
[2022-07-28] MEDS: THIAMINE HCL 100 MG TABLET (FP) PO SCH (21:42)
[2022-07-28] MEDS: ATORVASTATIN CA 40 MG TABLET (FP) PO SCH (21:43)
[2022-07-29] MEDS: ARTIFICIAL TEARS (POLYVINYL ALCOHOL) OPTH DROPS OU SCH ×3 (06:45→21:20)
[2022-07-29] MEDS: ASPIRIN COATED 81 MG TABLET.EC PO SCH (09:59)
[2022-07-29] MEDS: PRENATAL VITAMINS W/ FOLIC ACID TABLET (FP) PO SCH (09:59)
[2022-07-29] MEDS: OXcarbazepine 300 MG TABLET (UD) PO SCH ×2 (09:59→21:21)
[2022-07-29] MEDS: levETIRAcetam 500 MG TABLET (FP) PO SCH ×2 (09:59→21:20)
[2022-07-29] MEDS: BICTEGRAV/EMTRICIT/TENOFOV (BIKTARVY) 50-200-25 MG TABLET PO SCH (09:59)
[2022-07-29] MEDS: THIAMINE HCL 100 MG TABLET (FP) PO SCH (21:20)
[2022-07-29] MEDS: QUEtiapine FUMARATE 300 MG TABLET PO SCH (21:20)
[2022-07-29] MEDS: ATORVASTATIN CA 40 MG TABLET (FP) PO SCH (21:20)
[2022-07-29] MEDS: MIRTAZAPINE 15 MG TABLET (FP) PO SCH (21:20)
[2022-07-29] MEDS: hydrOXYzine PAMOATE 25 MG CAPSULE (FP) PO PRN (21:21)
[2022-07-30] MEDS: ARTIFICIAL TEARS (POLYVINYL ALCOHOL) OPTH DROPS OU SCH ×3 (07:03→21:32)
[2022-07-30] MEDS: BICTEGRAV/EMTRICIT/TENOFOV (BIKTARVY) 50-200-25 MG TABLET PO SCH (10:12)
[2022-07-30] MEDS: levETIRAcetam 500 MG TABLET (FP) PO SCH ×2 (10:12→21:31)
[2022-07-30] MEDS: PRENATAL VITAMINS W/ FOLIC ACID TABLET (FP) PO SCH (10:12)
[2022-07-30] MEDS: ASPIRIN COATED 81 MG TABLET.EC PO SCH (10:12)
[2022-07-30] MEDS: OXcarbazepine 300 MG TABLET (UD) PO SCH ×2 (10:15→22:54)
[2022-07-30] MEDS: METHOCARBAMOL 500 MG TABLET PO PRN ×2 (10:15→21:30)
[2022-07-30] MEDS: MIRTAZAPINE 15 MG TABLET (FP) PO SCH (21:30)
[2022-07-30] MEDS: THIAMINE HCL 100 MG TABLET (FP) PO SCH (21:30)
[2022-07-30] MEDS: ATORVASTATIN CA 40 MG TABLET (FP) PO SCH (21:30)
[2022-07-30] MEDS: QUEtiapine FUMARATE 300 MG TABLET PO SCH (21:31)
[2022-07-31] MEDS: ARTIFICIAL TEARS (POLYVINYL ALCOHOL) OPTH DROPS OU SCH ×3 (07:36→22:00)
[2022-07-31] MEDS: OXcarbazepine 300 MG TABLET (UD) PO SCH ×2 (10:20→22:01)
[2022-07-31] MEDS: BICTEGRAV/EMTRICIT/TENOFOV (BIKTARVY) 50-200-25 MG TABLET PO SCH (10:20)
[2022-07-31] MEDS: PRENATAL VITAMINS W/ FOLIC ACID TABLET (FP) PO SCH (10:20)
[2022-07-31] MEDS: ASPIRIN COATED 81 MG TABLET.EC PO SCH (10:20)
[2022-07-31] MEDS: levETIRAcetam 500 MG TABLET (FP) PO SCH ×2 (10:20→22:00)
[2022-07-31] MEDS: METHOCARBAMOL 500 MG TABLET PO PRN ×2 (10:22→22:03)
[2022-07-31] MEDS: QUEtiapine FUMARATE 300 MG TABLET PO SCH (22:00)
[2022-07-31] MEDS: THIAMINE HCL 100 MG TABLET (FP) PO SCH (22:01)
[2022-07-31] MEDS: MIRTAZAPINE 15 MG TABLET (FP) PO SCH (22:01)
[2022-07-31] MEDS: ATORVASTATIN CA 40 MG TABLET (FP) PO SCH (22:01)
[2022-07-31] MEDS: HYDROCORTISONE 1% TOPICAL CREAM 30 GM TUBE TP PRN (22:02)
[2022-07-31] MEDS: hydrOXYzine PAMOATE 25 MG CAPSULE (FP) PO PRN (22:04)
[2022-08-01] MEDS: METHOCARBAMOL 500 MG TABLET PO PRN ×2 (06:45→21:35)
[2022-08-01] MEDS: ARTIFICIAL TEARS (POLYVINYL ALCOHOL) OPTH DROPS OU SCH (06:47)
[2022-08-01 07:09] VITALS: RESP 18
[2022-08-01] MEDS: OXcarbazepine 300 MG TABLET (UD) PO SCH ×2 (09:51→21:33)
[2022-08-01] MEDS: levETIRAcetam 500 MG TABLET (FP) PO SCH ×2 (09:51→21:33)
[2022-08-01] MEDS: BICTEGRAV/EMTRICIT/TENOFOV (BIKTARVY) 50-200-25 MG TABLET PO SCH (09:51)
[2022-08-01] MEDS: ASPIRIN COATED 81 MG TABLET.EC PO SCH (09:52)
[2022-08-01] MEDS: PRENATAL VITAMINS W/ FOLIC ACID TABLET (FP) PO SCH (09:52)
[2022-08-01] MEDS: MIRTAZAPINE 15 MG TABLET (FP) PO SCH (21:33)
[2022-08-01] MEDS: THIAMINE HCL 100 MG TABLET (FP) PO SCH (21:33)
[2022-08-01] MEDS: QUEtiapine FUMARATE 300 MG TABLET PO SCH (21:33)
[2022-08-01] MEDS: ATORVASTATIN CA 40 MG TABLET (FP) PO SCH (21:33)
[2022-08-01] MEDS: hydrOXYzine PAMOATE 25 MG CAPSULE (FP) PO PRN (21:34)
[2022-08-02 07:20] VITALS: PULSE 82; TEMP 97.3
[2022-08-02] MEDS: BICTEGRAV/EMTRICIT/TENOFOV (BIKTARVY) 50-200-25 MG TABLET PO SCH (09:39)
[2022-08-02] MEDS: levETIRAcetam 500 MG TABLET (FP) PO SCH ×2 (09:39→21:12)
[2022-08-02] MEDS: ASPIRIN COATED 81 MG TABLET.EC PO SCH (09:39)
[2022-08-02] MEDS: OXcarbazepine 300 MG TABLET (UD) PO SCH ×2 (09:40→21:19)
[2022-08-02] MEDS: PRENATAL VITAMINS W/ FOLIC ACID TABLET (FP) PO SCH (09:40)
[2022-08-02] MEDS: MIRTAZAPINE 15 MG TABLET (FP) PO SCH (21:12)
[2022-08-02] MEDS: QUEtiapine FUMARATE 300 MG TABLET PO SCH (21:12)
[2022-08-02] MEDS: THIAMINE HCL 100 MG TABLET (FP) PO SCH (21:12)
[2022-08-02] MEDS: hydrOXYzine PAMOATE 25 MG CAPSULE (FP) PO PRN (21:12)
[2022-08-02] MEDS: ATORVASTATIN CA 40 MG TABLET (FP) PO SCH (21:13)
[2022-08-02] MEDS: METHOCARBAMOL 500 MG TABLET PO PRN (21:17)
[2022-08-03 07:02] VITALS: BP 97/68
[2022-08-03] MEDS: ASPIRIN COATED 81 MG TABLET.EC PO SCH (09:12)
[2022-08-03] MEDS: BICTEGRAV/EMTRICIT/TENOFOV (BIKTARVY) 50-200-25 MG TABLET PO SCH (09:12)
[2022-08-03] MEDS: PRENATAL VITAMINS W/ FOLIC ACID TABLET (FP) PO SCH (09:13)
[2022-08-03] MEDS: levETIRAcetam 500 MG TABLET (FP) PO SCH (09:13)
[2022-08-03] MEDS: OXcarbazepine 300 MG TABLET (UD) PO SCH (09:13)
== END 2022-08-03 09:20 | disposition home or self-care (01) | DRG 772 ==
LOC: YASAS 13:52 → Y5N 13:53
PROVIDERS: ADMIT Allergy & Immunology; ATTEND Psychiatry & Neurology Pain Medicine
PROC: HZ42ZZZ Group Counseling for Substance Abuse Treatment, Cognitive-Behavioral (ICD-10-PCS; principal; 2022-07-23)
DX: F10.230 Alcohol dependence with withdrawal, uncomplicated (principal); F14.20 Cocaine dependence, uncomplicated; F17.210 Nicotine dependence, cigarettes, uncomplicated; F25.1 Schizoaffective disorder, depressive type; E78.5 Hyperlipidemia, unspecified; J44.9 Chronic obstructive pulmonary disease, unspecified; L30.9 Dermatitis, unspecified; Z88.2 Allergy status to sulfonamides

== ENCOUNTER 2022-10-19 11:15 | Inpatient (IN) | payer OTHER ==
[2022-10-19 12:43] VITALS: BMI 23.6
[2022-10-19] MEDS ORDERED: NALOXONE HCL 0.4 MG/ML VIAL IM PRN (13:57)
[2022-10-19] MEDS ORDERED: ACETAMINOPHEN 325 MG TABLET (FP) PO PRN (13:57)
[2022-10-19] MEDS ORDERED: METHOCARBAMOL 500 MG TABLET PO PRN (13:57)
[2022-10-19] MEDS ORDERED: guaiFENesin 600 MG TABLET.ER (FP) PO PRN (13:57)
[2022-10-19] MEDS ORDERED: AMMONIUM LACTATE 12% LOTION 225 GM BOTTLE TP PRN (13:57)
[2022-10-19] MEDS ORDERED: LOPERAMIDE HCL 2 MG CAPSULE PO PRN (13:57)
[2022-10-19] MEDS ORDERED: IBUPROFEN 600 MG TABLET (FP) PO PRN (13:57)
[2022-10-19] MEDS ORDERED: NICOTINE POLACRILEX 2 MG GUM BUC PRN (13:57)
[2022-10-19] MEDS ORDERED: NICOTINE 10 MG CARTRIDGE (INHALER) IH PRN (13:57)
[2022-10-19] MEDS ORDERED: DICYCLOMINE HCL 10 MG CAPSULE PO PRN (13:57)
[2022-10-19] MEDS ORDERED: BENZONATATE 200 MG CAPSULE PO PRN (13:57)
[2022-10-19] MEDS ORDERED: BENZOCAINE/MENTHOL (CHLORASEPTIC ) LOZENGE MM PRN (13:57)
[2022-10-19] MEDS ORDERED: NALOXONE HCL (KLOXXADO) 8 MG SPRAY NS PRN (13:57)
[2022-10-19] MEDS ORDERED: POLYETHYLENE GLYCOL (HEALTHYLAX) 3350 17 GM PACKET PO PRN (13:57)
[2022-10-19] MEDS ORDERED: BISMUTH SUBSALICYLATE 262 MG/15 ML BTL PO PRN (13:57)
[2022-10-19] MEDS ORDERED: MAG HYDROX/AL HYDROX/SIMETH 30 ML UNIT-DOSE CUP PO PRN (13:57)
[2022-10-19] MEDS ORDERED: ONDANSETRON *ODT* 4 MG TABLET SL PRN (13:57)
[2022-10-19] MEDS ORDERED: COLLOIDAL OATMEAL 1 BAR EACH TP PRN (13:57)
[2022-10-19] MEDS ORDERED: diazePAM 5 MG TABLET PO ONE (13:57)
[2022-10-19] MEDS ORDERED: IBUPROFEN 400 MG TABLET (FP) PO PRN (13:57)
[2022-10-19] MEDS ORDERED: ALBUTEROL SO4 HFA INHALER IH PRN (14:05)
[2022-10-19] MEDS ORDERED: FAMOTIDINE 20 MG TABLET PO SCH (14:15)
[2022-10-19] MEDS ORDERED: diazePAM 5 MG TABLET ONE (15:29)
[2022-10-19] MEDS ORDERED: ASPIRIN 81 MG CHEWABLE TABLETS ONE (15:29)
[2022-10-19] MEDS: ASPIRIN COATED 81 MG TABLET.EC PO SCH (15:31)
[2022-10-19] MEDS ORDERED: diazePAM 5 MG TABLET PO SCH (17:00)
[2022-10-19 17:43] LABS: POTASSIUM 3.9 mmol/L (3.5-5.1)
[2022-10-19 17:45] LABS: HEMATOCRIT 39.2 % (32.4-45.2); HEMOGLOBIN 13.4 GM/dL (10.7-15.3); MCH 33.1 pg (25.7-33.7); MCHC 34.3 g/dl (32.0-36.0); MEAN CELL VOLUME 96.7 fl (80-96); MEAN PLT VOLUME 7.2 fl (7.5-11.1); PLATELET COUNT 322 10^3/uL (134-434); RBC 4.05 M/mm3 (3.60-5.2); RDW 14.2 % (11.6-15.6); WHITE BLOOD COUNT 7.3 K/mm3 (4.0-10.0)
[2022-10-19 17:48] LABS: CALCIUM 9.1 mg/dL (8.5-10.1)
[2022-10-19 17:49] LABS: ALBUMIN 3.4 g/dl (3.4-5.0); BLOOD UREA NITROGEN 15.8 mg/dL (7-18)
[2022-10-19 17:52] LABS: CREATININE 0.8 mg/dL (0.55-1.3)
[2022-10-19 17:53] LABS: BILIRUBIN,TOTAL 0.5 mg/dL (0.2-1); TOT PROT 7.4 g/dl (6.4-8.2)
[2022-10-19] MEDS: BICTEGRAV/EMTRICIT/TENOFOV (BIKTARVY) 50-200-25 MG TABLET PO SCH ×3 (18:00→19:42)
[2022-10-19] MEDS: FAMOTIDINE 20 MG TABLET PO SCH (18:01)
[2022-10-19] MEDS: diazePAM 5 MG TABLET PO SCH ×2 (18:14→22:22)
[2022-10-19] MEDS ORDERED: MELATONIN 5 MG TABLETS PO SCH (22:00)
[2022-10-19] MEDS: levETIRAcetam 500 MG TABLET (FP) PO SCH (22:21)
[2022-10-19] MEDS: ATORVASTATIN CA 40 MG TABLET (FP) PO SCH (22:21)
[2022-10-19] MEDS: THIAMINE HCL 100 MG TABLET (FP) PO SCH (22:24)
[2022-10-20] MEDS: diazePAM 5 MG TABLET PO SCH ×4 (05:36→22:09)
[2022-10-20] MEDS: BICTEGRAV/EMTRICIT/TENOFOV (BIKTARVY) 50-200-25 MG TABLET PO SCH (07:10)
[2022-10-20] MEDS: levETIRAcetam 500 MG TABLET (FP) PO SCH ×2 (10:23→22:08)
[2022-10-20] MEDS: FAMOTIDINE 20 MG TABLET PO SCH (10:23)
[2022-10-20] MEDS: PRENATAL VITAMINS W/ FOLIC ACID TABLET (FP) PO SCH (10:23)
[2022-10-20] MEDS: ASPIRIN COATED 81 MG TABLET.EC PO SCH (10:23)
[2022-10-20] MEDS ORDERED: diazePAM 5 MG TABLET PO PRN (11:42)
[2022-10-20] MEDS: GABAPENTIN 400 MG CAPSULE PO SCH ×2 (13:23→22:08)
[2022-10-20] MEDS: LACTULOSE 20 GM/30 ML UDC (FOR ORAL USE ONLY) PO SCH ×3 (13:23→22:08)
[2022-10-20] MEDS: MIRTAZAPINE 15 MG TABLET (FP) PO SCH (22:08)
[2022-10-20] MEDS: QUEtiapine FUMARATE 300 MG TABLET PO SCH (22:08)
[2022-10-20] MEDS: ATORVASTATIN CA 40 MG TABLET (FP) PO SCH (22:08)
[2022-10-20] MEDS: THIAMINE HCL 100 MG TABLET (FP) PO SCH (22:08)
[2022-10-21] MEDS ORDERED: diazePAM 5 MG TABLET PO PRN (00:01)
[2022-10-21] MEDS: diazePAM 5 MG TABLET PO SCH ×3 (05:45→22:00)
[2022-10-21] MEDS: GABAPENTIN 400 MG CAPSULE PO SCH ×3 (05:45→22:00)
[2022-10-21] MEDS: BICTEGRAV/EMTRICIT/TENOFOV (BIKTARVY) 50-200-25 MG TABLET PO SCH (07:10)
[2022-10-21] MEDS: ASPIRIN COATED 81 MG TABLET.EC PO SCH (09:47)
[2022-10-21] MEDS: LACTULOSE 20 GM/30 ML UDC (FOR ORAL USE ONLY) PO SCH ×4 (09:48→22:48)
[2022-10-21] MEDS: FAMOTIDINE 20 MG TABLET PO SCH (09:48)
[2022-10-21] MEDS: levETIRAcetam 500 MG TABLET (FP) PO SCH ×2 (09:49→22:00)
[2022-10-21] MEDS: PRENATAL VITAMINS W/ FOLIC ACID TABLET (FP) PO SCH (09:49)
[2022-10-21] MEDS: THIAMINE HCL 100 MG TABLET (FP) PO SCH (21:59)
[2022-10-21] MEDS: ATORVASTATIN CA 40 MG TABLET (FP) PO SCH (22:00)
[2022-10-21] MEDS: QUEtiapine FUMARATE 300 MG TABLET PO SCH (22:00)
[2022-10-21] MEDS: MIRTAZAPINE 15 MG TABLET (FP) PO SCH (22:01)
[2022-10-22] MEDS: GABAPENTIN 400 MG CAPSULE PO SCH ×3 (05:39→22:09)
[2022-10-22] MEDS: diazePAM 5 MG TABLET PO SCH ×2 (05:40→17:37)
[2022-10-22] MEDS: BICTEGRAV/EMTRICIT/TENOFOV (BIKTARVY) 50-200-25 MG TABLET PO SCH (07:09)
[2022-10-22] MEDS: PRENATAL VITAMINS W/ FOLIC ACID TABLET (FP) PO SCH (10:26)
[2022-10-22] MEDS: LACTULOSE 20 GM/30 ML UDC (FOR ORAL USE ONLY) PO SCH ×4 (10:26→22:10)
[2022-10-22] MEDS: FAMOTIDINE 20 MG TABLET PO SCH (10:27)
[2022-10-22] MEDS: ASPIRIN COATED 81 MG TABLET.EC PO SCH (10:27)
[2022-10-22] MEDS: levETIRAcetam 500 MG TABLET (FP) PO SCH ×2 (10:27→22:08)
[2022-10-22] MEDS ORDERED: SODIUM PHOSPHATE/NA BIPHOS 133 ML ENEMA RC ONE (10:50)
[2022-10-22] MEDS: MAGNESIUM HYDROX 2400MG/30ML ORAL SUSPENSION 30 ML CUP PO PRN (11:19)
[2022-10-22] MEDS: MIRTAZAPINE 15 MG TABLET (FP) PO SCH (22:08)
[2022-10-22] MEDS: QUEtiapine FUMARATE 300 MG TABLET PO SCH (22:08)
[2022-10-22] MEDS: ATORVASTATIN CA 40 MG TABLET (FP) PO SCH (22:08)
[2022-10-22] MEDS: THIAMINE HCL 100 MG TABLET (FP) PO SCH (22:09)
[2022-10-23] MEDS: GABAPENTIN 400 MG CAPSULE PO SCH (05:56)
[2022-10-23] MEDS ORDERED: diazePAM 5 MG TABLET PO ONE (06:00)
[2022-10-23] MEDS: BICTEGRAV/EMTRICIT/TENOFOV (BIKTARVY) 50-200-25 MG TABLET PO SCH (07:00)
[2022-10-23] MEDS: MAGNESIUM HYDROX 2400MG/30ML ORAL SUSPENSION 30 ML CUP PO PRN (07:00)
[2022-10-23 10:38] VITALS: BP 100/69; PULSE 97; RESP 18; TEMP 98.1
[2022-10-23] MEDS: FAMOTIDINE 20 MG TABLET PO SCH (10:59)
[2022-10-23] MEDS: ASPIRIN COATED 81 MG TABLET.EC PO SCH (10:59)
[2022-10-23] MEDS: levETIRAcetam 500 MG TABLET (FP) PO SCH (10:59)
[2022-10-23] MEDS: PRENATAL VITAMINS W/ FOLIC ACID TABLET (FP) PO SCH (10:59)
[2022-10-23] MEDS: LACTULOSE 20 GM/30 ML UDC (FOR ORAL USE ONLY) PO SCH (11:00)
== END 2022-10-23 12:55 | disposition other institution (70) | DRG 774 ==
LOC: YASAS 11:15 → Y6N 16:26
PROVIDERS: ADMIT Allergy & Immunology; ATTEND Surgery
PROC: HZ2ZZZZ Detoxification Services for Substance Abuse Treatment (ICD-10-PCS; principal; 2022-10-19)
DX: F10.230 Alcohol dependence with withdrawal, uncomplicated (principal); F14.20 Cocaine dependence, uncomplicated; F17.210 Nicotine dependence, cigarettes, uncomplicated; F19.282 Other psychoactive substance dependence with psychoactive substance-induced sleep disorder; F19.280 Other psychoactive substance dependence with psychoactive substance-induced anxiety disorder; F31.9 Bipolar disorder, unspecified; F41.9 Anxiety disorder, unspecified; B20 Human immunodeficiency virus [HIV] disease; E72.20 Disorder of urea cycle metabolism, unspecified; G62.9 Polyneuropathy, unspecified; E78.5 Hyperlipidemia, unspecified; G40.909 Epilepsy, unspecified, not intractable, without status epilepticus; J44.9 Chronic obstructive pulmonary disease, unspecified; K21.9 Gastro-esophageal reflux disease without esophagitis; M79.7 Fibromyalgia
CPT/HCPCS: 36415; 80053; 81025; 82140; 85027; 86780; 87635; 87811

== ENCOUNTER 2022-10-23 12:59 | Inpatient (IN) | payer OTHER ==
[2022-10-23] MEDS ORDERED: METHOCARBAMOL 500 MG TABLET PO PRN (13:48)
[2022-10-23] MEDS ORDERED: BENZONATATE 200 MG CAPSULE PO PRN (13:48)
[2022-10-23] MEDS ORDERED: P-EPHED 60MG/TRIPROLIDI 2.5MG TABLET PO PRN (13:48)
[2022-10-23] MEDS ORDERED: LOPERAMIDE HCL 2 MG CAPSULE PO PRN (13:48)
[2022-10-23] MEDS ORDERED: NICOTINE 10 MG CARTRIDGE (INHALER) IH PRN (13:48)
[2022-10-23] MEDS ORDERED: COLLOIDAL OATMEAL 1 BAR EACH TP PRN (13:48)
[2022-10-23] MEDS ORDERED: BENZOCAINE/MENTHOL (CHLORASEPTIC ) LOZENGE MM PRN (13:48)
[2022-10-23] MEDS ORDERED: NICOTINE POLACRILEX 2 MG GUM BUC PRN (13:48)
[2022-10-23] MEDS ORDERED: MAG HYDROX/AL HYDROX/SIMETH 30 ML UNIT-DOSE CUP PO PRN (13:48)
[2022-10-23] MEDS ORDERED: guaiFENesin 600 MG TABLET.ER (FP) PO PRN (13:48)
[2022-10-23] MEDS ORDERED: IBUPROFEN 400 MG TABLET (FP) PO PRN (13:48)
[2022-10-23] MEDS ORDERED: ALBUTEROL SO4 HFA INHALER IH PRN (13:52)
[2022-10-23] MEDS: levETIRAcetam 500 MG TABLET (FP) PO SCH (21:18)
[2022-10-23] MEDS: ATORVASTATIN CA 40 MG TABLET (FP) PO SCH (21:18)
[2022-10-23] MEDS: IBUPROFEN 600 MG TABLET (FP) PO PRN (21:18)
[2022-10-23] MEDS: THIAMINE HCL 100 MG TABLET (FP) PO SCH (21:18)
[2022-10-23] MEDS: MELATONIN 5 MG TABLETS PO PRN (21:20)
[2022-10-23] MEDS ORDERED: QUEtiapine FUMARATE 300 MG TABLET PO ONE (22:00)
[2022-10-23] MEDS ORDERED: MIRTAZAPINE 15 MG TABLET (FP) PO ONE (22:00)
[2022-10-24] MEDS: levETIRAcetam 500 MG TABLET (FP) PO SCH ×2 (10:10→21:21)
[2022-10-24] MEDS: PRENATAL VITAMINS W/ FOLIC ACID TABLET (FP) PO SCH (10:10)
[2022-10-24] MEDS: BICTEGRAV/EMTRICIT/TENOFOV (BIKTARVY) 50-200-25 MG TABLET PO SCH (10:10)
[2022-10-24] MEDS: FAMOTIDINE 20 MG TABLET PO SCH (10:10)
[2022-10-24] MEDS: GABAPENTIN 400 MG CAPSULE PO SCH ×2 (14:29→21:20)
[2022-10-24] MEDS: QUEtiapine FUMARATE 200 MG TABLET PO SCH (21:21)
[2022-10-24] MEDS: MIRTAZAPINE 15 MG TABLET (FP) PO SCH (21:21)
[2022-10-24] MEDS: ATORVASTATIN CA 40 MG TABLET (FP) PO SCH (21:21)
[2022-10-24] MEDS: THIAMINE HCL 100 MG TABLET (FP) PO SCH (21:21)
[2022-10-24] MEDS ORDERED: QUEtiapine FUMARATE 300 MG TABLET PO SCH (22:00)
[2022-10-25] MEDS: GABAPENTIN 400 MG CAPSULE PO SCH ×3 (07:05→22:06)
[2022-10-25] MEDS: FAMOTIDINE 20 MG TABLET PO SCH (09:57)
[2022-10-25] MEDS: PRENATAL VITAMINS W/ FOLIC ACID TABLET (FP) PO SCH (09:58)
[2022-10-25] MEDS: levETIRAcetam 500 MG TABLET (FP) PO SCH ×2 (09:58→22:06)
[2022-10-25] MEDS: BICTEGRAV/EMTRICIT/TENOFOV (BIKTARVY) 50-200-25 MG TABLET PO SCH (09:58)
[2022-10-25] MEDS: PANTOPRAZOLE 20 MG TABLET PO SCH (14:29)
[2022-10-25] MEDS: DOCUSATE SODIUM 100 MG CAPSULE (FP) PO PRN (14:39)
[2022-10-25] MEDS: MAGNESIUM HYDROX 2400MG/30ML ORAL SUSPENSION 30 ML CUP PO PRN (14:39)
[2022-10-25] MEDS ORDERED: SENNOSIDES 8.8 MG/5 ML SYRUP PO SCH (22:00)
[2022-10-25] MEDS: SENNOSIDES 8.6MG TABLET (FP) PO SCH (22:06)
[2022-10-25] MEDS: QUEtiapine FUMARATE 200 MG TABLET PO SCH (22:06)
[2022-10-25] MEDS: THIAMINE HCL 100 MG TABLET (FP) PO SCH (22:06)
[2022-10-25] MEDS: ATORVASTATIN CA 40 MG TABLET (FP) PO SCH (22:06)
[2022-10-25] MEDS: MIRTAZAPINE 15 MG TABLET (FP) PO SCH (22:07)
[2022-10-25] MEDS: MELATONIN 5 MG TABLETS PO PRN (22:09)
[2022-10-26] MEDS: GABAPENTIN 400 MG CAPSULE PO SCH ×3 (07:10→21:17)
[2022-10-26] MEDS: BICTEGRAV/EMTRICIT/TENOFOV (BIKTARVY) 50-200-25 MG TABLET PO SCH (07:13)
[2022-10-26] MEDS: MAGNESIUM HYDROX 2400MG/30ML ORAL SUSPENSION 30 ML CUP PO PRN (07:13)
[2022-10-26] MEDS: PANTOPRAZOLE 20 MG TABLET PO SCH (09:36)
[2022-10-26] MEDS: levETIRAcetam 500 MG TABLET (FP) PO SCH ×2 (09:36→21:17)
[2022-10-26] MEDS: FAMOTIDINE 20 MG TABLET PO SCH (09:37)
[2022-10-26] MEDS: PRENATAL VITAMINS W/ FOLIC ACID TABLET (FP) PO SCH (09:37)
[2022-10-26] MEDS: POLYETHYLENE GLYCOL (HEALTHYLAX) 3350 17 GM PACKET PO PRN (10:17)
[2022-10-26] MEDS: AMMONIUM LACTATE 12% LOTION 225 GM BOTTLE TP PRN (10:21)
[2022-10-26] MEDS ORDERED: SODIUM PHOSPHATE/NA BIPHOS 133 ML ENEMA RC ONE (10:44)
[2022-10-26 11:03] LABS: INR 0.97 (0.83-1.09); PROTHROMBIN TIME (PATIENT) 11.2 SEC (9.7-13.0)
[2022-10-26 11:06] LABS: MAGNESIUM 2.3 mg/dL (1.8-2.4)
[2022-10-26 19:08] LABS: EPI CELLS 27 /uL (0-25.1); HYALINE CASTS 0 /uL (0-3.1); PH,URINE 7.5 (5.0-8.0); URINE APPEARANCE CLEAR; URINE BACTERIA 326 /uL (0-1359); URINE BILIRUBIN NEGATIVE (NEGATIVE); URINE COLOR YELLOW; URINE GLUCOSE (UA) NEGATIVE (NEGATIVE); URINE KETONE NEGATIVE (NEGATIVE); URINE LEUK ESTERASE 1+ (NEGATIVE); URINE NITRITE NEGATIVE (NEGATIVE); URINE PROTEIN NEGATIVE (NEGATIVE); URINE RBC 15 /uL (0-23.9); URINE UROBILINOGEN 0.2 mg/dL (0.2-1.0); URINE WBC 19 /uL (0-25.8)
[2022-10-26] MEDS: SENNOSIDES 8.6MG TABLET (FP) PO SCH (21:17)
[2022-10-26] MEDS: ATORVASTATIN CA 40 MG TABLET (FP) PO SCH (21:17)
[2022-10-26] MEDS: MIRTAZAPINE 15 MG TABLET (FP) PO SCH (21:17)
[2022-10-26] MEDS: QUEtiapine FUMARATE 200 MG TABLET PO SCH (21:17)
[2022-10-26] MEDS: MELATONIN 5 MG TABLETS PO PRN (21:18)
[2022-10-26] MEDS: THIAMINE HCL 100 MG TABLET (FP) PO SCH (21:18)
[2022-10-27] MEDS: GABAPENTIN 400 MG CAPSULE PO SCH ×3 (06:23→21:25)
[2022-10-27] MEDS: BICTEGRAV/EMTRICIT/TENOFOV (BIKTARVY) 50-200-25 MG TABLET PO SCH (07:20)
[2022-10-27] MEDS: levETIRAcetam 500 MG TABLET (FP) PO SCH ×2 (09:36→21:27)
[2022-10-27] MEDS: PRENATAL VITAMINS W/ FOLIC ACID TABLET (FP) PO SCH (09:36)
[2022-10-27] MEDS: PANTOPRAZOLE 20 MG TABLET PO SCH (09:36)
[2022-10-27] MEDS: FAMOTIDINE 20 MG TABLET PO SCH (09:36)
[2022-10-27] MEDS: POLYETHYLENE GLYCOL (HEALTHYLAX) 3350 17 GM PACKET PO PRN (09:37)
[2022-10-27] MEDS: TETRAHYDROZOLINE HCL EYE DROPS OU PRN ×2 (09:40→21:32)
[2022-10-27] MEDS: CHOLECALCIFEROL (VIT D3) 400 UNIT (10 MCG) TABLET PO SCH (11:52)
[2022-10-27] MEDS: QUEtiapine FUMARATE 200 MG TABLET PO SCH (21:26)
[2022-10-27] MEDS: MIRTAZAPINE 15 MG TABLET (FP) PO SCH (21:26)
[2022-10-27] MEDS: ATORVASTATIN CA 40 MG TABLET (FP) PO SCH (21:27)
[2022-10-27] MEDS: THIAMINE HCL 100 MG TABLET (FP) PO SCH (21:27)
[2022-10-27] MEDS: SENNOSIDES 8.6MG TABLET (FP) PO SCH (21:27)
[2022-10-27] MEDS: DOCUSATE SODIUM 100 MG CAPSULE (FP) PO PRN (21:28)
[2022-10-27] MEDS: MELATONIN 5 MG TABLETS PO PRN (21:29)
[2022-10-28] MEDS: GABAPENTIN 400 MG CAPSULE PO SCH ×3 (06:29→21:13)
[2022-10-28] MEDS: BICTEGRAV/EMTRICIT/TENOFOV (BIKTARVY) 50-200-25 MG TABLET PO SCH (07:08)
[2022-10-28] MEDS: CHOLECALCIFEROL (VIT D3) 400 UNIT (10 MCG) TABLET PO SCH (09:59)
[2022-10-28] MEDS: PRENATAL VITAMINS W/ FOLIC ACID TABLET (FP) PO SCH (09:59)
[2022-10-28] MEDS: levETIRAcetam 500 MG TABLET (FP) PO SCH ×2 (09:59→21:14)
[2022-10-28] MEDS: FAMOTIDINE 20 MG TABLET PO SCH (09:59)
[2022-10-28] MEDS: PANTOPRAZOLE 20 MG TABLET PO SCH (09:59)
[2022-10-28] MEDS ORDERED: POLYETHYLENE GLYCOL (HEALTHYLAX) 3350 17 GM PACKET PO PRN (10:45)
[2022-10-28] MEDS: MAGNESIUM HYDROX 2400MG/30ML ORAL SUSPENSION 30 ML CUP PO PRN (10:45)
[2022-10-28] MEDS: DOCUSATE SODIUM 100 MG CAPSULE (FP) PO PRN (10:45)
[2022-10-28] MEDS ORDERED: BISACODYL 10 MG SUPP.RECT PR ONE ×2 (10:48→18:00)
[2022-10-28] MEDS ORDERED: SODIUM PHOSPHATE/NA BIPHOS 133 ML ENEMA RC ONE ×2 (10:49→18:00)
[2022-10-28] MEDS: AMOX TR/POT CLAV 500MG/125MG TABLETS (FP) PO SCH ×2 (11:09→17:44)
[2022-10-28] MEDS: TETRAHYDROZOLINE HCL EYE DROPS OU PRN ×2 (11:09→21:41)
[2022-10-28] MEDS: MIRTAZAPINE 15 MG TABLET (FP) PO SCH (21:13)
[2022-10-28] MEDS: THIAMINE HCL 100 MG TABLET (FP) PO SCH (21:13)
[2022-10-28] MEDS: QUEtiapine FUMARATE 200 MG TABLET PO SCH (21:13)
[2022-10-28] MEDS: MELATONIN 5 MG TABLETS PO PRN (21:13)
[2022-10-28] MEDS: hydrOXYzine PAMOATE 25 MG CAPSULE (FP) PO PRN (21:14)
[2022-10-28] MEDS: ATORVASTATIN CA 40 MG TABLET (FP) PO SCH (21:14)
[2022-10-28] MEDS: SENNOSIDES 8.6MG TABLET (FP) PO SCH (21:42)
[2022-10-29] MEDS: GABAPENTIN 400 MG CAPSULE PO SCH ×3 (06:30→21:23)
[2022-10-29] MEDS: hydrOXYzine PAMOATE 25 MG CAPSULE (FP) PO PRN (06:31)
[2022-10-29] MEDS: MAGNESIUM HYDROX 2400MG/30ML ORAL SUSPENSION 30 ML CUP PO PRN (06:33)
[2022-10-29] MEDS: AMOX TR/POT CLAV 500MG/125MG TABLETS (FP) PO SCH ×2 (07:06→16:49)
[2022-10-29] MEDS: BICTEGRAV/EMTRICIT/TENOFOV (BIKTARVY) 50-200-25 MG TABLET PO SCH (07:06)
[2022-10-29] MEDS: PANTOPRAZOLE 20 MG TABLET PO SCH (10:13)
[2022-10-29] MEDS: levETIRAcetam 500 MG TABLET (FP) PO SCH ×2 (10:13→21:23)
[2022-10-29] MEDS: FAMOTIDINE 20 MG TABLET PO SCH (10:13)
[2022-10-29] MEDS: PRENATAL VITAMINS W/ FOLIC ACID TABLET (FP) PO SCH (10:13)
[2022-10-29] MEDS: CHOLECALCIFEROL (VIT D3) 400 UNIT (10 MCG) TABLET PO SCH (10:14)
[2022-10-29] MEDS: AMMONIUM LACTATE 12% LOTION 225 GM BOTTLE TP PRN (13:17)
[2022-10-29] MEDS: DOCUSATE SODIUM 100 MG CAPSULE (FP) PO PRN (13:21)
[2022-10-29] MEDS: QUEtiapine FUMARATE 200 MG TABLET PO SCH (21:23)
[2022-10-29] MEDS: MIRTAZAPINE 15 MG TABLET (FP) PO SCH (21:23)
[2022-10-29] MEDS: MELATONIN 5 MG TABLETS PO PRN (21:23)
[2022-10-29] MEDS: SENNOSIDES 8.6MG TABLET (FP) PO SCH (21:23)
[2022-10-29] MEDS: ATORVASTATIN CA 40 MG TABLET (FP) PO SCH (21:23)
[2022-10-29] MEDS: THIAMINE HCL 100 MG TABLET (FP) PO SCH (21:25)
[2022-10-30] MEDS: GABAPENTIN 400 MG CAPSULE PO SCH ×3 (06:47→21:14)
[2022-10-30] MEDS: IBUPROFEN 600 MG TABLET (FP) PO PRN (06:47)
[2022-10-30] MEDS: TETRAHYDROZOLINE HCL EYE DROPS OU PRN (07:05)
[2022-10-30] MEDS: AMOX TR/POT CLAV 500MG/125MG TABLETS (FP) PO SCH ×2 (07:23→17:39)
[2022-10-30] MEDS: BICTEGRAV/EMTRICIT/TENOFOV (BIKTARVY) 50-200-25 MG TABLET PO SCH (07:24)
[2022-10-30] MEDS: PRENATAL VITAMINS W/ FOLIC ACID TABLET (FP) PO SCH (09:50)
[2022-10-30] MEDS: FAMOTIDINE 20 MG TABLET PO SCH (09:52)
[2022-10-30] MEDS: levETIRAcetam 500 MG TABLET (FP) PO SCH ×2 (09:52→21:13)
[2022-10-30] MEDS: CHOLECALCIFEROL (VIT D3) 400 UNIT (10 MCG) TABLET PO SCH (09:52)
[2022-10-30] MEDS: ATORVASTATIN CA 40 MG TABLET (FP) PO SCH (21:13)
[2022-10-30] MEDS: MELATONIN 5 MG TABLETS PO PRN (21:14)
[2022-10-30] MEDS: SENNOSIDES 8.6MG TABLET (FP) PO SCH (21:14)
[2022-10-30] MEDS: QUEtiapine FUMARATE 200 MG TABLET PO SCH (21:14)
[2022-10-30] MEDS: MIRTAZAPINE 15 MG TABLET (FP) PO SCH (21:14)
[2022-10-30] MEDS: THIAMINE HCL 100 MG TABLET (FP) PO SCH (21:15)
[2022-10-30] MEDS: hydrOXYzine PAMOATE 25 MG CAPSULE (FP) PO PRN (21:26)
[2022-10-31] MEDS: GABAPENTIN 400 MG CAPSULE PO SCH ×3 (07:01→21:08)
[2022-10-31] MEDS: AMOX TR/POT CLAV 500MG/125MG TABLETS (FP) PO SCH ×2 (07:03→17:16)
[2022-10-31] MEDS: MAGNESIUM HYDROX 2400MG/30ML ORAL SUSPENSION 30 ML CUP PO PRN (07:03)
[2022-10-31] MEDS: BICTEGRAV/EMTRICIT/TENOFOV (BIKTARVY) 50-200-25 MG TABLET PO SCH (07:03)
[2022-10-31] MEDS: TETRAHYDROZOLINE HCL EYE DROPS OU PRN (07:31)
[2022-10-31] MEDS: levETIRAcetam 500 MG TABLET (FP) PO SCH ×2 (09:39→21:09)
[2022-10-31] MEDS: FAMOTIDINE 20 MG TABLET PO SCH (09:39)
[2022-10-31] MEDS: PRENATAL VITAMINS W/ FOLIC ACID TABLET (FP) PO SCH (09:40)
[2022-10-31] MEDS: CHOLECALCIFEROL (VIT D3) 400 UNIT (10 MCG) TABLET PO SCH (09:40)
[2022-10-31] MEDS: QUEtiapine FUMARATE 200 MG TABLET PO SCH (21:08)
[2022-10-31] MEDS: ATORVASTATIN CA 40 MG TABLET (FP) PO SCH (21:09)
[2022-10-31] MEDS: SENNOSIDES 8.6MG TABLET (FP) PO SCH (21:09)
[2022-10-31] MEDS: MIRTAZAPINE 15 MG TABLET (FP) PO SCH (21:09)
[2022-10-31] MEDS: THIAMINE HCL 100 MG TABLET (FP) PO SCH (21:10)
[2022-10-31] MEDS: MELATONIN 5 MG TABLETS PO PRN (21:11)
[2022-11-01] MEDS: GABAPENTIN 400 MG CAPSULE PO SCH ×3 (06:47→21:17)
[2022-11-01] MEDS: BICTEGRAV/EMTRICIT/TENOFOV (BIKTARVY) 50-200-25 MG TABLET PO SCH (07:05)
[2022-11-01] MEDS: AMOX TR/POT CLAV 500MG/125MG TABLETS (FP) PO SCH ×2 (07:05→16:56)
[2022-11-01] MEDS: CHOLECALCIFEROL (VIT D3) 400 UNIT (10 MCG) TABLET PO SCH (09:50)
[2022-11-01] MEDS: levETIRAcetam 500 MG TABLET (FP) PO SCH ×2 (09:50→21:16)
[2022-11-01] MEDS: FAMOTIDINE 20 MG TABLET PO SCH (09:50)
[2022-11-01] MEDS: PRENATAL VITAMINS W/ FOLIC ACID TABLET (FP) PO SCH (09:50)
[2022-11-01] MEDS: TETRAHYDROZOLINE HCL EYE DROPS OU PRN (09:52)
[2022-11-01] MEDS: AMMONIUM LACTATE 12% LOTION 225 GM BOTTLE TP PRN (09:52)
[2022-11-01] MEDS ORDERED: HYDROCORTISONE 1% TOPICAL CREAM 30 GM TUBE TP PRN (11:05)
[2022-11-01] MEDS: LACTULOSE 20 GM/30 ML UDC (FOR ORAL USE ONLY) PO SCH ×2 (13:18→21:16)
[2022-11-01] MEDS: ATORVASTATIN CA 40 MG TABLET (FP) PO SCH (21:16)
[2022-11-01] MEDS: QUEtiapine FUMARATE 200 MG TABLET PO SCH (21:16)
[2022-11-01] MEDS: MIRTAZAPINE 15 MG TABLET (FP) PO SCH (21:17)
[2022-11-01] MEDS: SENNOSIDES 8.6MG TABLET (FP) PO SCH (21:17)
[2022-11-01] MEDS: THIAMINE HCL 100 MG TABLET (FP) PO SCH (21:17)
[2022-11-02] MEDS: LACTULOSE 20 GM/30 ML UDC (FOR ORAL USE ONLY) PO SCH ×3 (06:17→21:11)
[2022-11-02] MEDS: GABAPENTIN 400 MG CAPSULE PO SCH ×3 (06:18→21:11)
[2022-11-02] MEDS: AMOX TR/POT CLAV 500MG/125MG TABLETS (FP) PO SCH ×2 (07:12→17:30)
[2022-11-02] MEDS: BICTEGRAV/EMTRICIT/TENOFOV (BIKTARVY) 50-200-25 MG TABLET PO SCH (07:13)
[2022-11-02] MEDS: CHOLECALCIFEROL (VIT D3) 400 UNIT (10 MCG) TABLET PO SCH (10:07)
[2022-11-02] MEDS: levETIRAcetam 500 MG TABLET (FP) PO SCH ×2 (10:07→21:12)
[2022-11-02] MEDS: FAMOTIDINE 20 MG TABLET PO SCH (10:07)
[2022-11-02] MEDS: PRENATAL VITAMINS W/ FOLIC ACID TABLET (FP) PO SCH (10:07)
[2022-11-02] MEDS: ATORVASTATIN CA 40 MG TABLET (FP) PO SCH (21:11)
[2022-11-02] MEDS: SENNOSIDES 8.6MG TABLET (FP) PO SCH (21:11)
[2022-11-02] MEDS: THIAMINE HCL 100 MG TABLET (FP) PO SCH (21:11)
[2022-11-02] MEDS: MIRTAZAPINE 15 MG TABLET (FP) PO SCH (21:11)
[2022-11-02] MEDS: QUEtiapine FUMARATE 200 MG TABLET PO SCH (21:11)
[2022-11-02] MEDS: TETRAHYDROZOLINE HCL EYE DROPS OU PRN (21:12)
[2022-11-02] MEDS: MELATONIN 5 MG TABLETS PO PRN (21:13)
[2022-11-03] MEDS: GABAPENTIN 400 MG CAPSULE PO SCH ×3 (06:56→21:44)
[2022-11-03] MEDS: LACTULOSE 20 GM/30 ML UDC (FOR ORAL USE ONLY) PO SCH ×3 (06:56→21:46)
[2022-11-03] MEDS: BICTEGRAV/EMTRICIT/TENOFOV (BIKTARVY) 50-200-25 MG TABLET PO SCH (07:07)
[2022-11-03] MEDS: AMOX TR/POT CLAV 500MG/125MG TABLETS (FP) PO SCH ×2 (07:07→16:35)
[2022-11-03 07:10] VITALS: RESP 18
[2022-11-03] MEDS: PRENATAL VITAMINS W/ FOLIC ACID TABLET (FP) PO SCH (09:57)
[2022-11-03] MEDS: levETIRAcetam 500 MG TABLET (FP) PO SCH ×2 (09:57→21:44)
[2022-11-03] MEDS: CHOLECALCIFEROL (VIT D3) 400 UNIT (10 MCG) TABLET PO SCH (09:57)
[2022-11-03] MEDS: FAMOTIDINE 20 MG TABLET PO SCH (09:57)
[2022-11-03] MEDS: TETRAHYDROZOLINE HCL EYE DROPS OU PRN (11:46)
[2022-11-03] MEDS: ATORVASTATIN CA 40 MG TABLET (FP) PO SCH (21:44)
[2022-11-03] MEDS: MELATONIN 5 MG TABLETS PO PRN (21:44)
[2022-11-03] MEDS: QUEtiapine FUMARATE 200 MG TABLET PO SCH (21:44)
[2022-11-03] MEDS: SENNOSIDES 8.6MG TABLET (FP) PO SCH (21:44)
[2022-11-03] MEDS: hydrOXYzine PAMOATE 25 MG CAPSULE (FP) PO PRN (21:44)
[2022-11-03] MEDS: MIRTAZAPINE 15 MG TABLET (FP) PO SCH (21:44)
[2022-11-03] MEDS: THIAMINE HCL 100 MG TABLET (FP) PO SCH (23:30)
[2022-11-04] MEDS: LACTULOSE 20 GM/30 ML UDC (FOR ORAL USE ONLY) PO SCH ×3 (06:26→21:26)
[2022-11-04] MEDS: GABAPENTIN 400 MG CAPSULE PO SCH ×3 (06:27→21:26)
[2022-11-04] MEDS: BICTEGRAV/EMTRICIT/TENOFOV (BIKTARVY) 50-200-25 MG TABLET PO SCH (07:09)
[2022-11-04] MEDS: AMOX TR/POT CLAV 500MG/125MG TABLETS (FP) PO SCH (07:11)
[2022-11-04] MEDS: PRENATAL VITAMINS W/ FOLIC ACID TABLET (FP) PO SCH (10:05)
[2022-11-04] MEDS: CHOLECALCIFEROL (VIT D3) 400 UNIT (10 MCG) TABLET PO SCH (10:06)
[2022-11-04] MEDS: levETIRAcetam 500 MG TABLET (FP) PO SCH ×2 (10:06→21:25)
[2022-11-04] MEDS: FAMOTIDINE 20 MG TABLET PO SCH (10:06)
[2022-11-04] MEDS: MELATONIN 5 MG TABLETS PO PRN (21:25)
[2022-11-04] MEDS: hydrOXYzine PAMOATE 25 MG CAPSULE (FP) PO PRN (21:25)
[2022-11-04] MEDS: THIAMINE HCL 100 MG TABLET (FP) PO SCH (21:26)
[2022-11-04] MEDS: ATORVASTATIN CA 40 MG TABLET (FP) PO SCH (21:26)
[2022-11-04] MEDS: MIRTAZAPINE 15 MG TABLET (FP) PO SCH (21:26)
[2022-11-04] MEDS: QUEtiapine FUMARATE 200 MG TABLET PO SCH (21:26)
[2022-11-04] MEDS: SENNOSIDES 8.6MG TABLET (FP) PO SCH (21:27)
[2022-11-05] MEDS: TETRAHYDROZOLINE HCL EYE DROPS OU PRN (06:14)
[2022-11-05] MEDS: GABAPENTIN 400 MG CAPSULE PO SCH (06:17)
[2022-11-05] MEDS: LACTULOSE 20 GM/30 ML UDC (FOR ORAL USE ONLY) PO SCH (06:17)
[2022-11-05 07:22] VITALS: TEMP 96.8
[2022-11-05] MEDS: BICTEGRAV/EMTRICIT/TENOFOV (BIKTARVY) 50-200-25 MG TABLET PO SCH (07:30)
[2022-11-05] MEDS: PRENATAL VITAMINS W/ FOLIC ACID TABLET (FP) PO SCH (09:09)
[2022-11-05] MEDS: CHOLECALCIFEROL (VIT D3) 400 UNIT (10 MCG) TABLET PO SCH (09:09)
[2022-11-05] MEDS: FAMOTIDINE 20 MG TABLET PO SCH (09:09)
[2022-11-05] MEDS: levETIRAcetam 500 MG TABLET (FP) PO SCH (09:09)
[2022-11-05 09:10] VITALS: BP 116/76; PULSE 89
== END 2022-11-05 09:25 | disposition home or self-care (01) | DRG 772 ==
LOC: YASAS 12:59 → Y5N 13:01
PROVIDERS: ADMIT Allergy & Immunology; ATTEND Psychiatry & Neurology Pain Medicine
PROC: HZ42ZZZ Group Counseling for Substance Abuse Treatment, Cognitive-Behavioral (ICD-10-PCS; principal; 2022-10-23)
DX: F10.20 Alcohol dependence, uncomplicated (principal); F14.20 Cocaine dependence, uncomplicated; F17.210 Nicotine dependence, cigarettes, uncomplicated; F19.280 Other psychoactive substance dependence with psychoactive substance-induced anxiety disorder; F19.282 Other psychoactive substance dependence with psychoactive substance-induced sleep disorder; F31.9 Bipolar disorder, unspecified; F41.9 Anxiety disorder, unspecified; Z21 Asymptomatic human immunodeficiency virus [HIV] infection status; J44.9 Chronic obstructive pulmonary disease, unspecified; G40.909 Epilepsy, unspecified, not intractable, without status epilepticus; G62.9 Polyneuropathy, unspecified; N39.0 Urinary tract infection, site not specified; B96.20 Unspecified Escherichia coli [E. coli] as the cause of diseases classified elsewhere; R79.89 Other specified abnormal findings of blood chemistry; Z88.2 Allergy status to sulfonamides
CPT/HCPCS: 36415; 81003; 82140; 82306; 82607; 82746; 83735; 85610; 86803; 87086; 87186; 87522

== ENCOUNTER 2023-10-07 12:18 | Inpatient (IN) | payer OTHER ==
[2023-10-07] MEDS ORDERED: diazePAM 5 MG TABLET PO PRN (14:31)
[2023-10-07] MEDS ORDERED: AMMONIUM LACTATE 12% LOTION 225 GM BOTTLE TP PRN (14:32)
[2023-10-07] MEDS ORDERED: MAGNESIUM HYDROX 2400MG/30ML ORAL SUSPENSION 30 ML CUP PO PRN (14:33)
[2023-10-07] MEDS ORDERED: ONDANSETRON *ODT* 4 MG TABLET SL PRN (14:33)
[2023-10-07] MEDS ORDERED: BENZONATATE 200 MG CAPSULE PO PRN (14:33)
[2023-10-07] MEDS ORDERED: guaiFENesin 600 MG TABLET.ER (FP) PO PRN (14:33)
[2023-10-07] MEDS ORDERED: IBUPROFEN 600 MG TABLET (FP) PO PRN (14:33)
[2023-10-07] MEDS ORDERED: POLYETHYLENE GLYCOL (HEALTHYLAX) 3350 17 GM PACKET PO PRN (14:33)
[2023-10-07] MEDS ORDERED: IBUPROFEN 400 MG TABLET (FP) PO PRN (14:33)
[2023-10-07] MEDS ORDERED: LOPERAMIDE HCL 2 MG CAPSULE PO PRN (14:33)
[2023-10-07] MEDS ORDERED: BISMUTH SUBSALICYLATE 262 MG/15 ML BTL PO PRN (14:33)
[2023-10-07] MEDS ORDERED: ACETAMINOPHEN 325 MG TABLET (FP) PO PRN (14:33)
[2023-10-07] MEDS ORDERED: NICOTINE POLACRILEX 2 MG LOZENGE BC PRN (14:33)
[2023-10-07] MEDS ORDERED: DOCUSATE SODIUM 100 MG CAPSULE (FP) PO PRN (14:33)
[2023-10-07] MEDS ORDERED: HYDROCORTISONE 1% TOPICAL CREAM 30 GM TUBE TP PRN (14:44)
[2023-10-07] MEDS ORDERED: diazePAM 5 MG TABLET ONE (16:55)
[2023-10-07] MEDS: diazePAM 5 MG TABLET PO SCH (17:00)
[2023-10-07] MEDS: VITAMINS A AND D TOPICAL OINTMENT TP SCH (18:16)
[2023-10-07] MEDS: THIAMINE 100 MG TABLET PO SCH (22:24)
[2023-10-07] MEDS: MELATONIN 5 MG TABLETS PO SCH (22:24)
[2023-10-07] MEDS: METHOCARBAMOL 500 MG TABLET PO PRN (22:25)
[2023-10-07] MEDS: levETIRAcetam 500 MG TABLET (FP) PO SCH (22:25)
[2023-10-07] MEDS: ATORVASTATIN CA 40 MG TABLET (FP) PO SCH (22:25)
[2023-10-08] MEDS: PRENATAL VITAMINS W/ FOLIC ACID TABLET (FP) PO SCH (10:13)
[2023-10-08 15:19] LABS: CHLORIDE 107 mmol/L (98-107); POTASSIUM 3.8 mmol/L (3.5-5.1); SODIUM 139 mmol/L (136-145)
[2023-10-08 15:22] LABS: HEMATOCRIT 39.1 % (32.4-45.2); HEMOGLOBIN 13.3 GM/dL (10.7-15.3); MCH 31.8 pg (25.7-33.7); MEAN CELL VOLUME 93.6 fl (80-96); MEAN PLT VOLUME 7.6 fl (7.5-11.1); PLATELET COUNT 294 10^3/uL (134-434); RBC 4.17 M/mm3 (3.60-5.2); RDW 14.7 % (11.6-15.6); WHITE BLOOD COUNT 5.7 K/mm3 (4.0-10.0)
[2023-10-08 15:31] LABS: ALBUMIN 3.4 g/dl (3.4-5.0); ANION GAP 7 mmol/L (4-13); BLOOD UREA NITROGEN 19.1 mg/dL (7-18); CO2 25 mmol/L (21-32)
[2023-10-08 15:32] LABS: GLUCOSE,RANDOM 149 mg/dL (74-106)
[2023-10-08 15:34] LABS: CREATININE 0.7 mg/dL (0.55-1.3); SGPT/ALT 13 U/L (13-61)
[2023-10-08 15:35] LABS: SGOT/AST 15 U/L (15-37)
[2023-10-08 15:36] LABS: BILIRUBIN,TOTAL 0.3 mg/dL (0.2-1); TOT PROT 7.6 g/dl (6.4-8.2)
[2023-10-08 15:37] LABS: ALK PHOS 78 U/L (45-117)
[2023-10-08] MEDS: QUEtiapine FUMARATE 200 MG TABLET PO SCH (22:18)
[2023-10-08] MEDS: MIRTAZAPINE 15 MG TABLET (FP) PO SCH ×2 (22:18)
[2023-10-09] MEDS: diazePAM 5 MG TABLET PO SCH (05:16)
[2023-10-10] MEDS: diazePAM 5 MG TABLET PO SCH (05:55)
[2023-10-10] MEDS: BENZOCAINE/MENTHOL (CHLORASEPTIC ) LOZENGE MM PRN (10:04)
[2023-10-10 14:43] LABS: EPI CELLS 8 /uL (0-25.1); HYALINE CASTS 0 /uL (0-3.1); URINE APPEARANCE CLEAR; URINE BACTERIA 5308 /uL (0-1359); URINE BILIRUBIN NEGATIVE (NEGATIVE); URINE COLOR YELLOW; URINE GLUCOSE (UA) NEGATIVE (NEGATIVE); URINE KETONE NEGATIVE (NEGATIVE); URINE LEUK ESTERASE 2+ (NEGATIVE); URINE NITRITE NEGATIVE (NEGATIVE); URINE PROTEIN NEGATIVE (NEGATIVE); URINE RBC 14 /uL (0-23.9); URINE UROBILINOGEN 0.2 mg/dL (0.2-1.0); URINE WBC 13 /uL (0-25.8)
[2023-10-10] MEDS ORDERED: NITROFURANTOIN MACROCRYSTAL 50 MG CAPSULE (FP) PO SCH (15:15)
[2023-10-10] MEDS: P-EPHED 60MG/TRIPROLIDI 2.5MG TABLET PO PRN (17:11)
[2023-10-10] MEDS: ALBUTEROL SO4 HFA INHALER IH PRN (17:15)
[2023-10-10] MEDS: BICTEGRAV/EMTRICIT/TENOFOV (BIKTARVY) 50-200-25 MG TABLET PO SCH (17:15)
[2023-10-10] MEDS: NITROFURANTOIN MACROCRYSTAL 50 MG CAPSULE (FP) PO SCH (18:17)
[2023-10-10] MEDS: ALBUTEROL SO4 2.5/IPRATROPIUM 0.5 INH SOL 3 ML VIAL.NEB. NEB ONE (21:11)
[2023-10-10] MEDS: predniSONE 20 MG TABLET (UD) PO SCH (21:12)
[2023-10-10] MEDS: QUEtiapine FUMARATE 300 MG TABLET PO SCH (22:08)
[2023-10-10] MEDS: guaiFENesin 600 MG TABLET.ER (FP) PO SCH (22:08)
[2023-10-10] MEDS: TETRAHYDROZOLINE HCL EYE DROPS OU PRN (22:09)
[2023-10-10] MEDS: DOCUSATE SODIUM 100 MG CAPSULE (FP) PO PRN (22:12)
[2023-10-11] MEDS: diazePAM 5 MG TABLET PO ONE (06:28)
[2023-10-11] MEDS ORDERED: SULFAMETHOXAZOLE/TRIMETHOPRIM 800MG/160MG D.S. TABLET PO SCH (14:45)
[2023-10-11] MEDS ORDERED: AZITHROMYCIN 500 MG TABLET PO ONE (15:15)
[2023-10-11] MEDS: AZITHROMYCIN 250 MG TABLET PO ONE (15:17)
[2023-10-11] MEDS: ALBUTEROL SO4 2.5/IPRATROPIUM 0.5 INH SOL 3 ML VIAL.NEB. NEB PRN (20:15)
[2023-10-11] MEDS: NITROFURANTOIN MONOHYD/M-CRYST 100 MG CAPSULE PO SCH (22:28)
[2023-10-12] MEDS: AZITHROMYCIN 250 MG TABLET PO SCH (10:38)
[2023-10-12] MEDS: guaiFENesin 200 MG/10 ML 10 ML UNIT-DOSE CUPS PO PRN (17:42)
[2023-10-12] MEDS: MAG HYDROX/AL HYDROX/SIMETH 30 ML UNIT-DOSE CUP PO PRN (18:24)
[2023-10-13 09:07] VITALS: RESP 18; TEMP 97.6
[2023-10-13 13:50] VITALS: BP 100/67; PULSE 88
[2023-10-13] MEDS: GABAPENTIN 100 MG CAPSULE PO SCH (14:00)
== END 2023-10-13 14:05 | disposition home or self-care (01) | DRG 774 ==
LOC: YASAS 12:18 → Y6N 14:52
PROVIDERS: ADMIT Allergy & Immunology; ATTEND Surgery
PROC: HZ2ZZZZ Detoxification Services for Substance Abuse Treatment (ICD-10-PCS; principal; 2023-10-07)
DX: F10.230 Alcohol dependence with withdrawal, uncomplicated (principal); F14.20 Cocaine dependence, uncomplicated; F17.210 Nicotine dependence, cigarettes, uncomplicated; F25.1 Schizoaffective disorder, depressive type; F19.282 Other psychoactive substance dependence with psychoactive substance-induced sleep disorder; F31.9 Bipolar disorder, unspecified; Z21 Asymptomatic human immunodeficiency virus [HIV] infection status; Z79.899 Other long term (current) drug therapy; I10 Essential (primary) hypertension; J43.0 Unilateral pulmonary emphysema [MacLeod's syndrome]; J45.20 Mild intermittent asthma, uncomplicated; G40.909 Epilepsy, unspecified, not intractable, without status epilepticus; N39.0 Urinary tract infection, site not specified; R91.8 Other nonspecific abnormal finding of lung field; R05.8 Other specified cough; Z88.2 Allergy status to sulfonamides
CPT/HCPCS: 0241U-QW; 36415; 71045-TC-FY; 80053; 80305; 80307; 81003; 85027; 86780; 87811; 93005; 93010; 94640

== ENCOUNTER 2023-10-13 14:10 | Inpatient (IN) | payer OTHER ==
[~2023-10-13 14:10] MED LIST: ACETAMINOPHEN 325 MG TABLET (FP) PO PRN; ALBUTEROL SO4 2.5/IPRATROPIUM 0.5 INH SOL 3 ML VIAL.NEB. NEB PRN; ALBUTEROL SO4 HFA INHALER IH PRN; ATORVASTATIN CA 40 MG TABLET (FP) PO SCH; BENZOCAINE/MENTHOL (CHLORASEPTIC ) LOZENGE MM PRN; BENZONATATE 200 MG CAPSULE PO PRN; IBUPROFEN 400 MG TABLET (FP) PO PRN; IBUPROFEN 600 MG TABLET (FP) PO PRN; LOPERAMIDE HCL 2 MG CAPSULE PO PRN; MAG HYDROX/AL HYDROX/SIMETH 30 ML UNIT-DOSE CUP PO PRN; MAGNESIUM HYDROX 2400MG/30ML ORAL SUSPENSION 30 ML CUP PO PRN; NICOTINE 7 MG/24 HOURS TOPICAL PATCH TD PRN; NICOTINE POLACRILEX 2 MG GUM BUC PRN; PATIENT'S OWN MEDICATION (NON-FORMULARY) (Nitrofurantoin Macrocrystal [Nitrofurantoin] 100 PO SCH; POLYETHYLENE GLYCOL (HEALTHYLAX) 3350 17 GM PACKET PO PRN; guaiFENesin 600 MG TABLET.ER (FP) PO PRN; hydrOXYzine PAMOATE 25 MG CAPSULE (FP) PO PRN
[2023-10-13] MEDS ORDERED: NICOTINE POLACRILEX 2 MG GUM BUC PRN (15:06)
[2023-10-13] MEDS ORDERED: ALBUTEROL SO4 HFA INHALER IH PRN (15:06)
[2023-10-13] MEDS ORDERED: ACETAMINOPHEN 325 MG TABLET (FP) PO PRN (15:08)
[2023-10-13] MEDS ORDERED: IBUPROFEN 400 MG TABLET (FP) PO PRN (15:08)
[2023-10-13] MEDS ORDERED: IBUPROFEN 600 MG TABLET (FP) PO PRN (15:08)
[2023-10-13] MEDS ORDERED: POLYETHYLENE GLYCOL (HEALTHYLAX) 3350 17 GM PACKET PO PRN (15:09)
[2023-10-13] MEDS ORDERED: LOPERAMIDE HCL 2 MG CAPSULE PO PRN (15:09)
[2023-10-13] MEDS ORDERED: MAGNESIUM HYDROX 2400MG/30ML ORAL SUSPENSION 30 ML CUP PO PRN (15:09)
[2023-10-13] MEDS ORDERED: BENZOCAINE/MENTHOL (CHLORASEPTIC ) LOZENGE MM PRN (15:11)
[2023-10-13] MEDS ORDERED: guaiFENesin 600 MG TABLET.ER (FP) PO PRN (15:11)
[2023-10-13] MEDS ORDERED: ALBUTEROL SO4 2.5/IPRATROPIUM 0.5 INH SOL 3 ML VIAL.NEB. NEB PRN (15:40)
[2023-10-13] MEDS: MAG HYDROX/AL HYDROX/SIMETH 30 ML UNIT-DOSE CUP PO PRN (18:26)
[2023-10-13] MEDS: MELATONIN 5 MG TABLETS PO SCH (21:40)
[2023-10-13] MEDS: NITROFURANTOIN MONOHYD/M-CRYST 100 MG CAPSULE PO SCH (21:41)
[2023-10-13] MEDS: QUEtiapine FUMARATE 300 MG TABLET PO SCH (21:41)
[2023-10-13] MEDS: levETIRAcetam 500 MG TABLET (FP) PO SCH (21:41)
[2023-10-13] MEDS: MIRTAZAPINE 15 MG TABLET (FP) PO SCH (21:41)
[2023-10-13] MEDS: THIAMINE 100 MG TABLET PO SCH (21:41)
[2023-10-13] MEDS: ATORVASTATIN CA 40 MG TABLET (FP) PO SCH (21:43)
[2023-10-14] MEDS: BICTEGRAV/EMTRICIT/TENOFOV (BIKTARVY) 50-200-25 MG TABLET PO SCH (09:00)
[2023-10-14] MEDS: AZITHROMYCIN 250 MG TABLET PO SCH (09:00)
[2023-10-14] MEDS: levETIRAcetam 500 MG TABLET (FP) PO SCH (09:00)
[2023-10-14] MEDS: predniSONE 20 MG TABLET (UD) PO SCH ×2 (09:01→09:09)
[2023-10-14] MEDS: PRENATAL VITAMINS W/ FOLIC ACID TABLET (FP) PO SCH ×2 (09:01→09:08)
[2023-10-14] MEDS: NITROFURANTOIN MONOHYD/M-CRYST 100 MG CAPSULE PO SCH (09:01)
[2023-10-14] MEDS: THIAMINE 100 MG TABLET PO SCH (09:03)
[2023-10-14] MEDS: ATORVASTATIN CA 40 MG TABLET (FP) PO SCH (09:04)
[2023-10-14] MEDS: QUEtiapine FUMARATE 300 MG TABLET PO SCH (09:04)
[2023-10-14] MEDS: MELATONIN 5 MG TABLETS PO SCH (09:04)
[2023-10-14] MEDS: MIRTAZAPINE 15 MG TABLET (FP) PO SCH (09:04)
[2023-10-14] MEDS: NICOTINE 7 MG/24 HOURS TOPICAL PATCH TD PRN (09:09)
[2023-10-14] MEDS: TUBERCULIN PPD 5 TU/0.1ML VIAL ID ONE (11:48)
[2023-10-14] MEDS ORDERED: BISMUTH SUBSALICYLATE 262 MG/15 ML BTL PO PRN (12:41)
[2023-10-14] MEDS ORDERED: DICYCLOMINE HCL 10 MG CAPSULE PO PRN (12:41)
[2023-10-14] MEDS: BENZONATATE 200 MG CAPSULE PO PRN (15:12)
[2023-10-14] MEDS: QUEtiapine FUMARATE 200 MG TABLET PO SCH (21:43)
[2023-10-16] MEDS: hydrOXYzine PAMOATE 25 MG CAPSULE (FP) PO PRN (22:10)
[2023-10-19] MEDS ORDERED: ALBUTEROL SO4 2.5/IPRATROPIUM 0.5 INH SOL 3 ML VIAL.NEB. NEB PRN (09:51)
[2023-10-19] MEDS ORDERED: BENZONATATE 200 MG CAPSULE PO PRN (09:54)
[2023-10-19] MEDS: guaiFENesin 600 MG TABLET.ER (FP) PO PRN (14:56)
[2023-10-19] MEDS: SUVOREXANT 10 MG TABLET PO PRN (21:30)
[2023-10-20 06:46] VITALS: BP 96/66; PULSE 93; RESP 16; TEMP 97
== END 2023-10-20 10:15 | disposition home or self-care (01) | DRG 772 ==
LOC: YASAS 14:10 → Y5N 14:12
PROVIDERS: ADMIT Allergy & Immunology; ATTEND Psychiatry & Neurology Pain Medicine
PROC: HZ42ZZZ Group Counseling for Substance Abuse Treatment, Cognitive-Behavioral (ICD-10-PCS; principal; 2023-10-13)
DX: F10.20 Alcohol dependence, uncomplicated (principal); F14.20 Cocaine dependence, uncomplicated; F12.20 Cannabis dependence, uncomplicated; F17.210 Nicotine dependence, cigarettes, uncomplicated; F19.282 Other psychoactive substance dependence with psychoactive substance-induced sleep disorder; F31.9 Bipolar disorder, unspecified; Z21 Asymptomatic human immunodeficiency virus [HIV] infection status; G40.909 Epilepsy, unspecified, not intractable, without status epilepticus; J44.9 Chronic obstructive pulmonary disease, unspecified; J45.20 Mild intermittent asthma, uncomplicated; I10 Essential (primary) hypertension; E78.5 Hyperlipidemia, unspecified; N39.0 Urinary tract infection, site not specified; B96.89 Other specified bacterial agents as the cause of diseases classified elsewhere; Z88.2 Allergy status to sulfonamides
CPT/HCPCS: 82962

== ENCOUNTER 2024-07-07 13:59 | Inpatient (IN) | payer OTHER ==
[2024-07-07 14:24] VITALS: BMI 22.3
[2024-07-07] MEDS ORDERED: ALBUTEROL SO4 2.5/IPRATROPIUM 0.5 INH SOL 3 ML VIAL.NEB. NEB PRN (15:11)
[2024-07-07] MEDS ORDERED: NICOTINE POLACRILEX 2 MG LOZENGE BC PRN (15:15)
[2024-07-07] MEDS ORDERED: guaiFENesin 600 MG TABLET.ER (FP) PO PRN (15:15)
[2024-07-07] MEDS ORDERED: IBUPROFEN 400 MG TABLET (FP) PO PRN (15:15)
[2024-07-07] MEDS ORDERED: ONDANSETRON *ODT* 4 MG TABLET SL PRN (15:15)
[2024-07-07] MEDS ORDERED: LOPERAMIDE HCL 2 MG CAPSULE PO PRN (15:15)
[2024-07-07] MEDS ORDERED: BISMUTH SUBSALICYLATE 524 MG/30 ML PO PRN (15:15)
[2024-07-07] MEDS ORDERED: BENZOCAINE/MENTHOL (CHLORASEPTIC ) LOZENGE MM PRN (15:15)
[2024-07-07] MEDS ORDERED: ACETAMINOPHEN 325 MG TABLET (FP) PO PRN (15:15)
[2024-07-07] MEDS ORDERED: POLYETHYLENE GLYCOL (HEALTHYLAX) 3350 17 GM PACKET PO PRN (15:15)
[2024-07-07] MEDS ORDERED: NALOXONE (NARCAN) HCL 4 MG/0.1 ML SPRAY NS PRN (15:15)
[2024-07-07] MEDS ORDERED: MAGNESIUM HYDROX 2400MG/30ML ORAL SUSPENSION 30 ML CUP PO PRN (15:15)
[2024-07-07] MEDS ORDERED: NICOTINE POLACRILEX 2 MG GUM BUC PRN (15:15)
[2024-07-07] MEDS ORDERED: levETIRAcetam 500 MG TABLET (FP) PO ONE (16:05)
[2024-07-07] MEDS: levETIRAcetam 500 MG TABLET (FP) PO SCH (16:06)
[2024-07-07] MEDS: BENZONATATE 200 MG CAPSULE PO PRN (16:57)
[2024-07-07] MEDS: diazePAM 5 MG TABLET PO PRN (19:10)
[2024-07-07] MEDS: ALBUTEROL SO4 HFA INHALER IH PRN (19:12)
[2024-07-07] MEDS: diazePAM 5 MG TABLET PO SCH (22:21)
[2024-07-07] MEDS: MELATONIN 5 MG TABLETS PO SCH (22:27)
[2024-07-07] MEDS: THIAMINE 100 MG TABLET PO SCH (22:27)
[2024-07-07] MEDS: P-EPHED 60MG/TRIPROLIDI 2.5MG TABLET PO PRN (22:28)
[2024-07-08] MEDS: PRENATAL VITAMINS W/ FOLIC ACID TABLET (FP) PO SCH (10:02)
[2024-07-08] MEDS: IBUPROFEN 600 MG TABLET (FP) PO PRN (10:02)
[2024-07-08 10:04] LABS: HEMATOCRIT 38.8 % (32.4-45.2); HEMOGLOBIN 12.8 GM/dL (10.7-15.3); MCH 31.6 pg (25.7-33.7); MEAN CELL VOLUME 95.8 fl (80-96); MEAN PLT VOLUME 6.6 fl (7.5-11.1); PLATELET COUNT 466 10^3/uL (134-434); RBC 4.05 M/mm3 (3.60-5.2); RDW 16.7 % (11.6-15.6); WHITE BLOOD COUNT 7.4 K/mm3 (4.0-10.0)
[2024-07-08 10:27] LABS: ALBUMIN 2.9 g/dl (3.4-5.0); BILIRUBIN,TOTAL 0.5 mg/dL (0.2-1); BLOOD UREA NITROGEN 20.7 mg/dL (7-18); CALCIUM 8.5 mg/dL (8.5-10.1); CREATININE 0.7 mg/dL (0.55-1.3); POTASSIUM 4.7 mmol/L (3.5-5.1); TOT PROT 7.8 g/dl (6.4-8.2)
[2024-07-08] MEDS: GABAPENTIN 300 MG CAPSULE PO SCH (13:59)
[2024-07-08] MEDS: ATORVASTATIN CA 40 MG TABLET (FP) PO SCH (22:14)
[2024-07-08] MEDS: MIRTAZAPINE 15 MG TABLET (FP) PO SCH (22:14)
[2024-07-08] MEDS: QUEtiapine FUMARATE 200 MG TABLET PO SCH (22:15)
[2024-07-08] MEDS: BUDESONIDE/FORMETEROL FUMARATE 160/4.5 mcg INHALER IH SCH (22:15)
[2024-07-09] MEDS: diazePAM 5 MG TABLET PO SCH (06:00)
[2024-07-09] MEDS: BICTEGRAV/EMTRICIT/TENOFOV (BIKTARVY) 50-200-25 MG TABLET PO SCH (07:44)
[2024-07-09] MEDS ORDERED: levETIRAcetam 250 MG TABLET PO ONE (10:49)
[2024-07-10] MEDS: diazePAM 5 MG TABLET PO SCH (05:47)
[2024-07-10] MEDS: NALTREXONE HCL 50 MG TABLET PO ONE (13:51)
[2024-07-10] MEDS: GABAPENTIN 400 MG CAPSULE PO SCH (22:12)
[2024-07-10] MEDS: QUEtiapine FUMARATE 400 MG TABLET PO SCH (22:12)
[2024-07-11] MEDS: MAG HYDROX/AL HYDROX/SIMETH 30 ML UNIT-DOSE CUP PO PRN (01:30)
[2024-07-11] MEDS: diazePAM 5 MG TABLET PO ONE (06:21)
[2024-07-11] MEDS: NALTREXONE HCL 50 MG TABLET PO SCH (09:33)
[2024-07-11 13:30] VITALS: BP 107/75; PULSE 100; RESP 20; TEMP 97.2
== END 2024-07-11 13:31 | disposition other institution (70) | DRG 774 ==
LOC: YASAS 13:59 → Y6N 18:19
PROVIDERS: ADMIT Allergy & Immunology; ATTEND Allergy & Immunology
PROC: HZ2ZZZZ Detoxification Services for Substance Abuse Treatment (ICD-10-PCS; principal; 2024-07-07)
DX: F10.230 Alcohol dependence with withdrawal, uncomplicated (principal); F14.20 Cocaine dependence, uncomplicated; F17.213 Nicotine dependence, cigarettes, with withdrawal; F19.282 Other psychoactive substance dependence with psychoactive substance-induced sleep disorder; F25.9 Schizoaffective disorder, unspecified; F19.24 Other psychoactive substance dependence with psychoactive substance-induced mood disorder; Z21 Asymptomatic human immunodeficiency virus [HIV] infection status; E78.2 Mixed hyperlipidemia; J43.0 Unilateral pulmonary emphysema [MacLeod's syndrome]; J45.20 Mild intermittent asthma, uncomplicated; M79.2 Neuralgia and neuritis, unspecified; G40.909 Epilepsy, unspecified, not intractable, without status epilepticus; Z79.899 Other long term (current) drug therapy; Z88.2 Allergy status to sulfonamides
CPT/HCPCS: 0241U-QW; 36415; 71045-TC-FY; 80053; 80305; 80307; 85027; 86780; 87811; 93005; 93010